=== PATIENT | male | born 1950 | race Caucasian/White ===

== ENCOUNTER 2017-06-16 02:28 | Emergency (ER) | payer MEDICARE, OTHER ==
[2017-06-16 02:39] VITALS: RESP 18
[2017-06-16] MEDS ORDERED: MORPHINE SULFATE 4 MG/ML SYRINGE IV STA (02:56)
--- NOTE | 2017-06-16 04:40 | XR ---
EXAM: XR Right Ribs, 2 Views CLINICAL HISTORY: Reason: Pain TECHNIQUE: Frontal and oblique views of the right ribs. COMPARISON: No relevant prior studies available. FINDINGS: Lungs: Lungs are clear. Pleural space: No evidence of pneumothorax or pleural effusion. Heart: Heart size is mildly enlarged. Mediastinum: Mediastinal structures are unremarkable. Bones/joints: Right RIBS 2 views:No definite acute rib fractures identified, although lower ribs suboptimally visualized on limited rib series. Tubes, lines and devices: AP chest radiograph: Previous median sternotomy. Cardiac pacer/defibrillator device has leads extending to region of right ventricle. IMPRESSION: Previous median sternotomy. Mild cardiomegaly. No evidence of acute cardiopulmonary disease. No definite acute right rib fractures identified.
--- NOTE | 2017-06-16 04:44 | ED ---
Fall HPI - General Chief Complaint: Fall Stated Complaint: fall Time Seen by Provider: 06/16/17 02:55 Source: patient Mode of arrival: EMS - History of Present Illness Initial Comments: This patient is a 66-year-old man who presents to be evaluated for pain to his right side. This has developed over the course the day after he had a fall at home around 10 the morning. Patient states that he was not able to sleep due to sharp pains. He indicates the right-sided ribs. The patient denies dyspnea , cough or hemoptysis, diaphoresis, or other chest symptoms. MD Complaint: fall Onset/Timin -: hour(s) Fall From: standing Place Fall Occurred: home Loss of Consciousness: none Prolonged Down Time?: no Symptoms Prior to Fall: none Location: chest Severity: moderate Quality: sharp Context: tripped/slipped Associated Symptoms: denies - Related Data Home Medications Medication Instructions Recorded Confirmed Amiodarone [Cordarone] 200 mg PO DAILY 06/16/17 06/16/17 Aspirin EC [Ecotrin Low Dose] 81 mg PO DAILY 06/16/17 06/16/17 Carvedilol [Coreg] 6.25 mg PO BID 06/16/17 06/16/17 Donepezil [Aricept] 1 tab PO HS 06/16/17 06/16/17 Furosemide [Lasix] 20 mg PO DAILY 06/16/17 06/16/17 Gabapentin [Neurontin] 300 mg PO TID 06/16/17 06/16/17 HYDROcodone/APAP 10-325MG [[place] 1 tab PO Q4HR 06/16/17 06/16/17 10-325] Ipratropium Nebulized [Atrovent 1 inhaler PO Q4HR PRN 06/16/17 06/16/17 Nebulized] Omeprazole 20 mg PO BID 06/16/17 06/16/17 Spironolactone [Aldactone] 1 tab PO DAILY 06/16/17 06/16/17 Warfarin [Coumadin] 2.5 mg PO DAILY 06/16/17 06/16/17 levETIRAcetam 300 mg PO BID 06/16/17 06/16/17 Allergies Allergy/AdvReac Type Severity Reaction Status Date / Time No Known Allergies Allergy Verified 06/16/17 02:39 Review of Systems ROS Statement: Those systems with pertinent positive or pertinent negative responses have been documented in the HPI. ROS Other: All systems not noted in ROS Statement are negative. Constitutional: Denies: fever, chills, weakness Respiratory: Denies: cough, dyspnea, wheezes, hemoptysis Cardiovascular: Reports: as per HPI, chest pain. Denies: palpitations, orthopnea Gastrointestinal: Denies: abdominal pain, vomiting, diarrhea Genitourinary: Denies: dysuria, hematuria Musculoskeletal: Denies: back pain Neurological: Denies: headache Past Medical History Past Medical History: Asthma, Chest Pain / Angina, Heart Failure, CVA/TIA, Myocardial Infarction ([place]), Thyroid Disorder Additional Past Medical History / Comment(s): AICD History of Any Multi-Drug Resistant Organisms: None Reported Past Surgical History: Back Surgery, Coronary Bypass/CABG, Heart Catheterization With Stent Past Psychological History: No Psychological Hx Reported Smoking Status: Current every day smoker General Exam General appearance: alert, in no apparent distress Head exam: Present: atraumatic, normocephalic Neck exam: Present: normal inspection, full ROM. Absent: tenderness Respiratory exam: Present: normal lung sounds bilaterally, chest wall tenderness. Absent: respiratory distress, wheezes, rales, rhonchi, stridor, decreased breath sounds, prolonged expiratory Cardiovascular Exam: Present: regular rate, normal rhythm, normal heart sounds GI/Abdominal exam: Present: soft. Absent: distended, tenderness, guarding, rebound, mass Extremities exam: Present: normal inspection, normal capillary refill. Absent: pedal edema, calf tenderness Back exam: Present: normal inspection. Absent: CVA tenderness (R), CVA tenderness (L) Neurological exam: Present: alert, normal gait Skin exam: Present: warm, dry, intact, normal color. Absent: rash Course Vital Signs 06/16/17 06/16/17 06/16/17 02:32 03:41 05:00 Temperature 96.8 F L 98.6 F Pulse Rate 56 L 56 L 54 L Respiratory 18 18 18 Rate Blood Pressure 170/76 110/64 107/65 O2 Sat by Pulse 95 94 L 95 Oximetry Disposition Clinical Impression: Fall, Chest wall injury Disposition: HOME SELF-CARE Condition: Fair Instructions: Fall Prevention for Older Adults (ED) Referrals: Nonstaff,Physician [Primary Care Provider] - 1-2 days
[2017-06-16 05:01] VITALS: BP 107/65; PULSE 54; TEMP 98.6
--- NOTE | 2017-06-21 06:26 | CDI ---
Documentation Clarification OP Dear Abram MOORE MD Please do addendum to ED report for HPI and physical exam. Thank you, Gabriela Espinosa Candle Wicker If you have any question, Please contact coding clerk at [phone] [facility]
== END 2017-06-16 05:10 | disposition home or self-care (01) ==
LOC: EC 02:28
DX: S29.9XXA Unspecified injury of thorax, initial encounter (principal); I25.2 Old myocardial infarction; E07.9 Disorder of thyroid, unspecified; I50.9 Heart failure, unspecified; F17.200 Nicotine dependence, unspecified, uncomplicated; Z86.73 Personal history of transient ischemic attack (TIA), and cerebral infarction without residual deficits; Z79.82 Long term (current) use of aspirin; Z79.01 Long term (current) use of anticoagulants; Z79.899 Other long term (current) drug therapy; W19.XXXA Unspecified fall, initial encounter; Y92.009 Unspecified place in unspecified non-institutional (private) residence as the place of occurrence of the external cause
CPT/HCPCS: 99284 ×2; 96374 ×2; 71101; J2270

== ENCOUNTER 2017-11-12 10:05 | Inpatient (IN) | payer MEDICARE, OTHER ==
[2017-11-12 10:28] LABS: Basophils % (A) 1 %; Eosinophils # (A) 0.1 k/uL (0-0.7); Eosinophils % (A) 2 %; HCT 39.3 % (39.0-53.0); Hypochromasia Moderate; Lymphocytes % (A) 20 %; MCHC 30.4 g/dL (31.0-37.0); MCV 91.9 fL (80.0-100.0); Monocytes # (A) 0.4 k/uL (0-1.0); Monocytes % (A) 7 %; Neutrophils # (A) 3.4 k/uL (1.3-7.7); Neutrophils % (A) 68 %; Platelet Count 263 k/uL (150-450); RBC 4.28 m/uL (4.30-5.90); RDW 15.3 % (11.5-15.5)
--- NOTE | 2017-11-12 10:28 | ED ---
General Adult HPI - General Chief complaint: Recheck/Abnormal Lab/Rx Stated complaint: Cardiac Symptoms Time Seen by Provider: 11/12/17 10:10 Source: patient, EMS, RN notes reviewed, old records reviewed Mode of arrival: EMS Limitations: no limitations - History of Present Illness Initial comments: This is a 67-year-old male to the ER for evaluation of heart issues. Patient has history of heart disease history of defibrillator. Patient states his defibrillator went off today, no prior history of similar events. Patient is without chest pain or shortness of breath, no recent change in medications. Patient eating normal diet, no recent nausea vomiting or diarrhea. Patient has no other complaints - Related Data Home Medications Medication Instructions Recorded Confirmed Amiodarone [Cordarone] 200 mg PO QAM 06/16/17 10/16/17 Aspirin EC [Ecotrin Low Dose] 81 mg PO DAILY 06/16/17 10/16/17 Carvedilol [Coreg] 6.25 mg PO BID 06/16/17 10/16/17 Donepezil [Aricept] 10 mg PO HS 06/16/17 10/16/17 HYDROcodone/APAP 10-325MG [[place] 1 tab PO TID 06/16/17 10/16/17 10-325] Ipratropium Nebulized [Atrovent 1 puff INHALATION RT-Q4H PRN 06/16/17 10/16/17 Nebulized] Omeprazole 20 mg PO BID 06/16/17 10/16/17 Atorvastatin [Lipitor] 40 mg PO QAM 10/16/17 10/16/17 Gabapentin [Neurontin] 300 mg PO TID 10/16/17 10/16/17 Previous Rx's Medication Instructions Recorded Clopidogrel [Plavix] 75 mg PO DAILY #30 tab 10/20/17 Lisinopril [Zestril] 10 mg PO DAILY #30 tab 10/20/17 Nitroglycerin Sl Tabs [Nitrostat] 0.4 mg SUBLINGUAL Q5M PRN #25 tab 10/20/17 Allergies Allergy/AdvReac Type Severity Reaction Status Date / Time No Known Allergies Allergy Verified 11/12/17 10:13 Review of Systems ROS Statement: Those systems with pertinent positive or pertinent negative responses have been documented in the HPI. ROS Other: All systems not noted in ROS Statement are negative. Past Medical History Past Medical History: Asthma, Chest Pain / Angina, Heart Failure, COPD, CVA/TIA , Myocardial Infarction ([place]), Thyroid Disorder Additional Past Medical History / Comment(s): AICD, chronic pain in back, legs, and arms Last Myocardial Infarction Date:: unsure History of Any Multi-Drug Resistant Organisms: None Reported Past Surgical History: Back Surgery, Coronary Bypass/CABG, Heart Catheterization With Stent Past Anesthesia/Blood Transfusion Reactions: No Reported Reaction Date of Last Stent Placement:: 04/07/2004 Past Psychological History: No Psychological Hx Reported Smoking Status: Current every day smoker Past Alcohol Use History: None Reported Past Drug Use History: None Reported - Past Family History Mother Family Medical History: Myocardial Infarction (AL) General Exam Limitations: no limitations General appearance: alert, in no apparent distress Head exam: Present: atraumatic, normocephalic, normal inspection Eye exam: Present: normal appearance, PERRL, EOMI. Absent: scleral icterus, conjunctival injection, periorbital swelling ENT exam: Present: normal exam, mucous membranes moist Neck exam: Present: normal inspection. Absent: tenderness, meningismus, lymphadenopathy Respiratory exam: Present: normal lung sounds bilaterally. Absent: respiratory distress, wheezes, rales, rhonchi, stridor Cardiovascular Exam: Present: regular rate, normal rhythm, normal heart sounds. Absent: systolic murmur, diastolic murmur, rubs, gallop, clicks GI/Abdominal exam: Present: soft, normal bowel sounds. Absent: distended, tenderness, guarding, rebound, rigid Extremities exam: Present: normal inspection, full ROM, normal capillary refill. Absent: tenderness, pedal edema, joint swelling, calf tenderness Back exam: Present: normal inspection Neurological exam: Present: alert, oriented X3, CN II-XII intact Psychiatric exam: Present: normal affect, normal mood Skin exam: Present: warm, dry, intact, normal color. Absent: rash Course Vital Signs 11/12/17 10:06 Temperature 97.5 F L Pulse Rate 79 Respiratory 20 Rate Blood Pressure 105/64 O2 Sat by Pulse 95 Oximetry - Reevaluation(s) Reevaluation #1: 11/12/17 10:[address] [place] defibrillator pacemaker here in the ER Reevaluation #2: 11/12/17 11:15 Patient continues to deny any chest pain, no further discharge EKG Findings - EKG Comments: EKG Findings:: EKG shows normal sinus rhythm rate of 81, MN 182, QRS 1:30, QTc 504 Medical Decision Making - Medical Decision Making 67-year-old ER for evaluation of the fibular discharge, no chest pain. Patient is of elevated troponin, patient will be admitted for anticoagulation and evaluation by cardiology - Lab Data Result diagrams: 11/12/17 10:12 11/12/17 10:12 Lab Results 11/12/17 11/12/17 11/12/17 Range/Units 10:12 10:12 10:12 WBC 5.0 (3.8-10.6) k/uL RBC 4.28 L (4.30-5.90) m/uL Hgb 12.0 L (13.0-17.5) gm/dL Hct 39.3 (39.0-53.0) % MCV 91.9 (80.0-100.0) fL MCH 28.0 (25.0-35.0) pg MCHC 30.4 L (31.0-37.0) g/dL RDW 15.3 (11.5-15.5) % Plt Count 263 (150-450) k/uL Neutrophils % 68 % Lymphocytes % 20 % Monocytes % 7 % Eosinophils % 2 % Basophils % 1 % Neutrophils # 3.4 (1.3-7.7) k/uL Lymphocytes # 1.0 (1.0-4.8) k/uL Monocytes # 0.4 (0-1.0) k/uL Eosinophils # 0.1 (0-0.7) k/uL Basophils # 0.0 (0-0.2) k/uL Hypochromasia Moderate PT (9.0-12.0) sec INR (<1.2) APTT (22.0-30.0) sec D-Dimer (<0.60) mg/L FEU Sodium 147 H (137-145) mmol/L Potassium 4.6 (3.5-5.1) mmol/L Chloride 112 H (98-107) mmol/L Carbon Dioxide 27 (22-30) mmol/L Anion Gap 8 mmol/L BUN 18 (9-20) mg/dL Creatinine 1.30 H (0.66-1.25) mg/dL Est GFR (MDRD) Af Amer >60 (>60 ml/min/1.73 sqM) Est GFR (MDRD) Non-Af 55 (>60 ml/min/1.73 sqM) Glucose 138 H (74-99) mg/dL Calcium 9.3 (8.4-10.2) mg/dL Magnesium 2.2 (1.6-2.3) mg/dL Total Bilirubin 0.3 (0.2-1.3) mg/dL AST 26 (17-59) U/L ALT 50 (21-72) U/L Alkaline Phosphatase 87 (38-126) U/L Total Creatine Kinase 131 (55-170) U/L CK-MB (CK-2) 11.8 H* (0.0-2.4) ng/mL CK-MB (CK-2) Rel Index 9.0 Troponin I 1.740 H* (0.000-0.034) ng/mL Total Protein 5.7 L (6.3-8.2) g/dL Albumin 3.1 L (3.5-5.0) g/dL Lipase 87 (23-300) U/L 11/12/17 Range/Units 10:12 WBC (3.8-10.6) k/uL RBC (4.30-5.90) m/uL Hgb (13.0-17.5) gm/dL Hct (39.0-53.0) % MCV (80.0-100.0) fL MCH (25.0-35.0) pg MCHC (31.0-37.0) g/dL RDW (11.5-15.5) % Plt Count (150-450) k/uL Neutrophils % % Lymphocytes % % Monocytes % % Eosinophils % % Basophils % % Neutrophils # (1.3-7.7) k/uL Lymphocytes # (1.0-4.8) k/uL Monocytes # (0-1.0) k/uL Eosinophils # (0-0.7) k/uL Basophils # (0-0.2) k/uL Hypochromasia PT 19.3 H (9.0-12.0) sec INR 2.1 H (<1.2) APTT 27.3 (22.0-30.0) sec D-Dimer 3.12 H (<0.60) mg/L FEU Sodium (137-145) mmol/L Potassium (3.5-5.1) mmol/L Chloride (98-107) mmol/L Carbon Dioxide (22-30) mmol/L Anion Gap mmol/L BUN (9-20) mg/dL Creatinine (0.66-1.25) mg/dL Est GFR (MDRD) Af Amer (>60 ml/min/1.73 sqM) Est GFR (MDRD) Non-Af (>60 ml/min/1.73 sqM) Glucose (74-99) mg/dL Calcium (8.4-10.2) mg/dL Magnesium (1.6-2.3) mg/dL Total Bilirubin (0.2-1.3) mg/dL AST (17-59) U/L ALT (21-72) U/L Alkaline Phosphatase (38-126) U/L Total Creatine Kinase (55-170) U/L CK-MB (CK-2) (0.0-2.4) ng/mL CK-MB (CK-2) Rel Index Troponin I (0.000-0.034) ng/mL Total Protein (6.3-8.2) g/dL Albumin (3.5-5.0) g/dL Lipase (23-300) U/L Critical Care Time Critical Care Time: Yes Total Critical Care Time: 31 Disposition Clinical Impression: Unstable angina pectoris, Defibrillator discharge, NSTEMI (non-ST elevated myocardial infarction), Elevated troponin Disposition: ADMITTED IP TO THIS HOSP Condition: Serious Referrals: Lee Andujar MD [Primary Care Provider] - 1-2 days
[2017-11-12 10:38] LABS: D-Dimer 3.12 mg/L FEU (<0.60)
[2017-11-12 10:42] LABS: INR 2.1 (<1.2); Partial Thromboplastin Time 27.3 sec (22.0-30.0); Prothrombin Time 19.3 sec (9.0-12.0)
[2017-11-12 10:54] LABS: ALT 50 U/L (21-72); AST 26 U/L (17-59); Albumin 3.1 g/dL (3.5-5.0); Alkaline Phosphatase 87 U/L (38-126); Anion Gap 8 mmol/L; Blood Urea Nitrogen 18 mg/dL (9-20); Calcium 9.3 mg/dL (8.4-10.2); Carbon Dioxide 27 mmol/L (22-30); Chloride 112 mmol/L (98-107); Glucose 138 mg/dL (74-99); Lipase 87 U/L (23-300); Magnesium 2.2 mg/dL (1.6-2.3); Potassium 4.6 mmol/L (3.5-5.1); Sodium 147 mmol/L (137-145); Total Bilirubin 0.3 mg/dL (0.2-1.3); Total Protein 5.7 g/dL (6.3-8.2)
[2017-11-12 11:09] LABS: Creatine Kinase MB 11.8 ng/mL (0.0-2.4); Troponin I 1.74 ng/mL (0.000-0.034)
[2017-11-12] MEDS ORDERED: NITROGLYCERIN SL TABS 0.4 MG TAB SUBLINGUAL PRN ×2 (11:12→13:57)
[2017-11-12] MEDS ORDERED: HEPARIN SODIUM,PORCINE 5,000 UNIT/ML 1 ML VIAL IV ONE (11:12)
[2017-11-12] MEDS ORDERED: HEPARIN SODIUM,PORCINE 5,000 UNIT/ML 1 ML VIAL IV PRN (11:12)
[2017-11-12] MEDS ORDERED: MORPHINE SULFATE 5 MG/ML SYRINGE IV PRN (11:12)
[2017-11-12] MEDS ORDERED: ASPIRIN 81 MG PO STA (11:12)
[2017-11-12] MEDS ORDERED: HEPARIN SOD,PORK IN 0.45% NACL 25,000 UNIT in 0.45% NACL 1 500ML.BAG IV SCH (11:15)
[2017-11-12] MEDS: SODIUM CHLORIDE 0.9% 1,000 ML IV SCH ×2 (11:29→20:14)
[2017-11-12] MEDS ORDERED: IPRATROPIUM 0.5 MG/2.5 ML NEBU INHALATION PRN (13:57)
[2017-11-12] MEDS ORDERED: ALBUTEROL NEBULIZED 2.5 MG/3 ML INHALATION PRN (13:57)
[2017-11-12] MEDS: IPRATROPIUM-ALBUTEROL 3 ML NEB INHALATION PRN (15:23)
[2017-11-12] MEDS: HYDROcodone/APAP 10-325MG 1 EACH TAB PO SCH ×2 (15:38→20:13)
[2017-11-12] MEDS: GABAPENTIN 300 MG CAP PO SCH ×2 (15:39→20:14)
[2017-11-12 17:57] LABS: Creatine Kinase MB 15.8 ng/mL (0.0-2.4); Troponin I 3.85 ng/mL (0.000-0.034)
[2017-11-12] MEDS: IPRATROPIUM 0.5 MG/2.5 ML NEBU INHALATION SCH (19:39)
[2017-11-12] MEDS ORDERED: DEXTROSE 5% IN WATER 100 ML with AMIODARONE 150 MG IV ONE (20:00)
[2017-11-12 20:16] LABS: Glucose,Whole Blood 118 mg/dL (75-99)
[2017-11-12] MEDS: AMIODARONE 450 MG in DEXTROSE 5% IN WATER 250 ML IV SCH ×2 (20:37)
--- NOTE | 2017-11-12 20:53 | XR ---
EXAMINATION TYPE: XR chest 1V portable DATE OF EXAM: 11/12/2017 COMPARISON: 10/16/2017 HISTORY: Chest pain TECHNIQUE: Single frontal view of the chest is obtained. FINDINGS: Heart is enlarged. There is no gross heart failure. Costophrenic angles are clear. There i s a left axillary pacemaker with the lead tip in the right ventricle. There are sternal wires. There are chest leads. IMPRESSION: Cardiomegaly. No overt heart failure. No adverse change compared to last exam.
[2017-11-12] MEDS ORDERED: WARFARIN 1.5 MG TAB PO SCH (21:00)
[2017-11-12] MEDS ORDERED: METOPROLOL TARTRATE 25 MG TAB PO SCH (21:00)
[2017-11-12] MEDS: LIDOCAINE-D5W PMX 2G/500ML 2,000 MG in DEXTROSE/WATER 1 500ML.BAG IV SCH (21:23)
[2017-11-12 21:36] LABS: Glucose,Whole Blood 160 mg/dL (75-99)
[2017-11-12 21:51] LABS: Basophils % (A) 1 %; Eosinophils # (A) 0.1 k/uL (0-0.7); Eosinophils % (A) 2 %; HCT 32.8 % (39.0-53.0); HGB 10.1 gm/dL (13.0-17.5); Hypochromasia Marked; Lymphocytes # (A) 1.1 k/uL (1.0-4.8); Lymphocytes % (A) 20 %; MCH 28.4 pg (25.0-35.0); MCHC 30.7 g/dL (31.0-37.0); MCV 92.3 fL (80.0-100.0); Mean Platelet Volume 8.3; Monocytes # (A) 0.5 k/uL (0-1.0); Monocytes % (A) 9 %; Neutrophils # (A) 3.9 k/uL (1.3-7.7); Neutrophils % (A) 67 %; Platelet Count 223 k/uL (150-450); RBC 3.55 m/uL (4.30-5.90); RDW 14.9 % (11.5-15.5); WBC 5.7 k/uL (3.8-10.6)
[2017-11-12 22:03] LABS: Ionized Calcium 4.7 mg/dL (4.5-5.3)
[2017-11-12 22:07] LABS: INR 3.1 (<1.2); Partial Thromboplastin Time 33.4 sec (22.0-30.0); Prothrombin Time 27.4 sec (9.0-12.0)
[2017-11-12 22:14] LABS: ALT 46 U/L (21-72); AST 27 U/L (17-59); Albumin 2.2 g/dL (3.5-5.0); Alkaline Phosphatase 63 U/L (38-126); Anion Gap 4 mmol/L; Blood Urea Nitrogen 16 mg/dL (9-20); Calcium 7.3 mg/dL (8.4-10.2); Carbon Dioxide 22 mmol/L (22-30); Chloride 109 mmol/L (98-107); Glucose 319 mg/dL (74-99); Magnesium 2.5 mg/dL (1.6-2.3); Phosphorus 2.3 mg/dL (2.5-4.5); Potassium 3.4 mmol/L (3.5-5.1); Sodium 135 mmol/L (137-145); Total Bilirubin 0.2 mg/dL (0.2-1.3); Total Protein 4.4 g/dL (6.3-8.2)
[2017-11-12 22:26] LABS: Creatine Kinase MB 13.7 ng/mL (0.0-2.4)
[2017-11-12 22:27] LABS: Troponin I 1.88 ng/mL (0.000-0.034)
[2017-11-12] MEDS ORDERED: Potassium Replacement Protocol 1 EACH MISC MISCELLANE PRN (22:27)
[2017-11-12] MEDS: MAGNESIUM SULFATE-D5W PMX 1 GM in DEXTROSE/WATER 1 100ML.BAG IVPB SCH ×2 (23:04→23:30)
[2017-11-12] MEDS: CARVEDILOL 6.25 MG TAB PO SCH (23:27)
[2017-11-12] MEDS: POTASSIUM CHLORIDE 10 MEQ, LIDOCAINE 2% INJ 10 MG in SODIUM CHLORIDE 0.9% 100 ML IV SCH (23:27)
[2017-11-12] MEDS: DONEPEZIL 10 MG TAB PO SCH (23:28)
[2017-11-12] MEDS: WARFARIN 3 MG TAB PO SCH (23:29)
[2017-11-13] MEDS: METOPROLOL TARTRATE 5 MG/5 ML VIAL IVP SCH ×2 (00:02→00:08)
[2017-11-13] MEDS ORDERED: METOPROLOL TARTRATE 5 MG/5 ML VIAL IVP ONE (00:03)
[2017-11-13] MEDS: ONDANSETRON 4 MG/2 ML VIAL IVP PRN ×2 (00:07→06:22)
[2017-11-13] MEDS ORDERED: SODIUM CHLORIDE 0.9% 250 ML IV ONE (00:30)
[2017-11-13] MEDS: POTASSIUM CHLORIDE 10 MEQ, LIDOCAINE 2% INJ 10 MG in SODIUM CHLORIDE 0.9% 100 ML IV SCH (00:35)
[2017-11-13] MEDS: IPRATROPIUM 0.5 MG/2.5 ML NEBU INHALATION SCH ×4 (01:17→23:04)
[2017-11-13 01:22] LABS: Appearance,Urine Clear (Clear); Bacteria,Urine Rare /hpf; Bilirubin,Urine Negative (Negative); Blood,Urine Small (Negative); Budding Yeast,Urine Rare /hpf; Color,Urine Yellow; Glucose,Urine (UA) Negative (Negative); Hyaline Casts,Urine 33 /lpf (0-2); Ketones,Urine Negative (Negative); Leukocyte Esterase,Urine Large (Negative); Mucus,Urine Few /hpf; Nitrite,Urine Negative (Negative); PH, Urine 5.5 (5.0-8.0); Protein,Urine 1+ (Negative); RBC,Urine 16 /hpf (0-5); Specific Gravity,Urine 1.026 (1.001-1.035); Squamous Epithelial Cell,Urine 2 /hpf (0-4); Urobilinogen,Urine <2.0 mg/dL (<2.0); WBC,Urine 65 /hpf (0-5)
[2017-11-13] MEDS: IPRATROPIUM-ALBUTEROL 3 ML NEB INHALATION PRN ×2 (06:10→12:13)
[2017-11-13 06:20] LABS: Blood Urea Nitrogen 20 mg/dL (9-20); Calcium 8.7 mg/dL (8.4-10.2); Carbon Dioxide 22 mmol/L (22-30); Cholesterol 106 mg/dL (<200); Glucose 147 mg/dL (74-99); HDL Cholesterol 27 mg/dL (40-60); LDL Cholesterol,Calculated 51 mg/dL (0-99); Potassium 5.1 mmol/L (3.5-5.1); Sodium 139 mmol/L (137-145); Triglycerides 141 mg/dL (<150)
[2017-11-13 06:25] LABS: Basophils % (A) 0 %; Eosinophils % (A) 1 %; HCT 35.9 % (39.0-53.0); HGB 10.9 gm/dL (13.0-17.5); Hypochromasia Moderate; Lymphocytes # (A) 1.1 k/uL (1.0-4.8); Lymphocytes % (A) 18 %; MCH 28.6 pg (25.0-35.0); MCHC 30.4 g/dL (31.0-37.0); Mean Platelet Volume 7.7; Monocytes # (A) 0.5 k/uL (0-1.0); Monocytes % (A) 8 %; Neutrophils # (A) 4.2 k/uL (1.3-7.7); Neutrophils % (A) 70 %; Platelet Count 233 k/uL (150-450); RBC 3.82 m/uL (4.30-5.90)
[2017-11-13 06:30] LABS: INR 2.4 (<1.2); Partial Thromboplastin Time 27.8 sec (22.0-30.0); Prothrombin Time 21.2 sec (9.0-12.0)
[2017-11-13 06:34] LABS: Anion Gap 6 mmol/L; Chloride 111 mmol/L (98-107)
[2017-11-13] MEDS: AMIODARONE 450 MG in DEXTROSE 5% IN WATER 250 ML IV SCH ×6 (08:06→18:59)
--- NOTE | 2017-11-13 08:13 | XR ---
EXAMINATION TYPE: XR chest 1V portable DATE OF EXAM: 11/13/2017 COMPARISON: 11/12/2017 HISTORY: Chest pain TECHNIQUE: Single frontal view of the chest is obtained. FINDINGS: Heart is enlarged. There is mild pulmonary congestion. There is left axillary pacemaker wi th the lead tip in the right ventricle. There are sternal wires. There is slight blunting of right co stophrenic angle. IMPRESSION: There is evidence for mild heart failure that is slightly worse than last exam. Small ri ght pleural effusion.
[2017-11-13] MEDS: SODIUM CHLORIDE 0.9% 1,000 ML IV SCH ×2 (08:26→12:20)
[2017-11-13] MEDS: CARVEDILOL 6.25 MG TAB PO SCH ×2 (08:27→09:31)
[2017-11-13] MEDS: GABAPENTIN 300 MG CAP PO SCH ×3 (08:27→21:08)
[2017-11-13] MEDS: HYDROcodone/APAP 10-325MG 1 EACH TAB PO SCH ×3 (08:27→21:07)
[2017-11-13] MEDS: LISINOPRIL 10 MG TAB PO SCH (08:28)
[2017-11-13] MEDS: CLOPIDOGREL 75 MG TAB PO SCH (08:28)
[2017-11-13] MEDS: ATORVASTATIN 40 MG TAB PO SCH (08:28)
[2017-11-13] MEDS: ASPIRIN 81 MG PO SCH (08:28)
[2017-11-13 08:30] LABS: Magnesium 2.4 mg/dL (1.6-2.3); Phosphorus 3.2 mg/dL (2.5-4.5)
[2017-11-13] MEDS ORDERED: cefTRIAXone 1,000 MG VIAL (IM USE) IM SCH (09:00)
[2017-11-13] MEDS ORDERED: ASPIRIN 325 MG TAB PO SCH (09:00)
[2017-11-13] MEDS ORDERED: AMIODARONE 200 MG TAB PO SCH (09:00)
[2017-11-13] MEDS ORDERED: LIDOCAINE-D5W PMX 2G/500ML 2,000 MG in DEXTROSE/WATER 1 500ML.BAG IV SCH (09:15)
--- NOTE | 2017-11-13 09:23 | HP ---
HISTORY AND PHYSICAL DATE OF SERVICE: 11/12/2017. CHIEF COMPLAINTS: AICD shocks. HISTORY: 67 -year-old gentleman with past history of asthma, COPD, CVA, TIA, AICD being followed by Dr. Elder in the outpatient setting, recently admitted to [facility] with complaints of chest pain, possible acute non ST elevation myocardial infarction, suspected and patient underwent cardiac cath and stenting. Patient went home and today the patient had multiple AICD shocks at least 3 and the patient came to [facility]. There is no history of chest pain. No palpitations, but however the troponins elevated up to 3.85 indicating the possibility of an acute non ST elevation myocardial infarction. Cardiology evaluation in progress. There is no history of fever, rigors, or chills. PAST MEDICAL HISTORY: History of CAD stent, history of asthma, COPD, CVA, TIA, myocardial infarction, AICD. MEDICATIONS: Prior to admission include: 1. Atrovent 1 puff q.8h p.r.n. 2. Ventolin 2 puffs q.4h p.r.n. 3. Coumadin 1.5 mg q.h.s. 4. Nitrostat 0.4 subcu q5 p.r.n. 5. Zestril 10 mg daily. 6. Ativan 0.5 q.4h. 7. [place] 10 mg t.i.d. 8. Neurontin 300 t.i.d. 9. Aricept 10 mg q.h.s. 10.Plavix 75 mg q.a.m. 11.Lipitor 40 mg. 12.Coreg 6.25 mg b.i.d. 13.Ecotrin 81 mg q.h.s. 14.Cordarone 200 mg q.a.m. ALLERGIES: None. FAMILY HISTORY: History of myocardial infarction in the family. SOCIAL HISTORY: History of smoking, continued ongoing. No history of alcohol intake. REVIEW OF SYSTEMS: HEENT: No diminished vision, no diminished hearing. Cardiovascular: As mentioned earlier. Respiratory: As mentioned earlier. GI: No nausea or vomiting. : No dysuria. Nervous System: No numbness or weakness. ALLERGY/IMMUNOLOGY: No asthma or hayfever. Musculoskeletal: As mentioned earlier. Dermatology: Negative. Rheumatology: Negative. Hematology/Oncology: No history of anemia. Endocrine: No history of diabetes or hypothyroidism. Constitutional: As mentioned earlier. Psychiatric: As mentioned. PHYSICAL EXAMINATION: Pulse 69, blood pressure 93/52, respiration 18, temperature 98.2, pulse ox 97% on room air. HEENT: Conjunctivae normal. Oral mucosa moist. Neck is no jugular venous distention. No carotid bruit. No lymph node enlargement. Cardiovascular systems: S1, S2 muffled. Respiration: Breath sounds diminished in the bases. No rhonchi and no crackles. ABDOMEN: Soft, nontender. Legs are no edema. No swelling. Nervous system: Higher functions as mentioned earlier. Moves all four extremities. Lymphatics: No lymph nodes palpable in the neck, axillae or groin. SKIN: No ulcer, rash or bleeding. LABS: WBC 5, hemoglobin is 12, D-dimer is 3.12, and INR is 2.1 and glucose 138 and troponin 1.740. Otherwise the EKG shows ST changes non progression R waves. ASSESSMENT: 1. Status post AICD shows possible ventricular arrhythmia. 2. Elevated troponin up to 3.850, rule out acute elevation myocardial infarction. 3. Hyponatremia. 4. Increased D-dimer. 5. History of asthma. 6. History of chronic obstructive pulmonary disease. 7. History of congestive heart failure. 8. History of myocardial infarction. 9. History of AICD. 10.History of hypothyroidism. 11.History back pain. 12.Coronary artery disease, coronary artery bypass grafting, stent. RECOMMENDATIONS AND DISCUSSION: This 67-year-old gentleman who presented with multiple complex medical issues, we will monitor the patient closely. Continue the current medications. Symptomatic treatment. Otherwise at this time cardiology evaluation. Continue with beta blockers and antiplatelet agents and Lipitor. AICD interrogation. Prognosis guarded because of multiple complex medical issues. Further recommendations to follow. Copy of dictation being forwarded to Dr. Elder who is the primary physician. MMODL / IJN: [id number] /
[2017-11-13] MEDS ORDERED: FUROSEMIDE 10 MG/ML 2 ML VIAL IV STA (09:32)
[2017-11-13] MEDS: MEXILETINE 150 MG CAP PO SCH ×2 (09:41→16:11)
--- NOTE | 2017-11-13 09:59 | CONS ---
CONSULTATION HISTORY: Mr. Goncalves is a 67-year-old gentleman who was admitted through the emergency room because of ICD shock. This patient's previous medical records were reviewed. The patient has a known history of ischemic cardiomyopathy, with a prior history of coronary artery bypass surgery. The patient recently was admitted to the hospital with a non-Q-wave myocardial infarction. Underwent cardiac catheterization, JAVIER graft was open, the vein grafts were closed, and the patient underwent a stent to the [place] circumflex coronary artery. Patient gives a history that this morning he had possibly 3 shocks. The patient was initially in normal sinus rhythm without any acute ischemic changes. His troponin was mildly elevated. This evening patient went back into sustained ventricular tachycardia at a rate of 150. The patient is asymptomatic. Denies any dizziness or lightheadedness. The patient received amiodarone and lidocaine, still he persists to be in atrial ventricular tachycardia. In view of that, the patient is being transferred to the intensive care unit and he will be cardioverted. The procedure was explained to the patient. PAST MEDICAL HISTORY: Includes coronary artery bypass surgery, recent stent to the circumflex coronary artery, history of AICD. Past history of atrial fibrillation, myocardial infarction and thyroid disorder. MEDICATIONS: Patient's home medications include amiodarone 200 mg daily, Coreg twice a day, aspirin once a day, Lasix 20 mg daily, Aldactone, Lipitor 40 mg daily, Zestril, and Coumadin. PHYSICAL EXAMINATION: At present reveals a 67-year-old gentleman who does not appear to be in any acute distress. Patient's heart rate is 140 to 150 per minute, blood pressure is 93/52 mmHg. HEENT examination is negative. NECK: Supple. There is no increase in jugular venous pressure. Both the carotid pulses are felt. There is no bruit. CHEST: Symmetrical. HEART: The PMI is not felt. First and second heart sounds are normal. There is no evidence of any murmur. LUNGS: Clinically clear to auscultation and percussion. ABDOMEN: Soft. Liver and spleen are not enlarged. Bowel sounds are heard. EXTREMITIES: Peripheral pulsations are 1+. DIAGNOSTIC STUDIES: Initial EKG showed normal sinus rhythm. EKG now shows evidence of monomorphic ventricular tachycardia. Electrolytes are normal. Creatinine is 1.30. FINAL IMPRESSION: This patient has evidence of persistent ventricular tachycardia at a rate of 150. The patient is hemodynamically stable. In view of the ventricular tachycardia being refractory to IV amiodarone and lidocaine, patient is advised cardioversion. The patient will be taken to the intensive care unit and will be cardioverted. We will continue the patient on IV amiodarone drip as well as lidocaine drip. The patient's overall prognosis is guarded. MMDIOR / ALVINN: [id number] /
--- NOTE | 2017-11-13 10:06 | P.CNPUL ---
History of Present Illness Consult date: 11/13/17 Reason for consult: dyspnea, pleural effusion, abnormal CXR/CT, other Chief complaint: Irregular heartbeat History of present illness: Consult dated 11/13/2017 67-year-old male who apparently was admitted because his automatic implantable cardiac defibrillator went off a number of times because of ventricular tachycardia. The patient also developed shortness of breath hypotension and was placed on Cordarone. More recently he was given mexiletine. The patient's currently here in the ICU. Resting comfortably. He was going to be cardioverted but before he they did that, he converted back into sinus rhythm. Currently the patient's on O2 at 3 L. Is getting an IV of 0.9 at 100 turn down to 50 per the nurse. I producing even further. The patient's on Cordarone a 0.5 mg/m and lidocaine at 2 mics per kilogram per minute. His past medical history is apparently positive for asthma/COPD, angina, heart failure, CVA, myocardial infarction, and hypothyroidism. The patient has no known ALLERGIES. He said previous surgeries including back surgery bypass grafting heart catheterization with stents. Review of Systems A 12 point review of system is positive for shortness of breath. Other than that, patient really does not have much in the way of complaints. Past Medical History Past Medical History: Asthma, Chest Pain / Angina, Heart Failure, COPD, CVA/TIA , Myocardial Infarction ([place]), Thyroid Disorder Additional Past Medical History / Comment(s): AICD, chronic pain in back, legs, and arms Last Myocardial Infarction Date:: unsure History of Any Multi-Drug Resistant Organisms: None Reported Past Surgical History: Back Surgery, Coronary Bypass/CABG, Heart Catheterization With Stent Past Anesthesia/Blood Transfusion Reactions: No Reported Reaction Date of Last Stent Placement:: 10/19/2017 Past Psychological History: No Psychological Hx Reported Smoking Status: Current every day smoker Past Alcohol Use History: None Reported Past Drug Use History: None Reported - Past Family History Mother Family Medical History: Myocardial Infarction ([place]) Medications and Allergies Home Medications Medication Instructions Recorded Confirmed Type Amiodarone [Cordarone] 200 mg PO QAM 06/16/17 11/12/17 History Aspirin EC [Ecotrin Low Dose] 81 mg PO QAM 06/16/17 11/12/17 History Carvedilol [Coreg] 6.25 mg PO BID 06/16/17 11/12/17 History Donepezil [Aricept] 10 mg PO HS 06/16/17 11/12/17 History HYDROcodone/APAP 10-325MG [[place] 1 tab PO TID 06/16/17 11/12/17 History 10-325] Ipratropium Nebulized [Atrovent 0.5 mg INHALATION RT-Q4H PRN 06/16/17 11/12/17 History Nebulized] Atorvastatin [Lipitor] 40 mg PO QAM 10/16/17 11/12/17 History Gabapentin [Neurontin] 300 mg PO TID 10/16/17 11/12/17 History Nitroglycerin Sl Tabs [Nitrostat] 0.4 mg SUBLINGUAL Q5M PRN #25 tab 10/20/17 Rx Albuterol Inhaler [Ventolin Hfa 2 puff INHALATION RT-Q4H PRN 11/12/17 11/12/17 History Inhaler] Clopidogrel [Plavix] 75 mg PO QAM 11/12/17 11/12/17 History Ipratropium Daisy [Atrovent Hfa] 1 puff INHALATION RT-Q8H 11/12/17 11/12/17 History Lisinopril [Zestril] 10 mg PO QAM 11/12/17 11/12/17 History Warfarin [Coumadin] 1.5 mg PO HS 11/12/17 11/12/17 History Allergies Allergy/AdvReac Type Severity Reaction Status Date / Time No Known Allergies Allergy Verified 11/12/17 11:30 Physical Exam Osteopathic Statement: *. No significant issues noted on an osteopathic structural exam other than those noted in the History and Physical/Consult. Vitals: Vital Signs Temp Pulse Pulse Resp BP BP Pulse Ox 11/13/17 09:00 97.2 F L 84 17 108/73 96 11/13/17 08:00 79 19 103/77 94 L 11/13/17 07:30 73 14 94/65 96 11/13/17 07:00 76 16 94/67 95 11/13/17 06:30 78 27 H 117/75 94 L 11/13/17 06:00 73 16 93/66 95 11/13/17 05:30 70 19 82/61 95 11/13/17 05:00 69 14 83/60 97 11/13/17 04:30 70 13 82/65 96 11/13/17 04:00 97.1 F L 71 63 17 81/64 96 11/13/17 03:30 72 22 80/59 97 11/13/17 03:00 70 19 77/62 97 11/13/17 02:30 70 14 72/59 94 L 11/13/17 02:00 64 36 H 73/53 96 11/13/17 01:30 61 12 68/52 96 11/13/17 01:10 62 14 66/47 93 L 11/13/17 01:00 96.8 F L 63 21 69/53 11/13/17 00:50 63 15 66/45 100 11/13/17 00:40 67 20 72/59 99 11/13/17 00:30 67 25 H 74/55 100 11/13/17 00:20 67 28 H 76/53 100 11/13/17 00:10 142 H 28 H 89/73 96 11/13/17 00:00 123 H 63 20 99/59 98 11/12/17 23:50 81 18 83/58 96 11/12/17 23:40 85 22 83/58 98 11/12/17 23:30 84 29 H 106/70 97 11/12/17 23:20 87 52 H 106/70 95 11/12/17 23:10 80 20 99/72 97 11/12/17 23:00 74 15 82/59 96 11/12/17 22:50 76 17 90/61 97 11/12/17 22:40 79 24 90/61 98 11/12/17 22:30 79 21 102/64 97 11/12/17 22:20 83 19 102/64 98 11/12/17 22:10 83 21 105/67 11/12/17 22:00 98.3 F 85 14 105/67 99 11/12/17 21:50 85 21 114/80 11/12/17 21:40 97 8 L 114/80 97 11/12/17 21:33 153 H 11/12/17 21:10 142 H 18 91/63 94 L 11/12/17 20:55 144 H 20 89/63 95 11/12/17 20:45 164 H 18 104/75 94 L 11/12/17 20:30 150 H 20 94/68 94 L 11/12/17 19:50 150 H 20 115/79 97 11/12/17 19:45 134 H 18 115/65 92 L 11/12/17 19:43 148 H 20 93/66 96 11/12/17 19:30 69 18 11/12/17 16:00 96.3 F L 69 18 93/52 97 11/12/17 15:37 92 11/12/17 15:23 88 11/12/17 12:43 96.2 F L 75 18 101/59 99 11/12/17 11:34 97.2 F L 76 19 95/64 99 11/12/17 10:06 97.5 F L 79 20 105/64 95 Intake and Output 11/12/17 11/13/17 11/13/17 22:59 06:59 14:59 Intake Total 200 1057.757 148.4 Output Total 200 40 Balance 200 857.757 108.4 Intake: IV 850 148.4 Amiodarone 450 mg In 33.4 Dextrose 5% in Water 250 ml @ 1 MG/MIN 33.33 mls/ hr IV .Q7H31M [facility] Rx#: [id number] Lidocaine-D5w Pmx 2G/ 45 500Ml 2,000 mg In Dextrose/Water 1 500ml. bag @ 1 MG/MIN 15 mls/hr IV .Q24H [facility] Rx#: [id number] Potassium Chloride 10 meq 800 Lidocaine 2% Inj 10 mg In Sodium Chloride 0.9% 100 ml @ 100 mls/hr IV Q1HR [facility] Rx#:[id number] Sodium Chloride 0.9% 1, 50 70 000 ml @ 20 mls/hr IV . Q24H [facility] Rx#:[id number] Intake, IV Titration 207.757 Amount Amiodarone 450 mg In 207.757 Dextrose 5% in Water 250 ml @ 1 MG/MIN 33.33 mls/ hr IV .Q7H31M [facility] Rx#: [id number] Oral 200 Output: Urine 200 40 Other: Voiding Method Urinal Urinal Indwelling Catheter # Voids 1 Weight 73 kg No acute distress, oriented 3. HEENT examination is grossly unremarkable. Mucous membranes are moist. No oral lesions. Neck supple. Full range of motion. No adenopathy thyromegaly or neck vein distention. Cardiovascular examination reveals regular rhythm rate. S1-S2 normal. No S3 or S4. No discernible murmur noted. Lungs reveal a few scattered bibasilar crackles. No rhonchi. No wheezes. Breath sounds equal bilaterally. Abdomen soft bowel sounds are heard. No masses or tenderness. Extremities are intact. No cyanosis clubbing or edema. Skin is without rash or lesion. Neurologic examination is brief but nonfocal. Results - Laboratory Findings CBC and BMP: 11/13/17 05:22 11/13/17 05:22 PT/INR, D-dimer PT 21.2 sec (9.0-12.0) H 11/13/17 05:22 INR 2.4 (<1.2) H 11/13/17 05:22 D-Dimer 3.12 mg/L FEU (<0.60) H 11/12/17 10:12 Abnormal lab findings: Abnormal Labs 11/12/17 11/12/17 11/12/17 10:12 10:12 10:12 RBC 4.28 L Hgb 12.0 L Hct MCHC 30.4 L PT INR APTT D-Dimer Sodium 147 H Potassium Chloride 112 H Creatinine 1.30 H Glucose 138 H POC Glucose (mg/dL) Calcium Phosphorus Magnesium CK-MB (CK-2) 11.8 H* Troponin I 1.740 H* Total Protein 5.7 L Albumin 3.1 L HDL Cholesterol Urine Protein Urine Blood Ur Leukocyte Esterase Urine RBC Urine WBC Urine WBC Clumps Urine Bacteria Hyaline Casts Urine Mucus Urine Yeast (Budding) 11/12/17 11/12/17 11/12/17 10:12 16:53 20:03 RBC Hgb Hct MCHC PT 19.3 H INR 2.1 H APTT D-Dimer 3.12 H Sodium Potassium Chloride Creatinine Glucose POC Glucose (mg/dL) 118 H Calcium Phosphorus Magnesium CK-MB (CK-2) 15.8 H* Troponin I 3.850 H* Total Protein Albumin HDL Cholesterol Urine Protein Urine Blood Ur Leukocyte Esterase Urine RBC Urine WBC Urine WBC Clumps Urine Bacteria Hyaline Casts Urine Mucus Urine Yeast (Budding) 11/12/17 11/12/17 11/12/17 21:33 21:42 21:42 RBC 3.55 L Hgb 10.1 L Hct 32.8 L MCHC 30.7 L PT INR APTT D-Dimer Sodium Potassium Chloride Creatinine Glucose POC Glucose (mg/dL) 160 H Calcium Phosphorus Magnesium CK-MB (CK-2) 13.7 H* Troponin I 1.880 H* Total Protein Albumin HDL Cholesterol Urine Protein Urine Blood Ur Leukocyte Esterase Urine RBC Urine WBC Urine WBC Clumps Urine Bacteria Hyaline Casts Urine Mucus Urine Yeast (Budding) 11/12/17 11/12/17 11/13/17 21:42 21:42 00:45 RBC Hgb Hct MCHC PT 27.4 H INR 3.1 H APTT 33.4 H D-Dimer Sodium 135 L Potassium 3.4 L Chloride 109 H Creatinine Glucose 319 H POC Glucose (mg/dL) Calcium 7.3 L Phosphorus 2.3 L Magnesium 2.5 H CK-MB (CK-2) Troponin I Total Protein 4.4 L Albumin 2.2 L HDL Cholesterol Urine Protein 1+ H Urine Blood Small H Ur Leukocyte Esterase Large H Urine RBC 16 H Urine WBC 65 H Urine WBC Clumps Few H Urine Bacteria Rare H Hyaline Casts 33 H Urine Mucus Few H Urine Yeast (Budding) Rare H 11/13/17 11/13/17 11/13/17 05:22 05:22 05:22 RBC 3.82 L Hgb 10.9 L Hct 35.9 L MCHC 30.4 L PT 21.2 H INR 2.4 H APTT D-Dimer Sodium Potassium Chloride 111 H Creatinine Glucose 147 H POC Glucose (mg/dL) Calcium Phosphorus Magnesium CK-MB (CK-2) Troponin I Total Protein Albumin HDL Cholesterol 27 L Urine Protein Urine Blood Ur Leukocyte Esterase Urine RBC Urine WBC Urine WBC Clumps Urine Bacteria Hyaline Casts Urine Mucus Urine Yeast (Budding) 11/13/17 05:22 RBC Hgb Hct MCHC PT INR APTT D-Dimer Sodium Potassium Chloride Creatinine Glucose POC Glucose (mg/dL) Calcium Phosphorus Magnesium 2.4 H CK-MB (CK-2) Troponin I Total Protein Albumin HDL Cholesterol Urine Protein Urine Blood Ur Leukocyte Esterase Urine RBC Urine WBC Urine WBC Clumps Urine Bacteria Hyaline Casts Urine Mucus Urine Yeast (Budding) - Diagnostic Findings Chest x-ray: image reviewed (Chest x-ray labs and medications are all reviewed. Chest x-ray show some very mild fluid overload.) Assessment and Plan (1) CHF (congestive heart failure) Current Visit: Yes Status: Acute Code(s): I50.9 - HEART FAILURE, UNSPECIFIED SNOMED Code(s): 09687650 (2) COPD (chronic obstructive pulmonary disease) Current Visit: Yes Status: Acute Code(s): J44.9 - CHRONIC OBSTRUCTIVE PULMONARY DISEASE, UNSPECIFIED SNOMED Code(s): 72612391 (3) CVA (cerebral vascular accident) Current Visit: Yes Status: Acute Code(s): I63.9 - CEREBRAL INFARCTION, UNSPECIFIED SNOMED Code(s): 716870693 (4) Hypothyroidism Current Visit: Yes Status: Acute Code(s): E03.9 - HYPOTHYROIDISM, UNSPECIFIED SNOMED Code(s): 65480141 (5) Angina pectoris Current Visit: Yes Status: Acute Code(s): I20.9 - ANGINA PECTORIS, UNSPECIFIED SNOMED Code(s): 772243103 (6) Defibrillator discharge Current Visit: Yes Status: Acute Code(s): Z45.02 - ENCNTR FOR ADJUST AND MGMT OF AUTOMATIC IMPLNTBL CARD DEFIB SNOMED Code(s): 723701875 (7) Elevated troponin Current Visit: Yes Status: Acute Code(s): R74.8 - ABNORMAL LEVELS OF OTHER SERUM ENZYMES SNOMED Code(s): 571694612 (8) NSTEMI (non-ST elevated myocardial infarction) Current Visit: Yes Status: Acute Code(s): I21.4 - NON-ST ELEVATION (NSTEMI) MYOCARDIAL INFARCTION SNOMED Code(s): 136352958 (9) Unstable angina pectoris Current Visit: Yes Status: Acute Code(s): I20.0 - UNSTABLE ANGINA SNOMED Code(s): 0639682 (10) Dyspnea Current Visit: No Status: Acute Code(s): R06.00 - DYSPNEA, UNSPECIFIED SNOMED Code(s): 919053331 Plan: Plan dated 11/13/2017 The patient will get some Lasix 20 mg IV push times one. Currently on a number different cardiac medications. He seems to be relatively stable. Chest x-ray does show some fluid overload. I review his medications labs and x-rays. Additional recommendations and suggestions are forthcoming. Time with Patient: Greater than 30
[2017-11-13] MEDS: cefTRIAXone IN SWFI 1,000 MG/10 ML SYRINGE IVP SCH (10:39)
--- NOTE | 2017-11-13 12:59 | PN ---
PROGRESS NOTE This patient was admitted with ICD shock. Patient had episode of sustained VT last night, which has got converted with IV lidocaine. Patient had another episode of sustained VT during the night and required IV Lopressor. Since then the patient is stable. He is resting comfortably. No significant respiratory distress is noted. The patient's blood pressure now is 100/60 mmHg. Heart rate is 70 per minute, first and second heart sounds are normal. Lungs are clinically clear to auscultation and percussion. FINAL IMPRESSION: This patient has been having recurrent episodes of sustained ventricular tachycardia. We will continue the patient on IV amiodarone drip. We will decrease the lidocaine to 1 mg/minute and mexiletine 150 mg q.8h hourly is started. We will discontinue Coreg and lisinopril and just try him on metoprolol 25 mg q.8h hourly. Consultation will be obtained with Dr. Cameron in view of the patient may need a repeat ablation. MMDIOR / ALVINN: [id number] /
[2017-11-13] MEDS ORDERED: METOPROLOL TARTRATE 25 MG TAB PO SCH (16:00)
[2017-11-13] MEDS: LIDOCAINE-D5W PMX 2G/500ML 2,000 MG in DEXTROSE/WATER 1 500ML.BAG IV SCH (16:10)
[2017-11-13] MEDS ORDERED: SODIUM CHLORIDE 0.9% 500 ML IV ONE (18:28)
--- NOTE | 2017-11-13 19:34 | PN ---
PROGRESS NOTE DATE OF SERVICE: 11/13/2017 This 67-year-old gentleman admitted with AICD shocks apparently had multiple ventricular tachycardia and episodes of ventricular fibrillation also. Yesterday the patient had significant ventricular tachycardia while in the hospital. The patient was subsequently the EKG showed monomorphic ventricular tachycardia. Subsequently patient transferred to ICU. The patient started on amiodarone and lidocaine which was felt to be refractory and cardioversion was planned. However, subsequently the patient is cardioverted and patient being closely monitored. The patient had diminished urine output also yesterday but however the creatinine is stable around 1.2 at this time. The troponins elevated up to 1.880. UA shows significant WBC indicative of UTI as well. Rocephin has been initiated for the same. Urine culture has been requested. PAST MEDICAL HISTORY: Reviewed. REVIEW OF SYSTEMS: Cardiovascular: No angina or palpitations. Respiration: As mentioned earlier. GI: As mentioned earlier. no dysuria. Central nervous system: No numbness, weakness. CURRENT MEDICATIONS ARE: 1. [place] 10 mg t.i.d. p.r.n. 2. DuoNeb q.i.d. 3. Amiodarone drip. 4. Aspirin. 5. Lipitor. 6. Rocephin. 7. Plavix. 8. Aricept. 9. Atrovent. 10.Mexitil. 11.Morphine. 12.Nitrostat. 13.Zofran. 14.Coumadin. PHYSICAL EXAM: Patient is alert and oriented x3. Pulse 82, blood pressure 90/58, respiration 20, temp is normal. Pulse ox 94% on 2 L. HEENT: Conjunctivae normal. Oral mucosa moist. Neck is no jugular venous distention. No lymph node enlargement. Cardiovascular System: S1, S2 muffled. Respiratory: Breath sounds diminished at the bases. Scattered rhonchi and crackles. ABDOMEN: Soft, nontender. No mass palpable. Legs no edema and no swelling. NERVOUS SYSTEM: Higher functions as mentioned earlier, moves all 4 limbs, no focal motor deficits. Lymphatics: No lymph nodes palpable in the neck, axillae or groin. Skin no ulcer, rash or bleeding. LAB STUDIES: WBC 6.2, hemoglobin is 10.9. INR is 2.4. Sodium is 139. Other labs are noted. ASSESSMENT: 1. Status post AICD shocks with secondary to ventricular tachycardia and ventricular fibrillation. 2. Monomorphic refractory ventricular tachycardia, status post on amiodarone and lidocaine drips, converted to normal sinus rhythm now. 3. Elevated troponin 3.85, rule out acute non ST segment elevation myocardial infarction. 4. Hyponatremia. 5. Increased D. dimer. 6. History of asthma. 7. Chronic obstructive pulmonary disease. 8. History of congestive heart failure. 9. History of myocardial infarction. 10.History of AICD. 11.History of hypothyroidism. 12.History of chronic back pain. 13.History of coronary artery disease, coronary artery bypass grafting, stent. RECOMMENDATIONS AND DISCUSSION: Recommend to continue current management. Continue the antibiotics. Continue the rest of medications. Continue the antiarrhythmics. The prognosis guarded because of multiple complex medical issues, as detailed above. Closely follow with Cardiology and pulmonology. Further recommendations to follow. MMODL / IJN: [id number] /
[2017-11-13] MEDS: DONEPEZIL 10 MG TAB PO SCH (21:07)
[2017-11-13] MEDS: WARFARIN 3 MG TAB PO SCH (21:10)
[2017-11-13] MEDS: METOPROLOL TARTRATE 25 MG TAB PO SCH (21:11)
[2017-11-14] MEDS: MEXILETINE 150 MG CAP PO SCH ×3 (00:57→17:03)
[2017-11-14 04:42] LABS: Basophils % (A) 0 %; Eosinophils # (A) 0.1 k/uL (0-0.7); Eosinophils % (A) 1 %; HCT 35.7 % (39.0-53.0); HGB 10.9 gm/dL (13.0-17.5); Hypochromasia Marked; Lymphocytes # (A) 1.3 k/uL (1.0-4.8); Lymphocytes % (A) 16 %; MCH 28.8 pg (25.0-35.0); MCHC 30.6 g/dL (31.0-37.0); MCV 93.8 fL (80.0-100.0); Mean Platelet Volume 7.7; Monocytes # (A) 0.6 k/uL (0-1.0); Monocytes % (A) 8 %; Neutrophils # (A) 5.6 k/uL (1.3-7.7); Neutrophils % (A) 72 %; Platelet Count 207 k/uL (150-450); RDW 13.8 % (11.5-15.5); WBC 7.8 k/uL (3.8-10.6)
[2017-11-14 04:52] LABS: INR 2.7 (<1.2); Prothrombin Time 23.8 sec (9.0-12.0)
[2017-11-14 05:24] LABS: Anion Gap 5 mmol/L; Blood Urea Nitrogen 21 mg/dL (9-20); Carbon Dioxide 21 mmol/L (22-30); Chloride 108 mmol/L (98-107); Glucose 130 mg/dL (74-99); Magnesium 2.1 mg/dL (1.6-2.3); Phosphorus 3.4 mg/dL (2.5-4.5); Potassium 4.8 mmol/L (3.5-5.1); Sodium 134 mmol/L (137-145)
[2017-11-14] MEDS: ONDANSETRON 4 MG/2 ML VIAL IVP PRN (06:29)
[2017-11-14] MEDS: IPRATROPIUM 0.5 MG/2.5 ML NEBU INHALATION SCH ×3 (07:42→23:32)
[2017-11-14] MEDS: METOPROLOL TARTRATE 25 MG TAB PO SCH ×2 (08:02→21:11)
[2017-11-14] MEDS: AMIODARONE 200 MG TAB PO SCH (08:02)
[2017-11-14] MEDS: GABAPENTIN 300 MG CAP PO SCH ×3 (08:02→21:11)
[2017-11-14] MEDS: CLOPIDOGREL 75 MG TAB PO SCH (08:03)
[2017-11-14] MEDS: ATORVASTATIN 40 MG TAB PO SCH (08:03)
[2017-11-14] MEDS: cefTRIAXone IN SWFI 1,000 MG/10 ML SYRINGE IVP SCH (08:03)
[2017-11-14] MEDS: ASPIRIN 81 MG PO SCH (08:03)
[2017-11-14] MEDS: HYDROcodone/APAP 10-325MG 1 EACH TAB PO SCH ×2 (08:05→17:05)
--- NOTE | 2017-11-14 10:27 | P.PN ---
Subjective Progress Note Date: 11/14/17 Principal diagnosis: Shortness of breath Progress note dated 11/14/2017 This a 67-year-old male that we saw yesterday in consultation. His automatic implantable cardiac defibrillator went off a number of time because of ventricular tachycardia. The patient developed shortness of breath hypotension was placed on Cordarone. He was also given mexiletine and some other medications were changed by cardiology as well. The patient is still having some episodes of ventricular tachycardia. He is resting comfortably here in the ICU. He had the lidocaine is reducing been turned off. His IV is a saline at 20 mL an hour. He is on O2 at 2 L. Other than that doing relatively well. No pain. Yesterday he was both on lidocaine and Cordarone at 0.5 mg/m. The patient has a history of COPD angina heart failure CVA myocardial infarction and hypothyroidism. Objective - Vital Signs Vital signs: Vital Signs Temp 97.9 F 11/14/17 08:00 Pulse 84 11/14/17 10:00 Resp 20 11/14/17 10:00 BP 92/62 11/14/17 10:00 Pulse Ox 92 L 11/14/17 10:00 Intake & Output 11/13/17 11/14/17 11/14/17 18:59 06:59 18:59 Intake Total 1626.65 418.4 499.5 Output Total 938 275 90 Balance 688.65 143.4 409.5 Weight 75.3 kg Intake: IV 1165.4 418.4 125 Amiodarone 450 mg In 200.4 33.4 Dextrose 5% in Water 250 ml @ 1 MG/MIN 33.33 mls/ hr IV .Q7H31M [facility] Rx#: [id number] Lidocaine-D5w Pmx 2G/ 195 165 45 500Ml 2,000 mg In Dextrose/Water 1 500ml. bag @ 1 MG/MIN 15 mls/hr IV .Q24H [facility] Rx#: [id number] Sodium Chloride 0.9% 1, 770 220 80 000 ml @ 20 mls/hr IV . Q24H [facility] Rx#:[id number] Intake, IV Titration 461.25 254.5 Amount Lidocaine-D5w Pmx 2G/ 461.25 254.5 500Ml 2,000 mg In Dextrose/Water 1 500ml. bag @ 1 MG/MIN 15 mls/hr IV .Q24H [facility] Rx#: [id number] Oral 120 Output: Urine 938 275 90 Other: Voiding Method Indwelling Catheter Indwelling Catheter Indwelling Catheter - Exam No acute distress, oriented 3. HEENT examination is grossly unremarkable. Mucous membranes are moist. No oral lesions. Neck supple. Full range of motion. No adenopathy thyromegaly or neck vein distention. Cardiovascular examination reveals regular rhythm rate. S1-S2 normal. No S3 or S4. No discernible murmur noted. Lungs reveal a few scattered crackles. Breath sounds are equal bilaterally. No rhonchi. No wheezes.. Abdomen soft bowel sounds are heard. No masses or tenderness. Extremities are intact. No cyanosis clubbing or edema. Skin is without rash or lesion. Neurologic examination is brief but nonfocal. - Labs CBC & Chem 7: 11/14/17 04:17 11/14/17 04:17 Labs: Abnormal Lab Results - Last 24 Hours (Table) 11/14/17 11/14/17 11/14/17 Range/Units 04:17 04:17 04:17 RBC 3.80 L (4.30-5.90) m/uL Hgb 10.9 L (13.0-17.5) gm/dL Hct 35.7 L (39.0-53.0) % MCHC 30.6 L (31.0-37.0) g/dL PT 23.8 H (9.0-12.0) sec INR 2.7 H (<1.2) Sodium 134 L (137-145) mmol/L Chloride 108 H (98-107) mmol/L Carbon Dioxide 21 L (22-30) mmol/L BUN 21 H (9-20) mg/dL Glucose 130 H (74-99) mg/dL Microbiology - Last 24 Hours (Table) 11/13/17 17:00 Urine Culture - Preliminary Urine,Catheterized Assessment and Plan (1) CHF (congestive heart failure) Current Visit: Yes Status: Acute Code(s): I50.9 - HEART FAILURE, UNSPECIFIED SNOMED Code(s): 52969104 (2) COPD (chronic obstructive pulmonary disease) Current Visit: Yes Status: Acute Code(s): J44.9 - CHRONIC OBSTRUCTIVE PULMONARY DISEASE, UNSPECIFIED SNOMED Code(s): 04347482 (3) CVA (cerebral vascular accident) Current Visit: Yes Status: Acute Code(s): I63.9 - CEREBRAL INFARCTION, UNSPECIFIED SNOMED Code(s): 453117889 (4) Hypothyroidism Current Visit: Yes Status: Acute Code(s): E03.9 - HYPOTHYROIDISM, UNSPECIFIED SNOMED Code(s): 23106758 (5) Angina pectoris Current Visit: Yes Status: Acute Code(s): I20.9 - ANGINA PECTORIS, UNSPECIFIED SNOMED Code(s): 045175646 (6) Defibrillator discharge Current Visit: Yes Status: Acute Code(s): Z45.02 - ENCNTR FOR ADJUST AND MGMT OF AUTOMATIC IMPLNTBL CARD DEFIB SNOMED Code(s): 766351241 (7) Elevated troponin Current Visit: Yes Status: Acute Code(s): R74.8 - ABNORMAL LEVELS OF OTHER SERUM ENZYMES SNOMED Code(s): 076859344 (8) NSTEMI (non-ST elevated myocardial infarction) Current Visit: Yes Status: Acute Code(s): I21.4 - NON-ST ELEVATION (NSTEMI) MYOCARDIAL INFARCTION SNOMED Code(s): 749302491 (9) Unstable angina pectoris Current Visit: Yes Status: Acute Code(s): I20.0 - UNSTABLE ANGINA SNOMED Code(s): 2110414 (10) Dyspnea Current Visit: No Status: Acute Code(s): R06.00 - DYSPNEA, UNSPECIFIED SNOMED Code(s): 579975197 Plan: Plan dated 11/13/2017 The patient will get some Lasix 20 mg IV push times one. Currently on a number different cardiac medications. He seems to be relatively stable. Chest x-ray does show some fluid overload. I review his medications labs and x-rays. Additional recommendations and suggestions are forthcoming. Plan dated 11/14/2017 The patient seemed be doing relatively well. We'll evaluate x-rays labs and medications. He is a stay here in the ICU because he still having episodes of ventricular tachycardia. Additional recommendations are made. We'll make sure we check his electrolytes carefully chronic potassium and magnesium. Additional recommendations suggestions are forthcoming. Cardiology input is appreciated. Time with Patient: Less than 30
[2017-11-14] MEDS: SODIUM CHLORIDE 0.9% 1,000 ML IV SCH (12:34)
[2017-11-14] MEDS: FUROSEMIDE 20 MG TAB PO SCH ×2 (12:34→17:03)
--- NOTE | 2017-11-14 14:26 | ECHOF ---
Referral Reason:assess lvf MEASUREMENTS -------- HEIGHT: 162.6 cm WEIGHT: 27.2 kg BP: 86/65 RVIDd: 3.0 cm (< 3.3) IVSd: 1.4 cm (0.6 - 1.1) LVIDd: 5.3 cm (3.9 - 5.3) LVPWd: 1.5 cm (0.6 - 1.1) IVSs: 2.1 cm LVIDs: 4.2 cm LVPWs: 1.5 cm LA Diam: 4.9 cm (2.7 - 3.8) LAESV Index (A-L): 67.13 ml/m Ao Diam: 3.3 cm (2.0 - 3.7) AV Cusp: 1.4 cm (1.5 - 2.6) LA Diam: 5.0 cm (2.7 - 3.8) MV EXCURSION: 19.089 mm (> 18.000) MV EF SLOPE: 81 mm/s (70 - 150) EPSS: 0.6 cm MV E Popeye: 0.86 m/s MV DecT: 149 ms MV A Popeye: 0.48 m/s MV E/A Ratio: 1.79 AR PHT: 399 ms RAP: 5.00 mmHg RVSP: 31.17 mmHg FINDINGS -------- Paced rhythm. This was a techncally difficult study with suboptimal views, , Definity utilized for enhancement of i mages. The left ventricular size is normal. There is moderate concentric left ventricular hypertrophy. O verall left ventricular systolic function is moderate-severely impaired with, an EF between 30 - 35 % . Anterseptal Hypokinesis Lateral hypokinesis Septal Hypokinesis [place] Hypokinesis. The right ventricle is normal in size. LA is severely dilated >40 ml/m2 The right atrial size is normal. 1.5MG OF DEFINITY UTLIZED: 2 OR MORE WALL SEGMENTS NOT VISUALIZED. There is mild aortic valve sclerosis. There is mild aortic regurgitation. Mild mitral annular calcification present. [id number]-pp-nozxdg mitral regurgitation is present. Mild tricuspid regurgitation present. The right ventricular systolic pressure, as measured by Doppl er, is 31.17mmHg. Trace/mild (physiologic) pulmonic regurgitation. The aortic root size is normal. There is no pericardial effusion. CONCLUSIONS -------- 1. This was a techncally difficult study with suboptimal views, , Definity utilized for enhancement o f images. 2. The left ventricular size is normal. 3. There is moderate concentric left ventricular hypertrophy. 4. Overall left ventricular systolic function is moderate-severely impaired with, an EF between 30 - 35 %. 5. Anterseptal Hypokinesis 6. Lateral hypokinesis 7. Septal Hypokinesis 8. [place] Hypokinesis. 9. LA is severely dilated >40 ml/m2 10. 1.5MG OF DEFINITY UTLIZED: 2 OR MORE WALL SEGMENTS NOT VISUALIZED. 11. There is mild aortic valve sclerosis. 12. There is mild aortic regurgitation. 13. Mild mitral annular calcification present. 14. Yaxsazrn-lv-zwafbq mitral regurgitation is present. 15. Mild tricuspid regurgitation present. 16. The right ventricular systolic pressure, as measured by Doppler, is 31.17mmHg. 17. Trace/mild (physiologic) pulmonic regurgitation. 18. The aortic root size is normal. 19. There is no pericardial effusion. ASSORTER LAUNDRY: Milena Spring RDCS
[2017-11-14] MEDS: IPRATROPIUM-ALBUTEROL 3 ML NEB INHALATION PRN (15:47)
[2017-11-14] MEDS: FAMOTIDINE 20 MG/2 ML VIAL IV SCH ×2 (17:05→21:11)
--- NOTE | 2017-11-14 19:00 | XR ---
EXAMINATION TYPE: XR chest 1V portable DATE OF EXAM: 11/14/2017 COMPARISON: Yesterday HISTORY: Chest pain TECHNIQUE: Single frontal view of the chest is obtained. FINDINGS: Heart is enlarged. There is pulmonary vascular congestion. There is blunting of costophren ic angles. There is a left axillary pacemaker with the lead tip in the right ventricle. There are jose rafael rnal wires. There are chest leads. IMPRESSION: Congestive heart failure with pulmonary edema and pleural effusions that is worse than y esterday.
[2017-11-14] MEDS: DONEPEZIL 10 MG TAB PO SCH (21:11)
[2017-11-15] MEDS: MEXILETINE 150 MG CAP PO SCH ×4 (00:10→23:53)
[2017-11-15] MEDS: HYDROcodone/APAP 10-325MG 1 EACH TAB PO SCH ×4 (00:11→23:53)
[2017-11-15 01:04] LABS: Anion Gap 5 mmol/L; Blood Urea Nitrogen 20 mg/dL (9-20); Calcium 8.4 mg/dL (8.4-10.2); Carbon Dioxide 26 mmol/L (22-30); Chloride 102 mmol/L (98-107); Glucose 120 mg/dL (74-99); Magnesium 1.8 mg/dL (1.6-2.3); Potassium 4.4 mmol/L (3.5-5.1); Sodium 133 mmol/L (137-145)
[2017-11-15] MEDS ORDERED: Magnesium Replacement Protocol 1 EACH MISC MISCELLANE PRN (01:20)
[2017-11-15] MEDS: MAGNESIUM SULFATE-D5W PMX 1 GM in DEXTROSE/WATER 1 100ML.BAG IVPB SCH ×2 (01:52→03:09)
[2017-11-15] MEDS: ONDANSETRON 4 MG/2 ML VIAL IVP PRN (03:11)
[2017-11-15 04:12] LABS: Anion Gap 3 mmol/L; Blood Urea Nitrogen 20 mg/dL (9-20); Calcium 8.4 mg/dL (8.4-10.2); Carbon Dioxide 27 mmol/L (22-30); Chloride 103 mmol/L (98-107); Glucose 131 mg/dL (74-99); Magnesium 2.6 mg/dL (1.6-2.3); Phosphorus 2.5 mg/dL (2.5-4.5); Potassium 4.1 mmol/L (3.5-5.1); Sodium 133 mmol/L (137-145)
[2017-11-15 04:32] LABS: Basophils % (A) 0 %; Eosinophils % (A) 0 %; HCT 32.3 % (39.0-53.0); HGB 9.9 gm/dL (13.0-17.5); Hypochromasia Slight; Lymphocytes # (A) 0.9 k/uL (1.0-4.8); Lymphocytes % (A) 11 %; MCH 27.8 pg (25.0-35.0); MCHC 30.7 g/dL (31.0-37.0); MCV 90.4 fL (80.0-100.0); Mean Platelet Volume 8.1; Monocytes # (A) 0.5 k/uL (0-1.0); Monocytes % (A) 6 %; Neutrophils # (A) 6.7 k/uL (1.3-7.7); Neutrophils % (A) 81 %; Platelet Count 170 k/uL (150-450); RBC 3.57 m/uL (4.30-5.90); RDW 13.9 % (11.5-15.5); WBC 8.3 k/uL (3.8-10.6)
--- NOTE | 2017-11-15 06:13 | PN ---
PROGRESS NOTE DATE OF SERVICE: 11/14/2017 This 67-year-old gentleman who had multiple AICD shocks was was in ventricular tachycardia, ventricular fibrillation. The patient is complaining of epigastric discomfort. The patient is being closely followed by Cardiology. Patient being closely monitored and lidocaine drip was off at this time. The patient is on amiodarone p.o. and as well as some mexiletine 150 mg p.o. q.8 and metoprolol 25 mg p.o. b.i.d. Patient is being closely monitored in the ICU. PAST MEDICAL HISTORY: Reviewed. REVIEW OF SYSTEMS: CARDIOVASCULAR SYSTEM: As mentioned earlier. RESPIRATORY SYSTEM: As mentioned earlier. GI: As mentioned earlier. : No dysuria. NERVOUS SYSTEM: No numbness or weakness. MEDICATIONS: Current medications are reviewed and include: 1. [place] 10 mg t.i.d. p.r.n. 2. DuoNeb q.i.d. and p.r.n. 3. Cordarone 200 mg q.a.m. 4. Aspirin 81 mg q.a.m. 5. Lipitor 40 mg q.a.m. .. 6. Rocephin 1 gram daily. 7. Plavix 75 mg q.a.m. 8. Aricept 10 mg q.h.s. 9. Pepcid 20 mg b.i.d. 10.Lasix. 11.Neurontin 300 mg t.i.d. 12.Ativan. 13.Lopressor 25 mg b.i.d. 14.Mexiletine 150 mg q.8. 15.Nitrostat. 16.Zofran. PHYSICAL EXAM: Patient is alert, oriented x3. Pulse is 99, blood pressure 108/77, respiration 16, temperature 98.1, pulse ox 91% on 4 L. HEENT: Conjunctivae normal. Oral mucosa moist. NECK: No jugular venous distention. No carotid bruit. No lymph node enlargement. CARDIOVASCULAR: S1 and S2 muffled. RESPIRATORY: Breath sounds diminished at the bases. Bilateral scattered rhonchi and crackles. ABDOMEN: Soft, nontender. No mass palpable. LEGS: No edema, no swelling. NERVOUS SYSTEM: Higher functions as mentioned earlier. Moves all 4 limbs. No focal deficits. LYMPHATICS: No lymphadenopathy of the neck, axillae or groin. SKIN: No ulcer, rash or bleeding. LABS: WBC 7.8, hemoglobin 10.9. Sodium 134. Other labs are noted. Glucose 130. Troponins are noted UA noted 65 WBC. ASSESSMENT: 1. Status post AICD shocks secondary to ventricular tachycardia, ventricular fibrillation. 2. Status post amiodarone and lidocaine drips in ICU. 3. Monomorphic refractory ventricular tachycardia converted to normal sinus rhythm with episodes of recurrent ventricular tachycardia. 4. Congestive heart failure with chronic systolic dysfunction, ejection fraction 30% to 35%. 5. Elevated troponin 3.85, rule out acute non ST-segment elevation myocardial function. 6. Hyponatremia. 7. Increased D-dimer. 8. History of asthma. 9. Acute hypoxic respiratory failure multifactorial. 10.Chronic obstructive pulmonary disease. 11.History of congestive heart failure. 12.History of myocardial infarction. 13.History of automated implantable cardioverter-defibrillator. 14.History of hypothyroidism. 15.History of chronic back pain. 16.History of coronary artery disease, coronary artery bypass grafting, stent. RECOMMENDATIONS AND DISCUSSION: Recommend to continue current medications, continue symptomatic treatment. Otherwise at this time I would recommend a repeat chest x-ray to evaluate for heart failure. Otherwise, continue the rest of the medications. Monitor electrolytes closely. Symptomatic treatment for the epigastric discomfort with Pepcid. Continue with antiarrhythmic medications. Closely follow with Cardiology and Pulmonary. A 2-D echo showed ejection fraction 30% to 35%. Once again, the prognosis guarded because of the multiple complex medical issues. Discussed with the patient at length. Further recommendations to follow. MMDEIONL / ALVINN: [id number] /
--- NOTE | 2017-11-15 07:12 | P.PN ---
Subjective Progress Note Date: 11/15/17 This a 67-year-old male has a history of COPD angina , heart failure CVA , coronary artery disease, previous bypass surgery, previous myocardial infarction and hypothyroidism. The patient has cardiomyopathy and previous echocardiogram showed an ejection fraction of 30-35% consistent with moderate to severe impairment of LV function and the patient has segmental wall motion abnormalities involving the anteroseptal, lateral and septal and apical saleem in addition to severe dilatation of the left atrium and moderate to severe mitral regurgitation and only pressure is estimated to be around 31 mmHg. the patient's latest cardiac catheterization was done 10/19/2017 and it showed a patent left main, LAD was totally occluded in the midportion after the origin of the septal and diagonal branch. The [place] circumflex had an 80% lesion in the proximal portion after the origin of the obtuse marginal branch. Distally in the same vessel there was a 95% stenosis after which the flow seems to be somewhat sluggish. Right coronary artery was totally occluded. 2 vein grafts to the right coronary artery and obtuse marginal branch was totally occluded. JAVIER to LAD was widely patent. The patient has also history of ventricular arrhythmias and the patient has an AICD in place.His automatic implantable cardiac defibrillator went off a number of time because of ventricular tachycardia. The patient developed shortness of breath hypotension was placed on Cordarone. He was also given mexiletine and some other medications were changed by cardiology as well. The patient is still having some episodes of ventricular tachycardia. He is resting comfortably here in the ICU. He had the lidocaine is reducing been turned off. His IV is a saline at 20 mL an hour. He is on O2 at 2 L. Other than that doing relatively well. No pain. Yesterday he was both on lidocaine and Cordarone at 0.5 mg/m. On 11/15/2017, the patient is being seen for a follow-up. The patient is hemodynamically stable. The patient was taken off the amiodarone drip and currently is on oral amiodarone at a dose of 200 mg by mouth once a day. The patient is also on Mexitil 150 mg every 8 hours and Lopressor 25 mg by mouth twice a day. The patient was taken off the amiodarone drip. The patient's current cardiac rhythm is sinus for on and off throughout the night and today the patient was having episodes of wide complex tachycardia and the last run was around 4 AM this morning. The patient had a run of 120-130 beats of wide complex tachycardia at the rate of 110. The AICD did not fire. He converted back to sinus rhythm. The latest run of Cardiology is aware of and Dr. Ornelas from is consulted in this regard. The patient has CHF and pulmonary edema and pleural effusion on the chest exit was done yesterday on 11/15/2017. Objective - Vital Signs Vital signs: Vital Signs Temp 98.1 F 11/14/17 20:30 Pulse 81 11/15/17 06:00 Resp 16 11/15/17 06:00 BP 89/56 11/15/17 06:00 Pulse Ox 95 11/15/17 06:00 Intake & Output 11/14/17 11/14/17 11/15/17 06:59 18:59 06:59 Intake Total 418.4 1019.5 250 Output Total 275 780 710 Balance 143.4 239.5 -460 Weight 75.3 kg 75.1 kg Intake: IV 418.4 285 150 Amiodarone 450 mg In 33.4 Dextrose 5% in Water 250 ml @ 1 MG/MIN 33.33 mls/ hr IV .Q7H31M [facility] Rx#: [id number] Lidocaine-D5w Pmx 2G/ 165 45 500Ml 2,000 mg In Dextrose/Water 1 500ml. bag @ 1 MG/MIN 15 mls/hr IV .Q24H [facility] Rx#: [id number] Sodium Chloride 0.9% 1, 220 240 150 000 ml @ 20 mls/hr IV . Q24H [facility] Rx#:[id number] Intake, IV Titration 254.5 100 Amount Lidocaine-D5w Pmx 2G/ 254.5 500Ml 2,000 mg In Dextrose/Water 1 500ml. bag @ 1 MG/MIN 15 mls/hr IV .Q24H [facility] Rx#: [id number] Magnesium Sulfate-D5w Pmx 100 1 gm In Dextrose/Water 1 100ml.bag @ 100 mls/hr IVPB Q1H [facility] Rx#: [id number] Oral 480 Output: Urine 275 780 710 Other: Voiding Method Indwelling Catheter Indwelling Catheter Indwelling Catheter # Voids 1 - Exam No acute distress, oriented 3. HEENT examination is grossly unremarkable. Mucous membranes are moist. No oral lesions. Neck supple. Full range of motion. No adenopathy thyromegaly or neck vein distention. Cardiovascular examination reveals regular rhythm rate. S1-S2 normal. No S3 or S4. No discernible murmur noted. Lungs reveal a few scattered bibasilar crackles. No rhonchi. No wheezes. Breath sounds equal bilaterally. Abdomen soft bowel sounds are heard. No masses or tenderness. Extremities are intact. No cyanosis clubbing or edema. Skin is without rash or lesion. Neurologic examination is brief but nonfocal. - Labs CBC & Chem 7: 11/15/17 03:48 11/15/17 03:48 Labs: Abnormal Lab Results - Last 24 Hours (Table) 11/15/17 11/15/17 11/15/17 Range/Units 00:30 03:48 03:48 RBC 3.57 L (4.30-5.90) m/uL Hgb 9.9 L (13.0-17.5) gm/dL Hct 32.3 L (39.0-53.0) % MCHC 30.7 L (31.0-37.0) g/dL Lymphocytes # 0.9 L (1.0-4.8) k/uL PT 18.0 H (9.0-12.0) sec INR 2.0 H (<1.2) Sodium 133 L (137-145) mmol/L Glucose 120 H (74-99) mg/dL Magnesium (1.6-2.3) mg/dL 11/15/17 Range/Units 03:48 RBC (4.30-5.90) m/uL Hgb (13.0-17.5) gm/dL Hct (39.0-53.0) % MCHC (31.0-37.0) g/dL Lymphocytes # (1.0-4.8) k/uL PT (9.0-12.0) sec INR (<1.2) Sodium 133 L (137-145) mmol/L Glucose 131 H (74-99) mg/dL Magnesium 2.6 H (1.6-2.3) mg/dL Microbiology - Last 24 Hours (Table) 11/13/17 16:52 Blood Culture - Preliminary Blood No Growth after 24 hours Assessment and Plan Plan: Assessment 1 wide-complex tachycardia, rule out low-grade ventricular tachycardia. There is also some runs of wide complex tachycardia consistent with aberrant conduction. Cardiology is on the case. The patient is currently on a combination of amiodarone, Mexitil and metoprolol. 2 ventricular tachycardia/fibrillation, post-AICD discharge 3 prior to his hospitalization 3 CHF with ejection fraction of 30-35% and signs of heart failure with CHF and pulmonary edema and pleural effusions bilaterally 4 coronary artery disease with previous bypass surgery, please refer to the results of the cardiac cath. The patient has a patent JAVIER to LAD and the rest of the saphenous finger after all occluded. The patient has also undergone previous coronary intervention and stenting. He is currently free of any chest pain. 5 COPD 6 hypothyroidism 7 history of CVA 8 paroxysmal atrial fibrillation maintained on long-term articulation with warfarin, INR is at 2 with his Plan Asked Dr. Ornelas to reevaluate this patient regarding this ongoing ventricular arrhythmia versus wide-complex tachycardias. Restart warfarin and give the patient 1 mg of warfarin today monitor the INR to maintain a level between 2 and 3. Continue the combination of Mexitil, amiodarone and Lopressor and awaiting further recommendations from cardiology. Monitor the cardiac rhythm and keep the patient here in the intensive care unit. Continue Lasix 20 mg by mouth twice a day. Repeat chest x-ray. Condition is critical. We'll continue to follow.
--- NOTE | 2017-11-15 08:44 | P.PN ---
Subjective Progress Note Date: 11/15/17 Principal diagnosis: Acute non-STEMI/sustained V. tach This is a pleasant 67-year-old gentleman who sees Dr. COLEMAN Gill on regular basis with a past medical history significant for severe underlying coronary artery disease and prior coronary artery that is grafting with a recent heart catheterization revealing the occlusion of all vein grafts and open JAVIER to LAD. At that point the patient underwent stenting of the left circumflex by Dr. COLEMAN Gill and that was performed a few weeks ago. The patient also is known to have severe cardiomyopathy and he is status post AICD placements. Also he is known to have paroxysmal atrial fibrillation. He presented to the hospital with 3 ICD shocks. No dizziness or lightheadedness and no syncope. No chest pain or chest discomfort for. He was found to be in sustained V. tach. Initially the patient was placed on amiodarone IV and on lidocaine IV. Currently the patient has been maintaining normal sinus mechanism with QRS and currently he is on metoprolol by mouth, amiodarone by mouth, and mexiletine by mouth. The patient blood pressure has been marginally low. Beside that he was ruled in for acute non-ST elevation myocardial infarction. He is not having any chest pain or chest discomfort at this point. Also he is in mild congestive heart failure. The patient is going to be seen and evaluated by Dr. Cameron this field research associate for possible V. tach ablation. I do feel also that the patient does need to have a heart catheterization in view of the acute non-ST elevation myocardial infarction. Objective - Vital Signs Vital signs: Vital Signs Temp 98.1 F 11/14/17 20:30 Pulse 81 11/15/17 06:00 Resp 16 11/15/17 06:00 BP 89/56 11/15/17 06:00 Pulse Ox 95 11/15/17 06:00 Intake & Output 11/14/17 11/15/17 11/15/17 18:59 06:59 18:59 Intake Total 1019.5 250 10 Output Total 780 710 125 Balance 239.5 -460 -115 Weight 75.1 kg Intake: IV 285 150 10 Lidocaine-D5w Pmx 2G/ 45 500Ml 2,000 mg In Dextrose/Water 1 500ml. bag @ 1 MG/MIN 15 mls/hr IV .Q24H [facility] Rx#: [id number] Sodium Chloride 0.9% 1, 240 150 10 000 ml @ 20 mls/hr IV . Q24H [facility] Rx#:[id number] Intake, IV Titration 254.5 100 Amount Lidocaine-D5w Pmx 2G/ 254.5 500Ml 2,000 mg In Dextrose/Water 1 500ml. bag @ 1 MG/MIN 15 mls/hr IV .Q24H [facility] Rx#: [id number] Magnesium Sulfate-D5w Pmx 100 1 gm In Dextrose/Water 1 100ml.bag @ 100 mls/hr IVPB Q1H [facility] Rx#: [id number] Oral 480 Output: Urine 780 710 125 Other: Voiding Method Indwelling Catheter Indwelling Catheter # Voids 1 - Constitutional General appearance: Present: no acute distress - Respiratory Respiratory: bilateral: CTA - Cardiovascular Rhythm: regular Heart sounds: normal: S1, S2 Abnormal Heart Sounds: Present: systolic murmur - Labs CBC & Chem 7: 11/15/17 03:48 11/15/17 03:48 Labs: Abnormal Lab Results - Last 24 Hours (Table) 11/15/17 11/15/17 11/15/17 Range/Units 00:30 03:48 03:48 RBC 3.57 L (4.30-5.90) m/uL Hgb 9.9 L (13.0-17.5) gm/dL Hct 32.3 L (39.0-53.0) % MCHC 30.7 L (31.0-37.0) g/dL Lymphocytes # 0.9 L (1.0-4.8) k/uL PT 18.0 H (9.0-12.0) sec INR 2.0 H (<1.2) Sodium 133 L (137-145) mmol/L Glucose 120 H (74-99) mg/dL Magnesium (1.6-2.3) mg/dL 11/15/17 Range/Units 03:48 RBC (4.30-5.90) m/uL Hgb (13.0-17.5) gm/dL Hct (39.0-53.0) % MCHC (31.0-37.0) g/dL Lymphocytes # (1.0-4.8) k/uL PT (9.0-12.0) sec INR (<1.2) Sodium 133 L (137-145) mmol/L Glucose 131 H (74-99) mg/dL Magnesium 2.6 H (1.6-2.3) mg/dL Microbiology - Last 24 Hours (Table) 11/13/17 16:52 Blood Culture - Preliminary Blood No Growth after 24 hours Assessment and Plan Assessment: Assessment #1 sustained V. tach #2 recurrent ICD shock secondary to the above #3 acute non-ST elevation myocardial infarction #4 severe cardiomyopathy #5 proximal atrial fibrillation #6 multiple comorbid conditions. Plan #1 continue the current medical treatment was amiodarone by mouth, metoprolol by mouth, and mexiletine #2 the patient is in process to be seen by Dr. Cameron for the evaluation off V. tach ablation #3 I do feel that the patient need to have a heart catheterization.
--- NOTE | 2017-11-15 08:55 | XR ---
EXAMINATION TYPE: XR chest 1V portable DATE OF EXAM: 11/15/2017 COMPARISON: 11/14/2017 HISTORY: Shortness of breath that is increasing TECHNIQUE: Single frontal view of the chest is obtained. FINDINGS: There is improved aeration of the lung bases in comparison to the prior with near complete resolution of the previously seen pleural effusions, now trace blunting the costophrenic angles. Pul monary vascular congestion remains mild. Cardiomegaly and post CABG changes of the chest with single lead left-sided cardiac device are unchanged. Osseous structures appear intact. IMPRESSION: Improved bilateral pleural effusions, now trace and improved bibasilar airspace disease in comparison to the prior of 11/14/2017. Mild pulmonary vascular congestion on the basis of congestive heart failure remains.
[2017-11-15] MEDS: IPRATROPIUM 0.5 MG/2.5 ML NEBU INHALATION SCH ×3 (09:19→23:29)
[2017-11-15] MEDS: AMIODARONE 200 MG TAB PO SCH (09:24)
[2017-11-15] MEDS: ASPIRIN 81 MG PO SCH (09:24)
[2017-11-15] MEDS: ATORVASTATIN 40 MG TAB PO SCH (09:25)
[2017-11-15] MEDS: CLOPIDOGREL 75 MG TAB PO SCH (09:26)
[2017-11-15] MEDS: FUROSEMIDE 20 MG TAB PO SCH ×2 (09:26→20:03)
[2017-11-15] MEDS: GABAPENTIN 300 MG CAP PO SCH ×3 (09:27→22:22)
[2017-11-15] MEDS: METOPROLOL TARTRATE 25 MG TAB PO SCH ×2 (09:28→22:33)
[2017-11-15] MEDS: cefTRIAXone IN SWFI 1,000 MG/10 ML SYRINGE IVP SCH (10:01)
[2017-11-15] MEDS: FAMOTIDINE 20 MG/2 ML VIAL IV SCH ×2 (10:01→22:24)
[2017-11-15] MEDS ORDERED: FUROSEMIDE 10 MG/ML 2 ML VIAL ONE (13:05)
[2017-11-15] MEDS ORDERED: ISOPROTERENOL 250 MCG/1.25 ML SYR IV ONE (13:05)
[2017-11-15] MEDS ORDERED: ePHEDrine SULFATE/0.9% NACL/PF 50 MG/5 ML SYRINGE IV ONE (13:05)
[2017-11-15] MEDS ORDERED: MIDAZOLAM 2 MG/2 ML VIAL ONE (13:05)
[2017-11-15] MEDS ORDERED: HEPARIN SODIUM,PORCINE 10,000 UNIT/ML 1 ML VIAL ONE (13:05)
[2017-11-15] MEDS ORDERED: SODIUM CHLORIDE 0.9% 500 ML IV ONE ×3 (13:05→15:51)
[2017-11-15] MEDS ORDERED: IV FLUID CONTINUATION 100 ML IV ONE ×2 (13:05)
[2017-11-15] MEDS ORDERED: PROPOFOL 10 MG/ML 20 ML VIAL IV ONE (13:05)
[2017-11-15] MEDS ORDERED: LIDOCAINE 2% INJ 20 MG/ML SQ ONE (14:15)
[2017-11-15] MEDS ORDERED: HEPARIN SODIUM (1,000 UNIT/ML) 1,000 UNIT in SODIUM CHLORIDE 0.9% 1,000 ML IRRIGATION ONE (14:48)
[2017-11-15] MEDS ORDERED: HEPARIN SOD,PORK IN 0.45% NACL 25,000 UNIT in 0.45% NACL 1 500ML.BAG IV ONE (14:49)
--- NOTE | 2017-11-15 15:31 | CONS ---
CONSULTATION I was called by Dr. Yesenia Harris over the long weekend off Mir[place] of 2016 for this 67-year-old gentleman who presented with recurrent ventricular tachycardia sustained and recurrent ICD shocks. Patient was seen on November 14, 2017 by me and I am dictating this on November 15, 2017. Mr. Antonio Goncalves is a is well known to me. He is a patient Dr. Maryjo Gill and was here about a month back with non-Q-wave NH and underwent coronary stenting successfully. He was sitting in a chair at home comfortably and did not have any prodromal symptoms of chest discomfort, shortness of breath, or dizziness or palpitations. He states that out of the blue he started receiving ICD shocks which were not preceded by any cardiac symptoms. When he arrived to the emergency room, he was found to be in ventricular tachycardia. His [employer] ICD was interrogated and showed recurrent VT at greater than 200 beats per minute. Antitachycardia pacing failed and then he subsequently received an ICD shock. Multiple ICD shocks were delivered for recurrent episodes of ventricular tachycardia. The ICD shocks were successful. He was seen by Dr. Harris. He was started on IV amiodarone but he continued to have episodes of slow ventricular tachycardia at 152 beats per minute. The 12-lead ECG during ventricular tachycardia shows an atypical right bundle branch block pattern with a QS pattern in the inferior leads as well as was almost a QS pattern in the lead I, but not in aVL. The QRSs are upright in V1 through V4. Predominantly negative QRSs in V5 and V6. His current medications were reviewed and includes oral amiodarone 200 mg p.o. daily, mexiletine 150 mg every 8 hours which was started after Dr. Harris spoke to me. Carvedilol was switched to metoprolol. He is also on Plavix and aspirin before his recent coronary stent and he is on atorvastatin. He is on appropriate drug 3 treatment. Yesterday evening warfarin was held, INR 2.7, in preparation for the VT ablation. PAST HISTORY: Coronary artery disease, ischemic cardiomyopathy, inferior wall NH, past history of atrial fibrillation, hence on Coumadin for stroke prevention. History of myocardial infarction and COPD. REVIEW OF SYSTEMS: No fever, chills, or rigors. No cough or expectoration. No nausea, vomiting, diarrhea, hematuria, dysuria. No strokes or seizures. He complains of shortness of breath all the time. He has known COPD and he has been seen by the pulmonary service. He has a [facility] single-chamber ICD implanted. He has coronary artery bypass grafting performed in the past and recent coronary stenting for non-Q-wave myocardial infarction. ALLERGIES: No known drug allergies. LABS: The labs reviewed. His electrolytes were normal. His BUN and creatinine were normal. His INR was 2.7 yesterday and today it is 2.0. Hemoglobin is about 10. PHYSICAL EXAMINATION: On examination his blood pressure was low in the 90-100 mmHg systolic. Hence carvedilol was switched to metoprolol and LOLITA inhibitors were held on account of low blood pressure. LOLITA inhibitor for/ARB were held on account of low blood pressure. Heart rate in the 80s. Patient was asymptomatic with this low blood pressure, sitting in bed, breath sounds bilaterally reduced without any rhonchi, without any crackles. Heart sounds S1, S2 are soft. No murmurs or gallops. ABDOMEN: Soft, nontender. Femoral pulses were well palpable. Extremities are warm. No edema. There was no JVD. Patient is able to lie flat in bed when I examined him yesterday evening. IMPRESSION: 1. Recurrent ventricular tachycardia, sustained VT greater than 200 beats per minute, multiple episodes each requiring antitachycardia pacing which failed and subsequently cardioversion/defibrillation was successful. The patient multiple episodes but now the episodes were preceded by any cardiac symptoms such as chest pain, shortness of breath or symptoms suggestive of a myocardial infarction. Last time when he came in about a month back he was experiencing chest discomfort. This time he had absolutely no chest discomfort. The troponins are abnormal up to 3.0 which is expected in view of his demand ischemia from sustained ventricular tachycardia multiple episodes, multiple ICD shocks and despite IV amiodarone he continued to have recurrent episodes of sustained VT. This was discussed with Dr. Yesenia Harris, both of us agreed that this did not represent an acute coronary syndrome but rather a demand ischemia from his ventricular tachycardia as well as multiple ICD shocks. 2. Known coronary artery disease status post coronary artery bypass grafting. 3. Ischemic cardiomyopathy with an old inferior wall myocardial infarction. 4. Coronary artery bypass grafting. 5. Severe chronic obstructive pulmonary disease. SUGGEST: Continue oral amiodarone and mexiletine for now. Coumadin was held. Today the INR is 2.0. We will proceed with ischemic VT ablation. This was discussed with the patient. He is agreeable with the plan. He understands the risks involved. MMDEIONL / IJN: [id number] /
[2017-11-15] MEDS ORDERED: WARFARIN 1 MG TAB PO SCH ×2 (18:00→20:00)
[2017-11-15] MEDS ORDERED: PROTAMINE SULFATE 10 MG/ML 5 ML VIAL IV ONE ×2 (18:14→18:16)
[2017-11-15] MEDS ORDERED: IOHEXOL 350 MG/ML 50ML BOTTLE INJ ONE (18:33)
[2017-11-15] MEDS ORDERED: ACETAMINOPHEN TAB 325 MG TAB PO PRN (18:48)
--- NOTE | 2017-11-15 20:16 | CE ---
CARDIAC ELECTROPHYSIOLOGY REPORT A 67-year-old male patient who presented to the hospital with recurrent ICD shocks, recurrent fast ventricular tachycardia and known underlying ischemic cardiomyopathy, history of myocardial infarction in the past, inferior wall. VT was fast, heart rates greater than 200 beats a minute and his ICD shocks were not preceded by any chest discomfort, dizziness, shortness of breath or any other symptoms. He had recurrent ventricular tachycardia, even on IV amiodarone and therefore he was brought to the EP lab for an EP study and ablation. The patient was brought to the EP lab in the fasting state. Written informed consent was obtained prior to the procedure. The procedure was performed under conscious sedation, which he tolerated well. The patient was already on IV antibiotics. Venous sheaths were placed in the right and left femoral veins and a long sheath was placed in the right femoral artery for retrograde access. Sinus cycle length 753 milliseconds. [place] interval 193 milliseconds, QRS 148 milliseconds, QT 474 milliseconds, AH interval 138 milliseconds, HV interval 37 milliseconds. High right atrial pacing was performed. EP study was performed from the high right atrium, coronary sinus, right ventricle, left ventricle. Isuprel was used wide-open. First intracardiac echocardiography was performed. No intracardiac mass or thrombus was noted. 3D anatomic mapping of the left ventricle was performed. Inferior lateral scar was noted. The scar extended close to the apex of the left ventricle. Following this, PentaRay catheter was placed in the left ventricle and voltage mapping was performed. The inferior scar was delineated and the isthmi were identified within the scar. During mapping, recurrent ventricular tachycardia was induced simply by catheter manipulation and the patient required antitachycardia pacing, mechanical termination/pump termination of the catheter as well as cardioversion and then even defibrillation for different types of ventricular tachycardia. The patient's clinical ventricular tachycardia at an inferolateral exit closer toward the apex. Scar formation isolation was performed. After identification of the core isthmus, laser ablation was performed within and around the inferior scar. As mapping was performed, no VT was induced. Following that, a full EP study was once again performed on and off Isuprel with burst stimulation in the right ventricle and after double extra stimuli in the right ventricle. Isuprel was used wide-open. No ventricular tachycardia was induced at the end of the procedure. All catheters were then removed. The device was re- interrogated. Prior to the procedure, the device was interrogated and VT detection therapies were turned off. Following successful ablation, an interrogation reprogramming was performed and VT zone at 150 beats a minute, 2nd VT zone of 175 beats a minute and VF zone of 200 beats a minute was programmed with appropriate antitachycardia pacing, cardioversion defibrillation. PLAN: 1. Continue Coumadin. Patient's INR today was 2.0. The procedure had been performed on heparin and at the end of the procedure, heparin was reversed with protamine. However, he will continue Coumadin lifelong, since he also has atrial fibrillation and he had linear LV VT ablation. 2. Mexiletine will be continued for 3 months and then stopped. 3. Amiodarone dose will be reduced to 100 mg p.o. q.a.m. 4. Since the patient's blood pressure has been consistently low throughout his admission, his carvedilol was discontinued and metoprolol was started. He may continue long-acting metoprolol 25 mg once daily along with very low-dose lisinopril as long as he can tolerate it from a hemodynamic standpoint. CATYH / ALVINN: [id number] /
[2017-11-15] MEDS: DONEPEZIL 10 MG TAB PO SCH (22:23)
--- NOTE | 2017-11-15 23:13 | PN ---
PROGRESS NOTE DATE OF SERVICE: 11/15/2017 This 67-year-old gentleman who was admitted with ventricular tachycardia, had AICD shocks. The patient underwent ventricular EP studies and ventricular ablation today by Cardiology. No chest pain. No palpitations. No fever. EXAM: Pulse 88, blood pressure 101/63, respiratory rate 20, temperature 98.4, pulse ox 98% on 4 L. HEENT: Conjunctivae normal. Neck: No jugular venous distention. Cardiovascular: S1, S2 muffled. Respiratory: Breath sounds diminished in the bases. No rhonchi and no crackles. ABDOMEN: Soft. Nervous system: No focal deficits. LABS: INR 2, hemoglobin 9.9. ASSESSMENT: 1. Status post AICD shock secondary to ventricular tachycardia, status post ventricular ablation. 2. Status post amiodarone lidocaine drips in ICU. 3. Monomorphic refractor ventricular tachycardia: Converted to normal sinus rhythm with episodes of recurrent ventricular tachycardia. 4. Congestive heart failure with chronic systolic dysfunction ejection fraction 30- 35%. Elevated troponin 3.85 secondary to demand ischemia and ventricular tachycardia. 5. Hyponatremia. 6. Increased D dimer. 7. History of asthma. 8. Acute hypoxic respiratory failure multifactorial. 9. Chronic obstructive pulmonary disease. 10.History of congestive heart failure. 11.History of myocardial infarction. 12.History AICD. 13.History of hypothyroidism. 14.History of chronic back pain. 15.History of coronary artery disease, coronary artery bypass grafting, stent. RECOMMENDATIONS AND DISCUSSION: Recommend to continue current management and symptomatic treatment. Otherwise resume antiarrhythmics. Closely follow with Cardiology. Monitor in ICU. Prognosis guarded. Further recommendations to follow. MMODL / IJN: [id number] /
[2017-11-16 04:30] LABS: Basophils % (A) 0 %; Eosinophils % (A) 1 %; HCT 30.8 % (39.0-53.0); HGB 9.5 gm/dL (13.0-17.5); Hypochromasia Slight; Lymphocytes # (A) 0.8 k/uL (1.0-4.8); Lymphocytes % (A) 15 %; MCHC 30.8 g/dL (31.0-37.0); MCV 90.8 fL (80.0-100.0); Mean Platelet Volume 8.4; Monocytes # (A) 0.5 k/uL (0-1.0); Monocytes % (A) 9 %; Neutrophils # (A) 4.1 k/uL (1.3-7.7); Neutrophils % (A) 72 %; Platelet Count 160 k/uL (150-450); RDW 14.1 % (11.5-15.5); WBC 5.7 k/uL (3.8-10.6)
[2017-11-16 04:38] LABS: INR 1.6 (<1.2); Prothrombin Time 14.5 sec (9.0-12.0)
[2017-11-16 04:54] LABS: Anion Gap 4 mmol/L; Blood Urea Nitrogen 20 mg/dL (9-20); Calcium 8.3 mg/dL (8.4-10.2); Carbon Dioxide 28 mmol/L (22-30); Chloride 103 mmol/L (98-107); Glucose 112 mg/dL (74-99); Magnesium 2.2 mg/dL (1.6-2.3); Phosphorus 2.9 mg/dL (2.5-4.5); Potassium 3.7 mmol/L (3.5-5.1); Sodium 135 mmol/L (137-145)
[2017-11-16] MEDS ORDERED: POTASSIUM CHLORIDE ER 20 MEQ TAB.ER PO SCH (06:00)
[2017-11-16] MEDS: IPRATROPIUM 0.5 MG/2.5 ML NEBU INHALATION SCH ×3 (07:18→23:50)
--- NOTE | 2017-11-16 08:15 | XR ---
EXAMINATION TYPE: XR chest 1V portable DATE OF EXAM: 11/16/2017 COMPARISON: 11/15/2017 HISTORY: Shortness of breath TECHNIQUE: Single frontal view of the chest is obtained. FINDINGS: Cardiac device and postsurgical changes noted. Diffuse interstitial pattern seen with smal l bilateral effusions and left lower lobe infiltrate. IMPRESSION: 1. Correlate for CHF with left lower lobe infiltrate and small effusion.
--- NOTE | 2017-11-16 08:55 | P.PN ---
Subjective Progress Note Date: 11/16/17 Principal diagnosis: Acute non-STEMI/sustained V. tach This is a pleasant 67-year-old gentleman who sees Dr. COLEMAN Gill on regular basis with a past medical history significant for severe underlying coronary artery disease and prior coronary artery that is grafting with a recent heart catheterization revealing the occlusion of all vein grafts and open JAVIER to LAD. At that point the patient underwent stenting of the left circumflex by Dr. COLEMAN Gill and that was performed a few weeks ago. The patient also is known to have severe cardiomyopathy and he is status post AICD placements. Also he is known to have paroxysmal atrial fibrillation. He presented to the hospital with 3 ICD shocks. No dizziness or lightheadedness and no syncope. No chest pain or chest discomfort for. He was found to be in sustained V. tach. On follow-up with the patient today on 11/16/2016, he underwent V. tach ablation yesterday by Dr. Wagner in. He has been maintaining normal sinus mechanism since then. He continues to be on amiodarone as well as mexiletine and also he is on low dose of metoprolol. The blood pressure has been marginally low. Currently he is on Lasix by mouth. The chest x-ray from this morning continues to show finding of pulmonary vascular congestions an infiltrate. As a matter of fact he does have bilateral rhonchi in both lung bases and also diminished breathing sounds. He continues to be on, then for anticoagulation. Objective - Vital Signs Vital signs: Vital Signs Temp 98.1 F 11/16/17 04:00 Pulse 93 11/16/17 07:28 Resp 21 11/16/17 07:00 BP 101/64 11/16/17 07:00 Pulse Ox 95 11/16/17 07:00 Intake & Output 11/15/17 11/16/17 11/16/17 18:59 06:59 18:59 Intake Total 1610 960 20 Output Total 1160 2320 Balance 450 -1360 20 Weight 72.6 kg Intake: IV 1610 220 20 Sodium Chloride 0.9% 1, 50 220 20 000 ml @ 20 mls/hr IV . Q24H [facility] Rx#:[id number] Oral 740 Output: Urine 1160 2320 Other: Voiding Method Indwelling Catheter Indwelling Catheter # Voids 0 - Constitutional General appearance: Present: no acute distress - Respiratory Respiratory: bilateral: diminished, rhonchi - Cardiovascular Rhythm: regular Heart sounds: normal: S1, S2 - Labs CBC & Chem 7: 11/16/17 04:10 11/16/17 04:10 Labs: Abnormal Lab Results - Last 24 Hours (Table) 11/16/17 11/16/17 11/16/17 Range/Units 04:10 04:10 04:10 RBC 3.40 L (4.30-5.90) m/uL Hgb 9.5 L (13.0-17.5) gm/dL Hct 30.8 L (39.0-53.0) % MCHC 30.8 L (31.0-37.0) g/dL Lymphocytes # 0.8 L (1.0-4.8) k/uL PT 14.5 H (9.0-12.0) sec INR 1.6 H (<1.2) Sodium 135 L (137-145) mmol/L Glucose 112 H (74-99) mg/dL Calcium 8.3 L (8.4-10.2) mg/dL Microbiology - Last 24 Hours (Table) 11/13/17 17:00 Urine Culture - Final Urine,Catheterized Wilma sp,not albicans/galbr 11/13/17 16:52 Blood Culture - Preliminary Blood No Growth after 48 hours Assessment and Plan Assessment: Assessment #1 sustained V. tach #2 recurrent ICD shock secondary to the above #3 acute non-ST elevation myocardial infarction #4 severe cardiomyopathy #5 proximal atrial fibrillation #6 multiple comorbid conditions. Plan #1 continue the current medical treatment was amiodarone by mouth, metoprolol by mouth, and mexiletine #2 the patient is status post VT ablation yesterday. #3 continue Lasix by mouth. #4 the echocardiogram was reviewed and continues to show severe cardiomyopathy #5 follow-up with the patient.
[2017-11-16] MEDS: ONDANSETRON 4 MG/2 ML VIAL IVP PRN ×2 (09:12→18:32)
[2017-11-16] MEDS: SODIUM CHLORIDE 0.9% 1,000 ML IV SCH (09:31)
[2017-11-16] MEDS: MEXILETINE 150 MG CAP PO SCH ×3 (09:32→23:04)
[2017-11-16] MEDS: AMIODARONE 100 MG TAB PO SCH (09:33)
[2017-11-16] MEDS: ASPIRIN 81 MG PO SCH (09:33)
[2017-11-16] MEDS ORDERED: FUROSEMIDE 10 MG/ML 4 ML VIAL IV STA (09:34)
[2017-11-16] MEDS: CLOPIDOGREL 75 MG TAB PO SCH (09:34)
[2017-11-16] MEDS: cefTRIAXone IN SWFI 1,000 MG/10 ML SYRINGE IVP SCH (09:34)
[2017-11-16] MEDS: FUROSEMIDE 20 MG TAB PO SCH (09:34)
[2017-11-16] MEDS: FAMOTIDINE 20 MG/2 ML VIAL IV SCH ×2 (09:34→20:07)
[2017-11-16] MEDS: ATORVASTATIN 40 MG TAB PO SCH (09:34)
[2017-11-16] MEDS: GABAPENTIN 300 MG CAP PO SCH ×3 (09:35→22:23)
[2017-11-16] MEDS: METOPROLOL TARTRATE 25 MG TAB PO SCH ×2 (09:35→20:07)
[2017-11-16] MEDS: HYDROcodone/APAP 10-325MG 1 EACH TAB PO SCH ×3 (09:42→22:21)
--- NOTE | 2017-11-16 15:57 | P.PN ---
Subjective Progress Note Date: 11/16/17 This a 67-year-old male has a history of COPD angina , heart failure CVA , coronary artery disease, previous bypass surgery, previous myocardial infarction and hypothyroidism. The patient has cardiomyopathy and previous echocardiogram showed an ejection fraction of 30-35% consistent with moderate to severe impairment of LV function and the patient has segmental wall motion abnormalities involving the anteroseptal, lateral and septal and apical saleem in addition to severe dilatation of the left atrium and moderate to severe mitral regurgitation and only pressure is estimated to be around 31 mmHg. the patient's latest cardiac catheterization was done 10/19/2017 and it showed a patent left main, LAD was totally occluded in the midportion after the origin of the septal and diagonal branch. The qagan t[place]ung[place] circumflex had an 80% lesion in the proximal portion after the origin of the obtuse marginal branch. Distally in the same vessel there was a 95% stenosis after which the flow seems to be somewhat sluggish. Right coronary artery was totally occluded. 2 vein grafts to the right coronary artery and obtuse marginal branch was totally occluded. JAVIER to LAD was widely patent. The patient has also history of ventricular arrhythmias and the patient has an AICD in place.His automatic implantable cardiac defibrillator went off a number of time because of ventricular tachycardia. The patient developed shortness of breath hypotension was placed on Cordarone. He was also given mexiletine and some other medications were changed by cardiology as well. The patient is still having some episodes of ventricular tachycardia. He is resting comfortably here in the ICU. He had the lidocaine is reducing been turned off. His IV is a saline at 20 mL an hour. He is on O2 at 2 L. Other than that doing relatively well. No pain. Yesterday he was both on lidocaine and Cordarone at 0.5 mg/m. On 11/15/2017, the patient is being seen for a follow-up. The patient is hemodynamically stable. The patient was taken off the amiodarone drip and currently is on oral amiodarone at a dose of 200 mg by mouth once a day. The patient is also on Mexitil 150 mg every 8 hours and Lopressor 25 mg by mouth twice a day. The patient was taken off the amiodarone drip. The patient's current cardiac rhythm is sinus for on and off throughout the night and today the patient was having episodes of wide complex tachycardia and the last run was around 4 AM this morning. The patient had a run of 120-130 beats of wide complex tachycardia at the rate of 110. The AICD did not fire. He converted back to sinus rhythm. The latest run of Cardiology is aware of and Dr. Ornelas from EP is consulted in this regard. The patient has CHF and pulmonary edema and pleural effusion on the chest exit was done yesterday on 11/15/2017. On 11/16/2017, the patient is being seen in follow-up. The patient is doing very well. No further cardiac arrhythmias have been noted. The patient underwent an EP study yesterday by Dr. Ornelas and he further underwent VT ablation. This was successful. The patient is doing well. He is hemodynamically stable. He runs a borderline low blood pressure. Gets his urine output is adequate. His chest x-ray still showing some small bilateral pleural effusion and pulmonary vessel congestion and the patient will be given a dose of Lasix 40 mg IV push today. He is free of any chest pain. No cough or sputum production. No fever or chills. No hemoptysis. His PT/INR is subtherapeutic with an INR of 1.6 and the patient will be given 2 mg of Coumadin today. No other significant events over the past 24 hours. His beta janelle has been metoprolol 25 mg by mouth twice a day. He is also on Mexitil 150 mg 3 times a day and amiodarone 100 mg by mouth daily. He is being monitored here in the intensive care unit. Cardiology is on the case. Objective - Vital Signs Vital signs: Vital Signs Temp 98.4 F 11/16/17 12:00 Pulse 88 11/16/17 13:00 Resp 27 H 11/16/17 13:00 BP 93/63 11/16/17 13:00 Pulse Ox 84 L 11/16/17 13:00 Intake & Output 11/15/17 11/16/17 11/16/17 18:59 06:59 18:59 Intake Total 1610 960 580 Output Total 1160 2320 600 Balance 450 -1360 -20 Weight 72.6 kg Intake: IV 1610 220 180 Sodium Chloride 0.9% 1, 50 220 180 000 ml @ 20 mls/hr IV . Q24H [facility] Rx#:[id number] Oral 740 400 Output: Urine 1160 2320 600 Other: Voiding Method Indwelling Catheter Indwelling Catheter Urinal # Voids 0 - Exam No acute distress, oriented 3. HEENT examination is grossly unremarkable. Mucous membranes are moist. No oral lesions. Neck supple. Full range of motion. No adenopathy thyromegaly or neck vein distention. Cardiovascular examination reveals regular rhythm rate. S1-S2 normal. No S3 or S4. No discernible murmur noted. Lungs reveal a few scattered bibasilar crackles. No rhonchi. No wheezes. Breath sounds equal bilaterally. Abdomen soft bowel sounds are heard. No masses or tenderness. Extremities are intact. No cyanosis clubbing or edema. Skin is without rash or lesion. Neurologic examination is brief but nonfocal. - Labs CBC & Chem 7: 11/16/17 04:10 11/16/17 04:10 Labs: Abnormal Lab Results - Last 24 Hours (Table) 11/16/17 11/16/17 11/16/17 Range/Units 04:10 04:10 04:10 RBC 3.40 L (4.30-5.90) m/uL Hgb 9.5 L (13.0-17.5) gm/dL Hct 30.8 L (39.0-53.0) % MCHC 30.8 L (31.0-37.0) g/dL Lymphocytes # 0.8 L (1.0-4.8) k/uL PT 14.5 H (9.0-12.0) sec INR 1.6 H (<1.2) Sodium 135 L (137-145) mmol/L Glucose 112 H (74-99) mg/dL Calcium 8.3 L (8.4-10.2) mg/dL Microbiology - Last 24 Hours (Table) 11/13/17 17:00 Urine Culture - Final Urine,Catheterized Wilma sp,not albicans/galbr 11/13/17 16:52 Blood Culture - Preliminary Blood No Growth after 48 hours Assessment and Plan Plan: Assessment 1 wide-complex tachycardia, rule out low-grade ventricular tachycardia. Patient is status post EP studies with VT ablation that was done by Dr. Ornelas. Currently his current rhythm is sinus without any further ventricular arrhythmias noted over the past 12 hours post the ablation. The patient remains on a combination of Mexitil, metoprolol and amiodarone. 2 ventricular tachycardia/fibrillation, post-AICD discharge 3 prior to his hospitalization 3 CHF with ejection fraction of 30-35% and signs of heart failure with CHF and pulmonary edema and pleural effusions bilaterally 4 coronary artery disease with previous bypass surgery, please refer to the results of the cardiac cath. The patient has a patent JAVIER to LAD and the rest of the saphenous finger after all occluded. The patient has also undergone previous coronary intervention and stenting. He is currently free of any chest pain. 5 COPD 6 hypothyroidism 7 history of CVA 8 paroxysmal atrial fibrillation maintained on long-term articulation with warfarin, INR is at 1.6 Plan Patient underwent a successful ablation. Continued oral medication including a combination of Mexitil metoprolol and amiodarone. Give the patient 4 L of IV Lasix. Give the patient tomograms of Coumadin knowing that the PT/INR therapeutic at 1.6. Monitor urine output. Monitor blood pressure. We'll continue to follow up this patient along with cardiology. Further recommendations are to follow based on his progress.
--- NOTE | 2017-11-16 17:35 | PN ---
PROGRESS NOTE DATE OF SERVICE: 11/16/2017 This 67-year-old gentleman who was admitted after acute ventricular tachycardia had EP study and as well as cardiac ablation is being closely monitored. Patient also complaining of right arm pain and swelling. No chest pain. No palpitations. No fever. EXAM: Alert, oriented x3. Pulse 98, blood pressure 90/60, respiration 20, temperature normal, pulse ox 96% on 5 L. HEENT: Conjunctivae normal. NECK: No jugular venous distention. CARDIOVASCULAR: S1, S2. RESPIRATORY: Breath sounds diminished in the bases. A few scattered rhonchi and crackles. ABDOMEN: Soft, nontender. LEGS: No edema. NERVOUS SYSTEM: No focal deficits. Examination of the right hand, phlebitis present. LAB STUDIES: WBC 5, hemoglobin 9.2, INR 1.6. ASSESSMENT: 1. Status post AICD secondary to atrial tachycardia recurrent status post ventricular ablation. 2. Status post Amiodarone and lidocaine drips in ICU. 3. Right upper arm thrombophlebitis. 4. Monomorphic refractory ventricular tachycardia converted to sinus rhythm with episodes of ventricular tachycardia. 5. Congestive heart failure with chronic systolic dysfunction, ejection fraction 30- 35%. 6. Elevated troponin 3.8 secondary to demand ischemia and ventricular tachycardia. 7. Hyponatremia. 8. Increased D-dimer. 9. History of asthma. 10.Acute hypoxia respiratory failure multifactorial. 11.Chronic obstructive pulmonary disease. 12.History of congestive heart failure. 13.History of myocardial infarction. 14.History AICD. 15.History of hypothyroidism. 16.History of chronic back pain. 17.History of coronary artery disease, CABG, stent. RECOMMENDATIONS AND DISCUSSION: I recommend to continue current management and symptomatic treatment. At this time I recommend continue with current medication antibiotics. Closely follow with Cardiology and antiarrhythmics. Further recommendations to follow. MMODL / IJN: [id number] /
[2017-11-16] MEDS ORDERED: WARFARIN 2 MG TAB PO ONE (18:00)
--- NOTE | 2017-11-16 19:44 | XR ---
EXAMINATION TYPE: XR chest 1V portable DATE OF EXAM: 11/16/2017 COMPARISON: Today HISTORY: Short of breath TECHNIQUE: Single frontal view of the chest is obtained. FINDINGS: There is pulmonary edema. Heart is enlarged. There is left axillary pacemaker with the gifty d tip over the right ventricle. There are chest leads. IMPRESSION: Congestive heart failure with pulmonary edema. Pleural effusions. Chest appears slightly worse than exam this morning.
[2017-11-16] MEDS ORDERED: VANCOMYCIN 1,250 MG in SODIUM CHLORIDE 0.9% 250 ML IVPB ONE (20:00)
[2017-11-16 20:05] LABS: HCT 32.8 % (39.0-53.0); HGB 10.4 gm/dL (13.0-17.5); Hypochromasia Slight; MCHC 31.8 g/dL (31.0-37.0); MCV 91.2 fL (80.0-100.0); Mean Platelet Volume 8.6; Platelet Count 180 k/uL (150-450); RBC 3.59 m/uL (4.30-5.90); RDW 15.4 % (11.5-15.5); WBC 8.9 k/uL (3.8-10.6)
[2017-11-16] MEDS: DONEPEZIL 10 MG TAB PO SCH (20:07)
[2017-11-16 20:16] LABS: ALT 52 U/L (21-72); AST 41 U/L (17-59); Albumin 2.3 g/dL (3.5-5.0); Alkaline Phosphatase 76 U/L (38-126); Anion Gap 5 mmol/L; Blood Urea Nitrogen 23 mg/dL (9-20); Calcium 8.5 mg/dL (8.4-10.2); Carbon Dioxide 27 mmol/L (22-30); Chloride 101 mmol/L (98-107); Glucose 136 mg/dL (74-99); Potassium 3.7 mmol/L (3.5-5.1); Sodium 133 mmol/L (137-145); Total Bilirubin 0.8 mg/dL (0.2-1.3); Total Protein 4.8 g/dL (6.3-8.2)
[2017-11-17 07:10] LABS: Basophils % (A) 0 %; Eosinophils % (A) 1 %; HCT 30.6 % (39.0-53.0); HGB 9.6 gm/dL (13.0-17.5); Hypochromasia Moderate; Lymphocytes # (A) 0.5 k/uL (1.0-4.8); Lymphocytes % (A) 7 %; MCH 28.9 pg (25.0-35.0); MCHC 31.5 g/dL (31.0-37.0); MCV 91.6 fL (80.0-100.0); Mean Platelet Volume 8.1; Monocytes # (A) 0.5 k/uL (0-1.0); Monocytes % (A) 8 %; Neutrophils # (A) 5.4 k/uL (1.3-7.7); Neutrophils % (A) 82 %; Platelet Count 183 k/uL (150-450); RBC 3.34 m/uL (4.30-5.90); WBC 6.7 k/uL (3.8-10.6)
[2017-11-17 07:18] LABS: INR 1.6 (<1.2); Prothrombin Time 14.4 sec (9.0-12.0)
[2017-11-17 07:21] LABS: Anion Gap 6 mmol/L; Blood Urea Nitrogen 23 mg/dL (9-20); Calcium 8.9 mg/dL (8.4-10.2); Carbon Dioxide 27 mmol/L (22-30); Chloride 102 mmol/L (98-107); Glucose 110 mg/dL (74-99); Phosphorus 2.5 mg/dL (2.5-4.5); Potassium 3.9 mmol/L (3.5-5.1); Sodium 135 mmol/L (137-145)
[2017-11-17] MEDS: IPRATROPIUM 0.5 MG/2.5 ML NEBU INHALATION SCH ×2 (08:34→15:50)
[2017-11-17] MEDS: CLOPIDOGREL 75 MG TAB PO SCH (09:13)
[2017-11-17] MEDS: METOPROLOL TARTRATE 25 MG TAB PO SCH ×2 (09:13→20:17)
[2017-11-17] MEDS: FAMOTIDINE 20 MG TAB PO SCH ×2 (09:13→20:17)
[2017-11-17] MEDS: GABAPENTIN 300 MG CAP PO SCH ×3 (09:13→22:43)
[2017-11-17] MEDS: ASPIRIN 81 MG PO SCH (09:13)
[2017-11-17] MEDS: HYDROcodone/APAP 10-325MG 1 EACH TAB PO SCH ×3 (09:13→22:43)
[2017-11-17] MEDS: cefTRIAXone IN SWFI 1,000 MG/10 ML SYRINGE IVP SCH (09:13)
[2017-11-17] MEDS: MEXILETINE 150 MG CAP PO SCH ×2 (09:13→15:38)
[2017-11-17] MEDS: AMIODARONE 100 MG TAB PO SCH (09:13)
[2017-11-17] MEDS: ATORVASTATIN 40 MG TAB PO SCH (09:13)
[2017-11-17] MEDS: FUROSEMIDE 10 MG/ML 4 ML VIAL IV SCH ×2 (12:26→20:17)
--- NOTE | 2017-11-17 13:53 | P.PN ---
Subjective Progress Note Date: 11/17/17 Principal diagnosis: Acute non-STEMI/sustained VT This is a pleasant 67-year-old gentleman who sees Dr. COLEMAN Gill on regular basis with a past medical history significant for severe underlying coronary artery disease and prior coronary artery that is grafting with a recent heart catheterization revealing the occlusion of all vein grafts and open JAVIER to LAD. At that point the patient underwent stenting of the left circumflex by Dr. COLEMAN Gill and that was performed a few weeks ago. The patient also is known to have severe cardiomyopathy and he is status post AICD placements. Also he is known to have paroxysmal atrial fibrillation. He presented to the hospital with 3 ICD shocks. No dizziness or lightheadedness and no syncope. No chest pain or chest discomfort for. He was found to be in sustained V. tach. Patient underwent V. tach ablation by Dr. Cameron. He has been maintaining in normal sinus rhythm. Patient continues to be on mexiletine 150 every 8 hourly, metoprolol 25 mg twice a day, and amiodarone drip 100 milligrams daily. [place] of feeling mildly short of breath today. He has been resumed on IV Lasix per pulmonary. Blood pressure 100/60, heart rate in the 80s to 90s. 91% on 6 L of oxygen. Repeat chest x-ray shows congestive heart failure with pulmonary edema. Pleural effusions. Slightly worse than prior. Objective - Vital Signs Vital signs: Vital Signs Temp 98.3 F 11/17/17 08:00 Pulse 94 11/17/17 08:43 Resp 16 11/17/17 08:43 BP 109/64 11/17/17 08:00 Pulse Ox 94 L 11/17/17 08:34 Intake & Output 11/16/17 11/17/17 11/17/17 18:59 06:59 18:59 Intake Total 640 530 60 Output Total 600 430 Balance 40 100 60 Weight 70 kg Intake: IV 240 410 60 Sodium Chloride 0.9% 1, 240 160 60 000 ml @ 20 mls/hr IV . Q24H [facility] Rx#:[id number] Vancomycin 1,250 mg In 250 Sodium Chloride 0.9% 250 ml @ 125 mls/hr IVPB ONCE ONE Rx#:[id number] Oral 400 120 Output: Urine 600 430 Other: Voiding Method Urinal Indwelling Catheter Indwelling Catheter # Voids 0 0 - Exam PHYSICAL EXAMINATION: HEENT: Head is atraumatic, normocephalic. Pupils equal, round. Neck is supple. There is no elevated jugular venous pressure. HEART EXAMINATION: Heart S1, S2 normal. No murmur or gallop heard. CHEST EXAMINATION: Lungs reveal crackles to bilateral bases. ABDOMEN: Soft, nontender. Bowel sounds are heard. No organomegaly noted. EXTREMITIES: 2+ peripheral pulses with no evidence of peripheral edema and no calf tenderness noted. NEUROLOGIC patient is awake, alert and oriented -3. . - Labs CBC & Chem 7: 11/17/17 06:30 11/17/17 06:30 Labs: Abnormal Lab Results - Last 24 Hours (Table) 11/16/17 11/16/17 11/17/17 Range/Units 19:54 19:54 06:30 RBC 3.59 L 3.34 L (4.30-5.90) m/uL Hgb 10.4 L 9.6 L (13.0-17.5) gm/dL Hct 32.8 L 30.6 L (39.0-53.0) % Lymphocytes # 0.5 L (1.0-4.8) k/uL PT (9.0-12.0) sec INR (<1.2) Sodium 133 L (137-145) mmol/L BUN 23 H (9-20) mg/dL Glucose 136 H (74-99) mg/dL Total Protein 4.8 L (6.3-8.2) g/dL Albumin 2.3 L (3.5-5.0) g/dL 11/17/17 11/17/17 Range/Units 06:30 06:30 RBC (4.30-5.90) m/uL Hgb (13.0-17.5) gm/dL Hct (39.0-53.0) % Lymphocytes # (1.0-4.8) k/uL PT 14.4 H (9.0-12.0) sec INR 1.6 H (<1.2) Sodium 135 L (137-145) mmol/L BUN 23 H (9-20) mg/dL Glucose 110 H (74-99) mg/dL Total Protein (6.3-8.2) g/dL Albumin (3.5-5.0) g/dL Microbiology - Last 24 Hours (Table) 11/16/17 22:48 Urine Culture - Preliminary Urine,Catheterized 11/17/17 02:40 Sputum Culture - Preliminary Sputum 11/13/17 16:52 Blood Culture - Preliminary Blood No Growth after 72 hours Assessment and Plan Plan: Assessment and plan #1 ventricular tachycardia status post AICD discharge. Patient also underwent ventricular tachycardia ablation by Dr. Cameron this admission. We will continue mexiletine, metoprolol, and amiodarone. #2 systolic congestive heart failure acute on chronic #3 coronary artery disease with prior bypass surgery and PCI #4 hypertension #5 COPD #6 hypothyroidism #7 history of CVA #8 paroxysmal atrial fibrillation on Coumadin Plan PO Lasix has been discontinued and patient was reinitiated on IV Lasix. We will give the patient a total of 5 mg of Coumadin today. Continue mexiletine, metoprolol, and amiodarone. Monitor intake and output along with daily weights. DNP note has been reviewed, I agree with a documented findings and plan of care. Patient was seen and examined.
--- NOTE | 2017-11-17 14:46 | P.PN ---
<Dolores Hills M - Last Filed: 11/17/17 14:30> Subjective Progress Note Date: 11/17/17 Principal diagnosis: Wide-complex tachycardia, rule out low-grade VT, status post EP with successful ablation, currently in sinus rhythm This a 67-year-old male has a history of COPD angina , heart failure CVA , coronary artery disease, previous bypass surgery, previous myocardial infarction and hypothyroidism. The patient has cardiomyopathy and previous echocardiogram showed an ejection fraction of 30-35% consistent with moderate to severe impairment of LV function and the patient has segmental wall motion abnormalities involving the anteroseptal, lateral and septal and apical saleem in addition to severe dilatation of the left atrium and moderate to severe mitral regurgitation and only pressure is estimated to be around 31 mmHg. the patient's latest cardiac catheterization was done 10/19/2017 and it showed a patent left main, LAD was totally occluded in the midportion after the origin of the septal and diagonal branch. The [place] circumflex had an 80% lesion in the proximal portion after the origin of the obtuse marginal branch. Distally in the same vessel there was a 95% stenosis after which the flow seems to be somewhat sluggish. Right coronary artery was totally occluded. 2 vein grafts to the right coronary artery and obtuse marginal branch was totally occluded. JAVIER to LAD was widely patent. The patient has also history of ventricular arrhythmias and the patient has an AICD in place.His automatic implantable cardiac defibrillator went off a number of time because of ventricular tachycardia. The patient developed shortness of breath hypotension was placed on Cordarone. He was also given mexiletine and some other medications were changed by cardiology as well. The patient is still having some episodes of ventricular tachycardia. He is resting comfortably here in the ICU. He had the lidocaine is reducing been turned off. His IV is a saline at 20 mL an hour. He is on O2 at 2 L. Other than that doing relatively well. No pain. Yesterday he was both on lidocaine and Cordarone at 0.5 mg/m. On 11/15/2017, the patient is being seen for a follow-up. The patient is hemodynamically stable. The patient was taken off the amiodarone drip and currently is on oral amiodarone at a dose of 200 mg by mouth once a day. The patient is also on Mexitil 150 mg every 8 hours and Lopressor 25 mg by mouth twice a day. The patient was taken off the amiodarone drip. The patient's current cardiac rhythm is sinus for on and off throughout the night and today the patient was having episodes of wide complex tachycardia and the last run was around 4 AM this morning. The patient had a run of 120-130 beats of wide complex tachycardia at the rate of 110. The AICD did not fire. He converted back to sinus rhythm. The latest run of Cardiology is aware of and Dr. Ornelas from EP is consulted in this regard. The patient has CHF and pulmonary edema and pleural effusion on the chest exit was done yesterday on 11/15/2017. On 11/16/2017, the patient is being seen in follow-up. The patient is doing very well. No further cardiac arrhythmias have been noted. The patient underwent an EP study yesterday by Dr. Ornelas and he further underwent VT ablation. This was successful. The patient is doing well. He is hemodynamically stable. He runs a borderline low blood pressure. Gets his urine output is adequate. His chest x-ray still showing some small bilateral pleural effusion and pulmonary vessel congestion and the patient will be given a dose of Lasix 40 mg IV push today. He is free of any chest pain. No cough or sputum production. No fever or chills. No hemoptysis. His PT/INR is subtherapeutic with an INR of 1.6 and the patient will be given 2 mg of Coumadin today. No other significant events over the past 24 hours. His beta janelle has been metoprolol 25 mg by mouth twice a day. He is also on Mexitil 150 mg 3 times a day and amiodarone 100 mg by mouth daily. He is being monitored here in the intensive care unit. Cardiology is on the case. On 11/17/2017 patient seen again in follow-up on [facility] care floor. Last night patient had a spike in fever, with a temp of 101.4F at 8:00 PM. Also became tachycardic, with a rate of 116 BPM, tachypneic with respiratory rate of 26/m. Oxygen requirement has increased to 6 L/m from previous 4 L. Yesterday we gave a dose of 40 of IV Lasix, patient did diurese with that, is in -910 mL fluid balance over the last 24 hours. His weight is down by 2.6 kg over last 24 hours. Repeat blood cultures and sputum cultures were obtained and sent, patient had been on IV Rocephin since 11/13/2017, last night vancomycin was added. Patient' s fever was treated with antipyretics. This morning his vitals are stable, patient remains in sinus rhythm, with a rate of 94-96 BPM. Afebrile, sputum, urine and blood culture are pending. Lung sounds are positive for some crackles at the bases. Chest x-ray from 11/16/2017 has been reviewed and shows congestive heart failure with pulmonary edema and pleural effusions. She will be placed on Lasix 40 IV push every 12 hours. Objective - Vital Signs Vital signs: Vital Signs Temp 97.2 F L 11/17/17 12:00 Pulse 79 11/17/17 12:00 Resp 20 11/17/17 12:00 BP 94/57 11/17/17 12:00 Pulse Ox 94 L 11/17/17 12:00 Intake & Output 11/16/17 11/17/17 11/17/17 18:59 06:59 18:59 Intake Total 640 530 60 Output Total 600 430 Balance 40 100 60 Weight 70 kg Intake: IV 240 410 60 Sodium Chloride 0.9% 1, 240 160 60 000 ml @ 20 mls/hr IV . Q24H [facility] Rx#:[id number] Vancomycin 1,250 mg In 250 Sodium Chloride 0.9% 250 ml @ 125 mls/hr IVPB ONCE ONE Rx#:[id number] Oral 400 120 Output: Urine 600 430 Other: Voiding Method Urinal Indwelling Catheter Urinal # Voids 0 0 - Exam No acute distress, oriented 3. HEENT examination is grossly unremarkable. Mucous membranes are moist. No oral lesions. Neck supple. Full range of motion. No adenopathy thyromegaly or neck vein distention. Cardiovascular examination reveals regular rhythm rate. S1-S2 normal. No S3 or S4. No discernible murmur noted. Lungs reveal a few scattered bibasilar crackles. No rhonchi. No wheezes. Breath sounds equal bilaterally. Abdomen soft bowel sounds are heard. No masses or tenderness. Extremities are intact. No cyanosis clubbing or edema. Skin is without rash or lesion. Neurologic examination is brief but nonfocal. - Labs CBC & Chem 7: 11/17/17 06:30 11/17/17 06:30 Labs: Abnormal Lab Results - Last 24 Hours (Table) 11/16/17 11/16/17 11/17/17 Range/Units 19:54 19:54 06:30 RBC 3.59 L 3.34 L (4.30-5.90) m/uL Hgb 10.4 L 9.6 L (13.0-17.5) gm/dL Hct 32.8 L 30.6 L (39.0-53.0) % Lymphocytes # 0.5 L (1.0-4.8) k/uL PT (9.0-12.0) sec INR (<1.2) Sodium 133 L (137-145) mmol/L BUN 23 H (9-20) mg/dL Glucose 136 H (74-99) mg/dL Total Protein 4.8 L (6.3-8.2) g/dL Albumin 2.3 L (3.5-5.0) g/dL 11/17/17 11/17/17 Range/Units 06:30 06:30 RBC (4.30-5.90) m/uL Hgb (13.0-17.5) gm/dL Hct (39.0-53.0) % Lymphocytes # (1.0-4.8) k/uL PT 14.4 H (9.0-12.0) sec INR 1.6 H (<1.2) Sodium 135 L (137-145) mmol/L BUN 23 H (9-20) mg/dL Glucose 110 H (74-99) mg/dL Total Protein (6.3-8.2) g/dL Albumin (3.5-5.0) g/dL Microbiology - Last 24 Hours (Table) 11/16/17 22:48 Urine Culture - Preliminary Urine,Catheterized 11/17/17 02:40 Sputum Culture - Preliminary Sputum 11/13/17 16:52 Blood Culture - Preliminary Blood No Growth after 72 hours Assessment and Plan Plan: Assessment 1 wide-complex tachycardia, rule out low-grade ventricular tachycardia. Patient is status post EP studies with VT ablation that was done by Dr. Ornelas. Currently his current rhythm is sinus without any further ventricular arrhythmias noted over the past 12 hours post the ablation. The patient remains on a combination of Mexitil, metoprolol and amiodarone. 2 ventricular tachycardia/fibrillation, post-AICD discharge 3 prior to his hospitalization 3 CHF with ejection fraction of 30-35% and signs of heart failure with CHF and pulmonary edema and pleural effusions bilaterally 4 coronary artery disease with previous bypass surgery, please refer to the results of the cardiac cath. The patient has a patent JAVIER to LAD and the rest of the saphenous finger after all occluded. The patient has also undergone previous coronary intervention and stenting. He is currently free of any chest pain. 5 COPD 6 hypothyroidism 7 history of CVA 8 paroxysmal atrial fibrillation maintained on long-term articulation with warfarin, INR is at 1.6 Plan Patient had an episode of a fever spike last night with a temp of 101.4, became tachycardic, tachypneic, dyspneic, oxygenation has increased. New urine sputum and blood cultures were obtained and sent. Patient was initiated on vancomycin , in addition to previously instituted Rocephin. Cultures are pending. No further episodes of fever. Remains in sinus rhythm with a rate in the 90s. Chest x-ray from 11/16/2017 shows CHF, with pulmonary edema and pleural effusions. Yesterday we gave a dose of Lasix with good diuresis. We will continue the diuresis with Lasix IV 40 mg every 12 hours. Continued oral medication including a combination of Mexitil metoprolol and amiodarone. His INR remains subtherapeutic at 1.6, we will give the patient 2.5 mg of Coumadin tonight. Continue close monitoring. Further recommendations to follow I performed a history & physical examination of the patient and discussed their management with my nurse practitioner, Dolores Hills. I reviewed the nurse practitioner's note and agree with the documented findings and plan of care. Lung sounds are bibasilar crackles. The findings and the impression was discussed with the patient. I attest to the documentation by the nurse practitioner. Time with Patient: Less than 30 <Esther Puri - Last Filed: 11/17/17 15:50> Objective - Vital Signs Vital signs: Vital Signs Temp 97.2 F L 11/17/17 12:00 Pulse 79 11/17/17 12:00 Resp 20 11/17/17 12:00 BP 94/57 11/17/17 12:00 Pulse Ox 94 L 11/17/17 12:00 Intake & Output 11/16/17 11/17/17 11/17/17 18:59 06:59 18:59 Intake Total 640 530 160 Output Total 871 999 4039 Balance 40 100 -1640 Weight 70 kg Intake: IV 240 410 160 Sodium Chloride 0.9% 1, 240 160 160 000 ml @ 20 mls/hr IV . Q24H [facility] Rx#:[id number] Vancomycin 1,250 mg In 250 Sodium Chloride 0.9% 250 ml @ 125 mls/hr IVPB ONCE ONE Rx#:[id number] Oral 400 120 Output: Urine 454 708 1130 Uretheral ([place]) 900 Other: Voiding Method Urinal Indwelling Catheter Urinal # Voids 0 0 - Labs CBC & Chem 7: 11/17/17 06:30 11/17/17 06:30 Labs: Abnormal Lab Results - Last 24 Hours (Table) 11/16/17 11/16/17 11/17/17 Range/Units 19:54 19:54 06:30 RBC 3.59 L 3.34 L (4.30-5.90) m/uL Hgb 10.4 L 9.6 L (13.0-17.5) gm/dL Hct 32.8 L 30.6 L (39.0-53.0) % Lymphocytes # 0.5 L (1.0-4.8) k/uL PT (9.0-12.0) sec INR (<1.2) Sodium 133 L (137-145) mmol/L BUN 23 H (9-20) mg/dL Glucose 136 H (74-99) mg/dL Total Protein 4.8 L (6.3-8.2) g/dL Albumin 2.3 L (3.5-5.0) g/dL 11/17/17 11/17/17 Range/Units 06:30 06:30 RBC (4.30-5.90) m/uL Hgb (13.0-17.5) gm/dL Hct (39.0-53.0) % Lymphocytes # (1.0-4.8) k/uL PT 14.4 H (9.0-12.0) sec INR 1.6 H (<1.2) Sodium 135 L (137-145) mmol/L BUN 23 H (9-20) mg/dL Glucose 110 H (74-99) mg/dL Total Protein (6.3-8.2) g/dL Albumin (3.5-5.0) g/dL Microbiology - Last 24 Hours (Table) 11/16/17 22:48 Urine Culture - Preliminary Urine,Catheterized 11/17/17 02:40 Sputum Culture - Preliminary Sputum 11/13/17 16:52 Blood Culture - Preliminary Blood No Growth after 72 hours Assessment and Plan Plan: This is a joint evaluation that was done along with the nurse practitioner. The patient is still short of breath and hypoxic. He is on 6 L of oxygen by nasal cannula. His chest x-ray is consistent with CHF. We'll start the patient on Lasix 40 mg IV push every 12 hours. We'll give him 0.5 mg of warfarin. Monitor PT/INR. We'll continue to follow. This is a joint evaluation along with a nurse practitioner. I tested above-mentioned information.
[2017-11-17] MEDS ORDERED: WARFARIN 2.5 MG TAB PO ONE ×2 (18:00)
[2017-11-17] MEDS: DONEPEZIL 10 MG TAB PO SCH (20:18)
[2017-11-18] MEDS: MEXILETINE 150 MG CAP PO SCH ×4 (00:19→23:11)
[2017-11-18 06:45] LABS: Anion Gap 5 mmol/L; Blood Urea Nitrogen 25 mg/dL (9-20); Calcium 8.7 mg/dL (8.4-10.2); Carbon Dioxide 34 mmol/L (22-30); Chloride 97 mmol/L (98-107); Glucose 109 mg/dL (74-99); Phosphorus 2.8 mg/dL (2.5-4.5); Potassium 3.6 mmol/L (3.5-5.1); Sodium 136 mmol/L (137-145)
[2017-11-18 07:08] LABS: HCT 32.4 % (39.0-53.0); HGB 9.6 gm/dL (13.0-17.5); Hypochromasia Moderate; MCH 27.6 pg (25.0-35.0); MCHC 29.8 g/dL (31.0-37.0); MCV 92.6 fL (80.0-100.0); Mean Platelet Volume 9.2; Platelet Count 184 k/uL (150-450); WBC 5.8 k/uL (3.8-10.6)
[2017-11-18 07:49] LABS: Lymphocytes # (M) 0.17 k/uL (1.0-4.8); Monocytes # (M) 0.35 k/uL (0-1.0); Neutrophils # (M) 5.28 k/uL (1.3-7.7); Neutrophils % (M) 91 %; Nucleated Red Blood Cells 0 /100 WBC (0-0); Total Cells Counted 100
[2017-11-18 07:51] LABS: Anisocytosis (M) Present; Poikilocytosis (M) Present; Polychromasia Present
[2017-11-18] MEDS: AMIODARONE 100 MG TAB PO SCH (07:53)
[2017-11-18] MEDS: FAMOTIDINE 20 MG TAB PO SCH ×2 (07:54→21:30)
[2017-11-18] MEDS: FUROSEMIDE 10 MG/ML 4 ML VIAL IV SCH ×2 (07:54→21:30)
[2017-11-18] MEDS: ATORVASTATIN 40 MG TAB PO SCH (07:54)
[2017-11-18] MEDS: CLOPIDOGREL 75 MG TAB PO SCH (07:54)
[2017-11-18] MEDS: ASPIRIN 81 MG PO SCH (07:54)
[2017-11-18] MEDS: GABAPENTIN 300 MG CAP PO SCH ×3 (07:55→21:31)
[2017-11-18] MEDS: METOPROLOL TARTRATE 25 MG TAB PO SCH ×2 (07:55→21:31)
[2017-11-18] MEDS: IPRATROPIUM 0.5 MG/2.5 ML NEBU INHALATION SCH ×3 (08:06→19:13)
[2017-11-18] MEDS: HYDROcodone/APAP 10-325MG 1 EACH TAB PO SCH ×3 (08:10→23:09)
[2017-11-18] MEDS: cefTRIAXone IN SWFI 1,000 MG/10 ML SYRINGE IVP SCH (08:11)
[2017-11-18 13:05] LABS: INR 1.8 (<1.2); Prothrombin Time 16.5 sec (9.0-12.0)
[2017-11-18] MEDS: INSULIN ASPART 100 UNIT/ML 1 ML 10 ML VIAL SQ SCH ×3 (13:10→21:30)
[2017-11-18] MEDS: methylPREDNISolone SOD SUCCI 125 MG/2 ML VIAL IV SCH ×3 (13:10→23:11)
[2017-11-18 14:02] VITALS: BMI 22.4
--- NOTE | 2017-11-18 15:29 | P.PN ---
Subjective Progress Note Date: 11/18/17 Principal diagnosis: Acute non-STEMI/sustained VT This is a pleasant 67-year-old gentleman who sees Dr. COLEMAN Gill on regular basis with a past medical history significant for severe underlying coronary artery disease and prior coronary artery that is grafting with a recent heart catheterization revealing the occlusion of all vein grafts and open JAVIER to LAD. At that point the patient underwent stenting of the left circumflex by Dr. COLEMAN Gill and that was performed a few weeks ago. The patient also is known to have severe cardiomyopathy and he is status post AICD placements. Also he is known to have paroxysmal atrial fibrillation. He presented to the hospital with 3 ICD shocks. No dizziness or lightheadedness and no syncope. No chest pain or chest discomfort for. He was found to be in sustained V. tach. Patient underwent V. tach ablation by Dr. Cameron. He has been maintaining in normal sinus rhythm. Patient continues to be on mexiletine 150 every 8 hourly, metoprolol 25 mg twice a day, and amiodarone 100 milligrams daily. Noble of feeling mildly short of breath today. He has been resumed on IV Lasix per pulmonary. Blood pressure 100/60, heart rate in the 80s to 90s. 91% on 6 L of oxygen. Repeat chest x-ray shows congestive heart failure with pulmonary edema. Pleural effusions. Slightly worse than prior. 11/18/2017 Patient seen and examined this morning, grade temperature of 99.4, blood pressure 106/68, heart rate in the 90s. His weight is unchanged from yesterday. Hemoglobin 9.6, INR 1.8, sodium 136, BUN 25, creatinine 0.9. Objective - Vital Signs Vital signs: Vital Signs Temp 96.2 F L 11/18/17 12:00 Pulse 68 11/18/17 12:00 Resp 20 11/18/17 12:00 BP 90/56 11/18/17 12:00 Pulse Ox 96 11/18/17 12:00 Intake & Output 11/17/17 11/18/17 11/18/17 18:59 06:59 18:59 Intake Total 390 220 260 Output Total 3200 650 1700 Balance -2810 430 -1440 Weight 73 kg 73 kg Intake: IV 160 40 Sodium Chloride 0.9% 1, 160 40 000 ml @ 20 mls/hr IV . Q24H [facility] Rx#:[id number] Oral 230 180 260 Output: Urine 3200 650 1700 Uretheral ([place]) 900 Other: Voiding Method Urinal Urinal Urinal # Voids 0 1 1 - Exam PHYSICAL EXAMINATION: HEENT: Head is atraumatic, normocephalic. Pupils equal, round. Neck is supple. There is no elevated jugular venous pressure. HEART EXAMINATION: Heart S1, S2 normal. No murmur or gallop heard. CHEST EXAMINATION: Lungs reveal crackles to bilateral bases. ABDOMEN: Soft, nontender. Bowel sounds are heard. No organomegaly noted. EXTREMITIES: 2+ peripheral pulses with no evidence of peripheral edema and no calf tenderness noted. NEUROLOGIC patient is awake, alert and oriented -3. . - Labs CBC & Chem 7: 11/18/17 05:51 11/18/17 05:51 Labs: Abnormal Lab Results - Last 24 Hours (Table) 11/18/17 11/18/17 11/18/17 Range/Units 05:51 05:51 05:51 RBC 3.50 L (4.30-5.90) m/uL Hgb 9.6 L (13.0-17.5) gm/dL Hct 32.4 L (39.0-53.0) % MCHC 29.8 L (31.0-37.0) g/dL Lymphocytes # (Manual) 0.17 L (1.0-4.8) k/uL PT 16.5 H (9.0-12.0) sec INR 1.8 H (<1.2) Sodium 136 L (137-145) mmol/L Chloride 97 L (98-107) mmol/L Carbon Dioxide 34 H (22-30) mmol/L BUN 25 H (9-20) mg/dL Glucose 109 H (74-99) mg/dL Microbiology - Last 24 Hours (Table) 11/16/17 22:48 Urine Culture - Final Urine,Catheterized 11/17/17 02:40 Gram Stain - Preliminary Sputum Sputum Culture - Preliminary 11/16/17 19:54 Blood Culture - Preliminary Blood No Growth after 24 hours 11/16/17 19:54 Blood Culture - Preliminary Blood No Growth after 24 hours 11/13/17 16:52 Blood Culture - Preliminary Blood No Growth after 96 hours Assessment and Plan Plan: Assessment and plan #1 ventricular tachycardia status post AICD discharge. Patient also underwent ventricular tachycardia ablation by Dr. Cameron this admission. We will continue mexiletine, metoprolol, and amiodarone. #2 systolic congestive heart failure acute on chronic #3 coronary artery disease with prior bypass surgery and PCI #4 hypertension #5 COPD #6 hypothyroidism #7 history of CVA #8 paroxysmal atrial fibrillation on Coumadin Plan Would recommend to continue current dose of IV Lasix. Coumadin dosing as per pulmonary. DNP note has been reviewed, I agree with a documented findings and plan of care. Patient was seen and examined.
--- NOTE | 2017-11-18 16:12 | P.PN ---
<Dolores Hills M - Last Filed: 11/18/17 16:06> Subjective Progress Note Date: 11/18/17 Principal diagnosis: Wide-complex tachycardia, rule out low-grade VT, status post EP with successful ablation, currently in sinus rhythm This a 67-year-old male has a history of COPD angina , heart failure CVA , coronary artery disease, previous bypass surgery, previous myocardial infarction and hypothyroidism. The patient has cardiomyopathy and previous echocardiogram showed an ejection fraction of 30-35% consistent with moderate to severe impairment of LV function and the patient has segmental wall motion abnormalities involving the anteroseptal, lateral and septal and apical saleem in addition to severe dilatation of the left atrium and moderate to severe mitral regurgitation and only pressure is estimated to be around 31 mmHg. the patient's latest cardiac catheterization was done 10/19/2017 and it showed a patent left main, LAD was totally occluded in the midportion after the origin of the septal and diagonal branch. The wales circumflex had an 80% lesion in the proximal portion after the origin of the obtuse marginal branch. Distally in the same vessel there was a 95% stenosis after which the flow seems to be somewhat sluggish. Right coronary artery was totally occluded. 2 vein grafts to the right coronary artery and obtuse marginal branch was totally occluded. JAVIER to LAD was widely patent. The patient has also history of ventricular arrhythmias and the patient has an AICD in place.His automatic implantable cardiac defibrillator went off a number of time because of ventricular tachycardia. The patient developed shortness of breath hypotension was placed on Cordarone. He was also given mexiletine and some other medications were changed by cardiology as well. The patient is still having some episodes of ventricular tachycardia. He is resting comfortably here in the ICU. He had the lidocaine is reducing been turned off. His IV is a saline at 20 mL an hour. He is on O2 at 2 L. Other than that doing relatively well. No pain. Yesterday he was both on lidocaine and Cordarone at 0.5 mg/m. On 11/15/2017, the patient is being seen for a follow-up. The patient is hemodynamically stable. The patient was taken off the amiodarone drip and currently is on oral amiodarone at a dose of 200 mg by mouth once a day. The patient is also on Mexitil 150 mg every 8 hours and Lopressor 25 mg by mouth twice a day. The patient was taken off the amiodarone drip. The patient's current cardiac rhythm is sinus for on and off throughout the night and today the patient was having episodes of wide complex tachycardia and the last run was around 4 AM this morning. The patient had a run of 120-130 beats of wide complex tachycardia at the rate of 110. The AICD did not fire. He converted back to sinus rhythm. The latest run of Cardiology is aware of and Dr. Ornelas from EP is consulted in this regard. The patient has CHF and pulmonary edema and pleural effusion on the chest exit was done yesterday on 11/15/2017. On 11/16/2017, the patient is being seen in follow-up. The patient is doing very well. No further cardiac arrhythmias have been noted. The patient underwent an EP study yesterday by Dr. Ornelas and he further underwent VT ablation. This was successful. The patient is doing well. He is hemodynamically stable. He runs a borderline low blood pressure. Gets his urine output is adequate. His chest x-ray still showing some small bilateral pleural effusion and pulmonary vessel congestion and the patient will be given a dose of Lasix 40 mg IV push today. He is free of any chest pain. No cough or sputum production. No fever or chills. No hemoptysis. His PT/INR is subtherapeutic with an INR of 1.6 and the patient will be given 2 mg of Coumadin today. No other significant events over the past 24 hours. His beta janelle has been metoprolol 25 mg by mouth twice a day. He is also on Mexitil 150 mg 3 times a day and amiodarone 100 mg by mouth daily. He is being monitored here in the intensive care unit. Cardiology is on the case. On 11/17/2017 patient seen again in follow-up on [facility] care floor. Last night patient had a spike in fever, with a temp of 101.4F at 8:00 PM. Also became tachycardic, with a rate of 116 BPM, tachypneic with respiratory rate of 26/m. Oxygen requirement has increased to 6 L/m from previous 4 L. Yesterday we gave a dose of 40 of IV Lasix, patient did diurese with that, is in -910 mL fluid balance over the last 24 hours. His weight is down by 2.6 kg over last 24 hours. Repeat blood cultures and sputum cultures were obtained and sent, patient had been on IV Rocephin since 11/13/2017, last night vancomycin was added. Patient' s fever was treated with antipyretics. This morning his vitals are stable, patient remains in sinus rhythm, with a rate of 94-96 BPM. Afebrile, sputum, urine and blood culture are pending. Lung sounds are positive for some crackles at the bases. Chest x-ray from 11/16/2017 has been reviewed and shows congestive heart failure with pulmonary edema and pleural effusions. She will be placed on Lasix 40 IV push every 12 hours. On 11/18/2017 patient seen in Follow-up. Patient has not had any further episodes of febrile episodes. Remains hemodynamically stable, his oxygenation is stable, on 6 L per nasal cannula with O2 sat at 96%. Lung sounds are positive for bibasilar crackles, however this is somewhat improved from yesterday's exam. Patient is a negative fluid balance of 3240 mL over the last 24 hours. WBC on today's lab is normal, as 0.8, hemoglobin stable at 9.6, INR is 1.8, we will give additional 2.5 mg of Coumadin tonight, serum sodium 136, Review serum potassium 3.6, B1 is 25, creatinine 0.9. We will continue Lasix at 40 mg every 12 hours for another 24 hours. Cultures have been negative, urine culture was positive for Wilma species. Objective - Vital Signs Vital signs: Vital Signs Temp 96.2 F L 11/18/17 12:00 Pulse 68 11/18/17 12:00 Resp 20 11/18/17 12:00 BP 90/56 11/18/17 12:00 Pulse Ox 96 11/18/17 12:00 Intake & Output 11/17/17 11/18/17 11/18/17 18:59 06:59 18:59 Intake Total 390 220 260 Output Total 3200 650 1700 Balance -2810 -430 -1440 Weight 73 kg 73 kg Intake: IV 160 40 Sodium Chloride 0.9% 1, 160 40 000 ml @ 20 mls/hr IV . Q24H [facility] Rx#:[id number] Oral 230 180 260 Output: Urine 3200 650 1700 Uretheral ([place]) 900 Other: Voiding Method Urinal Urinal Urinal # Voids 0 1 1 - Exam No acute distress, oriented 3. HEENT examination is grossly unremarkable. Mucous membranes are moist. No oral lesions. Neck supple. Full range of motion. No adenopathy thyromegaly or neck vein distention. Cardiovascular examination reveals regular rhythm rate. S1-S2 normal. No S3 or S4. No discernible murmur noted. Lungs reveal a few scattered bibasilar crackles. No rhonchi. No wheezes. Breath sounds equal bilaterally. Abdomen soft bowel sounds are heard. No masses or tenderness. Extremities are intact. No cyanosis clubbing or edema. Skin is without rash or lesion. Neurologic examination is brief but nonfocal. - Labs CBC & Chem 7: 11/18/17 05:51 11/18/17 05:51 Labs: Abnormal Lab Results - Last 24 Hours (Table) 11/18/17 11/18/17 11/18/17 Range/Units 05:51 05:51 05:51 RBC 3.50 L (4.30-5.90) m/uL Hgb 9.6 L (13.0-17.5) gm/dL Hct 32.4 L (39.0-53.0) % MCHC 29.8 L (31.0-37.0) g/dL Lymphocytes # (Manual) 0.17 L (1.0-4.8) k/uL PT 16.5 H (9.0-12.0) sec INR 1.8 H (<1.2) Sodium 136 L (137-145) mmol/L Chloride 97 L (98-107) mmol/L Carbon Dioxide 34 H (22-30) mmol/L BUN 25 H (9-20) mg/dL Glucose 109 H (74-99) mg/dL Microbiology - Last 24 Hours (Table) 11/16/17 22:48 Urine Culture - Final Urine,Catheterized 11/17/17 02:40 Gram Stain - Preliminary Sputum Sputum Culture - Preliminary 11/16/17 19:54 Blood Culture - Preliminary Blood No Growth after 24 hours 11/16/17 19:54 Blood Culture - Preliminary Blood No Growth after 24 hours 11/13/17 16:52 Blood Culture - Preliminary Blood No Growth after 96 hours Assessment and Plan Plan: Assessment 1 wide-complex tachycardia, rule out low-grade ventricular tachycardia. Patient is status post EP studies with VT ablation that was done by Dr. Ornelas. Currently his current rhythm is sinus without any further ventricular arrhythmias noted over the past 12 hours post the ablation. The patient remains on a combination of Mexitil, metoprolol and amiodarone. 2 ventricular tachycardia/fibrillation, post-AICD discharge 3 prior to his hospitalization, has not had any further episodes of ventricular arrhythmia after the ablation 3 CHF with ejection fraction of 30-35% and signs of heart failure with CHF and pulmonary edema and pleural effusions bilaterally 4 coronary artery disease with previous bypass surgery, please refer to the results of the cardiac cath. The patient has a patent JAVIER to LAD and the rest of the saphenous finger after all occluded. The patient has also undergone previous coronary intervention and stenting. He is currently free of any chest pain. 5 COPD 6 hypothyroidism 7 history of CVA 8 paroxysmal atrial fibrillation maintained on long-term articulation with warfarin, INR is at 1.6 Plan Patient is in -3.2 L fluid balance, wean oxygen, lung sounds sounds improved, although bilateral bases are still positive for crackles, increase activity as tolerated. We'll continue the Lasix at 40 mg every 12 hours IV. Reason sinus rhythm, he has not had any recurrent ventricular arrhythmia. INR is 1.8 today, we'll give on the 2.5 mg of Coumadin tonight. Increase activity as tolerated. no further episodes of fever, patient is hemodynamically stable. Blood cultures were reviewed, updated chest x-ray in the morning. I performed a history & physical examination of the patient and discussed their management with my nurse practitioner, Dolores Hills. I reviewed the nurse practitioner's note and agree with the documented findings and plan of care. Lung sounds are bibasilar crackles. The findings and the impression was discussed with the patient. I attest to the documentation by the nurse practitioner. Time with Patient: Less than 30 <Esther Puri - Last Filed: 11/18/17 17:00> Objective - Vital Signs Vital signs: Vital Signs Temp 96.3 F L 11/18/17 16:00 Pulse 89 11/18/17 16:00 Resp 20 11/18/17 16:00 BP 104/67 11/18/17 16:00 Pulse Ox 97 11/18/17 16:00 Intake & Output 11/17/17 11/18/17 11/18/17 18:59 06:59 18:59 Intake Total 390 220 260 Output Total 3200 650 2000 Balance -2293 -822 -7325 Weight 73 kg 73 kg Intake: IV 160 40 Sodium Chloride 0.9% 1, 160 40 000 ml @ 20 mls/hr IV . Q24H [facility] Rx#:[id number] Oral 230 180 260 Output: Urine 3200 650 2000 Uretheral ([place]) 900 Other: Voiding Method Urinal Urinal Urinal # Voids 0 1 1 - Labs CBC & Chem 7: 11/18/17 05:51 11/18/17 05:51 Labs: Abnormal Lab Results - Last 24 Hours (Table) 11/18/17 11/18/17 11/18/17 Range/Units 05:51 05:51 05:51 RBC 3.50 L (4.30-5.90) m/uL Hgb 9.6 L (13.0-17.5) gm/dL Hct 32.4 L (39.0-53.0) % MCHC 29.8 L (31.0-37.0) g/dL Lymphocytes # (Manual) 0.17 L (1.0-4.8) k/uL PT 16.5 H (9.0-12.0) sec INR 1.8 H (<1.2) Sodium 136 L (137-145) mmol/L Chloride 97 L (98-107) mmol/L Carbon Dioxide 34 H (22-30) mmol/L BUN 25 H (9-20) mg/dL Glucose 109 H (74-99) mg/dL Microbiology - Last 24 Hours (Table) 11/16/17 22:48 Urine Culture - Final Urine,Catheterized 11/17/17 02:40 Gram Stain - Preliminary Sputum Sputum Culture - Preliminary 11/16/17 19:54 Blood Culture - Preliminary Blood No Growth after 24 hours 11/16/17 19:54 Blood Culture - Preliminary Blood No Growth after 24 hours 11/13/17 16:52 Blood Culture - Preliminary Blood No Growth after 96 hours Assessment and Plan Plan: This is a joint evaluations was done along with a nurse practitioner. Earlier this morning the patient was having increased shortness of breath. He diuresed nicely and he is in negative balance balance of fluids in the order of 3.2 L. His pulse ox is improved. Will dose his Coumadin today and given another 2.5 mg and monitor his PT/INR. We'll continue to follow make further recommendations. Cardiology some the case. No active arrhythmias at this point. Repeat chest x-ray in a.m.
[2017-11-18 17:38] LABS: Glucose,Whole Blood 212 mg/dL (75-99)
[2017-11-18] MEDS ORDERED: WARFARIN 2.5 MG TAB PO ONE (18:00)
--- NOTE | 2017-11-18 18:22 | P.PN ---
Subjective Progress Note Date: 11/17/17 Progress note l being dictated for Dr. Faustin. Interval history: This is a 67-year-old gentleman admitted with acute ventricular tachycardia, status post EP study with cardiac ablation. Maintained on Rocephin with vancomycin added to med regime last night. Worsening respiratory function, now requiring 6 L. currently afebrile, T-max 101.4. Blood, urine and sputum cultures pending. Tachycardic. Chest x-ray yesterday reported CHF, pulmonary edema, pleural effusions. Diuresed well on a dose of Lasix IV push with 24-hour reflecting a negative fluid balance. Denies chest pain, palpitations. INR 1.6. Objective - Vital Signs Vital signs: Vital Signs Temp 99.8 F H 11/17/17 16:00 Pulse 92 11/17/17 16:00 Resp 19 11/17/17 16:00 BP 101/67 11/17/17 16:00 Pulse Ox 94 L 11/17/17 16:00 Intake & Output 11/16/17 11/17/17 11/17/17 18:59 06:59 18:59 Intake Total 640 530 160 Output Total 349 649 4154 Balance 40 100 -1640 Weight 70 kg Intake: IV 240 410 160 Sodium Chloride 0.9% 1, 240 160 160 000 ml @ 20 mls/hr IV . Q24H [facility] Rx#:[id number] Vancomycin 1,250 mg In 250 Sodium Chloride 0.9% 250 ml @ 125 mls/hr IVPB ONCE ONE Rx#:[id number] Oral 400 120 Output: Urine 996 176 6955 Uretheral ([place]) 900 Other: Voiding Method Urinal Indwelling Catheter Urinal # Voids 0 0 - Exam PHYSICAL EXAM: VITAL SIGNS: [As above] GENERAL: Sitting up in bed, no acute distress HEENT: Conjunctivae normal. eyes normal. Oral mucosa moist NECK: No JVD. No thyroid enlargement. No LNs CARDIOVASCULAR: S1, S2 muffled. No murmur RESPIRATION: Breath sounds diminished in the bases. No rhonchi, fine bibasilar crackles. ABDOMEN: Soft, nontender . No guarding. no masses palpable. Bowel sounds heard. LEGS: No edema. no swelling. PSYCHIATRY: Alert and oriented -3, mood and affect normal. NERVOUS SYSTEM: Cranial N 2-12 grossly normal. Moves all 4 limbs. Diffuse weakness No focal deficits. No sensory deficit. Skin: no ulcer no rash, right hand phlebitis present Joints: No active swelling. No inflammation. Lymphatic system. No LN neck axilla or groin. - Labs CBC & Chem 7: 11/18/17 05:51 11/18/17 05:51 Labs: Abnormal Lab Results - Last 24 Hours (Table) 11/16/17 11/16/17 11/17/17 Range/Units 19:54 19:54 06:30 RBC 3.59 L 3.34 L (4.30-5.90) m/uL Hgb 10.4 L 9.6 L (13.0-17.5) gm/dL Hct 32.8 L 30.6 L (39.0-53.0) % Lymphocytes # 0.5 L (1.0-4.8) k/uL PT (9.0-12.0) sec INR (<1.2) Sodium 133 L (137-145) mmol/L BUN 23 H (9-20) mg/dL Glucose 136 H (74-99) mg/dL Total Protein 4.8 L (6.3-8.2) g/dL Albumin 2.3 L (3.5-5.0) g/dL 11/17/17 11/17/17 Range/Units 06:30 06:30 RBC (4.30-5.90) m/uL Hgb (13.0-17.5) gm/dL Hct (39.0-53.0) % Lymphocytes # (1.0-4.8) k/uL PT 14.4 H (9.0-12.0) sec INR 1.6 H (<1.2) Sodium 135 L (137-145) mmol/L BUN 23 H (9-20) mg/dL Glucose 110 H (74-99) mg/dL Total Protein (6.3-8.2) g/dL Albumin (3.5-5.0) g/dL Microbiology - Last 24 Hours (Table) 11/16/17 22:48 Urine Culture - Preliminary Urine,Catheterized 11/17/17 02:40 Sputum Culture - Preliminary Sputum 11/13/17 16:52 Blood Culture - Preliminary Blood No Growth after 72 hours Assessment and Plan Assessment: 1. Status post AICD discharge secondary to ventricular tachycardia -recurrent, status post ventricular ablation 2. Status post amiodarone and lidocaine drips in ICU 3. Right upper arm thrombophlebitis 4. Monomorphic refractory and jugular tachycardia converted to sinus rhythm with episodes of ventricular tachycardia 5. Acute on chronic Congestive heart failure,systolic dysfunction EF 30-35% 6. Elevated troponin 3.8 secondary to demand ischemia and ventricular tachycardia 7. Acute hypoxic respiratory failure, multifactorial 8. Hyponatremia 9. CAD, history of [place], CABG and stent 10. COPD 11. Proximal atrial fibrillation, anticoagulated on Coumadin. Plan: Continue on current medication regime , antibiotics, amiodarone, beta janelle ,mexiletine,monitoring and symptomatic treatment. Follow cultures closely. Anticoagulation with Coumadin. Daily PT INR. Antiarrhythmics as per cardiology. Scheduled Lasix IV push. Follow closely with pulmonary and cardiology. The impression and plan of care has been dictated as directed. : I performed a history and examination of this patient, discussed the same with the dictator. I agree with the dictator's note ,documented as a scribe. Any additional findings or plans will be noted.
--- NOTE | 2017-11-18 18:26 | P.PN ---
Subjective Progress Note Date: 11/18/17 Progress note l being dictated for Dr. Faustin. Interval history: This is a 67-year-old gentleman admitted with acute ventricular tachycardia, status post EP study with cardiac ablation. Maintained on Rocephin with vancomycin added to med regime last night. Worsening respiratory function, now requiring 6 L. currently afebrile, T-max 101.4. Blood, urine and sputum cultures pending. Tachycardic. Chest x-ray yesterday reported CHF, pulmonary edema, pleural effusions. Diuresed well on a dose of Lasix IV push with 24-hour reflecting a negative fluid balance. Denies chest pain, palpitations. INR 1.6. 11/18/2017 afebrile. Continues on 6 L nasal cannula with O2 sats improving, only 96%. Diuresing well on Lasix IV push with 24-hour reflecting a negative fluid balance. INR 1.8. Denies chest pain, palpitations. Objective - Vital Signs Vital signs: Vital Signs Temp 96.3 F L 11/18/17 16:00 Pulse 89 11/18/17 16:00 Resp 20 11/18/17 16:00 BP 104/67 11/18/17 16:00 Pulse Ox 97 11/18/17 16:00 Intake & Output 11/17/17 11/18/17 11/18/17 18:59 06:59 18:59 Intake Total 390 220 460 Output Total 3200 650 2000 Balance -2810 -430 -1541 Weight 73 kg 73 kg Intake: IV 160 40 Sodium Chloride 0.9% 1, 160 40 000 ml @ 20 mls/hr IV . Q24H [facility] Rx#:[id number] Oral 230 180 460 Output: Urine 3200 650 2000 Uretheral ([place]) 900 Other: Voiding Method Urinal Urinal Urinal # Voids 0 1 1 # Bowel Movements 1 - Exam PHYSICAL EXAM: VITAL SIGNS: [As above] GENERAL: Sitting up in bed, no acute distress HEENT: Conjunctivae normal. eyes normal. Oral mucosa moist NECK: No JVD. No thyroid enlargement. No LNs CARDIOVASCULAR: S1, S2 muffled. No murmur RESPIRATION: Breath sounds diminished in the bases. No rhonchi, fine bibasilar crackles. ABDOMEN: Soft, nontender . No guarding. no masses palpable. Bowel sounds heard. LEGS: No edema. no swelling. PSYCHIATRY: Alert and oriented -3, mood and affect normal. NERVOUS SYSTEM: Cranial N 2-12 grossly normal. Moves all 4 limbs. Diffuse weakness No focal deficits. No sensory deficit. Skin: no ulcer no rash, right hand phlebitis present Joints: No active swelling. No inflammation. Lymphatic system. No LN neck axilla or groin. Microbiology 11/16/17 22:48 Urine,Catheterized Urine Culture - Final 11/17/17 02:40 Sputum Gram Stain - Preliminary 11/17/17 02:40 Sputum Sputum Culture - Preliminary 11/16/17 19:54 Blood Blood Culture - Preliminary No Growth after 24 hours 11/16/17 19:54 Blood Blood Culture - Preliminary No Growth after 24 hours 11/13/17 16:52 Blood Blood Culture - Preliminary No Growth after 96 hours 11/13/17 17:00 Urine,Catheterized Urine Culture - Final Wilma sp,not albicans/galbr - Labs CBC & Chem 7: 11/18/17 05:51 11/18/17 05:51 Labs: Abnormal Lab Results - Last 24 Hours (Table) 11/18/17 11/18/17 11/18/17 Range/Units 05:51 05:51 05:51 RBC 3.50 L (4.30-5.90) m/uL Hgb 9.6 L (13.0-17.5) gm/dL Hct 32.4 L (39.0-53.0) % MCHC 29.8 L (31.0-37.0) g/dL Lymphocytes # (Manual) 0.17 L (1.0-4.8) k/uL PT 16.5 H (9.0-12.0) sec INR 1.8 H (<1.2) Sodium 136 L (137-145) mmol/L Chloride 97 L (98-107) mmol/L Carbon Dioxide 34 H (22-30) mmol/L BUN 25 H (9-20) mg/dL Glucose 109 H (74-99) mg/dL POC Glucose (mg/dL) (75-99) mg/dL 11/18/17 Range/Units 17:22 RBC (4.30-5.90) m/uL Hgb (13.0-17.5) gm/dL Hct (39.0-53.0) % MCHC (31.0-37.0) g/dL Lymphocytes # (Manual) (1.0-4.8) k/uL PT (9.0-12.0) sec INR (<1.2) Sodium (137-145) mmol/L Chloride (98-107) mmol/L Carbon Dioxide (22-30) mmol/L BUN (9-20) mg/dL Glucose (74-99) mg/dL POC Glucose (mg/dL) 212 H (75-99) mg/dL Microbiology - Last 24 Hours (Table) 11/16/17 22:48 Urine Culture - Final Urine,Catheterized 11/17/17 02:40 Gram Stain - Preliminary Sputum Sputum Culture - Preliminary 11/16/17 19:54 Blood Culture - Preliminary Blood No Growth after 24 hours 11/16/17 19:54 Blood Culture - Preliminary Blood No Growth after 24 hours 11/13/17 16:52 Blood Culture - Preliminary Blood No Growth after 96 hours Assessment and Plan Assessment: 1. Status post AICD discharge secondary to ventricular tachycardia -recurrent, status post ventricular ablation 2. Status post amiodarone and lidocaine drips in ICU 3. Right upper arm thrombophlebitis 4. Monomorphic refractory and jugular tachycardia converted to sinus rhythm with episodes of ventricular tachycardia 5. Acute on chronic Congestive heart failure,systolic dysfunction EF 30-35% 6. Elevated troponin 3.8 secondary to demand ischemia and ventricular tachycardia 7. Acute hypoxic respiratory failure, multifactorial 8. Hyponatremia 9. CAD, history of [place], CABG and stent 10. COPD 11. Proximal atrial fibrillation, anticoagulated on Coumadin. Plan: Continue on current medication regime , antibiotics, amiodarone, beta janelle ,mexiletine,monitoring and symptomatic treatment. Continue diuresing on Lasix IV push. Most monitoring of electrolytes and renal function with repeat labs ordered for a.m. Follow cultures closely. Anticoagulation with Coumadin. The impression and plan of care has been dictated as directed. : I performed a history and examination of this patient, discussed the same with the dictator. I agree with the dictator's note ,documented as a scribe. Any additional findings or plans will be noted.
[2017-11-18] MEDS: BUDESONIDE 1 MG/2 ML NEBU INHALATION SCH (19:13)
[2017-11-18 19:43] LABS: Hemoglobin A1C 5.3 % (4.0-6.0)
[2017-11-18 20:42] LABS: Glucose,Whole Blood 187 mg/dL (75-99)
[2017-11-18] MEDS: DONEPEZIL 10 MG TAB PO SCH (21:30)
[2017-11-18] MEDS: HYDROcodone/APAP 5-325MG 1 EACH TAB PO PRN (21:53)
[2017-11-19] MEDS: IPRATROPIUM 0.5 MG/2.5 ML NEBU INHALATION SCH ×4 (01:17→21:20)
[2017-11-19 01:18] LABS: Appearance,Urine Clear (Clear); Bilirubin,Urine Negative (Negative); Blood,Urine Negative (Negative); Color,Urine Yellow; Glucose,Urine (UA) Negative (Negative); Ketones,Urine Negative (Negative); Leukocyte Esterase,Urine Negative (Negative); Nitrite,Urine Negative (Negative); Protein,Urine Negative (Negative); Specific Gravity,Urine 1.009 (1.001-1.035); Urobilinogen,Urine <2.0 mg/dL (<2.0)
[2017-11-19 05:45] LABS: Glucose,Whole Blood 169 mg/dL (75-99)
[2017-11-19 06:28] LABS: Basophils % (A) 0 %; Eosinophils % (A) 0 %; HCT 31.7 % (39.0-53.0); HGB 9.7 gm/dL (13.0-17.5); Hypochromasia Marked; Lymphocytes # (A) 0.3 k/uL (1.0-4.8); Lymphocytes % (A) 13 %; MCH 27.4 pg (25.0-35.0); MCHC 30.6 g/dL (31.0-37.0); MCV 89.5 fL (80.0-100.0); Mean Platelet Volume 9.3; Monocytes # (A) 0.1 k/uL (0-1.0); Monocytes % (A) 4 %; Neutrophils # (A) 1.9 k/uL (1.3-7.7); Neutrophils % (A) 82 %; Platelet Count 186 k/uL (150-450); RBC 3.54 m/uL (4.30-5.90); RDW 14.1 % (11.5-15.5); WBC 2.3 k/uL (3.8-10.6)
[2017-11-19 06:30] LABS: INR 2.5 (<1.2); Prothrombin Time 22.3 sec (9.0-12.0)
[2017-11-19] MEDS: INSULIN ASPART 100 UNIT/ML 1 ML 10 ML VIAL SQ SCH ×4 (06:30→20:41)
[2017-11-19] MEDS: methylPREDNISolone SOD SUCCI 125 MG/2 ML VIAL IV SCH ×4 (06:30→23:21)
[2017-11-19 06:40] LABS: Anion Gap 7 mmol/L; Blood Urea Nitrogen 32 mg/dL (9-20); Calcium 9.2 mg/dL (8.4-10.2); Carbon Dioxide 34 mmol/L (22-30); Chloride 98 mmol/L (98-107); Glucose 153 mg/dL (74-99); Potassium 3.8 mmol/L (3.5-5.1); Sodium 139 mmol/L (137-145)
--- NOTE | 2017-11-19 06:58 | XR ---
EXAMINATION TYPE: XR chest 2V DATE OF EXAM: 11/19/2017 HISTORY: acute congestive heart failure. REFERENCE: Previous study dated 11/16/2017. FINDINGS: There has been a midline sternotomy. There is a unipolar pacemaker place on the left. There is worsening bilateral airspace disease. Heart size upper limits of normal. There are small, bi lateral effusions. IMPRESSION: WORSENING CHANGES OF CONGESTIVE HEART FAILURE
[2017-11-19] MEDS: BUDESONIDE 1 MG/2 ML NEBU INHALATION SCH ×2 (08:14→21:20)
[2017-11-19] MEDS: METOPROLOL TARTRATE 25 MG TAB PO SCH ×2 (08:29→20:36)
[2017-11-19] MEDS: ATORVASTATIN 40 MG TAB PO SCH (08:30)
[2017-11-19] MEDS: AMIODARONE 100 MG TAB PO SCH (08:30)
[2017-11-19] MEDS: ASPIRIN 81 MG PO SCH (08:30)
[2017-11-19] MEDS: GABAPENTIN 300 MG CAP PO SCH ×3 (08:30→20:36)
[2017-11-19] MEDS: CLOPIDOGREL 75 MG TAB PO SCH (08:30)
[2017-11-19] MEDS: MEXILETINE 150 MG CAP PO SCH ×3 (08:30→23:21)
[2017-11-19] MEDS: FUROSEMIDE 10 MG/ML 4 ML VIAL IV SCH ×2 (08:30→20:36)
[2017-11-19] MEDS: FAMOTIDINE 20 MG TAB PO SCH (08:30)
[2017-11-19] MEDS: HYDROcodone/APAP 10-325MG 1 EACH TAB PO SCH ×3 (08:39→20:37)
[2017-11-19] MEDS: cefTRIAXone IN SWFI 1,000 MG/10 ML SYRINGE IVP SCH (08:39)
[2017-11-19 12:00] LABS: Glucose,Whole Blood 159 mg/dL (75-99)
--- NOTE | 2017-11-19 13:26 | P.PN ---
Subjective Progress Note Date: 11/19/17 This a 67-year-old male has a history of COPD angina , heart failure CVA , coronary artery disease, previous bypass surgery, previous myocardial infarction and hypothyroidism. The patient has cardiomyopathy and previous echocardiogram showed an ejection fraction of 30-35% consistent with moderate to severe impairment of LV function and the patient has segmental wall motion abnormalities involving the anteroseptal, lateral and septal and apical saleem in addition to severe dilatation of the left atrium and moderate to severe mitral regurgitation and only pressure is estimated to be around 31 mmHg. the patient's latest cardiac catheterization was done 10/19/2017 and it showed a patent left main, LAD was totally occluded in the midportion after the origin of the septal and diagonal branch. The [place] circumflex had an 80% lesion in the proximal portion after the origin of the obtuse marginal branch. Distally in the same vessel there was a 95% stenosis after which the flow seems to be somewhat sluggish. Right coronary artery was totally occluded. 2 vein grafts to the right coronary artery and obtuse marginal branch was totally occluded. JAVIER to LAD was widely patent. The patient has also history of ventricular arrhythmias and the patient has an AICD in place.His automatic implantable cardiac defibrillator went off a number of time because of ventricular tachycardia. The patient developed shortness of breath hypotension was placed on Cordarone. He was also given mexiletine and some other medications were changed by cardiology as well. The patient is still having some episodes of ventricular tachycardia. He is resting comfortably here in the ICU. He had the lidocaine is reducing been turned off. His IV is a saline at 20 mL an hour. He is on O2 at 2 L. Other than that doing relatively well. No pain. Yesterday he was both on lidocaine and Cordarone at 0.5 mg/m. On 11/15/2017, the patient is being seen for a follow-up. The patient is hemodynamically stable. The patient was taken off the amiodarone drip and currently is on oral amiodarone at a dose of 200 mg by mouth once a day. The patient is also on Mexitil 150 mg every 8 hours and Lopressor 25 mg by mouth twice a day. The patient was taken off the amiodarone drip. The patient's current cardiac rhythm is sinus for on and off throughout the night and today the patient was having episodes of wide complex tachycardia and the last run was around 4 AM this morning. The patient had a run of 120-130 beats of wide complex tachycardia at the rate of 110. The AICD did not fire. He converted back to sinus rhythm. The latest run of Cardiology is aware of and Dr. Ornelas from EP is consulted in this regard. The patient has CHF and pulmonary edema and pleural effusion on the chest exit was done yesterday on 11/15/2017. On 11/16/2017, the patient is being seen in follow-up. The patient is doing very well. No further cardiac arrhythmias have been noted. The patient underwent an EP study yesterday by Dr. Ornelas and he further underwent VT ablation. This was successful. The patient is doing well. He is hemodynamically stable. He runs a borderline low blood pressure. Gets his urine output is adequate. His chest x-ray still showing some small bilateral pleural effusion and pulmonary vessel congestion and the patient will be given a dose of Lasix 40 mg IV push today. He is free of any chest pain. No cough or sputum production. No fever or chills. No hemoptysis. His PT/INR is subtherapeutic with an INR of 1.6 and the patient will be given 2 mg of Coumadin today. No other significant events over the past 24 hours. His beta janelle has been metoprolol 25 mg by mouth twice a day. He is also on Mexitil 150 mg 3 times a day and amiodarone 100 mg by mouth daily. He is being monitored here in the intensive care unit. Cardiology is on the case. On 11/17/2017 patient seen again in follow-up on the [facility] care floor. Last night patient had a spike in fever, with a temp of 101.4F at 8:00 PM. Also became tachycardic, with a rate of 116 BPM, tachypneic with respiratory rate of 26/m. Oxygen requirement has increased to 6 L/m from previous 4 L. Yesterday we gave a dose of 40 of IV Lasix, patient did diurese with that, is in -910 mL fluid balance over the last 24 hours. His weight is down by 2.6 kg over last 24 hours. Repeat blood cultures and sputum cultures were obtained and sent, patient had been on IV Rocephin since 11/13/2017, last night vancomycin was added. Patient' s fever was treated with antipyretics. This morning his vitals are stable, patient remains in sinus rhythm, with a rate of 94-96 BPM. Afebrile, sputum, urine and blood culture are pending. Lung sounds are positive for some crackles at the bases. Chest x-ray from 11/16/2017 has been reviewed and shows congestive heart failure with pulmonary edema and pleural effusions. She will be placed on Lasix 40 IV push every 12 hours. On 11/18/2017 patient seen in Follow-up. Patient has not had any further episodes of febrile episodes. Remains hemodynamically stable, his oxygenation is stable, on 6 L per nasal cannula with O2 sat at 96%. Lung sounds are positive for bibasilar crackles, however this is somewhat improved from yesterday's exam. Patient is a negative fluid balance of 3240 mL over the last 24 hours. WBC on today's lab is normal, as 0.8, hemoglobin stable at 9.6, INR is 1.8, we will give additional 2.5 mg of Coumadin tonight, serum sodium 136, Review serum potassium 3.6, B1 is 25, creatinine 0.9. We will continue Lasix at 40 mg every 12 hours for another 24 hours. Cultures have been negative, urine culture was positive for Wilma species. On 6017, the patient is doing well. On 40s of oxygen nasal cannula. He has diabetes well with IV Lasix and diuretics will be continued for another 24 hours. The patient is also on anticoagulation with warfarin and INR today is therapeutic at 2.5. No chest pain. No cardiac arrhythmias have been noted. Chest x-ray still showing increased pulmonary vascular markings and failure anything the patient would benefit from the day of diuresis. No other complaints otherwise for now. Objective - Vital Signs Vital signs: Vital Signs Temp 96.8 F L 11/19/17 12:00 Pulse 82 11/19/17 12:00 Resp 18 11/19/17 12:00 BP 89/54 11/19/17 12:00 Pulse Ox 98 11/19/17 12:00 Intake & Output 11/18/17 11/19/17 11/19/17 18:59 06:59 18:59 Intake Total 460 300 240 Output Total 2000 300 Balance -1541 300 -60 Weight 73 kg 72.1 kg Intake: Oral 460 300 240 Output: Urine 2000 300 Other: Voiding Method Urinal Urinal Urinal # Voids 1 1 # Bowel Movements 1 0 - Exam No acute distress, oriented 3. HEENT examination is grossly unremarkable. Mucous membranes are moist. No oral lesions. Neck supple. Full range of motion. No adenopathy thyromegaly or neck vein distention. Cardiovascular examination reveals regular rhythm rate. S1-S2 normal. No S3 or S4. No discernible murmur noted. Lungs reveal a few scattered bibasilar crackles. No rhonchi. No wheezes. Breath sounds equal bilaterally. Abdomen soft bowel sounds are heard. No masses or tenderness. Extremities are intact. No cyanosis clubbing or edema. Skin is without rash or lesion. Neurologic examination is brief but nonfocal. - Labs CBC & Chem 7: 11/19/17 05:49 11/19/17 05:49 Labs: Abnormal Lab Results - Last 24 Hours (Table) 11/18/17 11/18/17 11/19/17 Range/Units 17:22 20:15 05:43 WBC (3.8-10.6) k/uL RBC (4.30-5.90) m/uL Hgb (13.0-17.5) gm/dL Hct (39.0-53.0) % MCHC (31.0-37.0) g/dL Lymphocytes # (1.0-4.8) k/uL PT (9.0-12.0) sec INR (<1.2) Carbon Dioxide (22-30) mmol/L BUN (9-20) mg/dL Glucose (74-99) mg/dL POC Glucose (mg/dL) 212 H 187 H 169 H (75-99) mg/dL 11/19/17 11/19/17 11/19/17 Range/Units 05:49 05:49 05:49 WBC 2.3 L (3.8-10.6) k/uL RBC 3.54 L (4.30-5.90) m/uL Hgb 9.7 L (13.0-17.5) gm/dL Hct 31.7 L (39.0-53.0) % MCHC 30.6 L (31.0-37.0) g/dL Lymphocytes # 0.3 L (1.0-4.8) k/uL PT 22.3 H (9.0-12.0) sec INR 2.5 H (<1.2) Carbon Dioxide 34 H (22-30) mmol/L BUN 32 H (9-20) mg/dL Glucose 153 H (74-99) mg/dL POC Glucose (mg/dL) (75-99) mg/dL 11/19/17 Range/Units 11:54 WBC (3.8-10.6) k/uL RBC (4.30-5.90) m/uL Hgb (13.0-17.5) gm/dL Hct (39.0-53.0) % MCHC (31.0-37.0) g/dL Lymphocytes # (1.0-4.8) k/uL PT (9.0-12.0) sec INR (<1.2) Carbon Dioxide (22-30) mmol/L BUN (9-20) mg/dL Glucose (74-99) mg/dL POC Glucose (mg/dL) 159 H (75-99) mg/dL Microbiology - Last 24 Hours (Table) 11/18/17 23:45 Urine Culture - Preliminary Urine,Voided 11/17/17 02:40 Gram Stain - Final Sputum Sputum Culture - Final 11/16/17 22:48 Urine Culture - Preliminary Urine,Catheterized Yeast species 11/16/17 19:54 Blood Culture - Preliminary Blood No Growth after 48 hours 11/16/17 19:54 Blood Culture - Preliminary Blood No Growth after 48 hours 11/13/17 16:52 Blood Culture - Preliminary Blood No Growth after 120 hours Assessment and Plan Plan: Assessment 1 wide-complex tachycardia, rule out low-grade ventricular tachycardia. Patient is status post EP studies with VT ablation that was done by Dr. Ornelas. Currently his current rhythm is sinus without any further ventricular arrhythmias noted over the past 12 hours post the ablation. The patient remains on a combination of Mexitil, metoprolol and amiodarone. 2 ventricular tachycardia/fibrillation, post-AICD discharge 3 prior to his hospitalization, has not had any further episodes of ventricular arrhythmia after the ablation 3 CHF with ejection fraction of 30-35% and signs of heart failure with CHF and pulmonary edema and pleural effusions bilaterally 4 coronary artery disease with previous bypass surgery, please refer to the results of the cardiac cath. The patient has a patent JAVIER to LAD and the rest of the saphenous finger after all occluded. The patient has also undergone previous coronary intervention and stenting. He is currently free of any chest pain. 5 COPD 6 hypothyroidism 7 history of CVA 8 paroxysmal atrial fibrillation maintained on long-term articulation with warfarin, Plan Continue Lasix for another 24 hours. The patient is seen 40 mg IV Lasix every 12 hours. Give the patient 2 mg of Coumadin today. Monitor PT/INR. Repeat electrodes in the morning. Wean down the FiO2 as tolerated and cut down the FiO2 down to 2 L/m nasal cannula. Ablate the patient the hallway. We'll continue to follow.
--- NOTE | 2017-11-19 14:59 | PN ---
PROGRESS NOTE Mr. Goncalves is a 67-year-old male known history of severe ischemic cardiomyopathy, history of percutaneous revascularization, who presented with recurrent episode of ventricular tachycardia, underwent ablation. He is doing well this morning. He is still dyspneic, although with some improvement. He denies any chest pain. He denies any dizziness. He still has some evidence of fluid overload. He continues to be at this time on amiodarone 100 mg daily, aspirin 81 mg daily, Lipitor 40 mg daily, budesonide, Plavix 75 mg daily, Donepezil, furosemide 40 mg IV q.12 hours, insulin, methylprednisone, mexiletine 150 mg 3 times a day, metoprolol tartrate 25 mg twice a day in addition to Coumadin. PHYSICAL EXAMINATION: Blood pressure running in the 80s and 90s. Heart rate in the 90s. LUNGS: No wheezes, few crackles. HEART: S1, S2. No S3 with systolic murmur. ABDOMEN: Soft, nontender. EXTREMITIES: No edema. LAB DATA: Revealed an INR of 2.5, hemoglobin 9.7. BUN and creatinine 32 and 0.9. IMPRESSION: 1. Recurrent ventricular tachycardia status post ablation. 2. History of coronary artery disease. 3. Status post ICD implant. RECOMMENDATION: He will continue current therapy. Follow her renal function. I am expecting he should be able to be discharged home soon. MMODL / IJN: [id number] /
[2017-11-19 17:05] LABS: Glucose,Whole Blood 192 mg/dL (75-99)
[2017-11-19] MEDS ORDERED: WARFARIN 2 MG TAB PO ONE (18:00)
[2017-11-19] MEDS: DONEPEZIL 10 MG TAB PO SCH (20:36)
[2017-11-19 20:51] LABS: Glucose,Whole Blood 194 mg/dL (75-99)
[2017-11-20 06:20] LABS: Glucose,Whole Blood 157 mg/dL (75-99)
[2017-11-20 06:22] LABS: Basophils % (A) 0 %; Eosinophils % (A) 0 %; HCT 31.8 % (39.0-53.0); HGB 9.7 gm/dL (13.0-17.5); Hypochromasia Moderate; Lymphocytes # (A) 0.3 k/uL (1.0-4.8); Lymphocytes % (A) 5 %; MCH 27.6 pg (25.0-35.0); MCHC 30.4 g/dL (31.0-37.0); MCV 90.8 fL (80.0-100.0); Monocytes # (A) 0.3 k/uL (0-1.0); Monocytes % (A) 4 %; Neutrophils # (A) 6.3 k/uL (1.3-7.7); Neutrophils % (A) 91 %; Platelet Count 231 k/uL (150-450); RDW 13.7 % (11.5-15.5)
[2017-11-20 06:23] LABS: INR 3.1 (<1.2); Prothrombin Time 27.7 sec (9.0-12.0)
[2017-11-20 06:27] LABS: Anion Gap 7 mmol/L; Blood Urea Nitrogen 42 mg/dL (9-20); Carbon Dioxide 36 mmol/L (22-30); Chloride 95 mmol/L (98-107); Glucose 158 mg/dL (74-99); Sodium 138 mmol/L (137-145)
[2017-11-20] MEDS: INSULIN ASPART 100 UNIT/ML 1 ML 10 ML VIAL SQ SCH ×4 (06:34→22:22)
[2017-11-20] MEDS: methylPREDNISolone SOD SUCCI 125 MG/2 ML VIAL IV SCH ×2 (06:35→11:51)
[2017-11-20] MEDS: MEXILETINE 150 MG CAP PO SCH ×3 (08:21→23:10)
[2017-11-20] MEDS: ATORVASTATIN 40 MG TAB PO SCH (08:21)
[2017-11-20] MEDS: cefTRIAXone IN SWFI 1,000 MG/10 ML SYRINGE IVP SCH (08:22)
[2017-11-20] MEDS: ASPIRIN 81 MG PO SCH (08:22)
[2017-11-20] MEDS: GABAPENTIN 300 MG CAP PO SCH ×3 (08:22→20:58)
[2017-11-20] MEDS: CLOPIDOGREL 75 MG TAB PO SCH (08:22)
[2017-11-20] MEDS: METOPROLOL TARTRATE 25 MG TAB PO SCH ×2 (08:22→20:57)
[2017-11-20] MEDS: FUROSEMIDE 10 MG/ML 4 ML VIAL IV SCH ×2 (08:22→20:57)
[2017-11-20] MEDS: AMIODARONE 100 MG TAB PO SCH (08:22)
[2017-11-20] MEDS: HYDROcodone/APAP 10-325MG 1 EACH TAB PO SCH ×3 (08:32→21:03)
--- NOTE | 2017-11-20 08:45 | PN ---
PROGRESS NOTE DATE OF SERVICE: 11/19/17. INTERVAL HISTORY: This 67-year-old gentleman was admitted after multiple ventricular arrhythmias had ventricular ablation by cardiology. Currently patient has some shortness of breath. The most recent chest x-ray done today shows worsening changes of CHF at this time. Cardiology and pulmonology following the patient closely. The patient has been initiated on Lasix IV 40 twice daily at this time. PAST MEDICAL HISTORY: Reviewed. REVIEW OF SYSTEMS: Cardiovascular: As mentioned earlier. Respiratory: As mentioned earlier. GI as mentioned earlier. no dysuria. Nervous system: No numbness, weakness. CURRENT MEDICATIONS ARE: Reviewed and include: 1. Tylenol 650 q.6 p.r.n. 2. Mitchell 10 mg t.i.d. p.r.n. 3. Mitchell 5 mg q.4h p.r.n. 4. DuoNeb q.i.d. and p.r.n. 6. Aspirin 81 mg q.h.s. 7. Lipitor 40 mg q.a.m. 8. Pulmicort 1 mg b.i.d. 9. Rocephin 1 g IV daily. 10.Plavix 75 mg q.a.m. 11.Aricept 10 mg q.h.s. 12.Pepcid 20 mg b.i.d. 13.Lasix 40 mg IV b.i.d. 14.Neurontin 300 mg t.i.d. 15.NovoLog scale. 16.Atrovent. 17.Solu-Medrol 60 IV. 18.Lopressor. 19.Mexitil. 20.Nitrostat. 21.Zofran. 22.Saline flush. PHYSICAL EXAM: Patient is alert, oriented x3. Pulse 86, blood pressure 120/60, respiration 18 , temperature 98.8, pulse ox 94% on 3 L. HEENT: Conjunctivae normal. Oral mucosa moist. Neck is no jugular venous distention. No carotid bruit. No lymph node enlargement. CARDIOVASCULAR: S1, S2. RESPIRATORY: Breath sounds diminished in the bases. Bilateral scattered rhonchi and crackles. Expiratory wheezing. ABDOMEN: Soft, nontender. Legs nontender. No edema and no swelling. Nervous system: Higher functions as mentioned earlier. Moves all four extremities. No focal deficits. Lymphatics: No lymph nodes palpable in the neck, axillae or groin. Skin: No ulcers, rashes or bleeding. LAB STUDIES: WBC 2.3, hemoglobin 9.7, INR is 2.5, glucose noted. ASSESSMENT: 1. Status post ASA discharged 2nd ventricular tachycardia recurrence status post ventricular ablation. 2. Congestive heart failure acute exacerbation with acute on chronic systolic dysfunction, ejection fraction 30-35%. 3. Status post Amiodarone and lidocaine drips in ICU. 4. Right upper arm thrombophlebitis. 5. Monomorphic refractory jugular tachycardia converted in normal sinus rhythm with episodes of ventricular tachycardia. 6. Acute elevated troponin 3.8 secondary to demand ischemia and ventricular tachycardia. 7. Acute hypoxic respiratory failure multifactorial. 8. History of hyponatremia. 9. Coronary artery disease history with myocardial infarction, coronary artery bypass grafting, stent. 10.Chronic obstructive pulmonary disease. 11.History of paroxysmal atrial fibrillation, anticoagulated on Coumadin. RECOMMENDATIONS AND DISCUSSION: Recommend to continue current medications, management and symptomatic treatment. Continue the Lasix. Monitor fluid and electrolytes balance closely. Follow closely with Cardiology and pulmonology. Guarded prognosis. Further recommendations to follow. See orders for details. DVT prophylaxis. MMODL / IJN: [id number] / [email or web address]
[2017-11-20] MEDS: IPRATROPIUM 0.5 MG/2.5 ML NEBU INHALATION SCH ×2 (08:55→16:40)
[2017-11-20] MEDS: BUDESONIDE 1 MG/2 ML NEBU INHALATION SCH ×2 (08:55→20:53)
[2017-11-20 12:11] LABS: Glucose,Whole Blood 162 mg/dL (75-99)
--- NOTE | 2017-11-20 13:48 | P.PN ---
Subjective Progress Note Date: 11/20/17 This a 67-year-old male has a history of COPD angina , heart failure CVA , coronary artery disease, previous bypass surgery, previous myocardial infarction and hypothyroidism. The patient has cardiomyopathy and previous echocardiogram showed an ejection fraction of 30-35% consistent with moderate to severe impairment of LV function and the patient has segmental wall motion abnormalities involving the anteroseptal, lateral and septal and apical saleem in addition to severe dilatation of the left atrium and moderate to severe mitral regurgitation and only pressure is estimated to be around 31 mmHg. the patient's latest cardiac catheterization was done 10/19/2017 and it showed a patent left main, LAD was totally occluded in the midportion after the origin of the septal and diagonal branch. The [place] circumflex had an 80% lesion in the proximal portion after the origin of the obtuse marginal branch. Distally in the same vessel there was a 95% stenosis after which the flow seems to be somewhat sluggish. Right coronary artery was totally occluded. 2 vein grafts to the right coronary artery and obtuse marginal branch was totally occluded. JAVIER to LAD was widely patent. The patient has also history of ventricular arrhythmias and the patient has an AICD in place.His automatic implantable cardiac defibrillator went off a number of time because of ventricular tachycardia. The patient developed shortness of breath hypotension was placed on Cordarone. He was also given mexiletine and some other medications were changed by cardiology as well. The patient is still having some episodes of ventricular tachycardia. He is resting comfortably here in the ICU. He had the lidocaine is reducing been turned off. His IV is a saline at 20 mL an hour. He is on O2 at 2 L. Other than that doing relatively well. No pain. Yesterday he was both on lidocaine and Cordarone at 0.5 mg/m. On 11/15/2017, the patient is being seen for a follow-up. The patient is hemodynamically stable. The patient was taken off the amiodarone drip and currently is on oral amiodarone at a dose of 200 mg by mouth once a day. The patient is also on Mexitil 150 mg every 8 hours and Lopressor 25 mg by mouth twice a day. The patient was taken off the amiodarone drip. The patient's current cardiac rhythm is sinus for on and off throughout the night and today the patient was having episodes of wide complex tachycardia and the last run was around 4 AM this morning. The patient had a run of 120-130 beats of wide complex tachycardia at the rate of 110. The AICD did not fire. He converted back to sinus rhythm. The latest run of Cardiology is aware of and Dr. Ornelas from EP is consulted in this regard. The patient has CHF and pulmonary edema and pleural effusion on the chest exit was done yesterday on 11/15/2017. On 11/16/2017, the patient is being seen in follow-up. The patient is doing very well. No further cardiac arrhythmias have been noted. The patient underwent an EP study yesterday by Dr. Ornelas and he further underwent VT ablation. This was successful. The patient is doing well. He is hemodynamically stable. He runs a borderline low blood pressure. Gets his urine output is adequate. His chest x-ray still showing some small bilateral pleural effusion and pulmonary vessel congestion and the patient will be given a dose of Lasix 40 mg IV push today. He is free of any chest pain. No cough or sputum production. No fever or chills. No hemoptysis. His PT/INR is subtherapeutic with an INR of 1.6 and the patient will be given 2 mg of Coumadin today. No other significant events over the past 24 hours. His beta janelle has been metoprolol 25 mg by mouth twice a day. He is also on Mexitil 150 mg 3 times a day and amiodarone 100 mg by mouth daily. He is being monitored here in the intensive care unit. Cardiology is on the case. On 11/17/2017 patient [facility] Last night patient had a spike in fever, with a temp of 101.4F at 8:00 PM. Also became tachycardic, with a rate of 116 BPM, tachypneic with respiratory rate of 26/m. Oxygen requirement has increased to 6 L/m from previous 4 L. Yesterday we gave a dose of 40 of IV Lasix, patient did diurese with that, is in -910 mL fluid balance over the last 24 hours. His weight is down by 2.6 kg over last 24 hours. Repeat blood cultures and sputum cultures were obtained and sent, patient had been on IV Rocephin since 11/13/2017, last night vancomycin was added. Patient' s fever was treated with antipyretics. This morning his vitals are stable, patient remains in sinus rhythm, with a rate of 94-96 BPM. Afebrile, sputum, urine and blood culture are pending. Lung sounds are positive for some crackles at the bases. Chest x-ray from 11/16/2017 has been reviewed and shows congestive heart failure with pulmonary edema and pleural effusions. She will be placed on Lasix 40 IV push every 12 hours. On 11/18/2017 patient seen in Follow-up. Patient has not had any further episodes of febrile episodes. Remains hemodynamically stable, his oxygenation is stable, on 6 L per nasal cannula with O2 sat at 96%. Lung sounds are positive for bibasilar crackles, however this is somewhat improved from yesterday's exam. Patient is a negative fluid balance of 3240 mL over the last 24 hours. WBC on today's lab is normal, as 0.8, hemoglobin stable at 9.6, INR is 1.8, we will give additional 2.5 mg of Coumadin tonight, serum sodium 136, Review serum potassium 3.6, B1 is 25, creatinine 0.9. We will continue Lasix at 40 mg every 12 hours for another 24 hours. Cultures have been negative, urine culture was positive for Wilma species. On 6017, the patient is doing well. On 40s of oxygen nasal cannula. He has diabetes well with IV Lasix and diuretics will be continued for another 24 hours. The patient is also on anticoagulation with warfarin and INR today is therapeutic at 2.5. No chest pain. No cardiac arrhythmias have been noted. Chest x-ray still showing increased pulmonary vascular markings and failure anything the patient would benefit from the day of diuresis. No other complaints otherwise for now. On 11/20/2017, the patient continues to improve. The patient is on IV Lasix. Oxygenation is improved and the patient's pulse ox is around 93% liters of oxygen nasal cannula. No significant chest pain. No arrhythmias noted. He is still diuresing adequately. Crackles in lower lung odom improved and the patient's INR is therapeutic at 3.1. No chest pain. No other complaints otherwise for now. He is ambulating. Objective - Vital Signs Vital signs: Vital Signs Temp 96.8 F L 11/20/17 08:00 Pulse 78 11/20/17 11:59 Resp 18 11/20/17 11:59 BP 97/60 11/20/17 11:59 Pulse Ox 91 L 11/20/17 11:59 Intake & Output 11/19/17 11/20/17 11/20/17 18:59 06:59 18:59 Intake Total 480 120 480 Output Total 800 400 200 Balance -320 -280 280 Weight 72 kg Intake: Oral 480 120 480 Output: Urine 800 400 200 Other: Voiding Method Urinal Urinal Urinal # Voids 1 1 # Bowel Movements 0 - Exam No acute distress, oriented 3. HEENT examination is grossly unremarkable. Mucous membranes are moist. No oral lesions. Neck supple. Full range of motion. No adenopathy thyromegaly or neck vein distention. Cardiovascular examination reveals regular rhythm rate. S1-S2 normal. No S3 or S4. No discernible murmur noted. Lungs reveal a few scattered bibasilar crackles. No rhonchi. No wheezes. Breath sounds equal bilaterally. Abdomen soft bowel sounds are heard. No masses or tenderness. Extremities are intact. No cyanosis clubbing or edema. Skin is without rash or lesion. Neurologic examination is brief but nonfocal. - Labs CBC & Chem 7: 11/20/17 05:57 11/20/17 05:57 Labs: Abnormal Lab Results - Last 24 Hours (Table) 11/19/17 11/19/17 11/20/17 Range/Units 16:44 20:39 05:57 RBC (4.30-5.90) m/uL Hgb (13.0-17.5) gm/dL Hct (39.0-53.0) % MCHC (31.0-37.0) g/dL Lymphocytes # (1.0-4.8) k/uL PT 27.7 H (9.0-12.0) sec INR 3.1 H (<1.2) Chloride (98-107) mmol/L Carbon Dioxide (22-30) mmol/L BUN (9-20) mg/dL Glucose (74-99) mg/dL POC Glucose (mg/dL) 192 H 194 H (75-99) mg/dL 11/20/17 11/20/17 11/20/17 Range/Units 05:57 05:57 06:16 RBC 3.50 L (4.30-5.90) m/uL Hgb 9.7 L (13.0-17.5) gm/dL Hct 31.8 L (39.0-53.0) % MCHC 30.4 L (31.0-37.0) g/dL Lymphocytes # 0.3 L (1.0-4.8) k/uL PT (9.0-12.0) sec INR (<1.2) Chloride 95 L (98-107) mmol/L Carbon Dioxide 36 H (22-30) mmol/L BUN 42 H (9-20) mg/dL Glucose 158 H (74-99) mg/dL POC Glucose (mg/dL) 157 H (75-99) mg/dL 11/20/17 Range/Units 11:46 RBC (4.30-5.90) m/uL Hgb (13.0-17.5) gm/dL Hct (39.0-53.0) % MCHC (31.0-37.0) g/dL Lymphocytes # (1.0-4.8) k/uL PT (9.0-12.0) sec INR (<1.2) Chloride (98-107) mmol/L Carbon Dioxide (22-30) mmol/L BUN (9-20) mg/dL Glucose (74-99) mg/dL POC Glucose (mg/dL) 162 H (75-99) mg/dL Microbiology - Last 24 Hours (Table) 11/18/17 23:45 Urine Culture - Final Urine,Voided 11/16/17 19:54 Blood Culture - Preliminary Blood No Growth after 72 hours 11/16/17 19:54 Blood Culture - Preliminary Blood No Growth after 72 hours 11/13/17 16:52 Blood Culture - Final Blood No Growth after 144 hours 11/17/17 02:40 Gram Stain - Final Sputum Sputum Culture - Final Assessment and Plan Plan: Assessment 1 wide-complex tachycardia, rule out low-grade ventricular tachycardia. Patient is status post EP studies with VT ablation that was done by Dr. Ornelas. Currently his current rhythm is sinus without any further ventricular arrhythmias noted over the past 12 hours post the ablation. The patient remains on a combination of Mexitil, metoprolol and amiodarone. 2 ventricular tachycardia/fibrillation, post-AICD discharge 3 prior to his hospitalization, has not had any further episodes of ventricular arrhythmia after the ablation 3 CHF with ejection fraction of 30-35% and signs of heart failure with CHF and pulmonary edema and pleural effusions bilaterally 4 coronary artery disease with previous bypass surgery, please refer to the results of the cardiac cath. The patient has a patent JAVIER to LAD and the rest of the saphenous finger after all occluded. The patient has also undergone previous coronary intervention and stenting. He is currently free of any chest pain. 5 COPD 6 hypothyroidism 7 history of CVA 8 paroxysmal atrial fibrillation maintained on long-term articulation with warfarin, Plan Continue Lasix for another 24 hours. This continued IV Solu-Medrol and put the patient prednisone burst taper. No Coumadin for today. Monitor PT/INR. We'll continue to follow. Wean off FiO2 as tolerated and the patient was ultimately be placed on room air if his saturation remains above 90%. We'll continue to follow.
--- NOTE | 2017-11-20 15:45 | PN ---
PROGRESS NOTE Mr. Goncalves is a 67-year-old male with known history of severe ischemic cardiomyopathy, history of recurrent ventricular tachycardia with status post ablation, history of coronary artery disease. He is feeling better today. His breathing is better. He denies any chest pain. He denies any dizziness. He continues to be fatigued. He continues to be at this time on amiodarone 100 mg daily, aspirin 81 mg daily, Lipitor 40 mg daily, Plavix 75 mg daily, furosemide 40 mg IV q.12 hours, metoprolol tartrate 25 mg twice a day. Mexiletine 150 mg 3 times a day and Coumadin. PHYSICAL EXAMINATION: Blood pressure running in the high 90s with a heart rate in the 70s. LUNGS: Few crackles at the bases. HEART: S1, S2 with a systolic murmur. No diastolic murmur. ABDOMEN: Soft, nontender. EXTREMITIES: No edema. LAB DATA: Lab data revealed a BUN and creatinine of 42 and 1.0. Potassium 4.0. Hemoglobin of 9.7. IMPRESSION: 1. Recurrent ventricular tachycardia status post ablation, stable. 2. Congestive heart failure, improving. 3. History of coronary artery disease. 4. Severe ischemic cardiomyopathy. RECOMMENDATION: We will continue current therapy. If he is stable by tomorrow, he will be switched to oral diuretics and probably discharge home tomorrow. MMODL / IJN: [id number] /
[2017-11-20 17:14] LABS: Glucose,Whole Blood 208 mg/dL (75-99)
[2017-11-20 20:56] LABS: Glucose,Whole Blood 194 mg/dL (75-99)
[2017-11-20] MEDS: DONEPEZIL 10 MG TAB PO SCH (20:57)
[2017-11-21] MEDS: IPRATROPIUM 0.5 MG/2.5 ML NEBU INHALATION SCH ×3 (00:30→17:23)
[2017-11-21 05:52] LABS: Glucose,Whole Blood 206 mg/dL (75-99)
[2017-11-21 06:23] LABS: Basophils % (A) 0 %; Eosinophils % (A) 0 %; HCT 31.7 % (39.0-53.0); HGB 9.7 gm/dL (13.0-17.5); Hypochromasia Moderate; Lymphocytes # (A) 0.4 k/uL (1.0-4.8); Lymphocytes % (A) 6 %; MCHC 30.6 g/dL (31.0-37.0); MCV 88.3 fL (80.0-100.0); Mean Platelet Volume 9.7; Monocytes # (A) 0.4 k/uL (0-1.0); Monocytes % (A) 6 %; Neutrophils # (A) 5.4 k/uL (1.3-7.7); Neutrophils % (A) 86 %; Platelet Count 228 k/uL (150-450); RBC 3.59 m/uL (4.30-5.90); RDW 14.6 % (11.5-15.5); WBC 6.3 k/uL (3.8-10.6)
[2017-11-21 06:32] LABS: INR 3.2 (<1.2); Prothrombin Time 29.1 sec (9.0-12.0)
[2017-11-21 06:44] LABS: Anion Gap 9 mmol/L; Blood Urea Nitrogen 56 mg/dL (9-20); Carbon Dioxide 34 mmol/L (22-30); Chloride 95 mmol/L (98-107); Glucose 155 mg/dL (74-99); Potassium 4.3 mmol/L (3.5-5.1); Sodium 138 mmol/L (137-145)
[2017-11-21] MEDS: INSULIN ASPART 100 UNIT/ML 1 ML 10 ML VIAL SQ SCH ×4 (07:00→21:12)
[2017-11-21] MEDS: BUDESONIDE 1 MG/2 ML NEBU INHALATION SCH ×2 (08:32→20:37)
[2017-11-21] MEDS: predniSONE 20 MG TAB PO SCH (08:59)
[2017-11-21] MEDS: FUROSEMIDE 10 MG/ML 4 ML VIAL IV SCH ×2 (08:59→21:13)
[2017-11-21] MEDS: CLOPIDOGREL 75 MG TAB PO SCH (08:59)
[2017-11-21] MEDS: ASPIRIN 81 MG PO SCH (08:59)
[2017-11-21] MEDS: cefTRIAXone IN SWFI 1,000 MG/10 ML SYRINGE IVP SCH (08:59)
[2017-11-21] MEDS: GABAPENTIN 300 MG CAP PO SCH ×3 (08:59→21:14)
[2017-11-21] MEDS: ATORVASTATIN 40 MG TAB PO SCH (08:59)
[2017-11-21] MEDS: AMIODARONE 100 MG TAB PO SCH (08:59)
[2017-11-21] MEDS: METOPROLOL TARTRATE 25 MG TAB PO SCH ×2 (08:59→21:13)
[2017-11-21] MEDS: MEXILETINE 150 MG CAP PO SCH ×2 (09:00→16:11)
[2017-11-21] MEDS: HYDROcodone/APAP 10-325MG 1 EACH TAB PO SCH ×3 (09:02→21:27)
--- NOTE | 2017-11-21 10:34 | PN ---
PROGRESS NOTE DATE OF SERVICE: 11/20/2017 This 67-year-old gentleman admitted after multiple ventricular arrhythmias, had cardiac ablations. Currently the patient had features of CHF. The patient is diuresing well. Patient is on IV Lasix. Multiple consultants are following the patient closely including Dr. Puri and Cardiology. PAST MEDICAL HISTORY: Reviewed. REVIEW OF SYSTEMS: Cardiovascular as mentioned earlier. Respiratory: As mentioned earlier. GI no nausea or vomiting. no dysuria. Central nervous system: No numbness, weakness. CURRENT MEDICATIONS ARE: Reviewed and include: 1. Tylenol 650 q.6 p.r.n. 2. [place] 10 mg t.i.d. 3. Albuterol q.i.d. and p.r.n. 4. Cordarone 100 mg daily. 5. Aspirin 81 mg daily. 6. Lipitor 40 mg q.h.s. 7. Pulmicort 1 mg b.i.d. 8. Rocephin 1000 mg b.i.d. 9. Plavix 75 mg. 10.Aricept 10 mg daily. 11.Lasix 40 mg IV b.i.d. 12.Neurontin. 13.Atrovent. 14.Lopressor 25 mg b.i.d. 15.Morphine sulfate. 16.Zofran. 17.Prednisone. PHYSICAL EXAM: Patient is alert, oriented x2. Pulse is 70, blood pressure is 101/76, respiration 17, temperature 98.7, pulse ox 98% on 3 L. HEENT: Conjunctivae normal. Oral mucosa moist. Neck: Jugular venous distention in the root of the neck. Cardiovascular is S1, S2. Ejection systolic murmur. No S3, no S4. RESPIRATORY: Breath sounds diminished in the bases. Scattered rhonchi and crackles. ABDOMEN: Soft, nontender. No mass. Legs no edema. No swelling. Central nervous system: No focal deficits. LABS: WBC 7.2, hemoglobin 9.7, and INR 3.1. ASSESSMENT: 1. Status post AICD discharge and ventricular tachycardia, recurrent status post ventricular ablation. 2. Congestive heart failure acute exacerbation with acute on chronic systolic dysfunction ejection fraction 30-35%. 3. Status post Amiodarone and lidocaine drip in the ICU. 4. Right upper arm thrombophlebitis. 5. Monomorphic refractory jugular tachycardia converted to normal sinus rhythm with episode of ventricular tachycardia. 6. Acute elevated troponin 3.8 secondary to demand ischemia and ventricular tachycardia. 7. Acute hypoxic respiratory failure multifactorial. 8. History of hyponatremia. 9. History of coronary artery disease, myocardial infarction, coronary artery bypass grafting/stent. 10.History of paroxysmal atrial fibrillation 98% on Coumadin. 11.Coumadin monitoring. RECOMMENDATIONS AND DISCUSSION: Recommend to continue current medications, management and continue the diuretics. Monitor fluid and electrolytes balance closely. The patient has had definitely losing some weight and I would also recommend fluid restriction as well to be continued. Continue the rest of the medications. Otherwise continue with beta blockers. Further recommendations to follow. The blood pressure is borderline. MMODL / IJN: [id number] /
--- NOTE | 2017-11-21 11:59 | P.PN ---
Subjective Progress Note Date: 11/21/17 Principal diagnosis: Acute ventricular tachycardia and acute systolic congestive heart failure. This a 67-year-old male has a history of COPD angina , heart failure CVA , coronary artery disease, previous bypass surgery, previous myocardial infarction and hypothyroidism. The patient has cardiomyopathy and previous echocardiogram showed an ejection fraction of 30-35% consistent with moderate to severe impairment of LV function and the patient has segmental wall motion abnormalities involving the anteroseptal, lateral and septal and apical saleem in addition to severe dilatation of the left atrium and moderate to severe mitral regurgitation and only pressure is estimated to be around 31 mmHg. the patient's latest cardiac catheterization was done 10/19/2017 and it showed a patent left main, LAD was totally occluded in the midportion after the origin of the septal and diagonal branch. The [place] circumflex had an 80% lesion in the proximal portion after the origin of the obtuse marginal branch. Distally in the same vessel there was a 95% stenosis after which the flow seems to be somewhat sluggish. Right coronary artery was totally occluded. 2 vein grafts to the right coronary artery and obtuse marginal branch was totally occluded. JAVIER to LAD was widely patent. The patient has also history of ventricular arrhythmias and the patient has an AICD in place.His automatic implantable cardiac defibrillator went off a number of time because of ventricular tachycardia. The patient developed shortness of breath hypotension was placed on Cordarone. He was also given mexiletine and some other medications were changed by cardiology as well. The patient is still having some episodes of ventricular tachycardia. He is resting comfortably here in the ICU. He had the lidocaine is reducing been turned off. His IV is a saline at 20 mL an hour. He is on O2 at 2 L. Other than that doing relatively well. No pain. Yesterday he was both on lidocaine and Cordarone at 0.5 mg/m. On 11/15/2017, the patient is being seen for a follow-up. The patient is hemodynamically stable. The patient was taken off the amiodarone drip and currently is on oral amiodarone at a dose of 200 mg by mouth once a day. The patient is also on Mexitil 150 mg every 8 hours and Lopressor 25 mg by mouth twice a day. The patient was taken off the amiodarone drip. The patient's current cardiac rhythm is sinus for on and off throughout the night and today the patient was having episodes of wide complex tachycardia and the last run was around 4 AM this morning. The patient had a run of 120-130 beats of wide complex tachycardia at the rate of 110. The AICD did not fire. He converted back to sinus rhythm. The latest run of Cardiology is aware of and Dr. Ornelas from EP is consulted in this regard. The patient has CHF and pulmonary edema and pleural effusion on the chest exit was done yesterday on 11/15/2017. On 11/16/2017, the patient is being seen in follow-up. The patient is doing very well. No further cardiac arrhythmias have been noted. The patient underwent an EP study yesterday by Dr. Ornelas and he further underwent VT ablation. This was successful. The patient is doing well. He is hemodynamically stable. He runs a borderline low blood pressure. Gets his urine output is adequate. His chest x-ray still showing some small bilateral pleural effusion and pulmonary vessel congestion and the patient will be given a dose of Lasix 40 mg IV push today. He is free of any chest pain. No cough or sputum production. No fever or chills. No hemoptysis. His PT/INR is subtherapeutic with an INR of 1.6 and the patient will be given 2 mg of Coumadin today. No other significant events over the past 24 hours. His beta janelle has been metoprolol 25 mg by mouth twice a day. He is also on Mexitil 150 mg 3 times a day and amiodarone 100 mg by mouth daily. He is being monitored here in the intensive care unit. Cardiology is on the case. On 11/17/2017 patient seen again in follow-up on [facility] care floor. Last night patient had a spike in fever, with a temp of 101.4F at 8:00 PM. Also became tachycardic, with a rate of 116 BPM, tachypneic with respiratory rate of 26/m. Oxygen requirement has increased to 6 L/m from previous 4 L. Yesterday we gave a dose of 40 of IV Lasix, patient did diurese with that, is in -910 mL fluid balance over the last 24 hours. His weight is down by 2.6 kg over last 24 hours. Repeat blood cultures and sputum cultures were obtained and sent, patient had been on IV Rocephin since 11/13/2017, last night vancomycin was added. Patient' s fever was treated with antipyretics. This morning his vitals are stable, patient remains in sinus rhythm, with a rate of 94-96 BPM. Afebrile, sputum, urine and blood culture are pending. Lung sounds are positive for some crackles at the bases. Chest x-ray from 11/16/2017 has been reviewed and shows congestive heart failure with pulmonary edema and pleural effusions. She will be placed on Lasix 40 IV push every 12 hours. On 11/18/2017 patient seen in Follow-up. Patient has not had any further episodes of febrile episodes. Remains hemodynamically stable, his oxygenation is stable, on 6 L per nasal cannula with O2 sat at 96%. Lung sounds are positive for bibasilar crackles, however this is somewhat improved from yesterday's exam. Patient is a negative fluid balance of 3240 mL over the last 24 hours. WBC on today's lab is normal, as 0.8, hemoglobin stable at 9.6, INR is 1.8, we will give additional 2.5 mg of Coumadin tonight, serum sodium 136, Review serum potassium 3.6, B1 is 25, creatinine 0.9. We will continue Lasix at 40 mg every 12 hours for another 24 hours. Cultures have been negative, urine culture was positive for Wilma species. On 6017, the patient is doing well. On 40s of oxygen nasal cannula. He has diabetes well with IV Lasix and diuretics will be continued for another 24 hours. The patient is also on anticoagulation with warfarin and INR today is therapeutic at 2.5. No chest pain. No cardiac arrhythmias have been noted. Chest x-ray still showing increased pulmonary vascular markings and failure anything the patient would benefit from the day of diuresis. No other complaints otherwise for now. On 11/20/2017, the patient continues to improve. The patient is on IV Lasix. Oxygenation is improved and the patient's pulse ox is around 93% liters of oxygen nasal cannula. No significant chest pain. No arrhythmias noted. He is still diuresing adequately. Crackles in lower lung odom improved and the patient's INR is therapeutic at 3.1. No chest pain. No other complaints otherwise for now. He is ambulating. Reevaluated today on 11/21/2017, clinically, the patient is feeling better, breathing easier, remains on IV Lasix, oxygenation is improving, follow-up chest x-ray is pending to be done in a.m. for follow-up on his congestive heart failure. Last chest x-ray couple of days ago showed CHF. CBC was reviewed INR is therapeutic at 3.2 basic metabolic profile is normal BUN is 56 creatinine is 1.16. Objective - Vital Signs Vital signs: Vital Signs Temp 96.9 F L 11/21/17 11:37 Pulse 79 11/21/17 11:37 Resp 20 11/21/17 11:37 BP 91/54 11/21/17 11:37 Pulse Ox 93 L 11/21/17 11:37 Intake & Output 11/20/17 11/21/17 11/21/17 18:59 06:59 18:59 Intake Total 900 500 240 Output Total 200 Balance 700 500 240 Weight 73.2 kg Intake: Oral 900 500 240 Output: Urine 200 Other: Voiding Method Urinal Urinal # Voids 1 1 - Exam Physical Exam: Revealed a 67-year-old white male on nasal cannula, in no distress. HEENT:[Neck is supple.] [No neck masses.] [No thyromegaly.] [No JVD.] PERRLA, EOMI. Chest: [Crackles at the bases bilaterally, no rhonchi, no wheezes. No chest wall tenderness.] Cardiac Exam: [Normal S1 and S2, no S3 gallop, no murmur.] Abdomen: [Soft, nontender, no megaly, no rebound, no guarding, normal bowel sounds.] Extremities: [No clubbing, no edema, no cyanosis.] Neurological Exam: [No focal neurologic deficit.] Lymphatics: No lymphadenopathy Psychiatric: Normal mood affect and mental status examination. - Labs CBC & Chem 7: 11/21/17 06:10 11/21/17 06:10 Labs: Abnormal Lab Results - Last 24 Hours (Table) 11/20/17 11/20/17 11/20/17 Range/Units 11:46 16:33 20:39 RBC (4.30-5.90) m/uL Hgb (13.0-17.5) gm/dL Hct (39.0-53.0) % MCHC (31.0-37.0) g/dL Lymphocytes # (1.0-4.8) k/uL PT (9.0-12.0) sec INR (<1.2) Chloride (98-107) mmol/L Carbon Dioxide (22-30) mmol/L BUN (9-20) mg/dL Glucose (74-99) mg/dL POC Glucose (mg/dL) 162 H 208 H 194 H (75-99) mg/dL 11/21/17 11/21/17 11/21/17 Range/Units 05:47 06:10 06:10 RBC 3.59 L (4.30-5.90) m/uL Hgb 9.7 L (13.0-17.5) gm/dL Hct 31.7 L (39.0-53.0) % MCHC 30.6 L (31.0-37.0) g/dL Lymphocytes # 0.4 L (1.0-4.8) k/uL PT 29.1 H (9.0-12.0) sec INR 3.2 H (<1.2) Chloride (98-107) mmol/L Carbon Dioxide (22-30) mmol/L BUN (9-20) mg/dL Glucose (74-99) mg/dL POC Glucose (mg/dL) 206 H (75-99) mg/dL 11/21/17 Range/Units 06:10 RBC (4.30-5.90) m/uL Hgb (13.0-17.5) gm/dL Hct (39.0-53.0) % MCHC (31.0-37.0) g/dL Lymphocytes # (1.0-4.8) k/uL PT (9.0-12.0) sec INR (<1.2) Chloride 95 L (98-107) mmol/L Carbon Dioxide 34 H (22-30) mmol/L BUN 56 H (9-20) mg/dL Glucose 155 H (74-99) mg/dL POC Glucose (mg/dL) (75-99) mg/dL Microbiology - Last 24 Hours (Table) 11/16/17 19:54 Blood Culture - Preliminary Blood No Growth after 96 hours 11/16/17 19:54 Blood Culture - Preliminary Blood No Growth after 96 hours 11/16/17 22:48 Urine Culture - Final Urine,Catheterized Wilma sp,not albicans/galbr 11/18/17 23:45 Urine Culture - Final Urine,Voided Assessment and Plan Assessment: 1 wide-complex tachycardia, rule out low-grade ventricular tachycardia. Patient is status post EP studies with VT ablation that was done by Dr. Ornelas. Currently his current rhythm is sinus without any further ventricular arrhythmias noted over the past 12 hours post the ablation. The patient remains on a combination of Mexitil, metoprolol and amiodarone. 2 ventricular tachycardia/fibrillation, post-AICD discharge 3 prior to his hospitalization, has not had any further episodes of ventricular arrhythmia after the ablation 3 CHF with ejection fraction of 30-35% and signs of heart failure with CHF and pulmonary edema and pleural effusions bilaterally 4 coronary artery disease with previous bypass surgery, please refer to the results of the cardiac cath. The patient has a patent JAVIER to LAD and the rest of the saphenous finger after all occluded. The patient has also undergone previous coronary intervention and stenting. He is currently free of any chest pain. 5 COPD 6 hypothyroidism 7 history of CVA 8 paroxysmal atrial fibrillation maintained on long-term articulation with warfarin, Recommendation: Continue Lasix, continue bronchodilators, reevaluate chest x- ray in a.m., consider discharge planning in the next 24-48 hours. Time with Patient: Less than 30
[2017-11-21 12:10] LABS: Glucose,Whole Blood 182 mg/dL (75-99)
--- NOTE | 2017-11-21 14:22 | P.PN ---
Subjective Progress Note Date: 11/21/17 Principal diagnosis: Acute non-STEMI/sustained VT This is a pleasant 67-year-old gentleman who sees Dr. COLEMAN Gill on regular basis with a past medical history significant for severe underlying coronary artery disease and prior coronary artery that is grafting with a recent heart catheterization revealing the occlusion of all vein grafts and open JAVIER to LAD. At that point the patient underwent stenting of the left circumflex by Dr. COLEMAN Gill and that was performed a few weeks ago. The patient also is known to have severe cardiomyopathy and he is status post AICD placements. Also he is known to have paroxysmal atrial fibrillation. He presented to the hospital with 3 ICD shocks. No dizziness or lightheadedness and no syncope. No chest pain or chest discomfort for. He was found to be in sustained V. tach. Patient underwent V. tach ablation by Dr. Cameron. He has been maintaining in normal sinus rhythm. Patient continues to be on mexiletine 150 every 8 hourly, metoprolol 25 mg twice a day, and amiodarone 100 milligrams daily. [place] of feeling mildly short of breath today. He has been resumed on IV Lasix per pulmonary. Blood pressure 100/60, heart rate in the 80s to 90s. 91% on 6 L of oxygen. Repeat chest x-ray shows congestive heart failure with pulmonary edema. Pleural effusions. Slightly worse than prior. 11/18/2017 Patient seen and examined this morning, grade temperature of 99.4, blood pressure 106/68, heart rate in the 90s. His weight is unchanged from yesterday. Hemoglobin 9.6, INR 1.8, sodium 136, BUN 25, creatinine 0.9. 11/21/2017 Patient was seen and examined this morning, feeling much better overall. Blood pressure 92/50, heart rate in the 70s. Hemoglobin 9.7, INR 3.2, potassium 4.3, BUN 56, creatinine 1.1. No ectopy noted on the monitor. From cardiology's perspective patient may be able to be discharged home today. We will make him a follow-up appointment to see Dr. COLEMAN Gill in the office post discharge. Objective - Vital Signs Vital signs: Vital Signs Temp 96.9 F L 11/21/17 11:37 Pulse 79 11/21/17 11:37 Resp 20 01/08/18 11:37 BP 91/54 11/21/17 11:37 Pulse Ox 93 L 11/21/17 11:37 Intake & Output 11/20/17 11/21/17 11/21/17 18:59 06:59 18:59 Intake Total 900 500 480 Output Total 200 Balance 700 500 480 Weight 73.2 kg Intake: Oral 900 500 480 Output: Urine 200 Other: Voiding Method Urinal Urinal # Voids 1 1 - Exam PHYSICAL EXAMINATION: HEENT: Head is atraumatic, normocephalic. Pupils equal, round. Neck is supple. There is no elevated jugular venous pressure. HEART EXAMINATION: Heart S1, S2 normal. No murmur or gallop heard. CHEST EXAMINATION: Lungs clear to auscultation ABDOMEN: Soft, nontender. Bowel sounds are heard. No organomegaly noted. EXTREMITIES: 2+ peripheral pulses with no evidence of peripheral edema and no calf tenderness noted. NEUROLOGIC patient is awake, alert and oriented -3. . - Labs CBC & Chem 7: 11/21/17 06:10 11/21/17 06:10 Labs: Abnormal Lab Results - Last 24 Hours (Table) 11/20/17 11/20/17 11/21/17 Range/Units 16:33 20:39 05:47 RBC (4.30-5.90) m/uL Hgb (13.0-17.5) gm/dL Hct (39.0-53.0) % MCHC (31.0-37.0) g/dL Lymphocytes # (1.0-4.8) k/uL PT (9.0-12.0) sec INR (<1.2) Chloride (98-107) mmol/L Carbon Dioxide (22-30) mmol/L BUN (9-20) mg/dL Glucose (74-99) mg/dL POC Glucose (mg/dL) 208 H 194 H 206 H (75-99) mg/dL 11/21/17 11/21/17 11/21/17 Range/Units 06:10 06:10 06:10 RBC 3.59 L (4.30-5.90) m/uL Hgb 9.7 L (13.0-17.5) gm/dL Hct 31.7 L (39.0-53.0) % MCHC 30.6 L (31.0-37.0) g/dL Lymphocytes # 0.4 L (1.0-4.8) k/uL PT 29.1 H (9.0-12.0) sec INR 3.2 H (<1.2) Chloride 95 L (98-107) mmol/L Carbon Dioxide 34 H (22-30) mmol/L BUN 56 H (9-20) mg/dL Glucose 155 H (74-99) mg/dL POC Glucose (mg/dL) (75-99) mg/dL 11/21/17 Range/Units 12:04 RBC (4.30-5.90) m/uL Hgb (13.0-17.5) gm/dL Hct (39.0-53.0) % MCHC (31.0-37.0) g/dL Lymphocytes # (1.0-4.8) k/uL PT (9.0-12.0) sec INR (<1.2) Chloride (98-107) mmol/L Carbon Dioxide (22-30) mmol/L BUN (9-20) mg/dL Glucose (74-99) mg/dL POC Glucose (mg/dL) 182 H (75-99) mg/dL Microbiology - Last 24 Hours (Table) 11/16/17 19:54 Blood Culture - Preliminary Blood No Growth after 96 hours 11/16/17 19:54 Blood Culture - Preliminary Blood No Growth after 96 hours 11/16/17 22:48 Urine Culture - Final Urine,Catheterized Wilma sp,not albicans/galbr 11/18/17 23:45 Urine Culture - Final Urine,Voided Assessment and Plan Plan: Assessment and plan #1 ventricular tachycardia status post AICD discharge. Patient also underwent ventricular tachycardia ablation by Dr. Cameron this admission. We will continue mexiletine, metoprolol, and amiodarone. #2 systolic congestive heart failure acute on chronic #3 coronary artery disease with prior bypass surgery and PCI #4 hypertension #5 COPD #6 hypothyroidism #7 history of CVA #8 paroxysmal atrial fibrillation on Coumadin Plan Would recommend to continue current medications. Follow-up with Dr. Mariano Gill in the office post discharge. DNP note has been reviewed, I agree with a documented findings and plan of care. Patient was seen and examined.
[2017-11-21 17:24] LABS: Glucose,Whole Blood 195 mg/dL (75-99)
[2017-11-21] MEDS: IPRATROPIUM-ALBUTEROL 3 ML NEB INHALATION PRN (20:37)
[2017-11-21 20:52] LABS: Glucose,Whole Blood 225 mg/dL (75-99)
[2017-11-21] MEDS: DONEPEZIL 10 MG TAB PO SCH (21:13)
[2017-11-21] MEDS: HYDROcodone/APAP 5-325MG 1 EACH TAB PO PRN (21:14)
[2017-11-22] MEDS: IPRATROPIUM 0.5 MG/2.5 ML NEBU INHALATION SCH ×2 (01:08→09:00)
[2017-11-22] MEDS: MEXILETINE 150 MG CAP PO SCH ×3 (04:00→14:38)
[2017-11-22] MEDS: INSULIN ASPART 100 UNIT/ML 1 ML 10 ML VIAL SQ SCH ×2 (06:26→12:20)
[2017-11-22 06:30] LABS: Glucose,Whole Blood 103 mg/dL (75-99)
[2017-11-22 06:36] LABS: Basophils % (A) 0 %; Eosinophils % (A) 0 %; HCT 31.1 % (39.0-53.0); HGB 9.8 gm/dL (13.0-17.5); Hypochromasia Moderate; Lymphocytes # (A) 0.7 k/uL (1.0-4.8); Lymphocytes % (A) 8 %; MCH 27.8 pg (25.0-35.0); MCHC 31.7 g/dL (31.0-37.0); MCV 87.7 fL (80.0-100.0); Monocytes # (A) 0.5 k/uL (0-1.0); Monocytes % (A) 6 %; Neutrophils % (A) 85 %; Platelet Count 264 k/uL (150-450); RBC 3.54 m/uL (4.30-5.90); RDW 14.4 % (11.5-15.5); WBC 8.3 k/uL (3.8-10.6)
[2017-11-22 06:43] LABS: INR 2.7 (<1.2); Prothrombin Time 23.9 sec (9.0-12.0)
[2017-11-22] MEDS: predniSONE 20 MG TAB PO SCH (08:07)
[2017-11-22] MEDS: METOPROLOL TARTRATE 25 MG TAB PO SCH (08:07)
[2017-11-22] MEDS: GABAPENTIN 300 MG CAP PO SCH (08:07)
[2017-11-22] MEDS: FUROSEMIDE 10 MG/ML 4 ML VIAL IV SCH (08:07)
[2017-11-22] MEDS: ASPIRIN 81 MG PO SCH (08:07)
[2017-11-22] MEDS: CLOPIDOGREL 75 MG TAB PO SCH (08:07)
[2017-11-22] MEDS: ATORVASTATIN 40 MG TAB PO SCH (08:07)
[2017-11-22] MEDS: AMIODARONE 100 MG TAB PO SCH (08:12)
[2017-11-22] MEDS: cefTRIAXone IN SWFI 1,000 MG/10 ML SYRINGE IVP SCH (08:12)
[2017-11-22] MEDS: HYDROcodone/APAP 10-325MG 1 EACH TAB PO SCH (08:12)
[2017-11-22 08:18] LABS: Anion Gap 8 mmol/L; Blood Urea Nitrogen 48 mg/dL (9-20); Calcium 8.9 mg/dL (8.4-10.2); Carbon Dioxide 34 mmol/L (22-30); Chloride 94 mmol/L (98-107); Glucose 110 mg/dL (74-99); Potassium 4.1 mmol/L (3.5-5.1); Sodium 136 mmol/L (137-145)
--- NOTE | 2017-11-22 08:51 | XR ---
EXAMINATION TYPE: XR chest 1V portable DATE OF EXAM: 11/22/2017 COMPARISON: Prior chest x-ray 11/19/2017 HISTORY: Congestive heart failure TECHNIQUE: Single frontal view of the chest is obtained. FINDINGS: Bilateral airspace disease is present. Patient is post median sternotomy and rotated, gene rator in the left pectoral region, intracardiac defibrillator lead in the right ventricle again noted . No evident pneumothorax or pleural effusion. The heart remains enlarged. IMPRESSION: Findings may be indicative of congestive heart failure, follow-up recommended.
[2017-11-22] MEDS: BUDESONIDE 1 MG/2 ML NEBU INHALATION SCH (09:00)
[2017-11-22 09:44] VITALS: RESP 20
--- NOTE | 2017-11-22 09:49 | P.PN ---
Subjective Principal diagnosis: Acute non-STEMI/sustained VT This is a pleasant 67-year-old gentleman who sees Dr. COLEMAN Gill on regular basis with a past medical history significant for severe underlying coronary artery disease and prior coronary artery that is grafting with a recent heart catheterization revealing the occlusion of all vein grafts and open JAVIER to LAD. At that point the patient underwent stenting of the left circumflex by Dr. COLEMAN Gill and that was performed a few weeks ago. The patient also is known to have severe cardiomyopathy and he is status post AICD placements. Also he is known to have paroxysmal atrial fibrillation. He presented to the hospital with 3 ICD shocks. No dizziness or lightheadedness and no syncope. No chest pain or chest discomfort for. He was found to be in sustained V. tach. Patient underwent V. tach ablation by Dr. Cameron. He has been maintaining in normal sinus rhythm. Patient continues to be on mexiletine 150 every 8 hourly, metoprolol 25 mg twice a day, and amiodarone 100 milligrams daily. [place] of feeling mildly short of breath today. He has been resumed on IV Lasix per pulmonary. Blood pressure 100/60, heart rate in the 80s to 90s. 91% on 6 L of oxygen. Repeat chest x-ray shows congestive heart failure with pulmonary edema. Pleural effusions. Slightly worse than prior. 11/18/2017 Patient seen and examined this morning, grade temperature of 99.4, blood pressure 106/68, heart rate in the 90s. His weight is unchanged from yesterday. Hemoglobin 9.6, INR 1.8, sodium 136, BUN 25, creatinine 0.9. 11/21/2017 Patient was seen and examined this morning, feeling much better overall. Blood pressure 92/50, heart rate in the 70s. Hemoglobin 9.7, INR 3.2, potassium 4.3, BUN 56, creatinine 1.1. No ectopy noted on the monitor. From cardiology's perspective patient may be able to be discharged home today. We will make him a follow-up appointment to see Dr. COLEMAN Gill in the office post discharge. 11/22/2017 Patient seen and examined this morning, eager to be discharged. Decisions are being made as to whether the patient will go home or to rehab. Hemodynamically stable. We will continue his current medications, Coumadin has also been resumed. Follow-up appointment with Dr. Mariano Gill and the device clinic. Objective - Vital Signs Vital signs: Vital Signs Temp 96.9 F L 11/22/17 08:00 Pulse 76 11/22/17 09:14 Resp 20 11/22/17 08:00 BP 109/68 11/22/17 08:00 Pulse Ox 92 L 11/22/17 09:02 Intake & Output 11/21/17 11/22/17 11/22/17 18:59 06:59 18:59 Intake Total 720 Output Total 750 Balance 720 -750 Weight 72.6 kg Intake: Oral 720 Output: Urine 750 Other: Voiding Method Urinal # Voids 1 1 - Exam PHYSICAL EXAMINATION: HEENT: Head is atraumatic, normocephalic. Pupils equal, round. Neck is supple. There is no elevated jugular venous pressure. HEART EXAMINATION: Heart S1, S2 normal. No murmur or gallop heard. CHEST EXAMINATION: Lungs clear to auscultation ABDOMEN: Soft, nontender. Bowel sounds are heard. No organomegaly noted. EXTREMITIES: 2+ peripheral pulses with no evidence of peripheral edema and no calf tenderness noted. NEUROLOGIC patient is awake, alert and oriented -3. . - Labs CBC & Chem 7: 11/22/17 06:07 11/22/17 06:07 Labs: Abnormal Lab Results - Last 24 Hours (Table) 11/21/17 11/21/17 11/21/17 Range/Units 12:04 17:03 20:46 RBC (4.30-5.90) m/uL Hgb (13.0-17.5) gm/dL Hct (39.0-53.0) % Lymphocytes # (1.0-4.8) k/uL PT (9.0-12.0) sec INR (<1.2) Sodium (137-145) mmol/L Chloride (98-107) mmol/L Carbon Dioxide (22-30) mmol/L BUN (9-20) mg/dL Glucose (74-99) mg/dL POC Glucose (mg/dL) 182 H 195 H 225 H (75-99) mg/dL 11/22/17 11/22/17 11/22/17 Range/Units 06:07 06:07 06:07 RBC 3.54 L (4.30-5.90) m/uL Hgb 9.8 L (13.0-17.5) gm/dL Hct 31.1 L (39.0-53.0) % Lymphocytes # 0.7 L (1.0-4.8) k/uL PT 23.9 H (9.0-12.0) sec INR 2.7 H (<1.2) Sodium 136 L (137-145) mmol/L Chloride 94 L (98-107) mmol/L Carbon Dioxide 34 H (22-30) mmol/L BUN 48 H (9-20) mg/dL Glucose 110 H (74-99) mg/dL POC Glucose (mg/dL) (75-99) mg/dL 11/22/17 Range/Units 06:17 RBC (4.30-5.90) m/uL Hgb (13.0-17.5) gm/dL Hct (39.0-53.0) % Lymphocytes # (1.0-4.8) k/uL PT (9.0-12.0) sec INR (<1.2) Sodium (137-145) mmol/L Chloride (98-107) mmol/L Carbon Dioxide (22-30) mmol/L BUN (9-20) mg/dL Glucose (74-99) mg/dL POC Glucose (mg/dL) 103 H (75-99) mg/dL Microbiology - Last 24 Hours (Table) 11/16/17 19:54 Blood Culture - Preliminary Blood No Growth after 120 hours 11/16/17 19:54 Blood Culture - Preliminary Blood No Growth after 120 hours Assessment and Plan Plan: Assessment and plan #1 ventricular tachycardia status post AICD discharge. Patient also underwent ventricular tachycardia ablation by Dr. Cameron this admission. We will continue mexiletine, metoprolol, and amiodarone. Patient did have abnormality in troponin, no myocardial infarction. #2 systolic congestive heart failure acute on chronic #3 coronary artery disease with prior bypass surgery and PCI #4 hypertension #5 COPD #6 hypothyroidism #7 history of CVA #8 paroxysmal atrial fibrillation on Coumadin Plan Would recommend to continue current medications. Resume Coumadin. Follow-up with Dr. Mariano Gill in Dr. Cameron in the office post discharge. DNP note has been reviewed, I agree with a documented findings and plan of care. Patient was seen and examined.
--- NOTE | 2017-11-22 10:29 | PN ---
PROGRESS NOTE DATE OF SERVICE: 11/21/17 This 67-year-old gentleman who was admitted with AICD discharge also ventricular ablation. Patient had features of CHF. The patient being closely monitored at this time. Cardiology and pulmonology following the patient closely. No chest pain. No palpitations. No fever. PHYSICAL EXAM: Alert and oriented x3. The pulse is 89, blood pressure 108/69 respiration 14, temperature 98.4, pulse ox 94% on 3 L. HEENT: Conjunctivae normal. Oral mucosa moist. Neck is no jugular venous distention. No carotid bruit. No lymph node enlargement. Cardiovascular: S1, S2 muffled. Respiratory: Breath sounds diminished in the bases. A few scattered rhonchi and crackles. ABDOMEN: Soft, nontender. Legs are no edema. No swelling. Central nervous system: No focal deficits. LABS: At this time shows WBC 6.3, hemoglobin 9.7, INR 3.2. ASSESSMENT: 1. Status post AICD discharge and ventricular tachycardia recurrence. 2. Status post ventricular ablation. 3. Congestive heart failure acute exacerbation with acute on chronic systolic dysfunction, ejection fraction 30-35%. 4. Status post Amiodarone and lidocaine drip in ICU. 5. Right upper arm thrombophlebitis. 6. Monomorphic refractory jugular tachycardia converted to normal sinus rhythm with an episode of ventricular tachycardia. 7. Acute elevated troponin 2.8 secondary to demand ischemia and ventricular tachycardia. 8. Acute hypoxic respiratory failure multifactorial. 9. History hyponatremia. 10.History of coronary artery disease, myocardial infarction, coronary artery bypass grafting stent. 11.History of paroxysmal atrial fibrillation. 12.Coumadin monitoring. RECOMMENDATIONS AND DISCUSSION: Recommend to continue current medications, continue with monitoring, symptomatic treatment. Otherwise, at this time, follow closely with Cardiology. Continue the diuretics. Follow closely with Pulmonology. Guarded prognosis because of multiple complex medical issues. Further recommendations to follow. MMODL / IJN: [id number] /
[2017-11-22 12:35] LABS: Glucose,Whole Blood 147 mg/dL (75-99)
--- NOTE | 2017-11-22 14:25 | P.PN ---
Subjective Progress Note Date: 11/22/17 Principal diagnosis: Acute ventricular tachycardia and acute systolic congestive heart failure This a 67-year-old male has a history of COPD angina , heart failure CVA , coronary artery disease, previous bypass surgery, previous myocardial infarction and hypothyroidism. The patient has cardiomyopathy and previous echocardiogram showed an ejection fraction of 30-35% consistent with moderate to severe impairment of LV function and the patient has segmental wall motion abnormalities involving the anteroseptal, lateral and septal and apical saleem in addition to severe dilatation of the left atrium and moderate to severe mitral regurgitation and only pressure is estimated to be around 31 mmHg. the patient's latest cardiac catheterization was done 10/19/2017 and it showed a patent left main, LAD was totally occluded in the midportion after the origin of the septal and diagonal branch. The [place] circumflex had an 80% lesion in the proximal portion after the origin of the obtuse marginal branch. Distally in the same vessel there was a 95% stenosis after which the flow seems to be somewhat sluggish. Right coronary artery was totally occluded. 2 vein grafts to the right coronary artery and obtuse marginal branch was totally occluded. JAVIER to LAD was widely patent. The patient has also history of ventricular arrhythmias and the patient has an AICD in place.His automatic implantable cardiac defibrillator went off a number of time because of ventricular tachycardia. The patient developed shortness of breath hypotension was placed on Cordarone. He was also given mexiletine and some other medications were changed by cardiology as well. The patient is still having some episodes of ventricular tachycardia. He is resting comfortably here in the ICU. He had the lidocaine is reducing been turned off. His IV is a saline at 20 mL an hour. He is on O2 at 2 L. Other than that doing relatively well. No pain. Yesterday he was both on lidocaine and Cordarone at 0.5 mg/m. On 11/15/2017, the patient is being seen for a follow-up. The patient is hemodynamically stable. The patient was taken off the amiodarone drip and currently is on oral amiodarone at a dose of 200 mg by mouth once a day. The patient is also on Mexitil 150 mg every 8 hours and Lopressor 25 mg by mouth twice a day. The patient was taken off the amiodarone drip. The patient's current cardiac rhythm is sinus for on and off throughout the night and today the patient was having episodes of wide complex tachycardia and the last run was around 4 AM this morning. The patient had a run of 120-130 beats of wide complex tachycardia at the rate of 110. The AICD did not fire. He converted back to sinus rhythm. The latest run of Cardiology is aware of and Dr. Ornelas from EP is consulted in this regard. The patient has CHF and pulmonary edema and pleural effusion on the chest exit was done yesterday on 11/15/2017. On 11/16/2017, the patient is being seen in follow-up. The patient is doing very well. No further cardiac arrhythmias have been noted. The patient underwent an EP study yesterday by Dr. Ornelas and he further underwent VT ablation. This was successful. The patient is doing well. He is hemodynamically stable. He runs a borderline low blood pressure. Gets his urine output is adequate. His chest x-ray still showing some small bilateral pleural effusion and pulmonary vessel congestion and the patient will be given a dose of Lasix 40 mg IV push today. He is free of any chest pain. No cough or sputum production. No fever or chills. No hemoptysis. His PT/INR is subtherapeutic with an INR of 1.6 and the patient will be given 2 mg of Coumadin today. No other significant events over the past 24 hours. His beta janelle has been metoprolol 25 mg by mouth twice a day. He is also on Mexitil 150 mg 3 times a day and amiodarone 100 mg by mouth daily. He is being monitored here in the intensive care unit. Cardiology is on the case. On 11/17/2017 patient seen again in follow-up on selective care floor. Last night patient had a spike in fever, with a temp of 101.4F at 8:00 PM. Also became tachycardic, with a rate of 116 BPM, tachypneic with respiratory rate of 26/m. Oxygen requirement has increased to 6 L/m from previous 4 L. Yesterday we gave a dose of 40 of IV Lasix, patient did diurese with that, is in -910 mL fluid balance over the last 24 hours. His weight is down by 2.6 kg over last 24 hours. Repeat blood cultures and sputum cultures were obtained and sent, patient had been on IV Rocephin since 11/13/2017, last night vancomycin was added. Patient' s fever was treated with antipyretics. This morning his vitals are stable, patient remains in sinus rhythm, with a rate of 94-96 BPM. Afebrile, sputum, urine and blood culture are pending. Lung sounds are positive for some crackles at the bases. Chest x-ray from 11/16/2017 has been reviewed and shows congestive heart failure with pulmonary edema and pleural effusions. She will be placed on Lasix 40 IV push every 12 hours. On 11/18/2017 patient seen in Follow-up. Patient has not had any further episodes of febrile episodes. Remains hemodynamically stable, his oxygenation is stable, on 6 L per nasal cannula with O2 sat at 96%. Lung sounds are positive for bibasilar crackles, however this is somewhat improved from yesterday's exam. Patient is a negative fluid balance of 3240 mL over the last 24 hours. WBC on today's lab is normal, as 0.8, hemoglobin stable at 9.6, INR is 1.8, we will give additional 2.5 mg of Coumadin tonight, serum sodium 136, Review serum potassium 3.6, B1 is 25, creatinine 0.9. We will continue Lasix at 40 mg every 12 hours for another 24 hours. Cultures have been negative, urine culture was positive for Wilma species. On 6017, the patient is doing well. On 40s of oxygen nasal cannula. He has diabetes well with IV Lasix and diuretics will be continued for another 24 hours. The patient is also on anticoagulation with warfarin and INR today is therapeutic at 2.5. No chest pain. No cardiac arrhythmias have been noted. Chest x-ray still showing increased pulmonary vascular markings and failure anything the patient would benefit from the day of diuresis. No other complaints otherwise for now. On 11/20/2017, the patient continues to improve. The patient is on IV Lasix. Oxygenation is improved and the patient's pulse ox is around 93% liters of oxygen nasal cannula. No significant chest pain. No arrhythmias noted. He is still diuresing adequately. Crackles in lower lung odom improved and the patient's INR is therapeutic at 3.1. No chest pain. No other complaints otherwise for now. He is ambulating. Reevaluated today on 11/21/2017, clinically, the patient is feeling better, breathing easier, remains on IV Lasix, oxygenation is improving, follow-up chest x-ray is pending to be done in a.m. for follow-up on his congestive heart failure. Last chest x-ray couple of days ago showed CHF. CBC was reviewed INR is therapeutic at 3.2 basic metabolic profile is normal BUN is 56 creatinine is 1.16. The patient is seen again today 11/22/2017 in follow-up on the selective care unit. His currently awake and alert in no acute distress. He is resting quite comfortably in bed. He denies any shortness of breath, cough or congestion. No chest pain, palpitations lightheadedness or dizziness. No further episodes of ventricular tachycardia. He did receive defibrillation from his AICD. He did also undergo a VT ablation by Dr. Cameron. He is currently on amiodarone, metoprolol and mexiletine. He's been hemodynamically stable. Maintain O2 saturations in the 90s on 3 L/m. Nasal cannula. Afebrile. No leukocytosis. Hemoglobin 9.8. INR 2.7. Creatinine 1.03. Objective - Vital Signs Vital signs: Vital Signs Temp 96.9 F L 11/22/17 11:12 Pulse 71 11/22/17 11:12 Resp 20 11/22/17 11:12 BP 94/62 11/22/17 11:12 Pulse Ox 96 11/22/17 11:12 Intake & Output 11/21/17 11/22/17 11/22/17 18:59 06:59 18:59 Intake Total 720 Output Total 750 Balance 720 -750 Weight 72.6 kg Intake: Oral 720 Output: Urine 750 Other: Voiding Method Urinal # Voids 1 1 - Exam GENERAL EXAM: Alert, active, comfortable in no apparent distress. HEAD: Normocephalic. EYES: Normal reaction of pupils, equal size. NOSE: Clear with pink turbinates. THROAT: No erythema or exudates. NECK: No masses, no JVD. CHEST: No chest wall deformity. LUNGS: Equal air entry with no crackles, wheeze, rhonchi or dullness. CVS: S1 and S2 normal with no audible murmur, regular rhythm. ABDOMEN: No hepatosplenomegaly, normal bowel sounds, no guarding or rigidity. SPINE: No scoliosis or deformity SKIN: No rashes CENTRAL NERVOUS SYSTEM: No focal deficits, tone is normal in all 4 extremities. EXTREMITIES: There is no peripheral edema. No clubbing, no cyanosis. Peripheral pulses are intact. - Labs CBC & Chem 7: 11/22/17 06:07 11/22/17 06:07 Labs: Abnormal Lab Results - Last 24 Hours (Table) 11/21/17 11/21/17 11/22/17 Range/Units 17:03 20:46 06:07 RBC (4.30-5.90) m/uL Hgb (13.0-17.5) gm/dL Hct (39.0-53.0) % Lymphocytes # (1.0-4.8) k/uL PT 23.9 H (9.0-12.0) sec INR 2.7 H (<1.2) Sodium (137-145) mmol/L Chloride (98-107) mmol/L Carbon Dioxide (22-30) mmol/L BUN (9-20) mg/dL Glucose (74-99) mg/dL POC Glucose (mg/dL) 195 H 225 H (75-99) mg/dL 11/22/17 11/22/17 11/22/17 Range/Units 06:07 06:07 06:17 RBC 3.54 L (4.30-5.90) m/uL Hgb 9.8 L (13.0-17.5) gm/dL Hct 31.1 L (39.0-53.0) % Lymphocytes # 0.7 L (1.0-4.8) k/uL PT (9.0-12.0) sec INR (<1.2) Sodium 136 L (137-145) mmol/L Chloride 94 L (98-107) mmol/L Carbon Dioxide 34 H (22-30) mmol/L BUN 48 H (9-20) mg/dL Glucose 110 H (74-99) mg/dL POC Glucose (mg/dL) 103 H (75-99) mg/dL 11/22/17 Range/Units 12:12 RBC (4.30-5.90) m/uL Hgb (13.0-17.5) gm/dL Hct (39.0-53.0) % Lymphocytes # (1.0-4.8) k/uL PT (9.0-12.0) sec INR (<1.2) Sodium (137-145) mmol/L Chloride (98-107) mmol/L Carbon Dioxide (22-30) mmol/L BUN (9-20) mg/dL Glucose (74-99) mg/dL POC Glucose (mg/dL) 147 H (75-99) mg/dL Microbiology - Last 24 Hours (Table) 11/16/17 19:54 Blood Culture - Preliminary Blood No Growth after 120 hours 11/16/17 19:54 Blood Culture - Preliminary Blood No Growth after 120 hours Assessment and Plan Assessment: 1 wide-complex tachycardia, rule out low-grade ventricular tachycardia. Patient is status post EP studies with VT ablation that was done by Dr. Ornelas. Currently his current rhythm is sinus without any further ventricular arrhythmias noted over the past 12 hours post the ablation. The patient remains on a combination of Mexitil, metoprolol and amiodarone. 2 ventricular tachycardia/fibrillation, post-AICD discharge 3 prior to his hospitalization, has not had any further episodes of ventricular arrhythmia after the ablation 3 CHF with ejection fraction of 30-35% and signs of heart failure with CHF and pulmonary edema and pleural effusions bilaterally 4 coronary artery disease with previous bypass surgery, please refer to the results of the cardiac cath. The patient has a patent JAVIER to LAD and the rest of the saphenous finger after all occluded. The patient has also undergone previous coronary intervention and stenting. He is currently free of any chest pain. 5 COPD 6 hypothyroidism 7 history of CVA 8 paroxysmal atrial fibrillation maintained on long-term anticoagulation with warfarin. Plan: The patient was seen and evaluated by Dr. Crowell. He is stable from the pulmonary and critical care standpoint. He could be discharged home once cleared by cardiology. Continue prednisone taper. Continue bronchodilators. He could follow-up in our office to evaluate the severity of his COPD and make maintenance medication recommendations at that time. We'll repeat a chest x- ray then. He is however encouraged to call sooner with any recurrence of symptoms or other questions or concerns. I, the cosigning physician, have performed a history and physical examination on the patient. Lung sounds have crackles in the bilateral posterior bases.. Maintaining good O2 saturations in the 90s on 3 L/m per nasal cannula. I have discussed the assessment and plan of care with my nurse practitioner, Shaunna Miller. I attest to the above note as dictated by her.
[2017-11-22 14:41] VITALS: BP 102/57; PULSE 75; TEMP 97
[2017-11-22] MEDS ORDERED: FUROSEMIDE 10 MG/ML 4 ML VIAL IV SCH (16:00)
--- NOTE | 2017-11-23 08:12 | DS ---
DISCHARGE SUMMARY FINAL DIAGNOSES: 1. Status post AICD discharge and ventricular tachycardia recurrence. 2. Status post ventricular ablation. 3. History of congestive heart failure with acute on chronic systolic dysfunction, ejection fraction 30% to 35%. 4. Status post amiodarone and lidocaine drip in ICU. 5. Right arm thrombophlebitis. 6. Acute elevated troponin 2.8 secondary to demand ischemia and ventricular tachycardia. 7. Acute hypoxic respiratory failure multifactorial. 8. History hyponatremia. 9. History of coronary artery disease, myocardial infarction with CABG, stent. 10.History of paroxysmal atrial fibrillation. 11.Coumadin monitoring. DISCHARGE DISPOSITION: The patient will be discharged in stable condition with guarded prognosis. HISTORY OF PRESENT ILLNESS: This 67-year-old gentleman with the past medical history of multiple medical problems admitted with recurrent ventricular tachycardia. The patient was treated with multiple medications and cardiac ablation was also done. The patient also had an episode of CHF, which was treated with IV diuretics. Patient improved significantly. On exam, vitals are stable. CARDIOVASCULAR: S1 and S2 muffled. ABDOMEN: Soft. NERVOUS SYSTEM: No focal deficit. RESPIRATION: A few rhonchi. DISCHARGE ADVICE: 1. Diet is cardiac. 2. Activity limited until followup. 3. Follow up with Dr. Andujar in 2 to 3 days. 4. Follow up with Cardiology and Pulmonology as recommended. MEDICATIONS: The medications are: 1. Albuterol 2 puffs q.i.d. and p.r.n. 2. Cordarone 100 mg p.o. daily. 3. Ecotrin 81 mg q.a.m. 4. Lipitor 40 mg q.a.m. 5. Ceftin 500 mg p.o. b.i.d. for 5 days. 6. Plavix 75 mg q.a.m. 7. Aricept 10 mg q.h.s. 8. Neurontin 300 mg p.o. t.i.d. 9. [place] 10 mg t.i.d. 10.Atrovent 1 puff q.8. 11.Atrovent albuterol q.i.d. and p.r.n. 12.Lopressor 25 mg p.o. b.i.d. 13.Mexitil 150 mg q.8. 14.Nitrostat 0.4 sublingual p.r.n. 15.Prednisone taper, that will be 40 mg daily for 3 days, 30 for 3 days, 20 for 3 days, 10 for 3 days and discontinue. 16.Coumadin 2 mg p.o. daily. Monitor CBC, BMP, PT/INR closely. Once again, the patient will be discharged in a stable condition with a guarded prognosis. Follow up with Cardiology and primary physician in outpatient setting. Total time taken 35 minutes. CATHY / JENAE: [id number] /
== END 2017-11-22 15:47 | disposition home health service (06) | DRG 273 ==
LOC: EC 10:05 → 6SEL 11:12 → 6ICU 21:22 → 6SEL 11-17 04:11
PROVIDERS: ADMIT Hospitalist; ATTEND Hospitalist
PROC: 02K83ZZ Map Conduction Mechanism, Percutaneous Approach (ICD-10-PCS; principal; 2017-11-15 14:25)
PROC: 02583ZZ Destruction of Conduction Mechanism, Percutaneous Approach (ICD-10-PCS; principal; 2017-11-15 14:25)
PROC: 4A023FZ Measurement of Cardiac Rhythm, Percutaneous Approach (ICD-10-PCS; principal; 2017-11-15 14:25)
PROC: 4A0234Z Measurement of Cardiac Electrical Activity, Percutaneous Approach (ICD-10-PCS; principal; 2017-11-15 14:25)
DX: I47.2 Ventricular tachycardia (principal); J96.01 Acute respiratory failure with hypoxia; I50.23 Acute on chronic systolic (congestive) heart failure; I25.810 Atherosclerosis of coronary artery bypass graft(s) without angina pectoris; I24.8 Other forms of acute ischemic heart disease; E87.1 Hypo-osmolality and hyponatremia; I25.110 Atherosclerotic heart disease of native coronary artery with unstable angina pectoris; N39.0 Urinary tract infection, site not specified; I11.0 Hypertensive heart disease with heart failure; E03.9 Hypothyroidism, unspecified; E11.9 Type 2 diabetes mellitus without complications; F17.200 Nicotine dependence, unspecified, uncomplicated; I25.2 Old myocardial infarction; I25.5 Ischemic cardiomyopathy; I25.82 Chronic total occlusion of coronary artery; I34.0 Nonrheumatic mitral (valve) insufficiency; I45.10 Unspecified right bundle-branch block; I48.0 Paroxysmal atrial fibrillation; I80.8 Phlebitis and thrombophlebitis of other sites; J44.9 Chronic obstructive pulmonary disease, unspecified; Z79.01 Long term (current) use of anticoagulants; Z79.02 Long term (current) use of antithrombotics/antiplatelets; Z79.82 Long term (current) use of aspirin; Z79.899 Other long term (current) drug therapy; Z82.49 Family history of ischemic heart disease and other diseases of the circulatory system; Z86.73 Personal history of transient ischemic attack (TIA), and cerebral infarction without residual deficits; Z95.1 Presence of aortocoronary bypass graft; Z95.5 Presence of coronary angioplasty implant and graft; Z95.810 Presence of automatic (implantable) cardiac defibrillator; M54.9 Dorsalgia, unspecified; G89.29 Other chronic pain
CPT/HCPCS: 36415; 71010; 71045; 71046; 80048; 80053; 80061; 81001; 81003; 82330; 82550; 82553; 83036; 83605; 83690; 83735; 84100; 84484; 85025; 85027; 85347; 85379; 85610; 85730; 87040; 87070; 87086; 87205; 93005; 93306; 93613; 93623; 93654; 93662; 94640; 94760; 96374; 99291

== ENCOUNTER 2017-11-27 15:49 | Inpatient (IN) | payer MEDICARE, OTHER ==
[2017-11-27] MEDS ORDERED: IPRATROPIUM-ALBUTEROL 3 ML NEB INHALATION STA (16:21)
[2017-11-27] MEDS ORDERED: predniSONE 20 MG TAB PO STA (16:21)
--- NOTE | 2017-11-27 16:30 | ED ---
General Adult HPI - General Chief complaint: Shortness of Breath Stated complaint: SOB Time Seen by Provider: 11/27/17 16:04 Source: patient, EMS, RN notes reviewed, old records reviewed Mode of arrival: EMS Limitations: no limitations - History of Present Illness Initial comments: 67-year-old male history of CAD, CHF, and COPD presenting with worsening dyspnea. Patient does report a cough which is productive. Denies fever or chills. Denies chest pain. Patient has been taking his medications as prescribed. He was recently admitted to the hospital with COPD and congestive heart failure. Patient does complain of orthopnea, he sleeps in a chair. He has also had worsening bilateral lower extremity swelling. - Related Data Home Medications Medication Instructions Recorded Confirmed Aspirin EC [Ecotrin Low Dose] 81 mg PO QAM 06/16/17 11/27/17 Donepezil [Aricept] 10 mg PO HS 06/16/17 11/27/17 HYDROcodone/APAP 10-325MG [[place] 1 tab PO TID 06/16/17 11/27/17 10-325] Ipratropium Nebulized [Atrovent 0.5 mg INHALATION RT-Q4H PRN 06/16/17 11/27/17 Nebulized] Atorvastatin [Lipitor] 40 mg PO QAM 10/16/17 11/27/17 Gabapentin [Neurontin] 300 mg PO TID 10/16/17 11/27/17 Albuterol Inhaler [Ventolin Hfa 2 puff INHALATION RT-Q4H PRN 11/12/17 11/27/17 Inhaler] Clopidogrel [Plavix] 75 mg PO QAM 11/12/17 11/27/17 Ipratropium Lexa [Atrovent Hfa] 1 puff INHALATION RT-Q8H 11/12/17 11/27/17 Warfarin Sodium [Warfarin Sodium] 2 mg PO DAILY 11/22/17 11/27/17 predniSONE See Taper PO DIRECTED 11/27/17 11/27/17 Previous Rx's Medication Instructions Recorded Nitroglycerin Sl Tabs [Nitrostat] 0.4 mg SUBLINGUAL Q5M PRN #25 tab 10/20/17 Amiodarone [Cordarone] 100 mg PO DAILY #90 tab 11/15/17 Mexiletine [Mexitil] 150 mg PO Q8HR #270 capsule 11/15/17 Cefuroxime Axetil [Ceftin] 500 mg PO BID #10 tab 11/19/17 Metoprolol Tartrate [Lopressor] 25 mg PO BID #60 tab 11/22/17 Allergies Allergy/AdvReac Type Severity Reaction Status Date / Time No Known Allergies Allergy Verified 11/27/17 16:13 Review of Systems ROS Statement: Those systems with pertinent positive or pertinent negative responses have been documented in the HPI. ROS Other: All systems not noted in ROS Statement are negative. Past Medical History Past Medical History: Asthma, Chest Pain / Angina, Heart Failure, COPD, CVA/TIA , Myocardial Infarction (HI), Thyroid Disorder Additional Past Medical History / Comment(s): AICD, chronic pain in back, legs, and arms Last Myocardial Infarction Date:: unsure History of Any Multi-Drug Resistant Organisms: None Reported Past Surgical History: Back Surgery, Coronary Bypass/CABG, Heart Catheterization With Stent Past Anesthesia/Blood Transfusion Reactions: No Reported Reaction Date of Last Stent Placement:: 10/19/2017 Past Psychological History: No Psychological Hx Reported Smoking Status: Current some day smoker Past Alcohol Use History: None Reported Past Drug Use History: None Reported - Past Family History Mother Family Medical History: Myocardial Infarction (HI) General Exam Limitations: no limitations General appearance: alert, in no apparent distress Head exam: Present: atraumatic, normocephalic Eye exam: Present: normal appearance, PERRL ENT exam: Present: normal exam Neck exam: Present: normal inspection. Absent: tenderness, meningismus Respiratory exam: Present: respiratory distress (Mild to moderate), wheezes, rales, decreased breath sounds (Decreased breath sounds with rales left lung base) Cardiovascular Exam: Present: normal rhythm, tachycardia GI/Abdominal exam: Present: soft. Absent: distended, tenderness Extremities exam: Present: pedal edema (2+ pedal edema bilaterally) Back exam: Present: normal inspection, full ROM Neurological exam: Present: alert, oriented X3, CN II-XII intact. Absent: motor sensory deficit Psychiatric exam: Present: normal affect, normal mood Skin exam: Present: warm, dry, intact. Absent: cyanosis, diaphoretic Course Vital Signs 11/27/17 11/27/17 11/27/17 15:55 16:35 16:49 Temperature 97.0 F L Pulse Rate 103 H 100 96 Respiratory 24 Rate Blood Pressure 110/64 O2 Sat by Pulse 92 L Oximetry 11/27/17 11/27/17 17:00 17:30 Temperature Pulse Rate 92 97 Respiratory 24 20 Rate Blood Pressure 110/64 O2 Sat by Pulse 93 L 90 L Oximetry EKG Findings - EKG Comments: EKG Findings:: EKG shows normal sinus rhythm with a ventricular rate 97, possible left atrial enlargement, CO interval 180, QRS duration 122, QTC 538, no ST segment elevation. Poor quality baseline secondary to tachypnea. Medical Decision Making - Medical Decision Making 67-year-old male with history of ischemic cardiomyopathy, status post ablation on November 15 of this year, and COPD presenting with dyspnea. Chest x-ray obtained, this showed mild pulmonary vascular congestion possibility of pneumonia or pneumonitis superimposed on vascular congestion. Laboratory studies reveal troponin which is 14.3 which is significantly elevated. Patient has no chest pain he has had no chest pain in the past week. He is 12 days status post ablation. Case is discussed with his bulk folder Dr. Cameron, this is likely troponin elevation status post ablation rather than ischemia. However patient is subtherapeutic on Coumadin with an INR of 1.4, he will be started on heparin awaiting 4 hour troponin for stability. Case discussed with Dr. Chin, who will accept admission. Patient will be admitted for further treatment of COPD exacerbation, congestive heart failure, and troponin elevation. - Lab Data Result diagrams: 11/27/17 16:41 11/27/17 16:41 Lab Results 11/27/17 11/27/17 11/27/17 Range/Units 16:41 16:41 16:41 WBC 10.9 H (3.8-10.6) k/uL RBC 4.02 L (4.30-5.90) m/uL Hgb 10.9 L (13.0-17.5) gm/dL Hct 36.7 L (39.0-53.0) % MCV 91.2 (80.0-100.0) fL MCH 27.1 (25.0-35.0) pg MCHC 29.7 L (31.0-37.0) g/dL RDW 14.3 (11.5-15.5) % Plt Count 404 (150-450) k/uL Neutrophils % 93 % Lymphocytes % 3 % Monocytes % 3 % Eosinophils % 0 % Basophils % 0 % Neutrophils # 10.1 H (1.3-7.7) k/uL Lymphocytes # 0.4 L (1.0-4.8) k/uL Monocytes # 0.3 (0-1.0) k/uL Eosinophils # 0.0 (0-0.7) k/uL Basophils # 0.0 (0-0.2) k/uL Hypochromasia Marked PT 12.8 H (9.0-12.0) sec INR 1.4 H (<1.2) APTT 25.2 (22.0-30.0) sec Sodium 142 (137-145) mmol/L Potassium 3.9 (3.5-5.1) mmol/L Chloride 103 (98-107) mmol/L Carbon Dioxide 30 (22-30) mmol/L Anion Gap 9 mmol/L BUN 32 H (9-20) mg/dL Creatinine 0.90 (0.66-1.25) mg/dL Est GFR (MDRD) Af Amer >60 (>60 ml/min/1.73 sqM) Est GFR (MDRD) Non-Af >60 (>60 ml/min/1.73 sqM) Glucose 109 H (74-99) mg/dL Plasma Lactic Acid Robert (0.7-2.0) mmol/L Calcium 8.9 (8.4-10.2) mg/dL Magnesium 2.3 (1.6-2.3) mg/dL Total Bilirubin 0.9 (0.2-1.3) mg/dL AST 144 H (17-59) U/L ALT 74 H (21-72) U/L Alkaline Phosphatase 88 (38-126) U/L Total Creatine Kinase (55-170) U/L CK-MB (CK-2) (0.0-2.4) ng/mL CK-MB (CK-2) Rel Index Troponin I (0.000-0.034) ng/mL NT-Pro-B Natriuret Pep pg/mL Total Protein 5.3 L (6.3-8.2) g/dL Albumin 2.5 L (3.5-5.0) g/dL Influenza Type A RNA (Not Detectd) Influenza Type B (PCR) (Not Detectd) 11/27/17 11/27/17 11/27/17 Range/Units 16:41 16:41 16:41 WBC (3.8-10.6) k/uL RBC (4.30-5.90) m/uL Hgb (13.0-17.5) gm/dL Hct (39.0-53.0) % MCV (80.0-100.0) fL MCH (25.0-35.0) pg MCHC (31.0-37.0) g/dL RDW (11.5-15.5) % Plt Count (150-450) k/uL Neutrophils % % Lymphocytes % % Monocytes % % Eosinophils % % Basophils % % Neutrophils # (1.3-7.7) k/uL Lymphocytes # (1.0-4.8) k/uL Monocytes # (0-1.0) k/uL Eosinophils # (0-0.7) k/uL Basophils # (0-0.2) k/uL Hypochromasia PT (9.0-12.0) sec INR (<1.2) APTT (22.0-30.0) sec Sodium (137-145) mmol/L Potassium (3.5-5.1) mmol/L Chloride (98-107) mmol/L Carbon Dioxide (22-30) mmol/L Anion Gap mmol/L BUN (9-20) mg/dL Creatinine (0.66-1.25) mg/dL Est GFR (MDRD) Af Amer (>60 ml/min/1.73 sqM) Est GFR (MDRD) Non-Af (>60 ml/min/1.73 sqM) Glucose (74-99) mg/dL Plasma Lactic Acid Robert 2.2 H* (0.7-2.0) mmol/L Calcium (8.4-10.2) mg/dL Magnesium (1.6-2.3) mg/dL Total Bilirubin (0.2-1.3) mg/dL AST (17-59) U/L ALT (21-72) U/L Alkaline Phosphatase (38-126) U/L Total Creatine Kinase 366 H (55-170) U/L CK-MB (CK-2) 45.2 H* (0.0-2.4) ng/mL CK-MB (CK-2) Rel Index 12.3 Troponin I 14.300 H* (0.000-0.034) ng/mL NT-Pro-B Natriuret Pep 24912 pg/mL Total Protein (6.3-8.2) g/dL Albumin (3.5-5.0) g/dL Influenza Type A RNA (Not Detectd) Influenza Type B (PCR) (Not Detectd) 11/27/17 Range/Units 17:30 WBC (3.8-10.6) k/uL RBC (4.30-5.90) m/uL Hgb (13.0-17.5) gm/dL Hct (39.0-53.0) % MCV (80.0-100.0) fL MCH (25.0-35.0) pg MCHC (31.0-37.0) g/dL RDW (11.5-15.5) % Plt Count (150-450) k/uL Neutrophils % % Lymphocytes % % Monocytes % % Eosinophils % % Basophils % % Neutrophils # (1.3-7.7) k/uL Lymphocytes # (1.0-4.8) k/uL Monocytes # (0-1.0) k/uL Eosinophils # (0-0.7) k/uL Basophils # (0-0.2) k/uL Hypochromasia PT (9.0-12.0) sec INR (<1.2) APTT (22.0-30.0) sec Sodium (137-145) mmol/L Potassium (3.5-5.1) mmol/L Chloride (98-107) mmol/L Carbon Dioxide (22-30) mmol/L Anion Gap mmol/L BUN (9-20) mg/dL Creatinine (0.66-1.25) mg/dL Est GFR (MDRD) Af Amer (>60 ml/min/1.73 sqM) Est GFR (MDRD) Non-Af (>60 ml/min/1.73 sqM) Glucose (74-99) mg/dL Plasma Lactic Acid Robert (0.7-2.0) mmol/L Calcium (8.4-10.2) mg/dL Magnesium (1.6-2.3) mg/dL Total Bilirubin (0.2-1.3) mg/dL AST (17-59) U/L ALT (21-72) U/L Alkaline Phosphatase (38-126) U/L Total Creatine Kinase (55-170) U/L CK-MB (CK-2) (0.0-2.4) ng/mL CK-MB (CK-2) Rel Index Troponin I (0.000-0.034) ng/mL NT-Pro-B Natriuret Pep pg/mL Total Protein (6.3-8.2) g/dL Albumin (3.5-5.0) g/dL Influenza Type A RNA Not Detected (Not Detectd) Influenza Type B (PCR) Not Detected (Not Detectd) Critical Care Time Critical Care Time: Yes Total Critical Care Time: 35 Disposition Clinical Impression: COPD (chronic obstructive pulmonary disease), Elevated troponin, CHF ( congestive heart failure) Disposition: ADMITTED IP TO THIS [facility] Condition: Stable Referrals: Lee Andujar MD [Primary Care Provider] - 1-2 days Decision to Admit Reason: Admit from EC Decision Date: 11/27/17 Decision Time: 18:22
[2017-11-27 17:00] LABS: Basophils % (A) 0 %; Eosinophils % (A) 0 %; HCT 36.7 % (39.0-53.0); HGB 10.9 gm/dL (13.0-17.5); Hypochromasia Marked; Lymphocytes # (A) 0.4 k/uL (1.0-4.8); Lymphocytes % (A) 3 %; MCH 27.1 pg (25.0-35.0); MCHC 29.7 g/dL (31.0-37.0); MCV 91.2 fL (80.0-100.0); Mean Platelet Volume 7.8; Monocytes # (A) 0.3 k/uL (0-1.0); Monocytes % (A) 3 %; Neutrophils # (A) 10.1 k/uL (1.3-7.7); Neutrophils % (A) 93 %; Platelet Count 404 k/uL (150-450); RBC 4.02 m/uL (4.30-5.90); RDW 14.3 % (11.5-15.5); WBC 10.9 k/uL (3.8-10.6)
[2017-11-27 17:06] LABS: INR 1.4 (<1.2); Partial Thromboplastin Time 25.2 sec (22.0-30.0); Prothrombin Time 12.8 sec (9.0-12.0)
[2017-11-27 17:08] LABS: ALT 74 U/L (21-72); AST 144 U/L (17-59); Albumin 2.5 g/dL (3.5-5.0); Alkaline Phosphatase 88 U/L (38-126); Anion Gap 9 mmol/L; Blood Urea Nitrogen 32 mg/dL (9-20); Calcium 8.9 mg/dL (8.4-10.2); Carbon Dioxide 30 mmol/L (22-30); Chloride 103 mmol/L (98-107); Glucose 109 mg/dL (74-99); Magnesium 2.3 mg/dL (1.6-2.3); Potassium 3.9 mmol/L (3.5-5.1); Sodium 142 mmol/L (137-145); Total Bilirubin 0.9 mg/dL (0.2-1.3); Total Protein 5.3 g/dL (6.3-8.2)
--- NOTE | 2017-11-27 17:14 | XR ---
EXAMINATION TYPE: XR chest 2V DATE OF EXAM: 11/27/2017 COMPARISON: 11/22/2017 HISTORY: Congestive heart failure and shortness of breath TECHNIQUE: Frontal and lateral views of the chest are obtained. FINDINGS: Reticular opacities are seen predominantly within the upper lobes, left greater than right and perihilar prominence is also seen. Interstitial markings are pronounced with mild pulmonary vasc ular congestion. No pleural effusion or pneumothorax. Single left-sided cardiac device. Cardia medias tinal silhouette is mildly enlarged. Median sternotomy wires are noted. IMPRESSION: Similar-appearing left upper lung predominant reticular opacity. Given its nondependent distribution atypical pneumonitis/pneumonia should be considered superimposed upon a background of mi ld pulmonary vascular congestion.
[2017-11-27 17:37] LABS: Creatine Kinase MB 45.2 ng/mL (0.0-2.4); Troponin I 14.3 ng/mL (0.000-0.034)
[2017-11-27] MEDS ORDERED: HEPARIN SODIUM,PORCINE 5,000 UNIT/ML 1 ML VIAL IV PRN (17:47)
[2017-11-27] MEDS ORDERED: HEPARIN SODIUM,PORCINE 5,000 UNIT/ML 1 ML VIAL IV ONE (17:47)
[2017-11-27] MEDS ORDERED: FUROSEMIDE 10 MG/ML 2 ML VIAL IV ONE (18:11)
[2017-11-27] MEDS ORDERED: NALOXONE 0.4 MG/ML 1 ML VIAL IV PRN (18:15)
[2017-11-27] MEDS: HEPARIN SOD,PORK IN 0.45% NACL 25,000 UNIT in 0.45% NACL 1 500ML.BAG IV SCH (18:27)
[2017-11-27] MEDS ORDERED: IPRATROPIUM 0.5 MG/2.5 ML NEBU INHALATION PRN (20:35)
[2017-11-27] MEDS ORDERED: NITROGLYCERIN SL TABS 0.4 MG TAB SUBLINGUAL PRN (20:35)
[2017-11-27] MEDS ORDERED: ZOLPIDEM 5 MG TAB PO PRN (20:36)
[2017-11-27] MEDS ORDERED: CEFUROXIME 250 MG TAB PO SCH (21:00)
--- NOTE | 2017-11-27 22:22 | CT ---
EXAMINATION TYPE: CT chest wo con DATE OF EXAM: 11/27/2017 COMPARISON: NONE HISTORY: pneumonia CT DLP: 392 mGycm. Automated Exposure Control for Dose Reduction was Utilized. TECHNIQUE: CT scan of the thorax is performed without IV contrast. FINDINGS: There is extensive bilateral pneumonic pulmonary infiltrates. There are moderate bilateral pleural ef fusions. Heart is enlarged. There is patchy pleural thickening on both the left and right lateral dominik st wall. There is a 1.5 cm rounded nodular soft tissue density in the anterior left upper lobe. I see no definite hilar mass. There are a few mediastinal lymph nodes that measure up to 1 cm. Thoracic ao rta is atheromatous. There is no pericardial effusion. The bony thorax appears intact. There is exten sive reticular interstitial infiltrate at the lung apices. IMPRESSION: Cardiomegaly. Pleural effusions. Extensive bilateral pulmonary infiltrates. I would consi kristal congestive heart failure and RDS and significant pulmonary interstitial fibrosis. There is bilate ral patchy extensive pleural thickening consistent with scarring. The possibility of mesothelioma can not be excluded. Follow-up is recommended. Left upper lobe pulmonary 1.5 cm mass.
[2017-11-27] MEDS: METOPROLOL TARTRATE 25 MG TAB PO SCH (23:36)
[2017-11-27] MEDS: DONEPEZIL 10 MG TAB PO SCH (23:36)
[2017-11-27] MEDS: GABAPENTIN 300 MG CAP PO SCH (23:36)
[2017-11-27] MEDS: MEXILETINE 150 MG CAP PO SCH (23:36)
[2017-11-27] MEDS: HYDROcodone/APAP 10-325MG 1 EACH TAB PO SCH (23:36)
[2017-11-27] MEDS: IPRATROPIUM 0.5 MG/2.5 ML NEBU INHALATION SCH (23:43)
[2017-11-28] MEDS: LEVOFLOXACIN 500MG-D5W PMX 500 MG in DEXTROSE/WATER 1 100ML.BAG IVPB SCH ×2 (00:28→19:52)
--- NOTE | 2017-11-28 04:58 | HP ---
HISTORY AND PHYSICAL CHIEF COMPLAINT: A 67-year-old white male with history of congestive heart failure and apparently cardiac ablation 2 weeks ago, came in for shortness of breath after failing outpatient treatment for COPD, congestive heart failure. He was sent home a week ago and he came right back due to significant swelling in his legs and worsening breathing. MEDICATIONS: Home medications include: 1. Neurontin 300 t.i.d. 2. Lipitor 40 daily. 3. DuoNeb q.4 hours. 4. [place] 10/325 t.i.d. 5. Aricept 10 daily. 6. Aspirin 81 mg daily. 7. Albuterol HFA 2 puffs q.4 hours p.r.n. 8. Plavix 75 mg daily. 9. Atrovent HFA 1 puff q.8 hours. 10.Warfarin 2 mg daily. 11.Prednisone taper as mentioned. ALLERGIES: No known drug allergies. REVIEW OF SYSTEMS: Fourteen-point review of systems negative except for as mentioned in HPI. PAST MEDICAL HISTORY: Asthma, chest pain, angina, heart failure, COPD, CVA, TIA, myocardial infarction, hypothyroidism, AICD, chronic pain in the legs, arms, CABG, back surgery, heart catheterization with stent. Current every day smoker. No alcohol. No illicit drugs. FAMILY HISTORY: Mother with myocardial infarction. PHYSICAL EXAM: Temp 97, pulse is 100, respiratory rate 24 to 30, blood pressure 110s over 60s, O2 92% on room air. CARDIOVASCULAR: S1, S2. Tachycardiac. LUNGS: Transmitted upper airway sounds. Scattered rhonchi and wheeze. ENT: External ear canals within normal limits. OPHTHALMOLOGIC: Pupils equal, round, reactive to light accommodation. VASCULAR: Normal dorsalis pedis, posterior tibial and radial pulses. PSYCH: Fair mood and affect. NEUROLOGIC: Alert and oriented x3. HEMATOLOGY: Negative Homans. EKG sinus rhythm. ASSESSMENT: 1. Ischemic cardiomyopathy, status post ablation. 2. Chronic obstructive pulmonary disease with dyspnea. 3. Pneumonitis. He is started on Heparin, IV Lasix, possibly IV steroids will be given, IV antibiotics. Please see further orders. CAT scan of the chest without contrast will be ordered. MMODL / IJN: [id number] /
[2017-11-28 06:36] LABS: Basophils % (A) 0 %; Eosinophils % (A) 1 %; HCT 32.6 % (39.0-53.0); HGB 9.6 gm/dL (13.0-17.5); Hypochromasia Marked; Lymphocytes # (A) 0.2 k/uL (1.0-4.8); Lymphocytes % (A) 3 %; MCH 26.6 pg (25.0-35.0); MCHC 29.5 g/dL (31.0-37.0); MCV 90.1 fL (80.0-100.0); Mean Platelet Volume 8.4; Monocytes # (A) 0.3 k/uL (0-1.0); Monocytes % (A) 4 %; Neutrophils # (A) 6.5 k/uL (1.3-7.7); Neutrophils % (A) 91 %; Platelet Count 332 k/uL (150-450); RBC 3.62 m/uL (4.30-5.90); RDW 15.2 % (11.5-15.5); WBC 7.1 k/uL (3.8-10.6)
[2017-11-28 07:27] LABS: ALT 77 U/L (21-72); AST 101 U/L (17-59); Albumin 2.2 g/dL (3.5-5.0); Alkaline Phosphatase 66 U/L (38-126); Anion Gap 5 mmol/L; Blood Urea Nitrogen 30 mg/dL (9-20); Calcium 8.5 mg/dL (8.4-10.2); Carbon Dioxide 29 mmol/L (22-30); Chloride 104 mmol/L (98-107); Glucose 117 mg/dL (74-99); Magnesium 2.3 mg/dL (1.6-2.3); Potassium 4.2 mmol/L (3.5-5.1); Sodium 138 mmol/L (137-145); Total Bilirubin 0.6 mg/dL (0.2-1.3); Total Protein 4.7 g/dL (6.3-8.2)
[2017-11-28] MEDS ORDERED: methylPREDNISolone SOD SUCCI 40 MG/ML 1 ML VIAL IV SCH (08:00)
[2017-11-28] MEDS: IPRATROPIUM 0.5 MG/2.5 ML NEBU INHALATION SCH ×3 (08:16→23:28)
--- NOTE | 2017-11-28 08:29 | P.CRDCN ---
History of Present Illness Consult date: 11/28/17 Requesting physician: Ramos Chin Consult reason: congestive heart failure Chief complaint: Shortness of breath History of present illness: This is a 67-year-old gentleman with known history of coronary artery disease prior bypass surgery as well as a prior PCI, ischemic cardio myopathy with prior AICD, patient was just recently discharged home from the hospital after being here with ventricular tachycardia status post ablation, as well as associated congestive heart failure, patient also has history of atrial fibrillation, paroxysmal, hypothyroidism, hypertension, hyperlipidemia. He was discharged home from the hospital and gradually became more and more short of breath, significant orthopnea and exertional shortness of breath. He denies any overt chest discomfort, he states he's been coughing up a significant amount of dark green sputum. He denies having any fever or chills at home. At the time of my examination this morning, patient is quite short of breath, just having conversation. He was initiated on IV Lasix in the emergency room, his weight is down significantly from admission this morning. The patient, he has significant peripheral edema on arrival here, he continues to have mild peripheral edema this morning. Blood pressure on arrival here 110/64, heart rate 103, 92% on room air. Blood pressure this morning 100/70, 90% on 6 L of oxygen. White blood cell count 7.1, hemoglobin 9.6, INR 1.4, sodium 138, potassium 4.2, BUN 30, creatinine 0.8. AST 144 on admission, 101 this morning, ALT 74 on admission, 77 this morning. Alk phos 366. Troponin 14.3 and 8.6. BNP level on admission 43,600, 31,400 this morning. And BE were negative. Chest x-ray revealed similar appearing left upper lung opaque sitting, atypical pneumonitis or pneumonia should be considered on the background of pulmonary vascular congestion. CAT scan of the chest was performed which revealed pleural effusions, extensive bilateral pulmonary infiltrates and significant pulmonary interstitial fibrosis. Bilateral patchy extensive pleural thickening consistent with scarring. The possibility of mesothelioma cannot be excluded. Left upper lobe pulmonary mass of 1.5 cm. EKG on arrival here showed a normal sinus rhythm with inferior Q waves and nonspecific ST-T wave changes. Echocardiogram with Doppler study performed revealed an ejection fraction of 30- 35% with evidence of anterior septal, apical, and lateral hypokinesia. Moderate to severe MR. Past Medical History Past Medical History: Asthma, Chest Pain / Angina, Heart Failure, COPD, CVA/TIA , Myocardial Infarction ([place]), Thyroid Disorder Additional Past Medical History / Comment(s): AICD, chronic pain in back, legs, and arms Last Myocardial Infarction Date:: 10/19/2017 History of Any Multi-Drug Resistant Organisms: None Reported Past Surgical History: Back Surgery, Coronary Bypass/CABG, Heart Catheterization With Stent Past Anesthesia/Blood Transfusion Reactions: No Reported Reaction Date of Last Stent Placement:: 10/19/2017 Past Psychological History: No Psychological Hx Reported Smoking Status: Former smoker Past Alcohol Use History: None Reported Past Drug Use History: None Reported - Past Family History Mother Family Medical History: Myocardial Infarction ([place]) Medications and Allergies Home Medications Medication Instructions Recorded Confirmed Type Aspirin EC [Ecotrin Low Dose] 81 mg PO QAM 06/16/17 11/27/17 History Donepezil [Aricept] 10 mg PO HS 06/16/17 11/27/17 History HYDROcodone/APAP 10-325MG [[place] 1 tab PO TID 06/16/17 11/27/17 History 10-325] Ipratropium Nebulized [Atrovent 0.5 mg INHALATION RT-Q4H PRN 06/16/17 11/27/17 History Nebulized] Atorvastatin [Lipitor] 40 mg PO QAM 10/16/17 11/27/17 History Gabapentin [Neurontin] 300 mg PO TID 10/16/17 11/27/17 History Nitroglycerin Sl Tabs [Nitrostat] 0.4 mg SUBLINGUAL Q5M PRN #25 tab 10/20/17 Rx Albuterol Inhaler [Ventolin Hfa 2 puff INHALATION RT-Q4H PRN 11/12/17 11/27/17 History Inhaler] Clopidogrel [Plavix] 75 mg PO QAM 11/12/17 11/27/17 History Ipratropium [place] [Atrovent Hfa] 1 puff INHALATION RT-Q8H 11/12/17 11/27/17 History Amiodarone [Cordarone] 100 mg PO DAILY #90 tab 11/15/17 11/27/17 Rx Mexiletine [Mexitil] 150 mg PO Q8HR #270 capsule 11/15/17 11/27/17 Rx Cefuroxime Axetil [Ceftin] 500 mg PO BID #10 tab 11/19/17 11/27/17 Rx Metoprolol Tartrate [Lopressor] 25 mg PO BID #60 tab 11/22/17 11/27/17 Rx Warfarin Sodium [Warfarin Sodium] 2 mg PO DAILY 11/22/17 11/27/17 History predniSONE See Taper PO DIRECTED 11/27/17 11/27/17 History Allergies Allergy/AdvReac Type Severity Reaction Status Date / Time No Known Allergies Allergy Verified 11/27/17 16:13 Physical Exam Vitals: Vital Signs Temp Pulse Pulse Resp BP BP BP 11/28/17 04:00 97.3 F L 91 18 101/70 11/28/17 00:00 18 11/27/17 23:53 115 H 11/27/17 23:43 100 11/27/17 23:27 97.2 F L 100 18 95/62 11/27/17 20:00 18 11/27/17 19:30 97.2 F L 111 H 18 106/78 11/27/17 18:45 97.5 F L 98 20 117/64 11/27/17 17:30 97 20 11/27/17 17:00 92 24 110/64 11/27/17 16:49 96 11/27/17 16:35 100 11/27/17 15:55 97.0 F L 103 H 24 110/64 Pulse Ox 11/28/17 04:00 90 L 11/28/17 00:00 11/27/17 23:53 11/27/17 23:43 11/27/17 23:27 92 L 11/27/17 20:00 11/27/17 19:30 90 L 11/27/17 18:45 94 L 11/27/17 17:30 90 L 11/27/17 17:00 93 L 11/27/17 16:49 11/27/17 16:35 11/27/17 15:55 92 L Intake and Output 11/27/17 11/28/17 11/28/17 22:59 06:59 14:59 Intake Total 346.498 Output Total 350 Balance -3.502 Intake: Intake, IV Titration 146.498 Amount Heparin Sod,Pork in 0.45% 146.498 NaCl 25,000 unit In 0.45 % NaCl 1 500ml.bag @ 12 UNITS/KG/HR 19.15 mls/hr IV .Q24H [facility] Rx#: [id number] Oral 200 Output: Urine 350 Other: # Voids 1 Weight 79.832 kg 68.9 kg PHYSICAL EXAMINATION: HEENT: Head is atraumatic, normocephalic. Pupils equal, round. Neck is supple. There is elevated jugular venous pressure. HEART EXAMINATION: Heart S1 and S2 systolic murmur is heard CHEST EXAMINATION: Lungs reveal decreased air exchange throughout, scattered coarse rhonchi, mild wheezing, diminished air entry to the bases. ABDOMEN: Soft, nontender. Bowel sounds are heard. No organomegaly noted. EXTREMITIES: 2+ peripheral pulses with trace to 1+ evidence of peripheral edema and no calf tenderness noted. NEUROLOGIC patient is awake, alert and oriented -3. . Results 11/28/17 06:10 11/28/17 06:10 Cardiac Enzymes 11/27/17 11/27/17 11/27/17 Range/Units 16:41 16:41 23:17 AST 144 H (17-59) U/L CK-MB (CK-2) 45.2 H* (0.0-2.4) ng/mL Troponin I 14.300 H* 8.670 H* (0.000-0.034) ng/mL 11/28/17 Range/Units 06:10 AST 101 H (17-59) U/L CK-MB (CK-2) (0.0-2.4) ng/mL Troponin I (0.000-0.034) ng/mL Coagulation 11/27/17 11/27/17 11/28/17 Range/Units 16:41 23:17 06:10 PT 12.8 H (9.0-12.0) sec APTT 25.2 34.9 H 48.4 H (22.0-30.0) sec CBC 11/27/17 11/28/17 Range/Units 16:41 06:10 WBC 10.9 H 7.1 (3.8-10.6) k/uL RBC 4.02 L 3.62 L (4.30-5.90) m/uL Hgb 10.9 L 9.6 L (13.0-17.5) gm/dL Hct 36.7 L 32.6 L (39.0-53.0) % Plt Count 404 332 (150-450) k/uL Comprehensive Metabolic Panel 11/27/17 11/28/17 Range/Units 16:41 06:10 Sodium 142 138 (137-145) mmol/L Potassium 3.9 4.2 (3.5-5.1) mmol/L Chloride 103 104 (98-107) mmol/L Carbon Dioxide 30 29 (22-30) mmol/L BUN 32 H 30 H (9-20) mg/dL Creatinine 0.90 0.87 (0.66-1.25) mg/dL Glucose 109 H 117 H (74-99) mg/dL Calcium 8.9 8.5 (8.4-10.2) mg/dL AST 144 H 101 H (17-59) U/L ALT 74 H 77 H (21-72) U/L Alkaline Phosphatase 88 66 (38-126) U/L Total Protein 5.3 L 4.7 L (6.3-8.2) g/dL Albumin 2.5 L 2.2 L (3.5-5.0) g/dL Current Medications Generic Name Dose Route Start Last Admin Trade Name Freq PRN Reason Stop Dose Admin Hydrocodone Bitart/Acetaminophen 1 each 11/27/17 22:00 11/27/17 23:36 [place] 10 PO 1 each TID [facility] Administration Albuterol Sulfate 2.5 mg 11/27/17 20:35 Ventolin Nebulized INHALATION RT-Q4H PRN Shortness Of Breath Amiodarone HCl 100 mg 11/28/17 09:00 Cordarone PO DAILY [facility] Aspirin 81 mg 11/28/17 09:00 Aspirin PO QAM [facility] Atorvastatin Calcium 40 mg 11/28/17 09:00 Lipitor PO QAM [facility] Ceftriaxone Sodium 1,000 mg 11/28/17 09:00 Rocephin IVP Q24HR [facility] Clopidogrel Bisulfate 75 mg 11/28/17 09:00 Plavix PO QAM [facility] Donepezil HCl 10 mg 11/27/17 21:00 11/27/17 23:36 Aricept PO 10 mg HS RIGOBERTO Administration Furosemide 40 mg 11/28/17 09:00 Lasix IV Q12HR [facility] Gabapentin 300 mg 11/27/17 22:00 11/27/17 23:36 Neurontin PO 300 mg TID RIGOBERTO Administration Heparin Sodium (Porcine) 0 unit 01/14/18 17:47 Heparin IV PER PROTOCOL PRN Low PTT Protocol Heparin Sodium/Sodium Chloride 500 mls @ 19.15 mls/hr 11/27/17 18:00 02:06 25,000 unit/ Sodium Chloride IV 15 units/kg/hr .Q24H RIGOBERTO 23.94 mls/hr Protocol Titration 12 UNITS/KG/HR Levofloxacin 500 mg/ IV 100 mls @ 100 mls/hr 11/27/17 22:00 11/28/17 00:28 Solution IVPB 100 mls/hr Q24H [facility] Administration Insulin Aspart 0 unit 11/28/17 12:30 Novolog SQ ACHS [facility] Protocol Ipratropium [place] 0.5 mg 11/28/17 00:00 11/27/17 23:43 Atrovent Nebulized INHALATION 0.5 mg RT-Q8H [facility] Administration Ipratropium [place] 0.5 mg 11/27/17 20:35 Atrovent Nebulized INHALATION RT-Q4H PRN Shortness Of Breath Methylprednisolone Sodium Succinate 40 mg 11/28/17 08:00 Solu-Medrol IV Q8HR [facility] Metoprolol Tartrate 25 mg 11/27/17 21:00 11/27/17 23:36 Lopressor PO 25 mg BID [facility] Administration Mexiletine HCl 150 mg 11/28/17 00:00 11/27/17 23:36 Mexitil PO 150 mg Q8HR [facility] Administration Naloxone HCl 0.2 mg 11/27/17 18:15 Narcan IV Q2M PRN Opioid Reversal Nitroglycerin 0.4 mg 11/27/17 20:35 Nitrostat SUBLINGUAL Q5M PRN Chest Pain Zolpidem Tartrate 5 mg 11/27/17 20:36 Ambien PO HS PRN Insomnia Intake and Output 11/27/17 11/28/17 11/28/17 22:59 06:59 14:59 Intake Total 346.498 Output Total 350 Balance -3.502 Intake: Intake, IV Titration 146.498 Amount Heparin Sod,Pork in 0.45% 146.498 NaCl 25,000 unit In 0.45 % NaCl 1 500ml.bag @ 12 UNITS/KG/HR 19.15 mls/hr IV .Q24H [facility] Rx#: [id number] Oral 200 Output: Urine 350 Other: # Voids 1 Weight 79.832 kg 68.9 kg 11/28/17 06:10 11/28/17 06:10 EKG Interpretations (text) EKG shows normal sinus rhythm with inferior Q waves and nonspecific ST-T wave changes Assessment and Plan Plan: Assessment and plan #1 respiratory distress secondary to combination of systolic congestive heart failure acute on chronic BNP level 43,000 on admission, pneumonia #2 known history of coronary artery disease with prior bypass surgery, recent heart catheterization revealed occlusion of all vein grafts an open JAVIER to the LAD, recent stenting to the circumflex. #3 severe ischemic cardiomyopathy with prior AICD #4 ventricular tachycardia with recent VT ablation earlier this month #5 paroxysmal atrial fibrillation, on Coumadin for anticoagulation, INR subtherapeutic at 1.4. #6 hypertension #7 hyperlipidemia #8 abnormal troponins, could be secondary to recent VT ablation, patient denies having any chest discomfort. Cannot rule out non-Q-wave [place]. Plan We will obtain a third troponin, we'll continue current dose of IV Lasix, monitoring intake and output as well as daily weights. Continue IV heparin. Continue Lopressor, amiodarone, mexiletine, baby aspirin, Lipitor, and Plavix. Further recommendations to follow. DNP note has been reviewed, I agree with a documented findings and plan of care. Patient was seen and examined.
--- NOTE | 2017-11-28 08:53 | P.PN ---
Progress Note - Text This is an addendum to the dictated cardiology consultation. The patient has a known history of severe ischemic cardiomyopathy status post recent admission with recurrent ventricle tachycardia, post ICD implant and ablation of his VT during the last admission who was discharged recently and is readmitted with symptoms of worsening dyspnea, and findings of CHF. He had progressive peripheral edema, PND and orthopnea, he denies any clear anginal pain he is in sinus mechanism since admission without any evidence of tachycardia or bradycardia arrhythmia. His EKG shows nonspecific T-wave changes anteriorly and his examination is consistent was lung congestion and her peripheral edema. The patient will continue on intravenous diuresis. I will discuss his case with Dr. Gill he may require repeat cardiac catheterization because of the elevation of his troponin although he had no clear symptoms of chest discomfort. The troponin elevation could be related to the recent VT ablation. We'll reevaluate him in the morning and depending on his symptoms further recommendations will be made. Thank you for this consult we will follow with you.
[2017-11-28] MEDS ORDERED: cefTRIAXone IN SWFI 1,000 MG/10 ML SYRINGE IVP SCH (09:00)
[2017-11-28] MEDS ORDERED: FUROSEMIDE 10 MG/ML 4 ML VIAL IV SCH ×2 (09:00→16:00)
[2017-11-28] MEDS: MEXILETINE 150 MG CAP PO SCH ×3 (09:23→19:58)
[2017-11-28] MEDS: AMIODARONE 100 MG TAB PO SCH (09:23)
[2017-11-28] MEDS: GABAPENTIN 300 MG CAP PO SCH ×3 (09:24→19:52)
[2017-11-28] MEDS: ASPIRIN 81 MG PO SCH (09:24)
[2017-11-28] MEDS: ATORVASTATIN 40 MG TAB PO SCH (09:24)
[2017-11-28] MEDS: CLOPIDOGREL 75 MG TAB PO SCH (09:24)
[2017-11-28] MEDS: HYDROcodone/APAP 10-325MG 1 EACH TAB PO SCH ×3 (09:24→19:52)
[2017-11-28] MEDS: METOPROLOL TARTRATE 25 MG TAB PO SCH ×2 (09:25→15:16)
[2017-11-28] MEDS: FUROSEMIDE 10 MG/ML 4 ML VIAL IV SCH ×3 (09:54→22:47)
[2017-11-28 11:43] LABS: Glucose,Whole Blood 141 mg/dL (75-99)
[2017-11-28] MEDS: SPIRONOLACTONE 25 MG TAB PO SCH (11:46)
[2017-11-28] MEDS: INSULIN ASPART 100 UNIT/ML 1 ML 10 ML VIAL SQ SCH ×3 (12:31→22:59)
[2017-11-28] MEDS: HEPARIN SOD,PORK IN 0.45% NACL 25,000 UNIT in 0.45% NACL 1 500ML.BAG IV SCH (14:06)
[2017-11-28] MEDS: PIPERACILLIN-TAZOBACTAM 3.375 GM in DEXTROSE/WATER 1 50ML.BAG IVPB SCH ×2 (15:23→22:59)
[2017-11-28 16:10] LABS: Hemoglobin A1C 5.4 % (4.0-6.0)
[2017-11-28 17:01] LABS: Glucose,Whole Blood 116 mg/dL (75-99)
[2017-11-28] MEDS: methylPREDNISolone SOD SUCCI 125 MG/2 ML VIAL IV SCH ×2 (17:28→22:46)
[2017-11-28] MEDS: DONEPEZIL 10 MG TAB PO SCH (19:52)
[2017-11-28] MEDS: BUDESONIDE 0.5 MG/2 ML NEBU INHALATION SCH (20:01)
[2017-11-28] MEDS: ALBUTEROL NEBULIZED 2.5 MG/3 ML INHALATION PRN (20:01)
[2017-11-28 20:51] LABS: Glucose,Whole Blood 184 mg/dL (75-99)
--- NOTE | 2017-11-28 21:17 | CONS ---
CONSULTATION Antonio Goncalves is a 67-year-old male who presented to the ED at [facility] with increasing shortness of breath. He had recently been admitted to the hospital with his AICD firing. He subsequently underwent ventricular ablation on 11/16/2017. His anesthesia time was approximately 6-7 hours. He subsequently did fair and was discharged home. He comes back to the hospital with cough, sputum production. He actually was supposed to see me in the office as he previously was seen by me, but was not able to get to the office. He came into the ER, was quite short of breath. Subsequently was admitted for further evaluation and management. CT scan of the chest was done which showed evidence of some pleural effusions bilaterally, but extensive infiltrates bilaterally in the upper zones. He denied any fever or chills, but had been bringing up greenish phlegm. MEDICATIONS: Prior to admission: Warfarin, nitroglycerin, ipratropium, albuterol, prednisone, Mexitil, Lopressor, Ceftin, amiodarone, Aricept, Plavix, hydrocodone with acetaminophen. PAST MEDICAL HISTORY: Positive for coronary artery disease, status post coronary artery bypass with recent cardiac cath which shows evidence of occluded bypass grafts, history of atrial fibrillation, history of ventricular arrhythmia. History of asthma with COPD with significantly elevated IgE levels as well. History of congestive heart failure and cardiomyopathy. FAMILY HISTORY: Family history is negative for COPD or asthma. Negative for asthma and COPD in his mother and father. SOCIAL HISTORY: Patient used to smoke a pack of cigarettes per day. He has a dog as a pet. REVIEW OF SYSTEMS: Is noncontributory other than for what is described in the history of present illness and past medical history. PHYSICAL EXAMINATION: Blood pressure 99/62, respiratory rate of 18, pulse 94, O2 saturation on 6 L by nasal cannula is 93%. HEENT reveals pupils are equal. Jugular venous distention is seen. There are bilateral crackles in the upper zones anteriorly with mild prolonged expiration. Decreased breath sounds on the bases. Cardiovascular system with an S1, S2. Systolic murmur is heard. ABDOMEN: Soft. There is 1+ to 2+ pedal edema. LABS: Reveal a white count of 10.9, hemoglobin of 10.9 with 10.1 thousand, neutrophils, which have come down to 6.5 thousand this morning. PT/INR is 1.4. Sodium 142, potassium 3.9, chloride 103, bicarb 30, glucose 109, venous lactic acid was 2.6. CK was 366 with an MB of 45.2, troponin was 8.67. NT proBNP was 70264. Influenza A and B were negative. IMPRESSION: At this time: 1. Bilateral upper zone pneumonia with recent hospitalization. 2. Chronic obstructive pulmonary disease with asthma. 3. Congestive heart failure with acute exacerbation. 4. Recent ventricular ablation with coronary artery disease and cardiomyopathy. 5. Acute myocardial infarction. 6. History of paroxysmal atrial fibrillation. 7. Cannot rule out acute lung injury. 8. Left upper lobe lung nodule which may be an acute change as it is in the area of infiltrate versus something that is more chronic. At this point in time from a pulmonary standpoint, would discontinue the Rocephin and change it to Zosyn. Continue Levaquin to cover for gram negatives as well as anaerobic bacteria as the patient may have aspirated. Keep the patient on IV steroids, bronchodilators. Add aerosolized steroids. Have ID further evaluate the patient. Keep the patient in negative fluid balance and would defer treatment of congestive heart failure to Cardiology will follow him closely during his hospital stay and appreciate the opportunity to participate in his care. MMODL / IJN: [id number] /
--- NOTE | 2017-11-28 23:23 | PN ---
PROGRESS NOTE SUBJECTIVE: 67-year-old white male, admitted to the hospital with increased shortness of breath. CT scan was done, showed some pleural effusions, infiltrates and possible nodule in the lungs. Lungs: Scattered rhonchi and wheeze. Hematology negative Homans. Psych: Fair mood and affect. ASSESSMENT: 1. Bilateral upper zone pneumonia with recent chronic obstructive pulmonary disease exacerbated asthma. 2. Congestive heart failure acute exacerbation. 3. Acute myocardial infarction. 4. History of paroxysmal atrial fibrillation. 5. Left upper lobe lung nodule. IV Zosyn and IV Levaquin and IV steroids, updraft treatments. Infectious Disease and cardiology will be consulted also as well as Pulmonary. MMODL / IJN: [id number] /
[2017-11-29 05:41] LABS: Glucose,Whole Blood 97 mg/dL (75-99)
[2017-11-29 06:12] LABS: Basophils % (A) 0 %; Eosinophils % (A) 0 %; HCT 32.6 % (39.0-53.0); HGB 9.6 gm/dL (13.0-17.5); Hypochromasia Marked; Lymphocytes # (A) 0.2 k/uL (1.0-4.8); Lymphocytes % (A) 3 %; MCH 26.8 pg (25.0-35.0); MCHC 29.6 g/dL (31.0-37.0); MCV 90.7 fL (80.0-100.0); Mean Platelet Volume 8.3; Monocytes # (A) 0.1 k/uL (0-1.0); Monocytes % (A) 2 %; Neutrophils % (A) 94 %; Platelet Count 304 k/uL (150-450); RBC 3.59 m/uL (4.30-5.90); RDW 15.3 % (11.5-15.5); WBC 5.3 k/uL (3.8-10.6)
[2017-11-29] MEDS: INSULIN ASPART 100 UNIT/ML 1 ML 10 ML VIAL SQ SCH ×4 (06:18→22:22)
[2017-11-29] MEDS: methylPREDNISolone SOD SUCCI 125 MG/2 ML VIAL IV SCH ×3 (06:23→17:44)
[2017-11-29 06:40] LABS: Anion Gap 7 mmol/L; Blood Urea Nitrogen 34 mg/dL (9-20); Calcium 8.3 mg/dL (8.4-10.2); Carbon Dioxide 29 mmol/L (22-30); Chloride 99 mmol/L (98-107); Glucose 117 mg/dL (74-99); Potassium 3.8 mmol/L (3.5-5.1); Sodium 135 mmol/L (137-145)
[2017-11-29] MEDS: BUDESONIDE 0.5 MG/2 ML NEBU INHALATION SCH ×2 (07:14→20:49)
[2017-11-29] MEDS: IPRATROPIUM 0.5 MG/2.5 ML NEBU INHALATION SCH ×3 (07:14→20:49)
[2017-11-29] MEDS: PIPERACILLIN-TAZOBACTAM 3.375 GM in DEXTROSE/WATER 1 50ML.BAG IVPB SCH ×2 (07:59→15:58)
[2017-11-29] MEDS: FUROSEMIDE 10 MG/ML 4 ML VIAL IV SCH ×2 (07:59→15:58)
[2017-11-29] MEDS: AMIODARONE 100 MG TAB PO SCH (08:00)
[2017-11-29] MEDS: CLOPIDOGREL 75 MG TAB PO SCH (08:00)
[2017-11-29] MEDS: MEXILETINE 150 MG CAP PO SCH ×2 (08:00→15:58)
[2017-11-29] MEDS: GABAPENTIN 300 MG CAP PO SCH ×3 (08:00→22:21)
[2017-11-29] MEDS: SPIRONOLACTONE 25 MG TAB PO SCH (08:01)
[2017-11-29] MEDS: ATORVASTATIN 40 MG TAB PO SCH (10:30)
[2017-11-29] MEDS: ASPIRIN 81 MG PO SCH (10:30)
[2017-11-29] MEDS: METOPROLOL TARTRATE 25 MG TAB PO SCH (10:30)
[2017-11-29] MEDS: HYDROcodone/APAP 10-325MG 1 EACH TAB PO SCH ×3 (10:31→22:21)
[2017-11-29] MEDS: HEPARIN SOD,PORK IN 0.45% NACL 25,000 UNIT in 0.45% NACL 1 500ML.BAG IV SCH (10:31)
[2017-11-29 11:46] LABS: Glucose,Whole Blood 113 mg/dL (75-99)
--- NOTE | 2017-11-29 15:53 | P.PN ---
Subjective Progress Note Date: 11/29/17 This is a 67-year-old gentleman with known history of coronary artery disease prior bypass surgery as well as a prior PCI, ischemic cardio myopathy with prior AICD, patient was just recently discharged home from the hospital after being here with ventricular tachycardia status post ablation, as well as associated congestive heart failure, patient also has history of atrial fibrillation, paroxysmal, hypothyroidism, hypertension, hyperlipidemia. He was discharged home from the hospital and gradually became more and more short of breath, significant orthopnea and exertional shortness of breath. He denies any overt chest discomfort, he states he's been coughing up a significant amount of dark green sputum. He denies having any fever or chills at home. At the time of my examination this morning, patient is quite short of breath, just having conversation. He was initiated on IV Lasix in the emergency room, his weight is down significantly from admission this morning. The patient, he has significant peripheral edema on arrival here, he continues to have mild peripheral edema this morning. Blood pressure on arrival here 110/64, heart rate 103, 92% on room air. Blood pressure this morning 100/70, 90% on 6 L of oxygen. White blood cell count 7.1, hemoglobin 9.6, INR 1.4, sodium 138, potassium 4.2, BUN 30, creatinine 0.8. AST 144 on admission, 101 this morning, ALT 74 on admission, 77 this morning. Alk phos 366. Troponin 14.3 and 8.6. BNP level on admission 43,600, 31,400 this morning. And BE were negative. Chest x-ray revealed similar appearing left upper lung opaque sitting, atypical pneumonitis or pneumonia should be considered on the background of pulmonary vascular congestion. CAT scan of the chest was performed which revealed pleural effusions, extensive bilateral pulmonary infiltrates and significant pulmonary interstitial fibrosis. Bilateral patchy extensive pleural thickening consistent with scarring. The possibility of mesothelioma cannot be excluded. Left upper lobe pulmonary mass of 1.5 cm. EKG on arrival here showed a normal sinus rhythm with inferior Q waves and nonspecific ST-T wave changes. Echocardiogram with Doppler study performed revealed an ejection fraction of 30- 35% with evidence of anterior septal, apical, and lateral hypokinesia. Moderate to severe MR. 11/29/2017 Patient was seen and examined this morning, he diuresed well through the night last night and states that his breathing is significantly improved. Blood pressure 92/60 with a heart rate in the 70s, 96% on 6 L of oxygen. A blood cell count 5.3, hemoglobin 9.6, platelet count 304. Sodium 135, potassium 3.8, BUN [address], [address] Vázquez did have a discussion with Dr. Cameron regarding VT ablation, they concur that the patient's abnormality in troponin could be secondary to the VT ablation. At this time we will continue maximal medical therapy. Patient is chest pain-free, if patient does have chest discomfort will proceed with cardiac catheterization. If patient remains stable and chest pain-free we will continue current medical therapy. Objective - Vital Signs Vital signs: Vital Signs Temp 97 F L 11/29/17 09:32 Pulse 76 11/29/17 15:31 Resp 18 11/29/17 12:50 BP 92/60 11/29/17 12:00 Pulse Ox 93 L 11/29/17 12:00 Intake & Output 11/28/17 11/29/17 11/29/17 18:59 06:59 18:59 Intake Total 487.28 150 908.775 Output Total 450 700 400 Balance 37.28 -550 508.775 Weight 68.9 kg 70.5 kg Intake: Intake, IV Titration 287.28 150 488.775 Amount Heparin Sod,Pork in 0.45% 287.28 488.775 NaCl 25,000 unit In 0.45 % NaCl 1 500ml.bag @ 12 UNITS/KG/HR 19.15 mls/hr IV .Q24H [facility]O Rx#: [id number] Levofloxacin 500Mg-D5w 100 Pmx 500 mg In Dextrose/ Water 1 100ml.bag @ 100 mls/hr IVPB Q24H R[facility]O Rx#: [id number] Piperacillin-Tazobactam 3 50 .375 gm In Dextrose/Water 1 50ml.bag @ 12.5 mls/hr IVPB Q8HR [facility]O Rx#: [id number] Oral 200 420 Output: Urine 450 700 400 Other: Voiding Method Bedside Commode Bedside Commode Bedside Commode Urinal Urinal Urinal - Exam PHYSICAL EXAMINATION: HEENT: Head is atraumatic, normocephalic. Pupils equal, round. Neck is supple. There is elevated jugular venous pressure. HEART EXAMINATION: Heart S1 and S2 systolic murmur is heard CHEST EXAMINATION: Lungs reveal decreased air exchange throughout, scattered coarse rhonchi, mild wheezing, diminished air entry to the bases. ABDOMEN: Soft, nontender. Bowel sounds are heard. No organomegaly noted. EXTREMITIES: 2+ peripheral pulses with trace to 1+ evidence of peripheral edema and no calf tenderness noted. NEUROLOGIC patient is awake, alert and oriented -3. . - Labs CBC & Chem 7: 11/29/17 05:27 11/29/17 05:27 Labs: Abnormal Lab Results - Last 24 Hours (Table) 11/28/17 11/28/17 11/29/17 Range/Units 16:48 20:43 05:27 RBC 3.59 L (4.30-5.90) m/uL Hgb 9.6 L (13.0-17.5) gm/dL Hct 32.6 L (39.0-53.0) % MCHC 29.6 L (31.0-37.0) g/dL Lymphocytes # 0.2 L (1.0-4.8) k/uL APTT (22.0-30.0) sec Sodium (137-145) mmol/L BUN (9-20) mg/dL Glucose (74-99) mg/dL POC Glucose (mg/dL) 116 H 184 H (75-99) mg/dL Calcium (8.4-10.2) mg/dL 11/29/17 11/29/17 11/29/17 Range/Units 05:27 05:27 11:44 RBC (4.30-5.90) m/uL Hgb (13.0-17.5) gm/dL Hct (39.0-53.0) % MCHC (31.0-37.0) g/dL Lymphocytes # (1.0-4.8) k/uL APTT 72.2 H (22.0-30.0) sec Sodium 135 L (137-145) mmol/L BUN 34 H (9-20) mg/dL Glucose 117 H (74-99) mg/dL POC Glucose (mg/dL) 113 H (75-99) mg/dL Calcium 8.3 L (8.4-10.2) mg/dL Microbiology - Last 24 Hours (Table) 11/27/17 20:41 Blood Culture - Preliminary Blood No Growth after 24 hours 11/27/17 16:41 Blood Culture - Preliminary Blood No Growth after 24 hours Assessment and Plan Plan: Assessment and plan #1 respiratory distress secondary to combination of systolic congestive heart failure acute on chronic BNP level 43,000 on admission, pneumonia #2 known history of coronary artery disease with prior bypass surgery, recent heart catheterization revealed occlusion of all vein grafts an open JAVIER to the LAD, recent stenting to the circumflex. #3 severe ischemic cardiomyopathy with prior AICD #4 ventricular tachycardia with recent VT ablation earlier this month #5 paroxysmal atrial fibrillation, on Coumadin for anticoagulation, INR subtherapeutic at 1.4. #6 hypertension #7 hyperlipidemia #8 abnormal troponins, could be secondary to recent VT ablation, patient denies having any chest discomfort. Cannot rule out non-Q-wave FL. Plan We will continue the patient on his current dose of IV Lasix. Continue maximum medical therapy. Elevation in troponin could be secondary to recent VT ablation , and the patient has not complained of any chest discomfort. If the patient does develop chest discomfort cardiac catheterization will be performed, if patient remains stable from an angina perspective we will continue maximal medical therapy. We'll resume the patient's Coumadin. Check daily PT/INRs. DNP note has been reviewed, I agree with a documented findings and plan of care. Patient was seen and examined.
[2017-11-29 16:23] LABS: INR 1.5 (<1.2)
--- NOTE | 2017-11-29 16:39 | CONS ---
CONSULTATION DATE OF SERVICE: 11/29/2017 REASON FOR CONSULTATION: Possible aspiration pneumonia. HISTORY OF PRESENT ILLNESS: The patient is a 67-year-old male who was recently admitted to [facility] from October 26, 2017, until November 22, 2017. The patient presented after his AICD fired x3. The patient subsequently underwent ventricular ablation on November 16, 2017, and was under sedation for almost 6 to 7 hours. The patient is now coming back to the hospital within a week of his hospital discharge with increasing shortness of breath. The patient is unable to catch his breath and is also having some orthopnea. The patient also has a cough for the last 1 week moderate intensity and bringing up some greenish sputum but no hemoptysis. Denies significant chest pain. He felt somewhat chilly but did not take his temperature. Denies any high- grade fever. With these symptoms, the patient came to the hospital. He was evaluated by the ER physician. The chest x-ray has been suggestive of left upper lobe infiltrate with concern about possible pneumonia in view of his recent history of hospitalization with a long anesthesia time, with concern about possible aspiration. He was started on Zosyn and Levaquin and admitted to hospital. I was asked to see the patient for further recommendation. The patient did have a slightly elevated white count of 10.9 but no fever. He did have blood cultures obtained, which are currently pending. REVIEW OF SYSTEMS: CONSTITUTIONAL: Positive for weakness and some chills. EYES: No complaint. ENT: No complaint. RESPIRATORY: As per HPI. CARDIOVASCULAR: As per HPI. GENITOURINARY: No complaint. GASTROINTESTINAL: No complaint. MUSCULOSKELETAL: No complaint. INTEGUMENTARY: No complaint. PSYCHOLOGICAL: No complaint. ENDOCRINE: No complaint. NEUROLOGICAL: No complaint. PAST MEDICAL HISTORY: His past medical history is significant for: 1. COPD. 2. Asthma. 3. Coronary artery disease. 4. Hypothyroidism. 5. Heart failure. 6. History of arrhythmia. PAST SURGICAL HISTORY: 1. AICD placement. 2. Back surgery. 3. Cardiac bypass grafting. 4. PTCA and stent. SOCIAL HISTORY: The patient is currently a smoker. No drinking or any drug use. FAMILY HISTORY: Mother with history of [place]. ALLERGIES: NO KNOWN DRUG ALLERGIES. CURRENT MEDICATIONS: 1. [place]. 2. Ventolin. 3. Amiodarone. 4. Aspirin. 5. Lipitor. 6. Pulmicort. 7. Plavix. 8. Aricept. 9. Lasix. 10.Neurontin. 11.Heparin. 12.NovoLog. 13.Levofloxacin. 14.Solu-Medrol. 15.Lopressor. 16.Narcan. 17.Piperacillin tazobactam. 18.Aldactone. 19.Ambien. PHYSICAL EXAMINATION: Blood pressure is 92/60 with a pulse of 74, temperature of 97. He is 93% on 6 L nasal cannula. General description is an elderly male up in the bed up in no distress. No tachypnea or accessory muscle of respiration use. HEENT examination shows slight pallor. No scleral icterus. Oral mucosa membranes are dry. No pharyngeal erythema or thrush NECK: Trachea is central. No thyromegaly. LUNGS: Unlabored breathing. Coarse breath sounds bilaterally. No wheeze. HEART: S1, S2. Regular rate and rhythm. No loud murmur ABDOMEN: Soft. No tenderness. No guarding or rigidity. No Organomegaly EXTREMITIES: No edema of feet. SKIN EXAMINATION: No rash or mass palpable. Neurologically the patient is awake, alert, oriented x3. Mood and affect normal. LABS: Hemoglobin 9.6, white count normalized to 5.3 with a BUN of 34, creatinine 1.10. Blood cultures obtained are currently pending. DIAGNOSTIC IMPRESSION AND PLAN: Patient admitted to hospital with increasing shortness of breath, orthopnea, cough, bringing up some greenish sputum, which is likely multifactorial in a patient who does have possible fluid overload. However, underlying pneumonia, especially involving the left upper lobe, is not entirely excluded in a patient who has been in and out of the hospital. We will need to cover for resistant Gram-negative, and with the recent prolonged anesthesia exposure and ventilation for his ventricular ablation, underlying aspiration etiology will be at the top of the list. PLAN: 1. Will obtain sputum for Gram stain and culture and sensitivity. 2. Will keep the patient on Zosyn and Levaquin, to which he clinically seems to have responded. 3. Depending upon his clinical response as well as the culture, we will adjust the medication further if needed. Thank you for this consultation. We will follow this patient along with you. MMODL / IJN: [id number] / [facility]
[2017-11-29 16:56] LABS: Glucose,Whole Blood 183 mg/dL (75-99)
--- NOTE | 2017-11-29 17:48 | P.PN ---
Subjective Progress Note Date: 11/29/17 Principal diagnosis: Pneumonia Patient seen and examined. Patient states his breathing is better today. He does have intermittent cough productive of phlegm. He denies fevers and chills. He does have lower extremity edema which she states may be a little bit better than at baseline. Objective - Vital Signs Vital signs: Vital Signs Temp 96.9 F L 11/29/17 15:57 Pulse 82 11/29/17 15:57 Resp 20 11/29/17 15:57 BP 89/65 11/29/17 15:57 Pulse Ox 91 L 11/29/17 15:57 Intake & Output 11/28/17 11/29/17 11/29/17 18:59 06:59 18:59 Intake Total 487.28 150 908.775 Output Total 450 700 400 Balance 37.28 -550 508.775 Weight 68.9 kg 70.5 kg Intake: Intake, IV Titration 287.28 150 488.775 Amount Heparin Sod,Pork in 0.45% 287.28 488.775 NaCl 25,000 unit In 0.45 % NaCl 1 500ml.bag @ 12 UNITS/KG/HR 19.15 mls/hr IV .Q24H [facility]OB[facility]O Rx#: [id number] Levofloxacin 500Mg-D5w 100 Pmx 500 mg In Dextrose/ Water 1 100ml.bag @ 100 mls/hr IVPB Q24H [facility]IGOBERTO Rx#: [id number] Piperacillin-Tazobactam 3 50 .375 gm In Dextrose/Water 1 50ml.bag @ 12.5 mls/hr IVPB Q8HR RIGOBERTO Rx#: [id number] Oral 200 420 Output: Urine 450 700 400 Other: Voiding Method Bedside Commode Bedside Commode Bedside Commode Urinal Urinal Urinal - Exam Gen.: Patient is alert and oriented 3, no acute distress Cardiovascular: Regular rate and rhythm, S1/S2 Lungs: Scattered crackles bilaterally Abdomen: Soft nontender nondistended positive bowel sounds Extremity: Positive edema - Labs CBC & Chem 7: 11/29/17 05:27 11/29/17 05:27 Labs: Abnormal Lab Results - Last 24 Hours (Table) 11/28/17 11/29/17 11/29/17 Range/Units 20:43 05:27 05:27 RBC 3.59 L (4.30-5.90) m/uL Hgb 9.6 L (13.0-17.5) gm/dL Hct 32.6 L (39.0-53.0) % MCHC 29.6 L (31.0-37.0) g/dL Lymphocytes # 0.2 L (1.0-4.8) k/uL PT (9.0-12.0) sec INR (<1.2) APTT 72.2 H (22.0-30.0) sec Sodium (137-145) mmol/L BUN (9-20) mg/dL Glucose (74-99) mg/dL POC Glucose (mg/dL) 184 H (75-99) mg/dL Calcium (8.4-10.2) mg/dL Troponin I (0.000-0.034) ng/mL 11/29/17 11/29/17 11/29/17 Range/Units 05:27 11:44 16:12 RBC (4.30-5.90) m/uL Hgb (13.0-17.5) gm/dL Hct (39.0-53.0) % MCHC (31.0-37.0) g/dL Lymphocytes # (1.0-4.8) k/uL PT (9.0-12.0) sec INR (<1.2) APTT (22.0-30.0) sec Sodium 135 L (137-145) mmol/L BUN 34 H (9-20) mg/dL Glucose 117 H (74-99) mg/dL POC Glucose (mg/dL) 113 H (75-99) mg/dL Calcium 8.3 L (8.4-10.2) mg/dL Troponin I 3.260 H* (0.000-0.034) ng/mL 11/29/17 11/29/17 Range/Units 16:12 16:54 RBC (4.30-5.90) m/uL Hgb (13.0-17.5) gm/dL Hct (39.0-53.0) % MCHC (31.0-37.0) g/dL Lymphocytes # (1.0-4.8) k/uL PT 14.0 H (9.0-12.0) sec INR 1.5 H (<1.2) APTT (22.0-30.0) sec Sodium (137-145) mmol/L BUN (9-20) mg/dL Glucose (74-99) mg/dL POC Glucose (mg/dL) 183 H (75-99) mg/dL Calcium (8.4-10.2) mg/dL Troponin I (0.000-0.034) ng/mL Microbiology - Last 24 Hours (Table) 11/27/17 20:41 Blood Culture - Preliminary Blood No Growth after 24 hours 11/27/17 16:41 Blood Culture - Preliminary Blood No Growth after 24 hours Assessment and Plan Assessment: Bilateral healthcare acquired pneumonia Acute exacerbation of CHF Lower extremity edema COPD with asthma, unknown type Recent ventricular ablation Coronary artery disease and cardiomyopathy O2 sats maintain saturation greater than or equal to 90% Antibiotics Bronchodilators Pulmicort Incentive spirometry and pulmonary hygiene Sputum culture Diuresis Aspiration precautions Solu-Medrol taper GI and DVT prophylaxis
[2017-11-29] MEDS ORDERED: WARFARIN 5 MG TAB PO ONE (18:00)
[2017-11-29 21:12] LABS: Glucose,Whole Blood 144 mg/dL (75-99)
[2017-11-29] MEDS: DONEPEZIL 10 MG TAB PO SCH (22:20)
[2017-11-29] MEDS: LEVOFLOXACIN 500MG-D5W PMX 500 MG in DEXTROSE/WATER 1 100ML.BAG IVPB SCH (22:23)
[2017-11-29] MEDS: methylPREDNISolone SOD SUCCI 40 MG/ML 1 ML VIAL IV SCH (22:36)
[2017-11-30] MEDS: FUROSEMIDE 10 MG/ML 4 ML VIAL IV SCH ×3 (00:19→16:41)
[2017-11-30] MEDS: METOPROLOL TARTRATE 25 MG TAB PO SCH ×3 (00:19→22:45)
[2017-11-30] MEDS: PIPERACILLIN-TAZOBACTAM 3.375 GM in DEXTROSE/WATER 1 50ML.BAG IVPB SCH ×3 (00:23→16:41)
[2017-11-30] MEDS: MEXILETINE 150 MG CAP PO SCH ×3 (00:28→16:40)
[2017-11-30 05:57] LABS: Glucose,Whole Blood 161 mg/dL (75-99)
[2017-11-30 06:14] LABS: Basophils % (A) 0 %; Eosinophils % (A) 0 %; HCT 34.2 % (39.0-53.0); HGB 10.2 gm/dL (13.0-17.5); Hypochromasia Marked; Lymphocytes # (A) 0.2 k/uL (1.0-4.8); Lymphocytes % (A) 2 %; MCH 27.3 pg (25.0-35.0); MCHC 29.9 g/dL (31.0-37.0); MCV 91.2 fL (80.0-100.0); Mean Platelet Volume 8.6; Monocytes # (A) 0.2 k/uL (0-1.0); Monocytes % (A) 3 %; Neutrophils # (A) 8.2 k/uL (1.3-7.7); Neutrophils % (A) 95 %; Platelet Count 298 k/uL (150-450); RBC 3.75 m/uL (4.30-5.90); RDW 15.3 % (11.5-15.5); WBC 8.6 k/uL (3.8-10.6)
[2017-11-30 06:20] LABS: INR 1.7 (<1.2); Partial Thromboplastin Time 73.9 sec (22.0-30.0); Prothrombin Time 15.5 sec (9.0-12.0)
[2017-11-30 06:28] LABS: Anion Gap 10 mmol/L; Blood Urea Nitrogen 43 mg/dL (9-20); Calcium 8.4 mg/dL (8.4-10.2); Carbon Dioxide 31 mmol/L (22-30); Chloride 96 mmol/L (98-107); Glucose 134 mg/dL (74-99); Potassium 3.7 mmol/L (3.5-5.1); Sodium 137 mmol/L (137-145)
[2017-11-30] MEDS: INSULIN ASPART 100 UNIT/ML 1 ML 10 ML VIAL SQ SCH ×4 (06:54→22:32)
[2017-11-30] MEDS: HEPARIN SOD,PORK IN 0.45% NACL 25,000 UNIT in 0.45% NACL 1 500ML.BAG IV SCH (08:47)
[2017-11-30] MEDS: AMIODARONE 100 MG TAB PO SCH (08:48)
[2017-11-30] MEDS: ATORVASTATIN 40 MG TAB PO SCH (08:48)
[2017-11-30] MEDS: ASPIRIN 81 MG PO SCH (08:48)
[2017-11-30] MEDS: CLOPIDOGREL 75 MG TAB PO SCH (08:49)
[2017-11-30] MEDS: GABAPENTIN 300 MG CAP PO SCH ×3 (08:49→22:45)
[2017-11-30] MEDS: methylPREDNISolone SOD SUCCI 40 MG/ML 1 ML VIAL IV SCH ×2 (08:49→22:46)
[2017-11-30] MEDS: SPIRONOLACTONE 25 MG TAB PO SCH (08:50)
[2017-11-30] MEDS: BUDESONIDE 0.5 MG/2 ML NEBU INHALATION SCH ×2 (09:14→19:59)
[2017-11-30] MEDS: IPRATROPIUM 0.5 MG/2.5 ML NEBU INHALATION SCH ×3 (09:14→23:56)
[2017-11-30] MEDS: HYDROcodone/APAP 10-325MG 1 EACH TAB PO SCH ×3 (09:40→22:42)
--- NOTE | 2017-11-30 10:47 | P.PN ---
Subjective Progress Note Date: 11/30/17 Principal diagnosis: Acute exacerbation of CHF Patient seen and examined. Patient states he is feeling a little bit better today but he still gets very short of breath with exertion. He states anytime he gets up to use the bathroom he has to rest and catch his breath. He states he does this at home at baseline as well. He is currently on 5 L nasal cannula. Objective - Vital Signs Vital signs: Vital Signs Temp 96.6 F L 11/30/17 08:19 Pulse 77 11/30/17 09:46 Resp 20 11/30/17 09:46 BP 95/68 11/30/17 08:19 Pulse Ox 91 L 11/30/17 08:19 Intake & Output 11/29/17 11/30/17 11/30/17 18:59 06:59 18:59 Intake Total 1144.775 770 Output Total 400 1200 300 Balance 744.775 -1200 470 Weight 71.4 kg Intake: IV 30 Invasive Line 1 30 Intake, IV Titration 488.775 500 Amount Heparin Sod,Pork in 0.45% 488.775 500 NaCl 25,000 unit In 0.45 % NaCl 1 500ml.bag @ 12 UNITS/KG/HR 19.15 mls/hr IV .Q24H RIGOBERTO Rx#: [id number] Oral 656 240 Output: Urine 400 1200 300 Other: Voiding Method Bedside Commode Bedside Commode Bedside Commode Urinal Urinal Urinal Incontinent # Voids 2 2 # Bowel Movements 1 - Exam Gen.: Patient is alert and oriented 3, no acute distress Cardiovascular: Regular rate and rhythm, S1/S2 Lungs: Scattered crackles bilaterally Abdomen: Soft nontender nondistended positive bowel sounds Extremity: Positive edema - Labs CBC & Chem 7: 11/30/17 05:20 11/30/17 05:20 Labs: Abnormal Lab Results - Last 24 Hours (Table) 11/29/17 11/29/17 11/29/17 Range/Units 11:44 16:12 16:12 RBC (4.30-5.90) m/uL Hgb (13.0-17.5) gm/dL Hct (39.0-53.0) % MCHC (31.0-37.0) g/dL Neutrophils # (1.3-7.7) k/uL Lymphocytes # (1.0-4.8) k/uL PT 14.0 H (9.0-12.0) sec INR 1.5 H (<1.2) APTT (22.0-30.0) sec Chloride (98-107) mmol/L Carbon Dioxide (22-30) mmol/L BUN (9-20) mg/dL Creatinine (0.66-1.25) mg/dL Glucose (74-99) mg/dL POC Glucose (mg/dL) 113 H (75-99) mg/dL Troponin I 3.260 H* (0.000-0.034) ng/mL 11/29/17 11/29/17 11/30/17 Range/Units 16:54 21:10 05:20 RBC 3.75 L (4.30-5.90) m/uL Hgb 10.2 L (13.0-17.5) gm/dL Hct 34.2 L (39.0-53.0) % MCHC 29.9 L (31.0-37.0) g/dL Neutrophils # 8.2 H (1.3-7.7) k/uL Lymphocytes # 0.2 L (1.0-4.8) k/uL PT (9.0-12.0) sec INR (<1.2) APTT (22.0-30.0) sec Chloride (98-107) mmol/L Carbon Dioxide (22-30) mmol/L BUN (9-20) mg/dL Creatinine (0.66-1.25) mg/dL Glucose (74-99) mg/dL POC Glucose (mg/dL) 183 H 144 H (75-99) mg/dL Troponin I (0.000-0.034) ng/mL 11/30/17 11/30/17 11/30/17 Range/Units 05:20 05:20 05:55 RBC (4.30-5.90) m/uL Hgb (13.0-17.5) gm/dL Hct (39.0-53.0) % MCHC (31.0-37.0) g/dL Neutrophils # (1.3-7.7) k/uL Lymphocytes # (1.0-4.8) k/uL PT 15.5 H (9.0-12.0) sec INR 1.7 H (<1.2) APTT 73.9 H (22.0-30.0) sec Chloride 96 L (98-107) mmol/L Carbon Dioxide 31 H (22-30) mmol/L BUN 43 H (9-20) mg/dL Creatinine 1.26 H (0.66-1.25) mg/dL Glucose 134 H (74-99) mg/dL POC Glucose (mg/dL) 161 H (75-99) mg/dL Troponin I (0.000-0.034) ng/mL Microbiology - Last 24 Hours (Table) 11/29/17 11:05 Gram Stain - Final Sputum Sputum Culture - Final 11/27/17 20:41 Blood Culture - Preliminary Blood No Growth after 48 hours 11/27/17 16:41 Blood Culture - Preliminary Blood No Growth after 48 hours Assessment and Plan Assessment: Bilateral healthcare acquired pneumonia Acute exacerbation of CHF, systolic, EF 30-35% 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 Pleural thickening concerning for asbestos exposure vs mesothelioma Lower extremity edema COPD with asthma, unknown type Recent ventricular ablation Coronary artery disease and ischemic cardiomyopathy, status post CABG Hypertension Dyslipidemia NSTEMI O2 sats maintain saturation greater than or equal to 90% Antibiotics Bronchodilators Pulmicort Incentive spirometry and pulmonary hygiene Sputum culture - normal samantha Diuresis Aspiration precautions Solu-Medrol taper GI and DVT prophylaxis Consult PT OT Patient may benefit from pulmonary rehab which can be arranged as an outpatient Patient will need follow up PET/CT as an outpatient for 1.5 cm left upper lobe lung mass Repeat CXR today, consider diagnostic and therapeutic thoracentesis if ok with cardiology to stop heparin drip/coumadin
[2017-11-30 11:42] LABS: Glucose,Whole Blood 156 mg/dL (75-99)
[2017-11-30] MEDS: PANTOPRAZOLE 40 MG TABLET PO SCH (12:24)
--- NOTE | 2017-11-30 13:28 | XR ---
EXAMINATION TYPE: XR chest 1V portable DATE OF EXAM: 11/30/2017 COMPARISON: Prior chest x-ray and chest CT 11/27/2017 HISTORY: Pleural effusion, dyspnea, lung mass TECHNIQUE: Single frontal view of the chest is obtained. FINDINGS: Patient is post median sternotomy. Heart is enlarged. Intracardiac defibrillator leads are present. No evident pneumothorax. There may be small effusions. IMPRESSION: Bilateral airspace disease. Correlate to exclude congestive heart failure versus pneumon ia. Postop changes. Small pleural effusions.
--- NOTE | 2017-11-30 15:38 | P.PN ---
Subjective Progress Note Date: 11/30/17 This is a 67-year-old gentleman with known history of coronary artery disease prior bypass surgery as well as a prior PCI, ischemic cardio myopathy with prior AICD, patient was just recently discharged home from the hospital after being here with ventricular tachycardia status post ablation, as well as associated congestive heart failure, patient also has history of atrial fibrillation, paroxysmal, hypothyroidism, hypertension, hyperlipidemia. He was discharged home from the hospital and gradually became more and more short of breath, significant orthopnea and exertional shortness of breath. He denies any overt chest discomfort, he states he's been coughing up a significant amount of dark green sputum. He denies having any fever or chills at home. At the time of my examination this morning, patient is quite short of breath, just having conversation. He was initiated on IV Lasix in the emergency room, his weight is down significantly from admission this morning. The patient, he has significant peripheral edema on arrival here, he continues to have mild peripheral edema this morning. Blood pressure on arrival here 110/64, heart rate 103, 92% on room air. Blood pressure this morning 100/70, 90% on 6 L of oxygen. White blood cell count 7.1, hemoglobin 9.6, INR 1.4, sodium 138, potassium 4.2, BUN 30, creatinine 0.8. AST 144 on admission, 101 this morning, ALT 74 on admission, 77 this morning. Alk phos 366. Troponin 14.3 and 8.6. BNP level on admission 43,600, 31,400 this morning. And BE were negative. Chest x-ray revealed similar appearing left upper lung opaque sitting, atypical pneumonitis or pneumonia should be considered on the background of pulmonary vascular congestion. CAT scan of the chest was performed which revealed pleural effusions, extensive bilateral pulmonary infiltrates and significant pulmonary interstitial fibrosis. Bilateral patchy extensive pleural thickening consistent with scarring. The possibility of mesothelioma cannot be excluded. Left upper lobe pulmonary mass of 1.5 cm. EKG on arrival here showed a normal sinus rhythm with inferior Q waves and nonspecific ST-T wave changes. Echocardiogram with Doppler study performed revealed an ejection fraction of 30- 35% with evidence of anterior septal, apical, and lateral hypokinesia. Moderate to severe MR. 11/29/2017 Patient was seen and examined this morning, he diuresed well through the night last night and states that his breathing is significantly improved. Blood pressure 92/60 with a heart rate in the 70s, 96% on 6 L of oxygen. A blood cell count 5.3, hemoglobin 9.6, platelet count 304. Sodium 135, potassium 3.8, BUN 34, [address] Vázquez did have a discussion with Dr. Cameron regarding VT ablation, they concur that the patient's abnormality in troponin could be secondary to the VT ablation. At this time we will continue maximal medical therapy. Patient is chest pain-free, if patient does have chest discomfort will proceed with cardiac catheterization. If patient remains stable and chest pain-free we will continue current medical therapy. 11/20/2017 seen and examined this morning, continues to feel better every day. Denies any chest discomfort. Breathing overall is stable. INR 1.7, hemoglobin 10.2, creatinine 1.2. We'll check labs in the morning, continue IV Lasix for 24 hours. Objective - Vital Signs Vital signs: Vital Signs Temp 97.1 F L 11/30/17 11:04 Pulse 82 11/30/17 12:00 Resp 20 11/30/17 12:00 BP 90/64 11/30/17 11:04 Pulse Ox 90 L 11/30/17 11:04 Intake & Output 11/29/17 11/30/17 11/30/17 18:59 06:59 18:59 Intake Total 5298.233 5205 Output Total 400 1200 750 Balance 744.775 -1200 740 Weight 71.4 kg Intake: IV 30 Invasive Line 1 30 Intake, IV Titration 488.775 500 Amount Heparin Sod,Pork in 0.45% 488.775 500 NaCl 25,000 unit In 0.45 % NaCl 1 500ml.bag @ 12 UNITS/KG/HR 19.15 mls/hr IV .Q24H RIGOBERTO Rx#: [id number] Oral 656 960 Output: Urine 400 1200 750 Other: Voiding Method Bedside Commode Bedside Commode Bedside Commode Urinal Urinal Urinal Incontinent # Voids 2 1 # Bowel Movements 1 - Exam PHYSICAL EXAMINATION: HEENT: Head is atraumatic, normocephalic. Pupils equal, round. Neck is supple. There is elevated jugular venous pressure. HEART EXAMINATION: Heart S1 and S2 systolic murmur is heard CHEST EXAMINATION: Lungs reveal decreased air exchange throughout, scattered coarse rhonchi, mild wheezing, diminished air entry to the bases. ABDOMEN: Soft, nontender. Bowel sounds are heard. No organomegaly noted. EXTREMITIES: 2+ peripheral pulses with trace to 1+ evidence of peripheral edema and no calf tenderness noted. NEUROLOGIC patient is awake, alert and oriented -3. . - Labs CBC & Chem 7: 11/30/17 05:20 11/30/17 05:20 Labs: Abnormal Lab Results - Last 24 Hours (Table) 11/29/17 11/29/17 11/29/17 Range/Units 16:12 16:12 16:54 RBC (4.30-5.90) m/uL Hgb (13.0-17.5) gm/dL Hct (39.0-53.0) % MCHC (31.0-37.0) g/dL Neutrophils # (1.3-7.7) k/uL Lymphocytes # (1.0-4.8) k/uL PT 14.0 H (9.0-12.0) sec INR 1.5 H (<1.2) APTT (22.0-30.0) sec Chloride (98-107) mmol/L Carbon Dioxide (22-30) mmol/L BUN (9-20) mg/dL Creatinine (0.66-1.25) mg/dL Glucose (74-99) mg/dL POC Glucose (mg/dL) 183 H (75-99) mg/dL Troponin I 3.260 H* (0.000-0.034) ng/mL 11/29/17 11/30/17 11/30/17 Range/Units 21:10 05:20 05:20 RBC 3.75 L (4.30-5.90) m/uL Hgb 10.2 L (13.0-17.5) gm/dL Hct 34.2 L (39.0-53.0) % MCHC 29.9 L (31.0-37.0) g/dL Neutrophils # 8.2 H (1.3-7.7) k/uL Lymphocytes # 0.2 L (1.0-4.8) k/uL PT 15.5 H (9.0-12.0) sec INR 1.7 H (<1.2) APTT 73.9 H (22.0-30.0) sec Chloride (98-107) mmol/L Carbon Dioxide (22-30) mmol/L BUN (9-20) mg/dL Creatinine (0.66-1.25) mg/dL Glucose (74-99) mg/dL POC Glucose (mg/dL) 144 H (75-99) mg/dL Troponin I (0.000-0.034) ng/mL 11/30/17 11/30/17 11/30/17 Range/Units 05:20 05:55 11:40 RBC (4.30-5.90) m/uL Hgb (13.0-17.5) gm/dL Hct (39.0-53.0) % MCHC (31.0-37.0) g/dL Neutrophils # (1.3-7.7) k/uL Lymphocytes # (1.0-4.8) k/uL PT (9.0-12.0) sec INR (<1.2) APTT (22.0-30.0) sec Chloride 96 L (98-107) mmol/L Carbon Dioxide 31 H (22-30) mmol/L BUN 43 H (9-20) mg/dL Creatinine 1.26 H (0.66-1.25) mg/dL Glucose 134 H (74-99) mg/dL POC Glucose (mg/dL) 161 H 156 H (75-99) mg/dL Troponin I (0.000-0.034) ng/mL Microbiology - Last 24 Hours (Table) 11/29/17 11:05 Gram Stain - Final Sputum Sputum Culture - Final 11/27/17 20:41 Blood Culture - Preliminary Blood No Growth after 48 hours 11/27/17 16:41 Blood Culture - Preliminary Blood No Growth after 48 hours Assessment and Plan Plan: Assessment and plan #1 respiratory distress secondary to combination of systolic congestive heart failure acute on chronic BNP level 43,000 on admission, pneumonia #2 known history of coronary artery disease with prior bypass surgery, recent heart catheterization revealed occlusion of all vein grafts an open JAVIER to the LAD, recent stenting to the circumflex. #3 severe ischemic cardiomyopathy with prior AICD #4 ventricular tachycardia with recent VT ablation earlier this month #5 paroxysmal atrial fibrillation, on Coumadin for anticoagulation, INR subtherapeutic at 1.4. #6 hypertension #7 hyperlipidemia #8 abnormal troponins, could be secondary to recent VT ablation, patient denies having any chest discomfort. Cannot rule out non-Q-wave AK. Plan We will continue the patient on his current dose of IV Lasix. Continue maximum medical therapy. Elevation in troponin could be secondary to recent VT ablation , and the patient has not complained of any chest discomfort. If the patient does develop chest discomfort cardiac catheterization will be performed, if patient remains stable from an angina perspective we will continue maximal medical therapy. We will give the patient 2 mg of Coumadin today. Check daily PT/INRs. DNP note has been reviewed, I agree with a documented findings and plan of care. Patient was seen and examined.
--- NOTE | 2017-11-30 16:04 | PN ---
PROGRESS NOTE DATE OF SERVICE: 11/30/2017 REASON FOR FOLLOWUP: Possible aspiration pneumonia. INTERVAL HISTORY: The patient is afebrile. He is still complaining of shortness of breath with minimal exertion. His cough has decreased in intensity and has been mostly dry in nature. No chest pain. No nausea or vomiting. No abdominal pain and no diarrhea. PHYSICAL EXAMINATION: Blood pressure is 90/64 with a pulse of 82, temperature 97.1. He is 90% on 5 L nasal cannula. General description is an elderly male lying in bed in no distress. RESPIRATORY SYSTEM: Unlabored breathing. Decreased breath sounds in the bases. No wheeze. HEART: S1, S2. Regular rate and rhythm. ABDOMEN: Soft. No tenderness. No guarding or rigidity. EXTREMITIES: Trace edema of feet. LABS: Hemoglobin 10.2 with white count 8.6, BUN of 43, creatinine 1.26. Blood cultures remain negative. Sputum has been checked by the micro lab. DIAGNOSTIC IMPRESSION AND PLAN: Patient admitted to hospital with increasing shortness of breath which is likely multifactorial in a patient with a likely component of pneumonia, question of possible aspiration etiology or a Gram-negative, currently covered with Zosyn. Levaquin will be continued. Will try to obtain another sputum sample for culture. Continue with supportive care. MMODL / IJN: [id number] /
[2017-11-30 16:46] LABS: Glucose,Whole Blood 153 mg/dL (75-99)
[2017-11-30] MEDS ORDERED: WARFARIN 2 MG TAB PO ONE (18:00)
[2017-11-30] MEDS: ALBUTEROL NEBULIZED 2.5 MG/3 ML INHALATION PRN (19:59)
[2017-11-30 21:14] LABS: Glucose,Whole Blood 200 mg/dL (75-99)
--- NOTE | 2017-11-30 22:22 | PN ---
PROGRESS NOTE DATE OF SERVICE: 11/30/2017 SUBJECTIVE: A 67-year-old white male who with ischemic cardiomyopathy, status post AICD in congestive heart failure, atrial fibrillation, admitted with cough, congestion and pulmonary pneumonia with pulmonary mass. He has an echo that shows 30%-35% ejection fraction. He is at 96% on 6L. White count is 5.3, hemoglobin is 9.6. Sodium 135, potassium 3.8, BUN 34, creatinine 1.1. He remains on IV antibiotics, IV steroids, IV Lasix. VITAL SIGNS: Temperature 97.1, pulse 80s, respiratory rate 18-20, blood pressure 90s/60s, O2 as mentioned above. Lungs show scattered rhonchi and wheeze. CARDIOVASCULAR: S1, S2. HEMATOLOGY: Negative Homans'. PSYCH: Fair mood and affect. ASSESSMENT: 1. Acute congestive heart failure. 2. Acute pneumonia. 3. Pulmonary mass. 4. Hypertension. 5. Dyslipidemia. 6. Ischemic cardiomyopathy. 7. Abnormal troponins. Elevated troponin secondary to ventricular tachycardia ablation. Continue with broad- spectrum IV antibiotics. MMODL / IJN: [id number] /
--- NOTE | 2017-11-30 22:22 | PN ---
PROGRESS NOTE DATE OF SERVICE: 11/29/2017 SUBJECTIVE: White male was admitted with pneumonia, CHF. He is on 5L oxygen at this time. Temp 96.6, pulse 77, respirations 18-20, blood pressure is low 90s/60s, O2 91% on 5L. CARDIOVASCULAR: S1, S2. Lungs show scattered wheeze and rhonchi. HEMATOLOGY: Negative Homans'. PSYCH: Fair mood and affect. ASSESSMENT: 1. Bilateral healthcare-acquired pneumonia. 2. Acute ischemic cardiomyopathy. 3. Acute systolic congestive heart failure. 4. 1.5-cm left upper lung mass suspicious for asbestos exposure versus mesothelioma. 5. Chronic obstructive pulmonary disease with asthma exacerbation, status post ventricular ablation. 6. Ischemic cardiomyopathy. 7. Hypertension. 8. Dyslipidemia. 9. Non ST-elevation myocardial infarction. Remain on bronchodilators, Pulmicort, IV antibiotics, IV Lasix. Prognosis guarded. MMODL / IJN: [id number] /
[2017-11-30] MEDS: DONEPEZIL 10 MG TAB PO SCH (22:45)
[2017-11-30] MEDS: LEVOFLOXACIN 500 MG TAB PO SCH (22:45)
[2017-12-01] MEDS: FUROSEMIDE 10 MG/ML 4 ML VIAL IV SCH ×4 (02:34→23:46)
[2017-12-01] MEDS: MEXILETINE 150 MG CAP PO SCH ×3 (02:34→15:53)
[2017-12-01] MEDS: PIPERACILLIN-TAZOBACTAM 3.375 GM in DEXTROSE/WATER 1 50ML.BAG IVPB SCH ×4 (02:34→23:46)
[2017-12-01 05:50] LABS: Glucose,Whole Blood 127 mg/dL (75-99)
[2017-12-01 06:18] LABS: Basophils % (A) 0 %; Eosinophils # (A) 0.1 k/uL (0-0.7); Eosinophils % (A) 1 %; HGB 10.3 gm/dL (13.0-17.5); Hypochromasia Marked; Lymphocytes # (A) 0.1 k/uL (1.0-4.8); Lymphocytes % (A) 1 %; MCH 27.2 pg (25.0-35.0); MCHC 30.3 g/dL (31.0-37.0); MCV 89.6 fL (80.0-100.0); Mean Platelet Volume 8.3; Monocytes # (A) 0.2 k/uL (0-1.0); Monocytes % (A) 2 %; Neutrophils % (A) 96 %; Platelet Count 265 k/uL (150-450); RDW 14.1 % (11.5-15.5); WBC 10.4 k/uL (3.8-10.6)
[2017-12-01 06:27] LABS: INR 2.6 (<1.2); Prothrombin Time 23.3 sec (9.0-12.0)
[2017-12-01 06:44] LABS: Blood Urea Nitrogen 41 mg/dL (9-20); Calcium 8.3 mg/dL (8.4-10.2); Carbon Dioxide 31 mmol/L (22-30); Chloride 95 mmol/L (98-107); Glucose 132 mg/dL (74-99); Potassium 3.5 mmol/L (3.5-5.1)
[2017-12-01 06:45] LABS: Anion Gap 10 mmol/L; Sodium 136 mmol/L (137-145)
[2017-12-01] MEDS: ALBUTEROL NEBULIZED 2.5 MG/3 ML INHALATION PRN ×2 (07:01→09:09)
[2017-12-01] MEDS: IPRATROPIUM 0.5 MG/2.5 ML NEBU INHALATION SCH ×2 (07:01→16:07)
[2017-12-01] MEDS: BUDESONIDE 0.5 MG/2 ML NEBU INHALATION SCH ×2 (07:01→20:33)
[2017-12-01] MEDS: PANTOPRAZOLE 40 MG TABLET PO SCH (07:07)
[2017-12-01] MEDS: INSULIN ASPART 100 UNIT/ML 1 ML 10 ML VIAL SQ SCH ×4 (07:15→21:09)
[2017-12-01] MEDS: ASPIRIN 81 MG PO SCH (08:53)
[2017-12-01] MEDS: AMIODARONE 100 MG TAB PO SCH (08:53)
[2017-12-01] MEDS: CLOPIDOGREL 75 MG TAB PO SCH (08:54)
[2017-12-01] MEDS: ATORVASTATIN 40 MG TAB PO SCH (08:54)
[2017-12-01] MEDS: GABAPENTIN 300 MG CAP PO SCH ×3 (08:54→21:08)
[2017-12-01] MEDS: SPIRONOLACTONE 25 MG TAB PO SCH (08:55)
[2017-12-01] MEDS: HEPARIN SOD,PORK IN 0.45% NACL 25,000 UNIT in 0.45% NACL 1 500ML.BAG IV SCH (08:56)
[2017-12-01] MEDS: HYDROcodone/APAP 10-325MG 1 EACH TAB PO SCH ×3 (09:13→21:08)
--- NOTE | 2017-12-01 10:28 | PN ---
PROGRESS NOTE Mr. Goncalves is a 67-year-old male with known history of severe ischemic cardiomyopathy who presented with symptoms of worsening congestive heart failure. He has mild dyspnea this morning, but overall feels better. He has no chest pain, no palpitation. He denies any dizziness. He has no further episode of ventricular tachycardia. He has been continued to receive IV diuretics. He continues to be on amiodarone 100 mg daily, aspirin once a day, Lipitor 40 mg daily, Plavix 75 mg daily, furosemide 40 mg IV q.8 hours, IV heparin, Coumadin, metoprolol 25 mg twice a day, mexiletine 150 mg q.8 hours, spironolactone 25 mg daily. PHYSICAL EXAMINATION: Blood pressure 129/60 with the heart rate in the 70s. LUNGS: Crackles at the bases. HEART: Regular rate and rhythm. S1, S2. No S3 with a systolic murmur. No diastolic murmur. ABDOMEN: Soft, nontender. EXTREMITIES: +1 edema, improved compared to yesterday. BUN and creatinine 43 and 1.3. Potassium 3.5. INR 2.6. Hemoglobin of 10.3. He lost 1 kg since yesterday. IMPRESSION: 1. Congestive heart failure with severe ischemic cardiomyopathy. 2. Status post recent ventricular tachycardia ablation. 3. History of coronary artery disease. 4. History of hyperlipidemia. 5. Chronic obstructive lung disease. RECOMMENDATION: We will continue IV diuresis for another 24 hours. Follow the renal function. I will stop the heparin at this time. Depending on his progress, further recommendation will be made. MMODL / IJN: [id number] /
[2017-12-01 11:44] LABS: Glucose,Whole Blood 162 mg/dL (75-99)
[2017-12-01] MEDS: METOPROLOL TARTRATE 25 MG TAB PO SCH ×2 (12:25→20:23)
[2017-12-01] MEDS: methylPREDNISolone SOD SUCCI 40 MG/ML 1 ML VIAL IV SCH (12:27)
--- NOTE | 2017-12-01 13:34 | XR ---
EXAMINATION TYPE: XR chest 1V portable DATE OF EXAM: 12/01/2017 COMPARISON: 11/30/2017 HISTORY: Shortness of breath TECHNIQUE: Single frontal view of the chest is obtained. FINDINGS: Postoperative change and cardiac device noted. There is airspace disease. There is a linea r density overlying the left thorax is stable. The lung markings distal to this. Definitive pneumotho rax is seen. Bilateral airspace disease is noted there suggestion of a left upper lobe pulmonary nodu le. Small bilateral pleural effusions and basilar consolidation noted. IMPRESSION: 1. Diffuse airspace disease with bilateral effusions is stable. Correlate for pneumonia versus CHF.
--- NOTE | 2017-12-01 16:30 | P.PN ---
Subjective Progress Note Date: 12/01/17 Principal diagnosis: Acute exacerbation of CHF Patient seen and examined. Patient states he is not feeling very well today. He is more short of breath. He is asking for a breathing treatment. He states he is coughing but unable to expectorate sputum. He denies fevers and chills. Objective - Vital Signs Vital signs: Vital Signs Temp 96.4 F L 12/01/17 04:00 Pulse 80 12/01/17 16:07 Resp 16 12/01/17 12:00 BP 86/56 12/01/17 12:00 Pulse Ox 96 12/01/17 12:00 Intake & Output 11/30/17 12/01/17 12/01/17 18:59 06:59 18:59 Intake Total 2080 500 261 Output Total 1150 1300 Balance 930 -800 261 Weight 70.4 kg 70.4 kg Intake: IV 210 25 Heparin Sod,Pork in 0.45% 180 25 NaCl 25,000 unit In 0.45 % NaCl 1 500ml.bag @ 12 UNITS/KG/HR 19.15 mls/hr IV .Q24H RIGOBERTO Rx#: [id number] Invasive Line 1 30 Intake, IV Titration 550 500 Amount Heparin Sod,Pork in 0.45% 500 500 NaCl 25,000 unit In 0.45 % NaCl 1 500ml.bag @ 12 UNITS/KG/HR 19.15 mls/hr IV .Q24H RIGOBERTO Rx#: [id number] Piperacillin-Tazobactam 3 50 .375 gm In Dextrose/Water 1 50ml.bag @ 12.5 mls/hr IVPB Q8HR RIGOBERTO Rx#: [id number] Oral 1320 236 Output: Urine 1150 1300 Other: Voiding Method Bedside Commode Bedside Commode Bedside Commode Urinal Urinal Urinal Incontinent Incontinent Incontinent # Voids 1 1 0 # Bowel Movements 1 1 - Exam Gen.: Patient is alert and oriented 3, no acute distress Cardiovascular: Regular rate and rhythm, S1/S2 Lungs: Scattered crackles bilaterally Abdomen: Soft nontender nondistended positive bowel sounds Extremity: Positive edema - Labs CBC & Chem 7: 12/01/17 05:54 12/01/17 05:54 Labs: Abnormal Lab Results - Last 24 Hours (Table) 11/30/17 11/30/17 12/01/17 Range/Units 16:42 21:13 05:48 RBC (4.30-5.90) m/uL Hgb (13.0-17.5) gm/dL Hct (39.0-53.0) % MCHC (31.0-37.0) g/dL Neutrophils # (1.3-7.7) k/uL Lymphocytes # (1.0-4.8) k/uL PT (9.0-12.0) sec INR (<1.2) APTT (22.0-30.0) sec Sodium (137-145) mmol/L Chloride (98-107) mmol/L Carbon Dioxide (22-30) mmol/L BUN (9-20) mg/dL Creatinine (0.66-1.25) mg/dL Glucose (74-99) mg/dL POC Glucose (mg/dL) 153 H 200 H 127 H (75-99) mg/dL Calcium (8.4-10.2) mg/dL 12/01/17 12/01/17 12/01/17 Range/Units 05:54 05:54 05:54 RBC 3.80 L (4.30-5.90) m/uL Hgb 10.3 L (13.0-17.5) gm/dL Hct 34.0 L (39.0-53.0) % MCHC 30.3 L (31.0-37.0) g/dL Neutrophils # 10.0 H (1.3-7.7) k/uL Lymphocytes # 0.1 L (1.0-4.8) k/uL PT 23.3 H (9.0-12.0) sec INR 2.6 H (<1.2) APTT (22.0-30.0) sec Sodium 136 L (137-145) mmol/L Chloride 95 L (98-107) mmol/L Carbon Dioxide 31 H (22-30) mmol/L BUN 41 H (9-20) mg/dL Creatinine 1.30 H (0.66-1.25) mg/dL Glucose 132 H (74-99) mg/dL POC Glucose (mg/dL) (75-99) mg/dL Calcium 8.3 L (8.4-10.2) mg/dL 12/01/17 12/01/17 Range/Units 05:54 11:43 RBC (4.30-5.90) m/uL Hgb (13.0-17.5) gm/dL Hct (39.0-53.0) % MCHC (31.0-37.0) g/dL Neutrophils # (1.3-7.7) k/uL Lymphocytes # (1.0-4.8) k/uL PT (9.0-12.0) sec INR (<1.2) APTT 74.2 H (22.0-30.0) sec Sodium (137-145) mmol/L Chloride (98-107) mmol/L Carbon Dioxide (22-30) mmol/L BUN (9-20) mg/dL Creatinine (0.66-1.25) mg/dL Glucose (74-99) mg/dL POC Glucose (mg/dL) 162 H (75-99) mg/dL Calcium (8.4-10.2) mg/dL Microbiology - Last 24 Hours (Table) 11/27/17 20:41 Blood Culture - Preliminary Blood No Growth after 72 hours 11/27/17 16:41 Blood Culture - Preliminary Blood No Growth after 72 hours Assessment and Plan Assessment: Bilateral healthcare acquired pneumonia Acute exacerbation of CHF, systolic, EF 30-35% 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 Pleural thickening concerning for asbestos exposure vs mesothelioma Lower extremity edema COPD with asthma, unknown type Recent ventricular ablation Coronary artery disease and ischemic cardiomyopathy, status post CABG Hypertension Dyslipidemia NSTEMI O2 sats maintain saturation greater than or equal to 90% Antibiotics Bronchodilators Pulmicort Incentive spirometry and pulmonary hygiene Sputum culture - normal samantha Diuresis Aspiration precautions Solu-Medrol taper GI and DVT prophylaxis PT OT Patient may benefit from pulmonary rehab which can be arranged as an outpatient Patient will need follow up PET/CT as an outpatient for 1.5 cm left upper lobe lung mass No plan for thoracentesis, effusion improved Add Mucinex and flutter therapy
[2017-12-01 16:43] LABS: Glucose,Whole Blood 158 mg/dL (75-99)
--- NOTE | 2017-12-01 17:08 | PN ---
PROGRESS NOTE DATE OF SERVICE: 12/01/2017 REASON FOR FOLLOWUP: Possible aspiration pneumonia. INTERVAL HISTORY: The patient is afebrile. He has been complaining of more shortness of breath today. He has very minimal cough, not bringing up any sputum. No chest pain. No nausea, no vomiting, no abdominal pain and no diarrhea. PHYSICAL EXAMINATION: Blood pressure is 129/57 with a pulse of 74, temperature of 98. He is 96% on 3 L nasal cannula. General description is an elderly male up in the chair in no distress. RESPIRATORY SYSTEM: Unlabored breathing with decreased intensity of breath sounds. No wheeze. HEART: S1, S2. Regular rate and rhythm. ABDOMEN: Soft. No tenderness. LABS: Hemoglobin 10.3, white count 10.4 with a BUN of 41, creatinine 1.30. Blood cultures remain negative. Sputum was rejected. DIAGNOSTIC IMPRESSION AND PLAN: Patient admitted to hospital with shortness of breath which is multifactorial with a component of possible pneumonia, aspiration etiology. The patient is not running any fever. White count is normal. However, he has complaints of more shortness of breath. Question of possible fluid overload. Chest x-ray has been ordered STAT. RN from Pulmonary has been informed, too, about his condition. Will keep the patient on Zosyn and Levaquin at this point. Continue with supportive care. MMODL / IJN: [id number] /
[2017-12-01] MEDS: guaiFENesin 600 MG TABLET.ER PO SCH (20:22)
[2017-12-01] MEDS: DONEPEZIL 10 MG TAB PO SCH (20:22)
[2017-12-01] MEDS: LEVOFLOXACIN 500 MG TAB PO SCH (20:22)
[2017-12-01] MEDS: IPRATROPIUM-ALBUTEROL 3 ML NEB INHALATION PRN (20:33)
[2017-12-01 20:46] LABS: Glucose,Whole Blood 175 mg/dL (75-99)
--- NOTE | 2017-12-01 22:59 | PN ---
PROGRESS NOTE This is a 67-year-old white male with acute exacerbation of COPD and CHF, slowly improving. He also has a lung mass and may need biopsy . Temperature 96, pulse 80, respiratory 16 to 18, blood pressure 80s over 50s, oxygen 96%. Hemoglobin is 10.3. ASSESSMENT: 1. Chronic obstructive pulmonary disease with asthma. 2. Ventricular ablation. 3. Coronary artery disease. 4. Ischemic cardiomyopathy. 5. Hypertension. 6. Dyslipidemia. 7. [id number] myocardial infarction. 8. Healthcare-acquired pneumonia. 9. Left upper lung mass measuring 1.5 cm. May have pulmonary rehab, PET scan as an outpatient for lung mass. Please see further orders in the chart. MMODL / IJN: [id number] /
[2017-12-02] MEDS: IPRATROPIUM 0.5 MG/2.5 ML NEBU INHALATION SCH ×4 (00:23→23:40)
[2017-12-02] MEDS: MEXILETINE 150 MG CAP PO SCH ×3 (01:55→17:19)
[2017-12-02 05:27] LABS: Basophils % (A) 0 %; Eosinophils # (A) 0.1 k/uL (0-0.7); Eosinophils % (A) 1 %; HCT 35.2 % (39.0-53.0); HGB 10.7 gm/dL (13.0-17.5); Hypochromasia Marked; Lymphocytes # (A) 0.2 k/uL (1.0-4.8); Lymphocytes % (A) 2 %; MCH 27.4 pg (25.0-35.0); MCHC 30.4 g/dL (31.0-37.0); MCV 90.3 fL (80.0-100.0); Mean Platelet Volume 8.8; Monocytes # (A) 0.2 k/uL (0-1.0); Monocytes % (A) 2 %; Neutrophils # (A) 11.8 k/uL (1.3-7.7); Neutrophils % (A) 95 %; Platelet Count 165 k/uL (150-450); RBC 3.89 m/uL (4.30-5.90); RDW 15.8 % (11.5-15.5); WBC 12.4 k/uL (3.8-10.6)
[2017-12-02 05:40] LABS: Anion Gap 9 mmol/L; Blood Urea Nitrogen 36 mg/dL (9-20); Calcium 8.6 mg/dL (8.4-10.2); Carbon Dioxide 34 mmol/L (22-30); Chloride 91 mmol/L (98-107); Glucose 101 mg/dL (74-99); Potassium 3.9 mmol/L (3.5-5.1); Sodium 134 mmol/L (137-145)
[2017-12-02 06:05] LABS: Glucose,Whole Blood 114 mg/dL (75-99)
[2017-12-02] MEDS: INSULIN ASPART 100 UNIT/ML 1 ML 10 ML VIAL SQ SCH ×4 (06:07→21:40)
[2017-12-02] MEDS: PANTOPRAZOLE 40 MG TABLET PO SCH (06:08)
[2017-12-02] MEDS: BUDESONIDE 0.5 MG/2 ML NEBU INHALATION SCH ×2 (06:59→20:10)
[2017-12-02] MEDS: guaiFENesin 600 MG TABLET.ER PO SCH ×2 (08:12→21:39)
[2017-12-02] MEDS: METOPROLOL TARTRATE 25 MG TAB PO SCH ×2 (08:12→21:39)
[2017-12-02] MEDS: methylPREDNISolone SOD SUCCI 40 MG/ML 1 ML VIAL IV SCH (08:12)
[2017-12-02] MEDS: FUROSEMIDE 10 MG/ML 4 ML VIAL IV SCH (08:12)
[2017-12-02] MEDS: CLOPIDOGREL 75 MG TAB PO SCH (08:12)
[2017-12-02] MEDS: ASPIRIN 81 MG PO SCH (08:12)
[2017-12-02] MEDS: AMIODARONE 100 MG TAB PO SCH (08:12)
[2017-12-02] MEDS: ATORVASTATIN 40 MG TAB PO SCH (08:12)
[2017-12-02] MEDS: SPIRONOLACTONE 25 MG TAB PO SCH (08:13)
[2017-12-02] MEDS: GABAPENTIN 300 MG CAP PO SCH ×3 (08:13→21:40)
[2017-12-02] MEDS: HYDROcodone/APAP 10-325MG 1 EACH TAB PO SCH ×3 (08:17→21:45)
[2017-12-02] MEDS: PIPERACILLIN-TAZOBACTAM 3.375 GM in DEXTROSE/WATER 1 50ML.BAG IVPB SCH ×2 (09:17→17:18)
[2017-12-02] MEDS: IPRATROPIUM-ALBUTEROL 3 ML NEB INHALATION PRN ×2 (11:07→20:10)
--- NOTE | 2017-12-02 11:18 | PN ---
PROGRESS NOTE DATE OF SERVICE: 12/02/2017 Patient is a 67-year-old male who is seen sitting up in bed, is awake, alert, does feel a little better today, does continue to complain of extreme shortness of breath with any type of activity or exertion. Patient is afebrile, hemodynamically stable, in no acute distress. PHYSICAL EXAM: VITAL SIGNS: Temp 97, heart rate is 86, respiratory rate is 16, blood pressure is 105/62, O2 sats 93% on 5 L O2 via nasal cannula. HEENT: Head is normocephalic, atraumatic. Neck is supple. Trachea is midline. Lungs with decreased breath sounds. No rales or wheezes. HEART: S1 and S2 heard. Not tachycardic. ABDOMEN: Soft. Bowel sounds are heard. Extremities with 1+ pitting edema bilaterally. NEUROLOGIC: Patient is awake and alert. LABS: White count is 12.4, hemoglobin is 10.7, hematocrit is 35.2, with 165,000 platelets. Sodium is 134, potassium is 3.9, chloride is 91, CO2 is 34, anion gap is 9, BUN is 36, creatinine is 1.2, glucose is 101, calcium is 8.6. No new imaging to review. IMPRESSION: 1. Bilateral healthcare acquired pneumonia, acute exacerbation of congestive heart failure, systolic, ejection fraction 30% to 35%. 2. 1.5 cm left upper lobe lung mass. 3. Pleural thickening concerning for asbestos exposure versus mesothelioma. 4. Lower extremity edema. 5. Chronic obstructive pulmonary disease with asthma, unknown type. 6. Recent ventricular ablation. 7. Coronary artery disease and ischemic cardiomyopathy, status post coronary artery bypass grafting. 8. Hypertension. 9. Dyslipidemia. 10.N-STEMI. PLAN: 1. Continue oxygen to maintain sats greater than or equal to 90%. Continue current medications which have been reviewed with bronchodilators, aerosol steroids, and antibiotics. Continue GI and DVT prophylaxis. Patient may benefit from pulmonary rehab, which can be arranged as an outpatient. Patient will also need a followup PET/CT as an outpatient for 1.5 cm left upper lobe lung mass. 2. Continue pulmonary hygiene with IS and flutter therapy and will follow patient closely with you, making further changes as necessary. MMODL / IJN: [id number] /
[2017-12-02 11:34] LABS: Glucose,Whole Blood 112 mg/dL (75-99)
[2017-12-02 11:54] LABS: INR 4.5 (<1.2); Prothrombin Time 40.2 sec (9.0-12.0)
--- NOTE | 2017-12-02 14:17 | P.PN ---
Subjective Progress Note Date: 12/02/17 This is a 67-year-old gentleman with known history of coronary artery disease prior bypass surgery as well as a prior PCI, ischemic cardio myopathy with prior AICD, patient was just recently discharged home from the hospital after being here with ventricular tachycardia status post ablation, as well as associated congestive heart failure, patient also has history of atrial fibrillation, paroxysmal, hypothyroidism, hypertension, hyperlipidemia. He was discharged home from the hospital and gradually became more and more short of breath, significant orthopnea and exertional shortness of breath. He denies any overt chest discomfort, he states he's been coughing up a significant amount of dark green sputum. He denies having any fever or chills at home. At the time of my examination this morning, patient is quite short of breath, just having conversation. He was initiated on IV Lasix in the emergency room, his weight is down significantly from admission this morning. The patient, he has significant peripheral edema on arrival here, he continues to have mild peripheral edema this morning. Blood pressure on arrival here 110/64, heart rate 103, 92% on room air. Blood pressure this morning 100/70, 90% on 6 L of oxygen. White blood cell count 7.1, hemoglobin 9.6, INR 1.4, sodium 138, potassium 4.2, BUN 30, creatinine 0.8. AST 144 on admission, 101 this morning, ALT 74 on admission, 77 this morning. Alk phos 366. Troponin 14.3 and 8.6. BNP level on admission 43,600, 31,400 this morning. And BE were negative. Chest x-ray revealed similar appearing left upper lung opaque sitting, atypical pneumonitis or pneumonia should be considered on the background of pulmonary vascular congestion. CAT scan of the chest was performed which revealed pleural effusions, extensive bilateral pulmonary infiltrates and significant pulmonary interstitial fibrosis. Bilateral patchy extensive pleural thickening consistent with scarring. The possibility of mesothelioma cannot be excluded. Left upper lobe pulmonary mass of 1.5 cm. EKG on arrival here showed a normal sinus rhythm with inferior Q waves and nonspecific ST-T wave changes. Echocardiogram with Doppler study performed revealed an ejection fraction of 30- 35% with evidence of anterior septal, apical, and lateral hypokinesia. Moderate to severe MR. 11/29/2017 Patient was seen and examined this morning, he diuresed well through the night last night and states that his breathing is significantly improved. Blood pressure 92/60 with a heart rate in the 70s, 96% on 6 L of oxygen. A blood cell count 5.3, hemoglobin 9.6, platelet count 304. Sodium 135, potassium 3.8, BUN [address], [address] Vázquez did have a discussion with Dr. Cameron regarding VT ablation, they concur that the patient's abnormality in troponin could be secondary to the VT ablation. At this time we will continue maximal medical therapy. Patient is chest pain-free, if patient does have chest discomfort will proceed with cardiac catheterization. If patient remains stable and chest pain-free we will continue current medical therapy. 11/30/2017 Patient seen and examined this morning, continues to feel better every day. Denies any chest discomfort. Breathing overall is stable. INR 1.7, hemoglobin 10.2, creatinine 1.2. We'll check labs in the morning, continue IV Lasix for 24 hours. 12/02/2017 Patient seen and examined this morning, continues to feel better today. INR 4.5. Insurance are being made for the patient to be transferred to [facility]. We will hold the Coumadin today check PT/INR. Objective - Vital Signs Vital signs: Vital Signs Temp 97 F L 12/02/17 08:00 Pulse 76 12/02/17 12:00 Resp 16 12/02/17 12:00 BP 96/62 12/02/17 12:00 Pulse Ox 97 12/02/17 12:00 Intake & Output 12/01/17 12/02/17 12/02/17 18:59 06:59 18:59 Intake Total 501 290 118 Output Total 351 Balance 501 -61 118 Weight 70.4 kg 69.5 kg Intake: IV 25 Heparin Sod,Pork in 0.45% 25 NaCl 25,000 unit In 0.45 % NaCl 1 500ml.bag @ 12 UNITS/KG/HR 19.15 mls/hr IV .Q24H RIGOBERTO Rx#: [id number] Intake, IV Titration 50 Amount Piperacillin-Tazobactam 3 50 .375 gm In Dextrose/Water 1 50ml.bag @ 12.5 mls/hr IVPB Q8HR RIGOBERTO Rx#: [id number] Oral 476 240 118 Output: Urine 350 Urine/Stool Mix 1 Other: Voiding Method Bedside Commode Bedside Commode Bedside Commode Urinal Urinal Urinal Incontinent Incontinent Incontinent # Voids 0 0 - Exam PHYSICAL EXAMINATION: HEENT: Head is atraumatic, normocephalic. Pupils equal, round. Neck is supple. There is elevated jugular venous pressure. HEART EXAMINATION: Heart S1 and S2 systolic murmur is heard CHEST EXAMINATION: Lungs reveal decreased air exchange throughout, scattered coarse rhonchi, mild wheezing, diminished air entry to the bases. ABDOMEN: Soft, nontender. Bowel sounds are heard. No organomegaly noted. EXTREMITIES: 2+ peripheral pulses with trace evidence of peripheral edema and no calf tenderness noted. NEUROLOGIC patient is awake, alert and oriented -3. . - Labs CBC & Chem 7: 12/02/17 05:16 12/02/17 05:16 Labs: Abnormal Lab Results - Last 24 Hours (Table) 12/01/17 12/01/17 12/02/17 Range/Units 16:41 20:45 05:16 WBC 12.4 H (3.8-10.6) k/uL RBC 3.89 L (4.30-5.90) m/uL Hgb 10.7 L (13.0-17.5) gm/dL Hct 35.2 L (39.0-53.0) % MCHC 30.4 L (31.0-37.0) g/dL RDW 15.8 H (11.5-15.5) % Neutrophils # 11.8 H (1.3-7.7) k/uL Lymphocytes # 0.2 L (1.0-4.8) k/uL PT (9.0-12.0) sec INR (<1.2) Sodium (137-145) mmol/L Chloride (98-107) mmol/L Carbon Dioxide (22-30) mmol/L BUN (9-20) mg/dL Glucose (74-99) mg/dL POC Glucose (mg/dL) 158 H 175 H (75-99) mg/dL 12/02/17 12/02/17 12/02/17 Range/Units 05:16 06:01 11:10 WBC (3.8-10.6) k/uL RBC (4.30-5.90) m/uL Hgb (13.0-17.5) gm/dL Hct (39.0-53.0) % MCHC (31.0-37.0) g/dL RDW (11.5-15.5) % Neutrophils # (1.3-7.7) k/uL Lymphocytes # (1.0-4.8) k/uL PT 40.2 H (9.0-12.0) sec INR 4.5 H (<1.2) Sodium 134 L (137-145) mmol/L Chloride 91 L (98-107) mmol/L Carbon Dioxide 34 H (22-30) mmol/L BUN 36 H (9-20) mg/dL Glucose 101 H (74-99) mg/dL POC Glucose (mg/dL) 114 H (75-99) mg/dL 12/02/17 Range/Units 11:32 WBC (3.8-10.6) k/uL RBC (4.30-5.90) m/uL Hgb (13.0-17.5) gm/dL Hct (39.0-53.0) % MCHC (31.0-37.0) g/dL RDW (11.5-15.5) % Neutrophils # (1.3-7.7) k/uL Lymphocytes # (1.0-4.8) k/uL PT (9.0-12.0) sec INR (<1.2) Sodium (137-145) mmol/L Chloride (98-107) mmol/L Carbon Dioxide (22-30) mmol/L BUN (9-20) mg/dL Glucose (74-99) mg/dL POC Glucose (mg/dL) 112 H (75-99) mg/dL Microbiology - Last 24 Hours (Table) 12/01/17 07:15 Gram Stain - Preliminary Sputum Sputum Culture - Preliminary 11/27/17 20:41 Blood Culture - Preliminary Blood No Growth after 96 hours 11/27/17 16:41 Blood Culture - Preliminary Blood No Growth after 96 hours Assessment and Plan Plan: Assessment and plan #1 respiratory distress secondary to combination of systolic congestive heart failure acute on chronic BNP level 43,000 on admission, pneumonia #2 known history of coronary artery disease with prior bypass surgery, recent heart catheterization revealed occlusion of all vein grafts an open JAVIER to the LAD, recent stenting to the circumflex. #3 severe ischemic cardiomyopathy with prior AICD #4 ventricular tachycardia with recent VT ablation earlier this month #5 paroxysmal atrial fibrillation, on Coumadin for anticoagulation, INR subtherapeutic at 1.4. #6 hypertension #7 hyperlipidemia #8 abnormal troponins, could be secondary to recent VT ablation, patient denies having any chest discomfort. Cannot rule out non-Q-wave [place]. Plan We will discontinue the IV Lasix and start the patient on oral diuretics. Hold Coumadin today check daily PT/INRs patient may be able to be discharged to ECF once cleared by the primary, we'll make a follow-up appointment with Dr. Price in the office post discharge. DNP note has been reviewed, I agree with a documented findings and plan of care. Patient was seen and examined.
[2017-12-02 16:44] LABS: Glucose,Whole Blood 220 mg/dL (75-99)
[2017-12-02] MEDS: FUROSEMIDE 40 MG TAB PO SCH (17:20)
--- NOTE | 2017-12-02 18:33 | PN ---
PROGRESS NOTE This white male has been treated with IV Solu-Medrol and IV Zosyn for pneumonia, COPD exacerbation. He has a left upper lung mass which may need to be biopsied as an outpatient. The patient is requesting to go to a rehab center. CARDIOVASCULAR: S1 and S2. LUNGS: Transmitted upper airway sounds. Scattered wheeze. HEMATOLOGY: Negative Homans. PSYCH: Fair mood and affect. OPHTHALMOLOGIC: Pupils equal, round and react to light and accommodation. Heart rate is in the 80s, temperature 97, respiratory rate 16 to 18. Blood pressure is 105/62, oxygen 93% on 5 L. The patient has bilateral healthcare-acquired pneumonia, acute on chronic congestive heart failure, ischemic cardiomyopathy, left upper lung mass. Remains on IV Solu- Medrol. Awaiting rehab placement for the patient. BUN is 36, creatinine 1.2. He has some asbestos exposure with mesothelioma with COPD, recent ventricular ablation, hypertension, dyslipidemia, non-STEMI. Continue oxygen. PET scan as an outpatient. He will need rehab placement, as he states if he goes home he will come right back to the hospital. He will need to go to rehab for a short period of time. MMODL / IJN: [id number] /
[2017-12-02 21:08] LABS: Glucose,Whole Blood 118 mg/dL (75-99)
[2017-12-02] MEDS: DONEPEZIL 10 MG TAB PO SCH (21:39)
[2017-12-02] MEDS: LEVOFLOXACIN 500 MG TAB PO SCH (21:39)
--- NOTE | 2017-12-02 22:30 | PN ---
PROGRESS NOTE DATE OF SERVICE: 12/02/2016. REASON FOR FOLLOWUP: Aspiration pneumonia. INTERVAL HISTORY: The patient is afebrile. He is breathing more comfortably than yesterday. Denies having any chest pain. Cough has decreased in intensity, mostly dry in nature. No nausea, no vomiting, no abdominal pain, no diarrhea. EXAMINATION: His blood pressure is 96/62 with a pulse of 73, temperature of 98. He is 95% on 5L nasal cannula. General description is an elderly male lying in bed in no distress. RESPIRATORY SYSTEM: Unlabored breathing with decreased breath sounds in the bases. No wheeze. HEART: S1, S2. Regular rate and rhythm. ABDOMEN: Soft. No tenderness. LABS: Hemoglobin is 10.7, white count 12.4. Repeat sputum has been obtained which is currently pending. DIAGNOSTIC IMPRESSION AND PLAN: Patient admitted to hospital with difficulty breathing which is multifactorial with a component of pneumonia with a question of possible aspiration. He is currently covered with Zosyn and Levaquin that will be continued. Will wait for the repeat sputum culture to finalize to adjust the medication further if needed. MMODL / IJN: [id number] /
[2017-12-03] MEDS: MEXILETINE 150 MG CAP PO SCH ×4 (00:43→20:14)
[2017-12-03] MEDS: PIPERACILLIN-TAZOBACTAM 3.375 GM in DEXTROSE/WATER 1 50ML.BAG IVPB SCH ×4 (00:45→23:14)
[2017-12-03 06:06] LABS: Glucose,Whole Blood 94 mg/dL (75-99)
[2017-12-03 06:50] LABS: Basophils % (A) 0 %; Eosinophils % (A) 0 %; HCT 36.8 % (39.0-53.0); HGB 11.1 gm/dL (13.0-17.5); Hypochromasia Marked; Lymphocytes # (A) 0.4 k/uL (1.0-4.8); Lymphocytes % (A) 3 %; MCH 26.8 pg (25.0-35.0); MCHC 30.1 g/dL (31.0-37.0); MCV 88.9 fL (80.0-100.0); Mean Platelet Volume 9.4; Monocytes # (A) 0.3 k/uL (0-1.0); Monocytes % (A) 2 %; Neutrophils # (A) 12.9 k/uL (1.3-7.7); Neutrophils % (A) 94 %; Platelet Count 142 k/uL (150-450); RBC 4.14 m/uL (4.30-5.90); RDW 14.4 % (11.5-15.5); WBC 13.7 k/uL (3.8-10.6)
[2017-12-03] MEDS: INSULIN ASPART 100 UNIT/ML 1 ML 10 ML VIAL SQ SCH ×4 (07:41→23:11)
[2017-12-03] MEDS: PANTOPRAZOLE 40 MG TABLET PO SCH (07:41)
[2017-12-03] MEDS: guaiFENesin 600 MG TABLET.ER PO SCH ×2 (07:42→20:14)
[2017-12-03] MEDS: SPIRONOLACTONE 25 MG TAB PO SCH (07:43)
[2017-12-03] MEDS: methylPREDNISolone SOD SUCCI 40 MG/ML 1 ML VIAL IV SCH (07:43)
[2017-12-03] MEDS: METOPROLOL TARTRATE 25 MG TAB PO SCH ×2 (07:43→20:14)
[2017-12-03] MEDS: ATORVASTATIN 40 MG TAB PO SCH (07:44)
[2017-12-03] MEDS: FUROSEMIDE 40 MG TAB PO SCH ×2 (07:44→16:38)
[2017-12-03] MEDS: GABAPENTIN 300 MG CAP PO SCH ×3 (07:44→20:15)
[2017-12-03] MEDS: CLOPIDOGREL 75 MG TAB PO SCH (07:44)
[2017-12-03] MEDS: ASPIRIN 81 MG PO SCH (07:44)
[2017-12-03] MEDS: AMIODARONE 100 MG TAB PO SCH (07:44)
[2017-12-03] MEDS: HYDROcodone/APAP 10-325MG 1 EACH TAB PO SCH ×3 (07:52→23:12)
[2017-12-03 08:31] LABS: Anion Gap 16 mmol/L; Blood Urea Nitrogen 31 mg/dL (9-20); Calcium 8.3 mg/dL (8.4-10.2); Carbon Dioxide 33 mmol/L (22-30); Chloride 86 mmol/L (98-107); Glucose 99 mg/dL (74-99); Potassium 3.7 mmol/L (3.5-5.1); Sodium 135 mmol/L (137-145)
[2017-12-03] MEDS: SACUBITRIL/VALSARTAN 24 MG-26 MG TABLET PO SCH ×3 (09:11→23:30)
[2017-12-03 09:33] LABS: Prothrombin Time 27.3 sec (9.0-12.0)
[2017-12-03] MEDS: BUDESONIDE 0.5 MG/2 ML NEBU INHALATION SCH ×2 (09:38→20:44)
[2017-12-03] MEDS: IPRATROPIUM 0.5 MG/2.5 ML NEBU INHALATION SCH ×3 (09:38→23:51)
--- NOTE | 2017-12-03 10:11 | P.PN ---
Subjective Progress Note Date: 12/03/17 This is a 67-year-old gentleman with known history of coronary artery disease prior bypass surgery as well as a prior PCI, ischemic cardio myopathy with prior AICD, patient was just recently discharged home from the hospital after being here with ventricular tachycardia status post ablation, as well as associated congestive heart failure, patient also has history of atrial fibrillation, paroxysmal, hypothyroidism, hypertension, hyperlipidemia. He was discharged home from the hospital and gradually became more and more short of breath, significant orthopnea and exertional shortness of breath. He denies any overt chest discomfort, he states he's been coughing up a significant amount of dark green sputum. He denies having any fever or chills at home. At the time of my examination this morning, patient is quite short of breath, just having conversation. He was initiated on IV Lasix in the emergency room, his weight is down significantly from admission this morning. The patient, he has significant peripheral edema on arrival here, he continues to have mild peripheral edema this morning. Blood pressure on arrival here 110/64, heart rate 103, 92% on room air. Blood pressure this morning 100/70, 90% on 6 L of oxygen. White blood cell count 7.1, hemoglobin 9.6, INR 1.4, sodium 138, potassium 4.2, BUN 30, creatinine 0.8. AST 144 on admission, 101 this morning, ALT 74 on admission, 77 this morning. Alk phos 366. Troponin 14.3 and 8.6. BNP level on admission 43,600, 31,400 this morning. And BE were negative. Chest x-ray revealed similar appearing left upper lung opaque sitting, atypical pneumonitis or pneumonia should be considered on the background of pulmonary vascular congestion. CAT scan of the chest was performed which revealed pleural effusions, extensive bilateral pulmonary infiltrates and significant pulmonary interstitial fibrosis. Bilateral patchy extensive pleural thickening consistent with scarring. The possibility of mesothelioma cannot be excluded. Left upper lobe pulmonary mass of 1.5 cm. EKG on arrival here showed a normal sinus rhythm with inferior Q waves and nonspecific ST-T wave changes. Echocardiogram with Doppler study performed revealed an ejection fraction of 30- 35% with evidence of anterior septal, apical, and lateral hypokinesia. Moderate to severe MR. 11/29/2017 Patient was seen and examined this morning, he diuresed well through the night last night and states that his breathing is significantly improved. Blood pressure 92/60 with a heart rate in the 70s, 96% on 6 L of oxygen. A blood cell count 5.3, hemoglobin 9.6, platelet count 304. Sodium 135, potassium 3.8, BUN [address] Vázquez did have a discussion with Dr. Cameron regarding VT ablation, they concur that the patient's abnormality in troponin could be secondary to the VT ablation. At this time we will continue maximal medical therapy. Patient is chest pain-free, if patient does have chest discomfort will proceed with cardiac catheterization. If patient remains stable and chest pain-free we will continue current medical therapy. 11/30/2017 Patient seen and examined this morning, continues to feel better every day. Denies any chest discomfort. Breathing overall is stable. INR 1.7, hemoglobin 10.2, creatinine 1.2. We'll check labs in the morning, continue IV Lasix for 24 hours. 12/02/2017 Patient seen and examined this morning, continues to feel better today. INR 4.5.b Arrangements are being made for the patient to be transferred to [facility]. We will hold the Coumadin today check PT/INR. 12/03/2017 Seen and examined this morning, feeling better. INR this morning is 3.0. We will start the patient on Entresto today, continue to observe for 48 hours or so. Objective - Vital Signs Vital signs: Vital Signs Temp 97.5 F L 12/03/17 07:37 Pulse 82 12/03/17 09:51 Resp 20 12/03/17 07:37 BP 122/64 12/03/17 07:37 Pulse Ox 95 12/03/17 07:37 Intake & Output 12/02/17 12/03/17 12/03/17 18:59 06:59 18:59 Intake Total 949 240 Output Total 400 500 Balance 549 -500 240 Weight 69.5 kg Intake: Oral 949 240 Output: Urine 400 500 Other: Voiding Method Bedside Commode Bedside Commode Urinal Urinal Incontinent Incontinent - Exam PHYSICAL EXAMINATION: HEENT: Head is atraumatic, normocephalic. Pupils equal, round. Neck is supple. There is elevated jugular venous pressure. HEART EXAMINATION: Heart S1 and S2 systolic murmur is heard CHEST EXAMINATION: Lungs reveal decreased air exchange throughout, scattered coarse rhonchi, mild wheezing, diminished air entry to the bases. ABDOMEN: Soft, nontender. Bowel sounds are heard. No organomegaly noted. EXTREMITIES: 2+ peripheral pulses with trace evidence of peripheral edema and no calf tenderness noted. NEUROLOGIC patient is awake, alert and oriented -3. . - Labs CBC & Chem 7: 12/03/17 05:47 12/03/17 05:56 Labs: Abnormal Lab Results - Last 24 Hours (Table) 12/02/17 12/02/17 12/02/17 Range/Units 11:10 11:32 16:38 WBC (3.8-10.6) k/uL RBC (4.30-5.90) m/uL Hgb (13.0-17.5) gm/dL Hct (39.0-53.0) % MCHC (31.0-37.0) g/dL Plt Count (150-450) k/uL Neutrophils # (1.3-7.7) k/uL Lymphocytes # (1.0-4.8) k/uL PT 40.2 H (9.0-12.0) sec INR 4.5 H (<1.2) Sodium (137-145) mmol/L Chloride (98-107) mmol/L Carbon Dioxide (22-30) mmol/L BUN (9-20) mg/dL POC Glucose (mg/dL) 112 H 220 H (75-99) mg/dL Calcium (8.4-10.2) mg/dL 12/02/17 12/03/17 12/03/17 Range/Units 21:06 05:47 05:56 WBC 13.7 H (3.8-10.6) k/uL RBC 4.14 L (4.30-5.90) m/uL Hgb 11.1 L (13.0-17.5) gm/dL Hct 36.8 L (39.0-53.0) % MCHC 30.1 L (31.0-37.0) g/dL Plt Count 142 L (150-450) k/uL Neutrophils # 12.9 H (1.3-7.7) k/uL Lymphocytes # 0.4 L (1.0-4.8) k/uL PT (9.0-12.0) sec INR (<1.2) Sodium 135 L (137-145) mmol/L Chloride 86 L (98-107) mmol/L Carbon Dioxide 33 H (22-30) mmol/L BUN 31 H (9-20) mg/dL POC Glucose (mg/dL) 118 H (75-99) mg/dL Calcium 8.3 L (8.4-10.2) mg/dL 12/03/17 Range/Units 08:27 WBC (3.8-10.6) k/uL RBC (4.30-5.90) m/uL Hgb (13.0-17.5) gm/dL Hct (39.0-53.0) % MCHC (31.0-37.0) g/dL Plt Count (150-450) k/uL Neutrophils # (1.3-7.7) k/uL Lymphocytes # (1.0-4.8) k/uL PT 27.3 H (9.0-12.0) sec INR 3.0 H (<1.2) Sodium (137-145) mmol/L Chloride (98-107) mmol/L Carbon Dioxide (22-30) mmol/L BUN (9-20) mg/dL POC Glucose (mg/dL) (75-99) mg/dL Calcium (8.4-10.2) mg/dL Microbiology - Last 24 Hours (Table) 12/01/17 07:15 Gram Stain - Final Sputum Sputum Culture - Final 11/27/17 20:41 Blood Culture - Preliminary Blood No Growth after 120 hours 11/27/17 16:41 Blood Culture - Preliminary Blood No Growth after 120 hours Assessment and Plan Plan: Assessment and plan #1 respiratory distress secondary to combination of systolic congestive heart failure acute on chronic BNP level 43,000 on admission, pneumonia #2 known history of coronary artery disease with prior bypass surgery, recent heart catheterization revealed occlusion of all vein grafts an open JAVIER to the LAD, recent stenting to the circumflex. #3 severe ischemic cardiomyopathy with prior AICD #4 ventricular tachycardia with recent VT ablation earlier this month #5 paroxysmal atrial fibrillation, on Coumadin for anticoagulation, INR subtherapeutic at 1.4. #6 hypertension #7 hyperlipidemia #8 abnormal troponins, could be secondary to recent VT ablation, patient denies having any chest discomfort. Cannot rule out non-Q-wave [place]. Plan We will start the patient on Entresto today, continue to observe for 48 hours. DNP note has been reviewed, I agree with a documented findings and plan of care. Patient was seen and examined.
[2017-12-03 11:51] LABS: Glucose,Whole Blood 113 mg/dL (75-99)
--- NOTE | 2017-12-03 13:34 | PN ---
PROGRESS NOTE SUBJECTIVE: This is a white male with pneumonia, left upper lobe mass, COPD exacerbation, ischemic cardiomyopathy, CHF. He is on oral Lasix now. He is on oral Levaquin every 24 hours and Solu-Medrol 40 IV daily. Awaiting discharge planning for half-way placement on Tuesday. CARDIOVASCULAR: S1, S2. LUNGS: Transmitted upper sounds. GI: Soft, nontender. EXTREMITIES: Extremely weak and fatigued. He remains on IV Zosyn antibiotics also and Entresto for congestive heart failure. VITAL SIGNS: Reviewed. CARDIOVASCULAR: S1, S2. LUNGS: Show scattered rhonchi and wheeze. HEMATOLOGY: Negative Homans. OPHTHALMOLOGICAL: Pupils equal, round, reactive to light and accommodation. NEUROLOGIC: Alert, orient x3. ASSESSMENT: 1. Congestive heart failure. 2. Chronic obstructive pulmonary disease. 3. Pneumonia. 4. Left upper lobe mass. 5. Ischemic cardiomyopathy. Continue current treatments, follow up next 24-48 hours. Expect discharge to half-way on Tuesday. Try to wean oxygen as tolerated. MMODL / IJN: [id number] /
--- NOTE | 2017-12-03 17:19 | PN ---
PROGRESS NOTE DATE OF SERVICE: 12/03/2017 He is less short of breath and doing somewhat better overall. On physical examination, his blood pressure is 92/58, respiratory rate of 18, pulse rate of 76, temperature 96.6, O2 saturation on 5 L by nasal cannula is 91%. HEENT is unremarkable. Chest reveals decreased breath sounds in the bases. No wheeze today. Cardiovascular system reveals an S1, S2. Abdomen is soft. There is trace to 1+ pedal edema. PT/INR is 3. Sodium 135, potassium 3.7, chloride 86, bicarb 33, BUN 31, creatinine 1.05. IMPRESSION: 1. Aspiration pneumonia. 2. Congestive heart failure. 3. Cardiomyopathy. 4. Ventricular arrhythmias status post ventricular ablation. Increase his activity level. Continue him on his current medications which are reviewed. Agree with possible discharge planning to a rehab unit in the next few days. MMDEIONL / ALVINN: [id number] /
[2017-12-03 17:20] LABS: Glucose,Whole Blood 212 mg/dL (75-99)
[2017-12-03] MEDS: LEVOFLOXACIN 500 MG TAB PO SCH (20:15)
[2017-12-03] MEDS: DONEPEZIL 10 MG TAB PO SCH (20:15)
[2017-12-03] MEDS: IPRATROPIUM-ALBUTEROL 3 ML NEB INHALATION PRN (20:44)
[2017-12-03 21:04] LABS: Glucose,Whole Blood 144 mg/dL (75-99)
--- NOTE | 2017-12-03 22:55 | PN ---
PROGRESS NOTE DATE OF SERVICE: 12/03/2017. REASON FOR FOLLOWUP: Possible aspiration pneumonia. INTERVAL HISTORY: The patient is afebrile. His overall breathing has improved. Denies having any chest pain. Cough is mostly dry in nature. No abdominal pain. No nausea, vomiting and no diarrhea. EXAMINATION: Blood pressure is 83/49 with a pulse of 57, temperature of 97. He is 94% on 5L nasal cannula. GENERAL DESCRIPTION: Elderly male lying in bed in no distress. RESPIRATORY SYSTEM: Unlabored breathing, decreased intensity of breath sounds. No wheeze. HEART: S1, S2. Regular rate and rhythm. ABDOMEN: Soft. No tenderness. EXTREMITIES: No edema of the feet. LABS: INR of 3 1. Hemoglobin is 11.1, white count 13.7 with a BUN of 31, creatinine 1.05. Sputum repeat has been no growth. DIAGNOSTIC IMPRESSION AND PLAN: Patient admitted to the hospital with difficulty breathing which is likely multifactorial with a possibility of pneumonia, question of aspiration etiology. The patient this time is covered with Zosyn and Levaquin as no resistant organism has been grown. He should be able to finish therapy with oral Augmentin in a week to 10 days. Continue supportive care. MMODL / IJN: [id number] /
[2017-12-04 05:59] LABS: Glucose,Whole Blood 108 mg/dL (75-99)
[2017-12-04] MEDS: INSULIN ASPART 100 UNIT/ML 1 ML 10 ML VIAL SQ SCH ×4 (06:25→21:35)
[2017-12-04] MEDS: PANTOPRAZOLE 40 MG TABLET PO SCH (06:30)
[2017-12-04] MEDS: IPRATROPIUM 0.5 MG/2.5 ML NEBU INHALATION SCH ×2 (08:35→16:52)
[2017-12-04] MEDS: BUDESONIDE 0.5 MG/2 ML NEBU INHALATION SCH ×2 (08:35→21:28)
[2017-12-04] MEDS: PIPERACILLIN-TAZOBACTAM 3.375 GM in DEXTROSE/WATER 1 50ML.BAG IVPB SCH ×3 (08:55→21:36)
[2017-12-04] MEDS: ASPIRIN 81 MG PO SCH (08:56)
[2017-12-04] MEDS: AMIODARONE 100 MG TAB PO SCH (08:56)
[2017-12-04] MEDS: ATORVASTATIN 40 MG TAB PO SCH (08:56)
[2017-12-04] MEDS: CLOPIDOGREL 75 MG TAB PO SCH (08:57)
[2017-12-04] MEDS: HYDROcodone/APAP 10-325MG 1 EACH TAB PO SCH ×3 (08:57→21:38)
[2017-12-04] MEDS: GABAPENTIN 300 MG CAP PO SCH ×3 (08:57→21:36)
[2017-12-04] MEDS: FUROSEMIDE 40 MG TAB PO SCH ×2 (08:57→17:16)
[2017-12-04] MEDS: guaiFENesin 600 MG TABLET.ER PO SCH ×2 (08:57→21:35)
[2017-12-04] MEDS: methylPREDNISolone SOD SUCCI 40 MG/ML 1 ML VIAL IV SCH (08:59)
[2017-12-04] MEDS: SPIRONOLACTONE 25 MG TAB PO SCH (09:00)
[2017-12-04] MEDS: SACUBITRIL/VALSARTAN 24 MG-26 MG TABLET PO SCH ×3 (10:22→21:35)
[2017-12-04] MEDS: METOPROLOL TARTRATE 25 MG TAB PO SCH ×2 (10:22→21:35)
[2017-12-04] MEDS: MEXILETINE 150 MG CAP PO SCH (10:28)
[2017-12-04 11:52] LABS: Glucose,Whole Blood 113 mg/dL (75-99)
--- NOTE | 2017-12-04 13:11 | PN ---
PROGRESS NOTE SUBJECTIVE: 67-year-old white male, COPD, pneumonia, congestive heart failure, remains on IV Solu- Medrol being switched off IV antibiotics to oral antibiotics in next 24-48 hours. Possible discharge. He has been placed on Entresto. We will get monitor for 2 days. Watch his electrolytes. Cardiovascular S1-S2. Lungs scattered rhonchi and wheeze. Hematology negative Homans. Psych: Fair mood and affect. Ophthalmologic: Pupils equal, round, reactive to light and accommodation. Wears glasses. ASSESSMENT: 1. Chronic obstructive pulmonary disease. 2. Congestive heart failure. 3. Ischemic cardiomyopathy. 4. Pneumonia. 5. Healthcare acquired pneumonia. 6. Hypertension. 7. Nicotine addiction. 8. Generalized debility. Prognosis guarded. Will need [facility] placement on Tuesday. He does not want to go home. He wants to go to a assisted for rehab. He is on 3 L, down from 5 at this time. He states he takes 3-4 at home. He is very weak and he has had very little ambulation. MMODL / IJN: [id number] /
--- NOTE | 2017-12-04 14:20 | P.PN ---
Subjective Fausto is lying comfortably in bed. He is less short of breath now increased be comfortable but looks quite weak and frail. No chest discomfort he has not had any sustained ventricular tachycardia after his VT ablation however his blood pressure is low on ENTRESTO and I plan to reduce the dose by half On examination he is afebrile 97.2F blood pressure 92 50 mmHg pulse rate in 60s his breaths are shallow and nonlabored on examination of lungs he has crackles at both bases Heart sounds S1 and S2 are soft no murmurs no gallops Abdomen is soft nontender Extremities warm No edema Impression Severe ischemic cardio myopathy Recurrent sustained atrial tachycardia and multiple ICD shocks status post successful ischemic VT ablation, Congestive heart failure, acute on chronic, improving Pneumonitis Suggest Reduce amiodarone to 100 mg by mouth daily, stop mexiletine, reduce ENTRESTO to half tablet twice a day Continue diuresis Objective - Vital Signs Vital signs: Vital Signs Temp 97.2 F L 12/04/17 12:00 Pulse 61 12/04/17 12:00 Resp 17 12/04/17 12:00 BP 98/50 12/04/17 12:00 Pulse Ox 96 12/04/17 12:00 Intake & Output 12/03/17 12/04/17 12/04/17 18:59 06:59 18:59 Intake Total 767 237 417 Output Total 550 600 Balance 767 -313 -183 Weight 68.3 kg Intake: Intake, IV Titration 50 Amount Piperacillin-Tazobactam 3 50 .375 gm In Dextrose/Water 1 50ml.bag @ 12.5 mls/hr IVPB Q8HR PENDING SALE TO [facility] Rx#: [id number] Oral 717 237 417 Output: Urine 550 200 Urine/Stool Mix 400 Other: Voiding Method Bedside Commode Bedside Commode Bedside Commode Urinal Urinal Urinal Incontinent Incontinent Incontinent # Voids 2 1 # Bowel Movements 1 - Labs CBC & Chem 7: 12/03/17 05:47 12/03/17 05:56 Labs: Abnormal Lab Results - Last 24 Hours (Table) 12/03/17 12/03/17 12/04/17 Range/Units 17:01 20:52 05:57 POC Glucose (mg/dL) 212 H 144 H 108 H (75-99) mg/dL 12/04/17 Range/Units 11:48 POC Glucose (mg/dL) 113 H (75-99) mg/dL Microbiology - Last 24 Hours (Table) 11/27/17 20:41 Blood Culture - Final Blood No Growth after 144 hours 11/27/17 16:41 Blood Culture - Final Blood No Growth after 144 hours 12/01/17 07:15 Gram Stain - Final Sputum Sputum Culture - Final
[2017-12-04 16:51] LABS: Glucose,Whole Blood 171 mg/dL (75-99)
--- NOTE | 2017-12-04 17:53 | PN ---
PROGRESS NOTE DATE OF SERVICE: December 04, 2017. He has been hemodynamically stable, less short of breath. On physical examination, his blood pressure is 98/50, respiratory rate of 17, pulse rate of 61, temperature 97.2, O2 saturation on 3 L by nasal cannula is 96%. HEENT is unremarkable. Chest reveals decreased breath sounds in the bases. No wheeze today. Cardiovascular system reveals an S1, S2. Abdomen is soft. There is trace to 1+ pedal edema. IMPRESSION: At this time is: 1. Aspiration type pneumonia. 2. Congestive heart failure. 3. Ventricular tachycardia. Continue antibiotics. Continue to optimize his fluid status. Increases activity level. Discharge planning to rehab unit is being considered, which would be appropriate. MMODL / IJN: [id number] /
[2017-12-04 21:17] LABS: Glucose,Whole Blood 130 mg/dL (75-99)
[2017-12-04] MEDS: IPRATROPIUM-ALBUTEROL 3 ML NEB INHALATION PRN (21:30)
[2017-12-04] MEDS: LEVOFLOXACIN 500 MG TAB PO SCH (21:35)
[2017-12-04] MEDS: DONEPEZIL 10 MG TAB PO SCH (21:35)
[2017-12-05] MEDS: IPRATROPIUM 0.5 MG/2.5 ML NEBU INHALATION SCH ×3 (00:41→13:42)
--- NOTE | 2017-12-05 06:21 | PN ---
PROGRESS NOTE DATE OF SERVICE: 12/04/2017 REASON FOR FOLLOWUP: Aspiration pneumonia. INTERVAL HISTORY: The patient is afebrile. He has been breathing slightly comfortably. remains to be shortness of breath on minimal exertion. Cough has decreased in intensity, mostly dry in nature. No nausea, no vomiting. No abdominal pain. No diarrhea. PHYSICAL EXAMINATION: On examination, blood pressure is 98/50 with a pulse of 57, temperature of 98.9. He is 98% on 3 L nasal cannula. General description is an elderly male lying in bed in no distress. RESPIRATORY SYSTEM: Unlabored breathing with decreased intensity of breath sounds with no wheeze . HEART: S1, S2. Regular rate and rhythm. ABDOMEN: Soft, no tenderness. LABS: No new labs have been obtained today. Repeat sputum done on 12/01 is no growth. DIAGNOSTIC IMPRESSION AND PLAN: Patient admitted to the hospital with difficulty in breathing, which is likely multifactorial with a component of possible pneumonia of aspiration etiology. Sputum has been negative for any resistant pathogen. Currently on Zosyn. Recommend finish therapy with oral Augmentin for another 10 days. Continue supportive care. MMODL / IJN: [id number] / ANA CRISTINA
[2017-12-05 06:27] LABS: Glucose,Whole Blood 84 mg/dL (75-99)
[2017-12-05] MEDS: INSULIN ASPART 100 UNIT/ML 1 ML 10 ML VIAL SQ SCH ×4 (06:37→21:35)
[2017-12-05] MEDS: PANTOPRAZOLE 40 MG TABLET PO SCH (06:44)
[2017-12-05] MEDS: BUDESONIDE 0.5 MG/2 ML NEBU INHALATION SCH ×2 (08:49→20:54)
[2017-12-05] MEDS: PIPERACILLIN-TAZOBACTAM 3.375 GM in DEXTROSE/WATER 1 50ML.BAG IVPB SCH ×2 (09:26→17:52)
[2017-12-05] MEDS: FUROSEMIDE 40 MG TAB PO SCH ×2 (09:27→17:54)
[2017-12-05] MEDS: ATORVASTATIN 40 MG TAB PO SCH (09:27)
[2017-12-05] MEDS: ASPIRIN 81 MG PO SCH (09:27)
[2017-12-05] MEDS: AMIODARONE 100 MG TAB PO SCH (09:27)
[2017-12-05] MEDS: GABAPENTIN 300 MG CAP PO SCH ×3 (09:28→21:34)
[2017-12-05] MEDS: guaiFENesin 600 MG TABLET.ER PO SCH ×2 (09:28→20:43)
[2017-12-05] MEDS: HYDROcodone/APAP 10-325MG 1 EACH TAB PO SCH ×3 (09:28→21:34)
[2017-12-05] MEDS: METOPROLOL TARTRATE 25 MG TAB PO SCH ×2 (09:29→20:43)
[2017-12-05] MEDS: methylPREDNISolone SOD SUCCI 40 MG/ML 1 ML VIAL IV SCH (09:29)
[2017-12-05] MEDS: SPIRONOLACTONE 25 MG TAB PO SCH (09:29)
[2017-12-05] MEDS: SACUBITRIL/VALSARTAN 24 MG-26 MG TABLET PO SCH ×2 (09:30→20:42)
[2017-12-05] MEDS ORDERED: SODIUM CHLORIDE 0.65% NASAL SPRAY 44 ML BTL NASAL PRN (09:56)
--- NOTE | 2017-12-05 09:56 | P.PN ---
Subjective Progress Note Date: 12/05/17 Principal diagnosis: Acute exacerbation of CHF Patient seen and examined. Patient states he is not feeling very well. He states his breathing is okay but not great. He is on 3 L nasal cannula. He states he coughed up some pink tinged sputum this morning. However since then it has been clear. He has been using incentive spirometer and flutter therapy. He denies fevers and chills. He is planning to go to rehab today. He is complaining of sinus congestion. Objective - Vital Signs Vital signs: Vital Signs Temp 98.9 F 12/04/17 15:29 Pulse 68 12/05/17 09:08 Resp 18 12/05/17 03:25 BP 90/54 12/05/17 03:25 Pulse Ox 92 L 12/05/17 08:50 Intake & Output 12/04/17 12/05/17 12/05/17 18:59 06:59 18:59 Intake Total 894 150 118 Output Total 600 Balance 294 150 118 Weight 94 kg Intake: Oral 894 150 118 Output: Urine 200 Urine/Stool Mix 400 Other: Voiding Method Bedside Commode Urinal Incontinent # Voids 1 0 # Bowel Movements 1 - Exam Gen.: Patient is alert and oriented 3, no acute distress Cardiovascular: Regular rate and rhythm, S1/S2 Lungs: Diminished, otherwise clear Abdomen: Soft nontender nondistended positive bowel sounds Extremity: Positive edema - improving - Labs CBC & Chem 7: 12/03/17 05:47 12/03/17 05:56 Labs: Abnormal Lab Results - Last 24 Hours (Table) 12/04/17 12/04/17 12/04/17 Range/Units 11:48 16:34 21:09 POC Glucose (mg/dL) 113 H 171 H 130 H (75-99) mg/dL Assessment and Plan Assessment: Bilateral healthcare acquired pneumonia Acute exacerbation of CHF, systolic, EF 30-35% 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 Pleural thickening concerning for asbestos exposure vs mesothelioma Lower extremity edema COPD with asthma, unknown type Recent ventricular ablation Coronary artery disease and ischemic cardiomyopathy, status post CABG Hypertension Dyslipidemia NSTEMI O2 sats maintain saturation greater than or equal to 90% Antibiotics Bronchodilators Pulmicort Incentive spirometry and pulmonary hygiene Sputum culture - normal samantha Diuresis Aspiration precautions Prednisone taper GI and DVT prophylaxis PT OT Patient may benefit from pulmonary rehab which can be arranged as an outpatient Patient will need follow up PET/CT as an outpatient for 1.5 cm left upper lobe lung mass Continue Mucinex and flutter therapy Ok to DC to rehab today from pulmonary standpoint [place] nasal spray PRN
--- NOTE | 2017-12-05 10:20 | CDI ---
Last Revision, October 2017 Documentation Clarification Form Date: 12/05/2017 10:09:00 AM From: Jenn EmeryJOHNNY, CCDS Admit Date: 11/27/2017 6:16:00 PM Patient Name: Antonio Goncalves Visit Number: [id number] Discharge Date: ATTENTION: The Clinical Documentation Specialists (CDI) and [facility] Coding Staff appreciate your assistance in clarifying documentation. Please respond to the clarification below the line at the bottom and electronically sign. The CDI & [facility] Coding staff will review the response and follow-up if needed. Please note: Queries are made part of the Legal Health Record. If you have any questions, please contact the author of this message via ITS. Dr. Ramos Chin: Pneumonia was documented in your notes on 11/27 (H/P) and also subsequent progress notes: Per the pulmonary valuation consultant & the infectious disease consultants: the patient is diagnosed with and being treated for aspiration pneumonia. History/Risk Factors: CHF, COPD, SD, CVA, previous CABG & AICD. Current smoker. Clinical Indicators: LAB: WBC: 10.9^, Neut 10.1^, Lactic Acid 2.2, 2.6^. Cultures: Blood: neg x144 hrs. Sputum: neg. X-ray: 11/27 CXR: RENETTA opacity, atypical pneumonitis/pneumonia considered. 11/27 CT Chest: Cardiomegaly, pleural effusions, extensive bilateral pulmonary infiltrates. RENETTA pulmonary mass. Lung/Breathing assessment: SOB, shallow, cough Treatment: Albuterol INH, IV Heparin, IV Levaquin, IV Zosyn, O2 2-6Lnc In order to capture the severity of condition, please clarify if the condition signifies and you are treating for: Aspiration Pneumonia, identify if: o Due to solids or liquids Bacterial Pneumonia, specify causal organism (if known) o Gram Negative Pneumonia o Due to Strep o Due to Staph o Due to E. Coli o Other bacteria (please specify) Viral Pneumonia, specify casual organism (if known) Healthcare Acquired Pneumonia/Pneumonia, unspecified Other, please specify Unable to determine Please continue to document in your progress notes and discharge summary in order to capture severity of illness and risk of mortality. Include clinical findings that support your diagnosis. MTDD
[2017-12-05] MEDS: CLOPIDOGREL 75 MG TAB PO SCH (12:11)
[2017-12-05 12:42] LABS: Glucose,Whole Blood 110 mg/dL (75-99)
[2017-12-05] MEDS: IPRATROPIUM-ALBUTEROL 3 ML NEB INHALATION PRN ×3 (13:41→20:54)
[2017-12-05 14:48] VITALS: BMI 28.9
--- NOTE | 2017-12-05 15:32 | XR ---
EXAMINATION TYPE: XR chest 2V DATE OF EXAM: 12/05/2017 COMPARISON: Prior chest x-ray dated 12/01/2017 HISTORY: Follow-up congestive heart failure, shortness of breath TECHNIQUE: Frontal and lateral views of the chest are obtained. FINDINGS: Findings are similar to prior exam. Interstitium is increased. No evident pneumothorax. Th ere is a minimal blunting of the left costophrenic angle. Intracardiac defibrillator lead, post media n sternotomy change again noted. Heart remains enlarged. Area of trapped lung noted in the left upper lobe as on prior sparing along the lateral hemithorax. Prominent lung volume compatible with underly ing COPD. IMPRESSION: Correlate to exclude congestive heart failure, pulmonary venous hypertension and interst itial edema.
--- NOTE | 2017-12-05 15:44 | P.PN ---
Subjective Progress Note Date: 12/05/17 This is a 67-year-old gentleman with known history of coronary artery disease prior bypass surgery as well as a prior PCI, ischemic cardio myopathy with prior AICD, patient was just recently discharged home from the hospital after being here with ventricular tachycardia status post ablation, as well as associated congestive heart failure, patient also has history of atrial fibrillation, paroxysmal, hypothyroidism, hypertension, hyperlipidemia. He was discharged home from the hospital and gradually became more and more short of breath, significant orthopnea and exertional shortness of breath. He denies any overt chest discomfort, he states he's been coughing up a significant amount of dark green sputum. He denies having any fever or chills at home. At the time of my examination this morning, patient is quite short of breath, just having conversation. He was initiated on IV Lasix in the emergency room, his weight is down significantly from admission this morning. The patient, he has significant peripheral edema on arrival here, he continues to have mild peripheral edema this morning. Blood pressure on arrival here 110/64, heart rate 103, 92% on room air. Blood pressure this morning 100/70, 90% on 6 L of oxygen. White blood cell count 7.1, hemoglobin 9.6, INR 1.4, sodium 138, potassium 4.2, BUN 30, creatinine 0.8. AST 144 on admission, 101 this morning, ALT 74 on admission, 77 this morning. Alk phos 366. Troponin 14.3 and 8.6. BNP level on admission 43,600, 31,400 this morning. And BE were negative. Chest x-ray revealed similar appearing left upper lung opaque sitting, atypical pneumonitis or pneumonia should be considered on the background of pulmonary vascular congestion. CAT scan of the chest was performed which revealed pleural effusions, extensive bilateral pulmonary infiltrates and significant pulmonary interstitial fibrosis. Bilateral patchy extensive pleural thickening consistent with scarring. The possibility of mesothelioma cannot be excluded. Left upper lobe pulmonary mass of 1.5 cm. EKG on arrival here showed a normal sinus rhythm with inferior Q waves and nonspecific ST-T wave changes. Echocardiogram with Doppler study performed revealed an ejection fraction of 30- 35% with evidence of anterior septal, apical, and lateral hypokinesia. Moderate to severe MR. 11/29/2017 Patient was seen and examined this morning, he diuresed well through the night last night and states that his breathing is significantly improved. Blood pressure 92/60 with a heart rate in the 70s, 96% on 6 L of oxygen. A blood cell count 5.3, hemoglobin 9.6, platelet count 304. Sodium 135, potassium 3.8, BUN 34, [address] Vázquez did have a discussion with Dr. Cameron regarding VT ablation, they concur that the patient's abnormality in troponin could be secondary to the VT ablation. At this time we will continue maximal medical therapy. Patient is chest pain-free, if patient does have chest discomfort will proceed with cardiac catheterization. If patient remains stable and chest pain-free we will continue current medical therapy. 11/30/2017 Patient seen and examined this morning, continues to feel better every day. Denies any chest discomfort. Breathing overall is stable. INR 1.7, hemoglobin 10.2, creatinine 1.2. We'll check labs in the morning, continue IV Lasix for 24 hours. 12/02/2017 Patient seen and examined this morning, continues to feel better today. INR 4.5.b Arrangements are being made for the patient to be transferred to ECF. We will hold the Coumadin today check PT/INR. 12/03/2017 Seen and examined this morning, feeling better. INR this morning is 3.0. We will start the patient on Entresto today, continue to observe for 48 hours or so. 12/05/2017 Seen and examined this morning, feeling much better overall. It's are being made for transfer to ECF today. Objective - Vital Signs Vital signs: Vital Signs Temp 97.1 F L 12/05/17 12:10 Pulse 74 12/05/17 13:52 Resp 22 12/05/17 12:10 BP 82/53 12/05/17 12:10 Pulse Ox 93 L 12/05/17 12:10 Intake & Output 12/04/17 12/05/17 12/05/17 18:59 06:59 18:59 Intake Total 894 150 236 Output Total 600 Balance 294 150 236 Weight 94 kg 94 kg Intake: Oral 894 150 236 Output: Urine 200 Urine/Stool Mix 400 Other: Voiding Method Bedside Commode Bedside Commode Urinal Urinal Incontinent Incontinent # Voids 1 0 200 # Bowel Movements 1 - Exam PHYSICAL EXAMINATION: HEENT: Head is atraumatic, normocephalic. Pupils equal, round. Neck is supple. There is elevated jugular venous pressure. HEART EXAMINATION: Heart S1 and S2 systolic murmur is heard CHEST EXAMINATION: Lungs reveal decreased air exchange throughout, scattered coarse rhonchi, mild wheezing, diminished air entry to the bases. ABDOMEN: Soft, nontender. Bowel sounds are heard. No organomegaly noted. EXTREMITIES: 2+ peripheral pulses with trace evidence of peripheral edema and no calf tenderness noted. NEUROLOGIC patient is awake, alert and oriented -3. . - Labs CBC & Chem 7: 12/03/17 05:47 12/03/17 05:56 Labs: Abnormal Lab Results - Last 24 Hours (Table) 12/04/17 12/04/17 12/05/17 Range/Units 16:34 21:09 12:07 POC Glucose (mg/dL) 171 H 130 H 110 H (75-99) mg/dL Assessment and Plan Plan: Assessment and plan #1 respiratory distress secondary to combination of systolic congestive heart failure acute on chronic BNP level 43,000 on admission, pneumonia #2 known history of coronary artery disease with prior bypass surgery, recent heart catheterization revealed occlusion of all vein grafts an open JAVIER to the LAD, recent stenting to the circumflex. #3 severe ischemic cardiomyopathy with prior AICD #4 ventricular tachycardia with recent VT ablation earlier this month #5 paroxysmal atrial fibrillation, on Coumadin for anticoagulation, INR subtherapeutic at 1.4. #6 hypertension #7 hyperlipidemia #8 abnormal troponins, could be secondary to recent VT ablation, patient denies having any chest discomfort. Cannot rule out non-Q-wave NM. Plan Continue the patient on his current medications. Once he is discharged home from the hospital we will make him a follow-up appointment in the office post discharge. DNP note has been reviewed, I agree with a documented findings and plan of care. Patient was seen and examined.
[2017-12-05 16:28] LABS: Glucose,Whole Blood 173 mg/dL (75-99)
[2017-12-05] MEDS: AMOXIC-POT CLAV 875-125MG 1 EACH TAB PO SCH (20:43)
[2017-12-05] MEDS: DONEPEZIL 10 MG TAB PO SCH (20:43)
[2017-12-05 21:01] LABS: Glucose,Whole Blood 142 mg/dL (75-99)
[2017-12-06] MEDS: IPRATROPIUM 0.5 MG/2.5 ML NEBU INHALATION SCH ×2 (00:55→08:58)
[2017-12-06 05:24] LABS: Glucose,Whole Blood 146 mg/dL (75-99)
[2017-12-06] MEDS: PANTOPRAZOLE 40 MG TABLET PO SCH (06:53)
[2017-12-06] MEDS: INSULIN ASPART 100 UNIT/ML 1 ML 10 ML VIAL SQ SCH ×2 (06:53→12:11)
--- NOTE | 2017-12-06 07:23 | PN ---
PROGRESS NOTE DATE OF SERVICE: REASON FOR FOLLOWUP: Aspiration pneumonia. INTERVAL HISTORY: The patient is afebrile, has been breathing slightly comfortably, shortness of breath, mostly on Zosyn. Denies any chest pain. Cough decreased in intensity, mostly dry in nature. No abdominal pain, no diarrhea. PHYSICAL EXAMINATION: Blood pressure 105/65 with a pulse of 80, temperature of 97.2, he is 91% on 3 L nasal cannula. General description is an elderly male, lying in bed in no distress. RESPIRATORY SYSTEM: Unlabored breathing with decreased intensity of breath sounds, no wheeze. HEART: S1, S2. Regular rate and rhythm. ABDOMEN: Soft, no tenderness. LABS: No new labs have been obtained today. Sputum culture x2 has been usual respiratory samantha. Blood culture has been negative. DIAGNOSTIC IMPRESSION AND PLAN: Patient with difficulty breathing, approximately likely multifactorial with a component of possible pneumonia, aspiration in etiology. Patient at this time on oral Augmentin, continue for about a week or 10 days. Continue supportive care. MMODL / IJN: [id number] /
--- NOTE | 2017-12-06 08:46 | DS ---
DISCHARGE SUMMARY DISCHARGE MEDICATIONS: 1. DuoNeb q.i.d. 2. Cordarone 100 mg daily. 3. Augmentin 875 one b.i.d. for 10 days. 4. Aspirin 81 mg daily. 5. Lipitor 40 mg daily. 6. Pulmicort 0.5 mg b.i.d. 7. Plavix 75 mg daily. 8. Aricept 10 mg daily. 9. Lasix 40 mg b.i.d. 10.Neurontin 300 mg t.i.d. 11.Mucinex 1200 q.12. 12.[place] 10 t.i.d. 13.Accu-Chek protocol a.c. and bedtime with regular insulin. 14.Lopressor 25 b.i.d. 15.Nitrostat 0.4 mg sublingual p.r.n. 16.Protonix 40 mg daily/. 17.Prednisone 40 mg daily for 3 days, 20 mg for 3 days, then 10 mg every day. 18.Entresto 24/ one b.i.d. 0.5 each p.o. b.i.d. 19.Saline nasal spray 2 sprays each nostril q.i.d. 20.Aldactone 25 mg daily. 21.Warfarin 2 mg daily. CONDITION: Stable. DISCHARGE DIAGNOSES: 1. Ischemic cardiomyopathy, congestive heart failure. 2. Chronic obstructive pulmonary disease exacerbation. 3. Ventricular tachycardia. 4. Severe ischemic cardiomyopathy. 5. Coronary artery disease. 6. Dyslipidemia. 7. Pneumonia, left upper lobe mass. 8. Congestive heart failure. 9. Hospital-acquired pneumonia. Continue with current treatment. Follow up in the next 24 to 48 hours. Patient was started on Entresto for CHF. Coumadin, Plavix and aspirin were given for anti arrhythmics. Amiodarone has been ordered 100 mg a day per Cardiology. He was taken off his home medication for antiarrhythmic. The patient was stabilized per Pulmonary, Cardiology. Pneumonia was treated with IV antibiotics switched over to Augmentin 875 one b.i.d. on discharge. COPD was treated with IV Solu-Medrol to taper down to steroid taper. Patient was stabilized. Patient will follow up as outpatient. MMODL / IJN: [id number] /
[2017-12-06] MEDS: CLOPIDOGREL 75 MG TAB PO SCH (08:51)
[2017-12-06] MEDS: ATORVASTATIN 40 MG TAB PO SCH (08:51)
[2017-12-06] MEDS: ASPIRIN 81 MG PO SCH (08:51)
[2017-12-06] MEDS: AMOXIC-POT CLAV 875-125MG 1 EACH TAB PO SCH (08:51)
[2017-12-06] MEDS: AMIODARONE 100 MG TAB PO SCH (08:51)
[2017-12-06] MEDS: GABAPENTIN 300 MG CAP PO SCH (08:52)
[2017-12-06] MEDS: guaiFENesin 600 MG TABLET.ER PO SCH (08:52)
[2017-12-06] MEDS: METOPROLOL TARTRATE 25 MG TAB PO SCH (08:52)
[2017-12-06] MEDS: FUROSEMIDE 40 MG TAB PO SCH (08:52)
[2017-12-06] MEDS: SACUBITRIL/VALSARTAN 24 MG-26 MG TABLET PO SCH (08:53)
[2017-12-06] MEDS: SPIRONOLACTONE 25 MG TAB PO SCH (08:53)
[2017-12-06] MEDS: BUDESONIDE 0.5 MG/2 ML NEBU INHALATION SCH (08:58)
[2017-12-06] MEDS ORDERED: predniSONE 20 MG TAB PO SCH ×2 (09:00)
[2017-12-06] MEDS: HYDROcodone/APAP 10-325MG 1 EACH TAB PO SCH (09:01)
[2017-12-06 09:07] VITALS: RESP 16
[2017-12-06 11:12] VITALS: BP 85/54; PULSE 71; TEMP 97
--- NOTE | 2017-12-06 11:52 | DS ---
DISCHARGE SUMMARY DISCHARGE MEDICATIONS: 1. Augmentin 875 mg 1 b.i.d. for 10 days. 2. Pulmicort nebulizer 0.5 mg b.i.d. 3. Lasix 40 mg b.i.d. 4. NovoLog a.c. and q.h.s. Accu-Cheks. 5. DuoNeb updrafts q.i.d. 6. Protonix 40 mg daily. 7. Entresto 1 tab b.i.d. 8. Saline nasal sprays 2 sprays each nostril q.i.d. 9. Aldactone 25 mg daily. 10.Guaifenesin 5 mL t.i.d. p.r.n. 11.Prednisone 40 mg daily for 3 days, 20 mg daily for 3 days, 10 mg daily for 3 days and then stay on 10 mg daily. 12.Amiodarone 100 mg daily. 13.Lipitor 40 mg q.h.s. 14.Plavix 75 mg daily. 15.Aricept 10 mg daily. 16.Neurontin 300 mg t.i.d. 17.Pierce 10 mg t.i.d. 18.Lopressor 25 mg b.i.d. 19.Nitrostat 0.4 mg sublingual p.r.n. 20.Warfarin 2 mg daily. PT/INR daily. Hold Coumadin if INR is over 3 for 2 days and then restart when it falls below 3. CONDITION: Stable. PROGNOSIS: Guarded. DISCHARGE DIAGNOSES: 1. Chronic obstructive pulmonary disease exacerbation. 2. Ischemic cardiomyopathy, systolic congestive heart failure. 3. Left upper lobe mass for which will need a CT scan in 2 weeks, repeat CT scan. 4. Oxygen will be needed at 3 L. He has got O2 dependent chronic obstructive pulmonary disease getting 3 L oxygen. 5. Titrate to keep oxygen level over 90. 6. Insulin-dependent diabetes mellitus. 7. Coumadin therapy. 8. Generalized weakness and debility. 9. Extremely poor gait dysfunction and generalized weakness. 10.Degenerative disc disease. 11.Osteoarthritis. HOSPITAL COURSE OF EVENTS: This is a white male came in the hospital with multiple bilateral pneumonia, left upper lobe mass, COPD exacerbation, systolic CHF, multiple treatments by Pulmonary, Cardiology, Infectious Disease were seen. The patient stabilized over the next week's time. He was started on a new drug Entresto for CHF for which he will take 1 tab b.i.d. He was taken off his other antiarrhythmics. He was kept on amiodarone. He will need a CT scan in 2 weeks to reassess the left upper lobe mass. Augmentin will be needed for 10 more days orally. Continue to have PT/OT for generalized weakness and poor gait imbalance. Follow up with Dr. Chin over at the [facility]. MMDEIONL / ALVINN: [id number] /
[2017-12-06 12:12] LABS: Glucose,Whole Blood 121 mg/dL (75-99)
--- NOTE | 2017-12-06 12:51 | CDI ---
Last Revision, October 2017 Documentation Clarification Form Date: 12/05/2017 10:09:00 AM Resubmitted 12/06/2017 From: Jenn Emery CCS, CCDS Admit Date: 11/27/2017 6:16:00 PM Patient Name: Antonio Goncalves Visit Number: [id number] Discharge Date: ATTENTION: The Clinical Documentation Specialists (CDI) and [facility] Coding Staff appreciate your assistance in clarifying documentation. Please respond to the clarification below the line at the bottom and electronically sign. The CDI & [facility] Coding staff will review the response and follow-up if needed. Please note: Queries are made part of the Legal Health Record. If you have any questions, please contact the author of this message via ITS. Dr. Ramos Chin: Pneumonia was documented in your notes on 11/27 (H/P) and also subsequent progress notes: Per the pulmonary client experience consultant & the infectious disease consultants: the patient is diagnosed with and being treated for aspiration pneumonia. History/Risk Factors: CHF, COPD, [place], CVA, previous CABG & AICD. Current smoker. Clinical Indicators: LAB: WBC: 10.9^, Neut 10.1^, Lactic Acid 2.2, 2.6^. Cultures: Blood: neg x144 hrs. Sputum: neg. X-ray: 11/27 CXR: RENETTA opacity, atypical pneumonitis/pneumonia considered. 11/27 CT Chest: Cardiomegaly, pleural effusions, extensive bilateral pulmonary infiltrates. RENETTA pulmonary mass. Lung/Breathing assessment: SOB, shallow, cough Treatment: Albuterol INH, IV Heparin, IV Levaquin, IV Zosyn, O2 2-6Lnc In order to capture the severity of condition, please clarify if the condition signifies and you are treating for: Aspiration Pneumonia, identify if: o Due to solids or liquids Bacterial Pneumonia, specify causal organism (if known) o Gram Negative Pneumonia o Due to Strep o Due to Staph o Due to E. Coli o Other bacteria (please specify) Viral Pneumonia, specify casual organism (if known) Healthcare Acquired Pneumonia/Pneumonia, unspecified Other, please specify Unable to determine Please continue to document in your progress notes and discharge summary in order to capture severity of illness and risk of mortality. Include clinical findings that support your diagnosis. MTDD
--- NOTE | 2017-12-06 13:41 | P.PN ---
Subjective Progress Note Date: 12/06/17 This is a 67-year-old gentleman with known history of coronary artery disease prior bypass surgery as well as a prior PCI, ischemic cardio myopathy with prior AICD, patient was just recently discharged home from the hospital after being here with ventricular tachycardia status post ablation, as well as associated congestive heart failure, patient also has history of atrial fibrillation, paroxysmal, hypothyroidism, hypertension, hyperlipidemia. He was discharged home from the hospital and gradually became more and more short of breath, significant orthopnea and exertional shortness of breath. He denies any overt chest discomfort, he states he's been coughing up a significant amount of dark green sputum. He denies having any fever or chills at home. At the time of my examination this morning, patient is quite short of breath, just having conversation. He was initiated on IV Lasix in the emergency room, his weight is down significantly from admission this morning. The patient, he has significant peripheral edema on arrival here, he continues to have mild peripheral edema this morning. Blood pressure on arrival here 110/64, heart rate 103, 92% on room air. Blood pressure this morning 100/70, 90% on 6 L of oxygen. White blood cell count 7.1, hemoglobin 9.6, INR 1.4, sodium 138, potassium 4.2, BUN 30, creatinine 0.8. AST 144 on admission, 101 this morning, ALT 74 on admission, 77 this morning. Alk phos 366. Troponin 14.3 and 8.6. BNP level on admission 43,600, 31,400 this morning. And BE were negative. Chest x-ray revealed similar appearing left upper lung opaque sitting, atypical pneumonitis or pneumonia should be considered on the background of pulmonary vascular congestion. CAT scan of the chest was performed which revealed pleural effusions, extensive bilateral pulmonary infiltrates and significant pulmonary interstitial fibrosis. Bilateral patchy extensive pleural thickening consistent with scarring. The possibility of mesothelioma cannot be excluded. Left upper lobe pulmonary mass of 1.5 cm. EKG on arrival here showed a normal sinus rhythm with inferior Q waves and nonspecific ST-T wave changes. Echocardiogram with Doppler study performed revealed an ejection fraction of 30- 35% with evidence of anterior septal, apical, and lateral hypokinesia. Moderate to severe MR. 11/29/2017 Patient was seen and examined this morning, he diuresed well through the night last night and states that his breathing is significantly improved. Blood pressure 92/60 with a heart rate in the 70s, 96% on 6 L of oxygen. A blood cell count 5.3, hemoglobin 9.6, platelet count 304. Sodium 135, potassium 3.8, BUN [address], [address] Vázquez did have a discussion with Dr. Cameron regarding VT ablation, they concur that the patient's abnormality in troponin could be secondary to the VT ablation. At this time we will continue maximal medical therapy. Patient is chest pain-free, if patient does have chest discomfort will proceed with cardiac catheterization. If patient remains stable and chest pain-free we will continue current medical therapy. 11/30/2017 Patient seen and examined this morning, continues to feel better every day. Denies any chest discomfort. Breathing overall is stable. INR 1.7, hemoglobin 10.2, creatinine 1.2. We'll check labs in the morning, continue IV Lasix for 24 hours. 12/02/2017 Patient seen and examined this morning, continues to feel better today. INR 4.5.b Arrangements are being made for the patient to be transferred to ECF. We will hold the Coumadin today check PT/INR. 12/03/2017 Seen and examined this morning, feeling better. INR this morning is 3.0. We will start the patient on Entresto today, continue to observe for 48 hours or so. 12/05/2017 Seen and examined this morning, feeling much better overall. It's are being made for transfer to ECF today. 12/06/17 Patient was seen and examined this morning, feeling well overall. Denies any shortness of breath, being transferred to ECF today. Objective - Vital Signs Vital signs: Vital Signs Temp 97 F L 12/06/17 11:10 Pulse 71 12/06/17 11:10 Resp 16 12/06/17 11:10 BP 85/54 12/06/17 11:10 Pulse Ox 92 L 12/06/17 11:10 Intake & Output 12/05/17 12/06/17 12/06/17 18:59 06:59 18:59 Intake Total 236 120 480 Output Total 350 500 Balance 236 -230 -20 Weight 94 kg 94 kg Intake: Oral 236 120 480 Output: Urine 350 500 Other: Voiding Method Bedside Commode Bedside Commode Bedside Commode Urinal Urinal Urinal Incontinent Incontinent Incontinent # Voids 200 1 - Exam PHYSICAL EXAMINATION: HEENT: Head is atraumatic, normocephalic. Pupils equal, round. Neck is supple. There is elevated jugular venous pressure. HEART EXAMINATION: Heart S1 and S2 systolic murmur is heard CHEST EXAMINATION: Lungs reveal decreased air exchange throughout, scattered coarse rhonchi, mild wheezing, diminished air entry to the bases. ABDOMEN: Soft, nontender. Bowel sounds are heard. No organomegaly noted. EXTREMITIES: 2+ peripheral pulses with trace evidence of peripheral edema and no calf tenderness noted. NEUROLOGIC patient is awake, alert and oriented -3. . - Labs CBC & Chem 7: 12/03/17 05:47 12/03/17 05:56 Labs: Abnormal Lab Results - Last 24 Hours (Table) 12/05/17 12/05/17 12/06/17 Range/Units 16:22 21:00 05:22 POC Glucose (mg/dL) 173 H 142 H 146 H (75-99) mg/dL 12/06/17 Range/Units 11:46 POC Glucose (mg/dL) 121 H (75-99) mg/dL Assessment and Plan Plan: Assessment and plan #1 respiratory distress secondary to combination of systolic congestive heart failure acute on chronic BNP level 43,000 on admission, pneumonia #2 known history of coronary artery disease with prior bypass surgery, recent heart catheterization revealed occlusion of all vein grafts an open JAVIER to the LAD, recent stenting to the circumflex. #3 severe ischemic cardiomyopathy with prior AICD #4 ventricular tachycardia with recent VT ablation earlier this month #5 paroxysmal atrial fibrillation, on Coumadin for anticoagulation, INR subtherapeutic at 1.4. #6 hypertension #7 hyperlipidemia #8 abnormal troponins, could be secondary to recent VT ablation, patient denies having any chest discomfort. Cannot rule out non-Q-wave AK. Plan Continue the patient on his current medications. Once he is discharged home from the hospital we will make him a follow-up appointment in the office post discharge. DNP note has been reviewed, I agree with a documented findings and plan of care. Patient was seen and examined.
--- NOTE | 2017-12-06 16:25 | PN ---
PROGRESS NOTE DATE OF SERVICE: 12/06/2017 REASON FOR FOLLOWUP: Aspiration pneumonia. INTERVAL HISTORY: The patient was seen on rounds this morning. The patient has been afebrile, has been breathing a little bit more comfortably. Cough has decreased in intensity and is less productive now. No chest pain. No nausea, vomiting, abdominal pain or diarrhea with antibiotic therapy. PHYSICAL EXAMINATION: Blood pressure 102/58 with a pulse of 61, temperature 97.1. He is 94% on 2 L nasal cannula. General description is an elderly male lying in bed in no distress. RESPIRATORY SYSTEM: Unlabored breathing. Decreased intensity of breath sounds. No wheeze or crackle. HEART: S1, S2. Regular rate and rhythm. ABDOMEN: Soft. No tenderness. LABS: No new labs have been obtained today. His sputum culture has been negative. DIAGNOSTIC IMPRESSION AND PLAN: Patient admitted to hospital with difficulty breathing which is multifactorial. Patient has possible component of pneumonia, question of aspiration etiology. The patient did have sputum cultures x2 that have been negative for any resistant pathogen. Plan is to finish therapy with Augmentin for another 7 to 10 days with close outpatient followup. MMODL / IJN: [id number] /
== END 2017-12-06 13:07 | DRG 280 ==
LOC: EC 15:49 → 6SEL 18:16
PROVIDERS: ADMIT Family Medicine; ATTEND Family Medicine
DX: I11.0 Hypertensive heart disease with heart failure (principal); I21.4 Non-ST elevation (NSTEMI) myocardial infarction; J18.9 Pneumonia, unspecified organism; I47.2 Ventricular tachycardia; I48.0 Paroxysmal atrial fibrillation; C45.9 Mesothelioma, unspecified; Z99.81 Dependence on supplemental oxygen; J44.1 Chronic obstructive pulmonary disease with (acute) exacerbation; I50.23 Acute on chronic systolic (congestive) heart failure; I25.5 Ischemic cardiomyopathy; F17.210 Nicotine dependence, cigarettes, uncomplicated; I25.10 Atherosclerotic heart disease of native coronary artery without angina pectoris; E78.5 Hyperlipidemia, unspecified; Y95 Nosocomial condition; M19.90 Unspecified osteoarthritis, unspecified site; R26.9 Unspecified abnormalities of gait and mobility; E11.9 Type 2 diabetes mellitus without complications; E03.9 Hypothyroidism, unspecified; R91.1 Solitary pulmonary nodule; Z77.090 Contact with and (suspected) exposure to asbestos; Z82.49 Family history of ischemic heart disease and other diseases of the circulatory system; Z86.73 Personal history of transient ischemic attack (TIA), and cerebral infarction without residual deficits; Z95.810 Presence of automatic (implantable) cardiac defibrillator; Z95.1 Presence of aortocoronary bypass graft; Z79.82 Long term (current) use of aspirin; Z79.02 Long term (current) use of antithrombotics/antiplatelets; Z79.4 Long term (current) use of insulin; Z79.01 Long term (current) use of anticoagulants; Z79.899 Other long term (current) drug therapy; I25.2 Old myocardial infarction; Z79.891 Long term (current) use of opiate analgesic; Z86.79 Personal history of other diseases of the circulatory system
CPT/HCPCS: 36415; 71045; 71046; 71250; 80048; 80053; 82550; 82553; 83036; 83605; 83735; 83880; 84484; 85025; 85610; 85730; 87040; 87070; 87205; 87502; 93005; 94640; 94667; 94760; 96365; 96375; 96376; 99291

== ENCOUNTER 2017-12-09 06:19 | Inpatient (IN) | payer MEDICARE, OTHER ==
[2017-12-09] MEDS ORDERED: IPRATROPIUM-ALBUTEROL 3 ML NEB INHALATION STA (06:23)
--- NOTE | 2017-12-09 06:31 | ED ---
General Adult HPI - General Source: patient, EMS, RN notes reviewed, old records reviewed <Guillermo Brooke - Last Filed: 12/09/17 07:10> <Vipin Adkins - Last Filed: 12/09/17 07:50> - General Stated complaint: SARAH Time Seen by Provider: 12/09/17 06:23 - History of Present Illness Initial comments: 67-year-old male with history of COPD, lung mass, congestive heart failure and ischemic cardiomyopathy presents for evaluation of hypoxia. [facility] with oxygen saturation in the 60s to 80s. Patient was placed on Cipro mask with improvement in oxygenation to the high 80s. Patient states he has had a productive cough of yellow sputum. Denies central chest pain. Patient does report orthopnea and lower extremity swelling. Denies fever. Denies abdominal pain nausea and vomiting. (Guillermo Brooke) - Related Data Home Medications Medication Instructions Recorded Confirmed Donepezil [Aricept] 10 mg PO HS 06/16/17 11/27/17 HYDROcodone/APAP 10-325MG [[place] 1 tab PO TID 06/16/17 11/27/17 10-325] Atorvastatin [Lipitor] 40 mg PO QAM 10/16/17 11/27/17 Gabapentin [Neurontin] 300 mg PO TID 10/16/17 11/27/17 Clopidogrel [Plavix] 75 mg PO QAM 11/12/17 11/27/17 Warfarin Sodium 2 mg PO DAILY 11/22/17 11/27/17 Previous Rx's Medication Instructions Recorded Nitroglycerin Sl Tabs [Nitrostat] 0.4 mg SUBLINGUAL Q5M PRN #25 tab 10/20/17 Amiodarone [Cordarone] 100 mg PO DAILY #90 tab 11/15/17 Metoprolol Tartrate [Lopressor] 25 mg PO BID #60 tab 11/22/17 Amoxic-Pot Clav 875-125Mg 1 each PO Q12HR #20 tab 12/05/17 [Augmentin 875-125] Budesonide [Pulmicort] 0.5 mg INHALATION RT-BID nebu 12/05/17 Furosemide [Lasix] 40 mg PO BID@0900,1600 tab 12/05/17 Insulin Aspart [NovoLOG 0 unit SQ ACHS vial 12/05/17 (formulary)] Ipratropium-Albuterol Nebulize 3 ml INHALATION RT-Q4H PRN #120 12/05/17 [Duoneb 0.5 mg-3 mg/3 ml Soln] ampul.floyd Pantoprazole [Protonix] 40 mg PO AC-BRKFST tablet. 12/05/17 Sacubitril/Valsartan [Entresto 24 0.5 each PO BID #60 tablet 12/05/17 mg-26 mg Tablet] Sodium Chloride 0.65% Nasal [Deep 2 spray NASAL QID PRN spray 12/05/17 Sea (Saline)] Spironolactone [Aldactone] 25 mg PO DAILY #30 tab 12/05/17 guaiFENesin SYRUP 100MG/5ML 5 ml PO AC-TID PRN #100 ml 12/05/17 [Robitussin] predniSONE 40 mg PO DAILY tab 12/05/17 Allergies Allergy/AdvReac Type Severity Reaction Status Date / Time No Known Allergies Allergy Verified 11/27/17 16:13 Review of Systems ROS Other: All systems not noted in ROS Statement are negative. <Guillermo Brooke - Last Filed: 12/09/17 07:10> ROS Other: All systems not noted in ROS Statement are negative. <Vipin Adkins - Last Filed: 12/09/17 07:50> ROS Statement: Those systems with pertinent positive or pertinent negative responses have been documented in the HPI. Past Medical History Past Medical History: Asthma, Chest Pain / Angina, Heart Failure, COPD, CVA/TIA , Myocardial Infarction (ID), Thyroid Disorder Additional Past Medical History / Comment(s): AICD, chronic pain in back, legs, and arms Last Myocardial Infarction Date:: 10/19/2017 History of Any Multi-Drug Resistant Organisms: None Reported Past Surgical History: Back Surgery, Coronary Bypass/CABG, Heart Catheterization With Stent Past Anesthesia/Blood Transfusion Reactions: No Reported Reaction Date of Last Stent Placement:: 10/19/2017 Past Psychological History: No Psychological Hx Reported Smoking Status: Former smoker Past Alcohol Use History: None Reported Past Drug Use History: None Reported - Past Family History Mother Family Medical History: Myocardial Infarction (ID) <Guillermo Brooke - Last Filed: 12/09/17 07:10> General Exam General appearance: alert, in distress Head exam: Present: atraumatic, normocephalic Eye exam: Present: normal appearance, PERRL Neck exam: Present: normal inspection. Absent: tenderness, meningismus Respiratory exam: Present: wheezes, rales, rhonchi Cardiovascular Exam: Present: regular rate, normal rhythm GI/Abdominal exam: Present: soft. Absent: distended, tenderness Extremities exam: Present: pedal edema Back exam: Present: normal inspection, full ROM Neurological exam: Present: alert, oriented X3, CN II-XII intact. Absent: motor sensory deficit Psychiatric exam: Present: normal affect, normal mood Skin exam: Present: warm, dry, intact. Absent: cyanosis, diaphoretic <Guillermo Brooke - Last Filed: 12/09/17 07:10> Course <Guillermo Brooke - Last Filed: 12/09/17 07:10> <Vipin Adkins - Last Filed: 12/09/17 07:50> Vital Signs 12/09/17 12/09/17 12/09/17 06:25 06:33 06:48 Temperature 98.8 F Pulse Rate 73 82 Respiratory 20 20 Rate Blood Pressure 91/54 O2 Sat by Pulse 84 L Oximetry 12/09/17 12/09/17 12/09/17 06:51 07:03 07:12 Temperature Pulse Rate 82 96 81 Respiratory 20 22 Rate Blood Pressure 78/50 81/57 O2 Sat by Pulse 82 L 89 L Oximetry - Reevaluation(s) Reevaluation #1: 12/09/17 07:10 Patient's care is signed out to Dr. Adkins at shift change. (Guillermo Brooke ) 12/09/17 07:42 Case was also discussed with Dr. Gill was previously seen this patient. He recommends providing albumin. He does not want patient to have fluid bolus because of severe ischemic cardiomyopathy. He believes 30 mL/kg bolus will be harmful to this patient. Dr. Brooke felt similarly. Patient does have chronic hypotension. 12/09/17 07:47 Case also discussed with Dr. Patel's who will consult. She also agrees with not providing fluid bolus. 12/09/17 07:48 There is suspicion for pneumonia diagnosed at 7:48 AM. Hypotension is chronic and therefore patient will not receive fluid bolus. 12/09/17 07:49 Patient confirms his DO NOT RESUSCITATE status. Cardiology has been paged. (Vipin Adkins) EKG Findings - EKG Comments: EKG Findings:: EKG shows normal sinus rhythm, ventricular rate 90, AZ interval 166, QRS duration 118, QTC 447, there is no ST segment elevation or depression. <Guillermo Brooke - Last Filed: 12/09/17 07:10> Medical Decision Making - Lab Data Result diagrams: 12/09/17 06:26 <Guillermo Brooke - Last Filed: 12/09/17 07:10> - Lab Data Result diagrams: 12/09/17 06:26 12/09/17 06:26 - Radiology Data Radiology results: image reviewed (Chest x-ray shows suspicion for bilateral infiltrates. Cannot exclude acute CHF exacerbation.) <Vipin Adkins - Last Filed: 12/09/17 07:50> - Medical Decision Making Patient reevaluated and resting comfortably in bed. Oxygen saturation 89% with Ventimask. Lung sounds with rales. Case was discussed in detail with Dr. Chin, who will admit his patient. (Vipin Adkins) - Lab Data Lab Results 12/09/17 12/09/17 12/09/17 Range/Units 06:26 06:26 06:26 WBC 14.3 H (3.8-10.6) k/uL RBC 4.13 L (4.30-5.90) m/uL Hgb 11.1 L (13.0-17.5) gm/dL Hct 36.2 L (39.0-53.0) % MCV 87.6 (80.0-100.0) fL MCH 26.8 (25.0-35.0) pg MCHC 30.6 L (31.0-37.0) g/dL RDW 14.8 (11.5-15.5) % Plt Count 148 L (150-450) k/uL Neutrophils % 94 % Lymphocytes % 3 % Monocytes % 3 % Eosinophils % 0 % Basophils % 0 % Neutrophils # 13.5 H (1.3-7.7) k/uL Lymphocytes # 0.4 L (1.0-4.8) k/uL Monocytes # 0.4 (0-1.0) k/uL Eosinophils # 0.0 (0-0.7) k/uL Basophils # 0.0 (0-0.2) k/uL Hypochromasia Marked PT (9.0-12.0) sec INR (<1.2) APTT (22.0-30.0) sec Sodium 135 L (137-145) mmol/L Potassium 4.5 (3.5-5.1) mmol/L Chloride 96 L (98-107) mmol/L Carbon Dioxide 32 H (22-30) mmol/L Anion Gap 7 mmol/L BUN 19 (9-20) mg/dL Creatinine 1.04 (0.66-1.25) mg/dL Est GFR (MDRD) Af Amer >60 (>60 ml/min/1.73 sqM) Est GFR (MDRD) Non-Af >60 (>60 ml/min/1.73 sqM) Glucose 100 H (74-99) mg/dL Plasma Lactic Acid Robert (0.7-2.0) mmol/L Calcium 8.5 (8.4-10.2) mg/dL Magnesium 2.1 (1.6-2.3) mg/dL Total Bilirubin 0.8 (0.2-1.3) mg/dL AST 28 (17-59) U/L ALT 33 (21-72) U/L Alkaline Phosphatase 90 (38-126) U/L Total Creatine Kinase 30 L (55-170) U/L CK-MB (CK-2) 1.3 (0.0-2.4) ng/mL CK-MB (CK-2) Rel Index 4.3 Troponin I 0.647 H* (0.000-0.034) ng/mL Total Protein 5.2 L (6.3-8.2) g/dL Albumin 2.4 L (3.5-5.0) g/dL Influenza Type A RNA (Not Detectd) Influenza Type B (PCR) (Not Detectd) 12/09/17 12/09/17 12/09/17 Range/Units 06:26 06:26 06:32 WBC (3.8-10.6) k/uL RBC (4.30-5.90) m/uL Hgb (13.0-17.5) gm/dL Hct (39.0-53.0) % MCV (80.0-100.0) fL MCH (25.0-35.0) pg MCHC (31.0-37.0) g/dL RDW (11.5-15.5) % Plt Count (150-450) k/uL Neutrophils % % Lymphocytes % % Monocytes % % Eosinophils % % Basophils % % Neutrophils # (1.3-7.7) k/uL Lymphocytes # (1.0-4.8) k/uL Monocytes # (0-1.0) k/uL Eosinophils # (0-0.7) k/uL Basophils # (0-0.2) k/uL Hypochromasia PT 14.0 H (9.0-12.0) sec INR 1.5 H (<1.2) APTT 23.2 (22.0-30.0) sec Sodium (137-145) mmol/L Potassium (3.5-5.1) mmol/L Chloride (98-107) mmol/L Carbon Dioxide (22-30) mmol/L Anion Gap mmol/L BUN (9-20) mg/dL Creatinine (0.66-1.25) mg/dL Est GFR (MDRD) Af Amer (>60 ml/min/1.73 sqM) Est GFR (MDRD) Non-Af (>60 ml/min/1.73 sqM) Glucose (74-99) mg/dL Plasma Lactic Acid Robert 3.5 H* (0.7-2.0) mmol/L Calcium (8.4-10.2) mg/dL Magnesium (1.6-2.3) mg/dL Total Bilirubin (0.2-1.3) mg/dL AST (17-59) U/L ALT (21-72) U/L Alkaline Phosphatase (38-126) U/L Total Creatine Kinase (55-170) U/L CK-MB (CK-2) (0.0-2.4) ng/mL CK-MB (CK-2) Rel Index Troponin I (0.000-0.034) ng/mL Total Protein (6.3-8.2) g/dL Albumin (3.5-5.0) g/dL Influenza Type A RNA Not Detected (Not Detectd) Influenza Type B (PCR) Not Detected (Not Detectd) Critical Care Time Critical Care Time: Yes Total Critical Care Time: 34 <Vipin Adkins - Last Filed: 12/09/17 07:50> Disposition <Guillermo Brooke - Last Filed: 12/09/17 07:10> Decision Time: 07:50 <Vipin Adkins - Last Filed: 12/09/17 07:50> Clinical Impression: COPD (chronic obstructive pulmonary disease), Elevated troponin, Pneumonia, Sepsis Disposition: ADMITTED IP TO THIS HOSP Condition: Critical Referrals: Ramos Chin MD [Primary Care Provider] - 1-2 days
--- NOTE | 2017-12-09 06:59 | XR ---
EXAMINATION TYPE: XR chest 2V DATE OF EXAM: 12/09/2017 COMPARISON: Chest x-ray from 4 days ago. Older chest x-rays. CT chest November 27, 2017. HISTORY: History of COPD with shortness of breath today TECHNIQUE: Frontal and lateral views of the chest are obtained. FINDINGS: Post-CABG changes with mediastinal clips and sternal wires is redemonstrated. The osseous structures are intact. There is persisting cardiomegaly with single lead pacemaker/AICD. There is ch ronic parenchymal change with focal left upper lung lateral scarring. Left mid lung nodule is obscure d by pacemaker device. There is persistent interstitial and alveolar opacities. No pneumothorax is se en bilaterally. IMPRESSION: No significant change from prior studies, findings suspicious for acute process bilatera l infiltrates are identified. Cannot exclude acute CHF exacerbation as there is cardiomegaly with sma ll effusions remaining present. There is background of chronic edematous change and fibrosis noted.
[2017-12-09 07:04] LABS: ALT 33 U/L (21-72); AST 28 U/L (17-59); Albumin 2.4 g/dL (3.5-5.0); Alkaline Phosphatase 90 U/L (38-126); Anion Gap 7 mmol/L; Blood Urea Nitrogen 19 mg/dL (9-20); Calcium 8.5 mg/dL (8.4-10.2); Carbon Dioxide 32 mmol/L (22-30); Chloride 96 mmol/L (98-107); Glucose 100 mg/dL (74-99); Magnesium 2.1 mg/dL (1.6-2.3); Potassium 4.5 mmol/L (3.5-5.1); Sodium 135 mmol/L (137-145); Total Bilirubin 0.8 mg/dL (0.2-1.3); Total Protein 5.2 g/dL (6.3-8.2)
[2017-12-09 07:05] LABS: INR 1.5 (<1.2); Partial Thromboplastin Time 23.2 sec (22.0-30.0)
[2017-12-09 07:12] LABS: Basophils % (A) 0 %; Eosinophils % (A) 0 %; HCT 36.2 % (39.0-53.0); HGB 11.1 gm/dL (13.0-17.5); Hypochromasia Marked; Lymphocytes # (A) 0.4 k/uL (1.0-4.8); Lymphocytes % (A) 3 %; MCH 26.8 pg (25.0-35.0); MCHC 30.6 g/dL (31.0-37.0); MCV 87.6 fL (80.0-100.0); Mean Platelet Volume 8.3; Monocytes # (A) 0.4 k/uL (0-1.0); Monocytes % (A) 3 %; Neutrophils # (A) 13.5 k/uL (1.3-7.7); Neutrophils % (A) 94 %; Platelet Count 148 k/uL (150-450); RBC 4.13 m/uL (4.30-5.90); RDW 14.8 % (11.5-15.5); WBC 14.3 k/uL (3.8-10.6)
[2017-12-09 07:16] LABS: Creatine Kinase MB 1.3 ng/mL (0.0-2.4)
[2017-12-09 07:20] LABS: Troponin I 0.647 ng/mL (0.000-0.034)
[2017-12-09] MEDS ORDERED: PNEUMONIA PROTOCOL UTILIZED 1 EACH MISC PO PRN (07:51)
[2017-12-09] MEDS ORDERED: LEVOFLOXACIN 750MG-D5W PMX 750 MG in DEXTROSE/WATER 1 150ML.BAG IVPB STA (07:51)
[2017-12-09] MEDS ORDERED: PIPERACILLIN-TAZOBACTAM 3.375 GM in DEXTROSE/WATER 1 50ML.BAG IVPB STA (07:51)
[2017-12-09] MEDS ORDERED: IPRATROPIUM-ALBUTEROL 3 ML NEB INHALATION PRN (07:51)
[2017-12-09] MEDS ORDERED: ALBUMIN HUMAN 5% 250 ML in EMPTY BAG 1 BAG IVPB STA (07:51)
[2017-12-09] MEDS ORDERED: ASPIRIN 81 MG PO STA (07:54)
[2017-12-09] MEDS ORDERED: SODIUM CHLORIDE 0.9% 1,000 ML IV SCH (08:00)
[2017-12-09] MEDS ORDERED: SODIUM CHLORIDE 0.9% 250 ML IV STA (08:12)
[2017-12-09 09:43] LABS: Glucose,Whole Blood 99 mg/dL (75-99)
[2017-12-09] MEDS ORDERED: NALOXONE 0.4 MG/ML 1 ML VIAL IV PRN (10:18)
[2017-12-09] MEDS ORDERED: PANTOPRAZOLE 40 MG/10 ML VIAL IV SCH (10:30)
[2017-12-09] MEDS ORDERED: MILRINONE-D5W PMX 20 MG in DEXTROSE/WATER 1 100ML.BAG IV SCH (10:45)
[2017-12-09] MEDS ORDERED: DOPamine DRIP 800 MG in DEXTROSE/WATER 1 500ML.BAG IV SCH (11:15)
[2017-12-09] MEDS ORDERED: FUROSEMIDE 250 MG in SODIUM CHLORIDE 0.9% 225 ML IVP SCH (11:15)
[2017-12-09] MEDS: IPRATROPIUM-ALBUTEROL 3 ML NEB INHALATION SCH ×4 (11:17→19:41)
--- NOTE | 2017-12-09 11:21 | P.CNPUL ---
<Zuri Reyes E - Last Filed: 12/09/17 11:30> History of Present Illness Consult date: 12/09/17 Requesting physician: Ramos Chin Reason for consult: pneumonia Chief complaint: shortness of breath History of present illness: This is a 67-year-old male patient being seen examined and evaluated today in the intensive care unit. This patient is well-known to our services. This patient was previously admitted to the hospital 11/27-12/08, for bilateral pneumonia, COPD exacerbation and systolic CHF. Patient was brought into the emergency room from her ECF after decreasing oxygen saturations ranging in the 60s to 80s. The patient was put on a Ventimask his oxygen saturations increased 80s. He does complain of shortness of breath cough and congestion with yellow sputum. Also have some bilateral lower extremity edema. Chest x- ray did reveal acute bilateral infiltrates, cannot exclude acute CHF exacerbation with bilateral small effusions. Patient was also hypotensive in the emergency room and could not be fluid resuscitated aggressively due to severe ischemic cardiomyopathy. Therefore the patient was given a fluid bolus of only 250 mL and also received 250 ML's of albumin. Patient is placed on Levaquin and Zosyn for antibiotics. Breathing treatments were initiated. Primacor has been initiated for a map greater than 65. Patient has a Bowie catheter and has adequate urine output. Patient was noted to have a white count of 14.3, also had a lactic acid of 3.5, troponin 0.647, albumin 2.4. Influenza swab negative. Review of Systems 14 point ROS completed and is negative unless noted above. Past Medical History Past Medical History: Atrial Fibrillation, Asthma, Coronary Artery Disease (CAD) , Chest Pain / Angina, Heart Failure, COPD, CVA/TIA, Dementia, Diabetes Mellitus , GERD/Reflux, Hyperlipidemia, Myocardial Infarction (MD), Pneumonia, Respiratory Disorder, Syncope, Thyroid Disorder Additional Past Medical History / Comment(s): Recent admission to [facility] (11/27/17) and tx for pneumonia, COPD, multiple bilateral pneumonias, chronic hypoxic respiratory failure, O2 at 3L/NC, L upper lobe mass-to have follow up cat scan , chronic CHF, ischemic cardiomyopathy, VT with ablation and AICD, CVA and TIA, generalized weakness, gait dysfunction, IDDM type II, chronic low back pain, DDD , hyponatremia, acute and possibly chronic renal failure, nephrolithiasis, hypothyroid. Last Myocardial Infarction Date:: 10/16/2017 History of Any Multi-Drug Resistant Organisms: None Reported Past Surgical History: Back Surgery, Coronary Bypass/CABG, Heart Catheterization With Stent Past Anesthesia/Blood Transfusion Reactions: No Reported Reaction Date of Last Stent Placement:: 10/16/2017 Smoking Status: Former smoker - Past Family History Mother Family Medical History: Myocardial Infarction (MD) Additional Family Medical History / Comment(s): Mother had a MD, pt unable to recall at what age. Mother lived to be 82 yrs old. Father History Unknown: Yes Additional Family Medical History / Comment(s): Father was raised by his step father since age 2 yrs. Medications and Allergies Home Medications Medication Instructions Recorded Confirmed Type Donepezil [Aricept] 10 mg PO HS 06/16/17 12/09/17 History HYDROcodone/APAP 10-325MG [[place] 1 tab PO TID 06/16/17 12/09/17 History 10-325] Atorvastatin [Lipitor] 40 mg PO QAM 10/16/17 12/09/17 History Gabapentin [Neurontin] 300 mg PO TID 10/16/17 12/09/17 History Nitroglycerin Sl Tabs [Nitrostat] 0.4 mg SUBLINGUAL Q5M PRN #25 tab 10/20/17 Rx Clopidogrel [Plavix] 75 mg PO DAILY 11/12/17 12/09/17 History Amiodarone [Cordarone] 100 mg PO DAILY #90 tab 11/15/17 12/09/17 Rx Metoprolol Tartrate [Lopressor] 25 mg PO BID #60 tab 11/22/17 12/09/17 Rx Warfarin Sodium 2 mg PO DAILY@1700 11/22/17 12/09/17 History Budesonide [Pulmicort] 0.5 mg INHALATION RT-BID nebu 12/05/17 12/09/17 Rx Ipratropium-Albuterol Nebulize 3 ml INHALATION RT-Q4H PRN #120 12/05/17 Rx [Duoneb 0.5 mg-3 mg/3 ml Soln] ampul.neb Sodium Chloride 0.65% Nasal [Deep 2 spray NASAL QID PRN spray 12/05/17 Rx Sea (Saline)] Spironolactone [Aldactone] 25 mg PO DAILY #30 tab 12/05/17 12/09/17 Rx guaiFENesin SYRUP 100MG/5ML 5 ml PO AC-TID PRN #100 ml 12/05/17 12/09/17 Rx [Robitussin] Amoxic-Pot Clav 875-125Mg 1 tab PO Q12HR 12/09/17 12/09/17 History [Augmentin 875-125] Furosemide [Lasix] 40 mg PO BID@0800,1600 12/09/17 12/09/17 History Insulin Aspart [NovoLOG See Protocol SQ ACHS 12/09/17 12/09/17 History (formulary)] Midodrine HCl [ProAmatine] 2.5 mg PO TID 12/09/17 12/09/17 History Pantoprazole [Protonix] 40 mg PO DAILY 12/09/17 12/09/17 History Sacubitril/Valsartan [Entresto 24 0.5 tab PO BID 12/09/17 12/09/17 History mg-26 mg Tablet] predniSONE See Taper PO DIRECTED 12/09/17 12/09/17 History Allergies Allergy/AdvReac Type Severity Reaction Status Date / Time No Known Allergies Allergy Verified 12/09/17 08:13 Physical Exam Vitals: Vital Signs Temp Pulse Resp BP Pulse Ox 12/09/17 09:01 84 22 91/51 92 L 12/09/17 08:36 84 22 94/53 88 L 12/09/17 08:15 97.5 F L 85 24 85/50 87 L 12/09/17 07:12 81 22 81/57 89 L 12/09/17 07:03 96 12/09/17 06:51 82 20 78/50 82 L 12/09/17 06:48 82 12/09/17 06:33 20 12/09/17 06:25 98.8 F 73 20 91/54 84 L Intake and Output 12/08/17 12/09/17 12/09/17 22:59 06:59 14:59 Intake Total 75 Output Total 800 Balance -725 Intake: IV 75 Sodium Chloride 0.9% 1, 75 000 ml @ 75 mls/hr IV . [id number] [facility], [facility] Rx#:[id number] Output: Urine 800 Other: Weight 68.039 kg GENERAL EXAM: Alert, comfortable in mild apparent distress. HEAD: Normocephalic. EYES: Normal reaction of pupils, equal size. NOSE: Clear with pink turbinates. THROAT: No erythema or exudates. NECK: No masses, no JVD. CHEST: No chest wall deformity. LUNGS: Lungs noted to have rhonchi and rales and wheezes scattered throughout. CVS: S1 and S2 normal with no audible mumurs, regular rhythm. ABDOMEN: No hepatosplenomegaly, normal bowel sounds, no guarding or rigidity. EXTREMITIES: +2 pedal edema CENTRAL NERVOUS SYSTEM: No focal deficits, tone is normal in all 4 extremities. Results - Laboratory Findings CBC and BMP: 12/09/17 06:26 12/09/17 06:26 PT/INR, D-dimer PT 14.0 sec (9.0-12.0) H 12/09/17 06:26 INR 1.5 (<1.2) H 12/09/17 06:26 Abnormal lab findings: Abnormal Labs 12/09/17 12/09/17 12/09/17 06:26 06:26 06:26 WBC 14.3 H RBC 4.13 L Hgb 11.1 L Hct 36.2 L MCHC 30.6 L Plt Count 148 L Neutrophils # 13.5 H Lymphocytes # 0.4 L PT INR Sodium 135 L Chloride 96 L Carbon Dioxide 32 H Glucose 100 H Plasma Lactic Acid Robert Total Creatine Kinase 30 L Troponin I 0.647 H* Total Protein 5.2 L Albumin 2.4 L 12/09/17 12/09/17 06:26 06:26 WBC RBC Hgb Hct MCHC Plt Count Neutrophils # Lymphocytes # PT 14.0 H INR 1.5 H Sodium Chloride Carbon Dioxide Glucose Plasma Lactic Acid Robert 3.5 H* Total Creatine Kinase Troponin I Total Protein Albumin - Diagnostic Findings Chest x-ray: report reviewed, image reviewed Assessment and Plan Plan: Assessment Sepsis Bilateral pneumonia Acute exacerbation of COPD Acute exacerbation of CHF Acute hypoxic respiratory failure requiring supplemental oxygen Hypotension Bilateral pleural effusions Severe ischemic cardiomyopathy AICD History of CABG with heart Plan Medications have been reviewed and will be continued as ordered. We will start Primacor and titrate for map greater than 65. Closely monitor I & O's. Continue with pulmonary hygiene, coughing and deep breathing exercises, and supportive care. Supplemental oxygen to maintain oxygen saturations of 92% or better. May utilize BiPAP if needed. Continue nebulizer treatments. GI and DVT prophylaxis. Labs and repeat x-ray in the morning. Cardiology also on consult and appreciate recommendations. We will continue to monitor labs/ results and adjust treatment as necessary. Further recommendations pending. I performed an examination of the patient and discussed their management with the nurse practitioner. I have reviewed the nurse practitioner's note and agree with the documented findings and plan of care. <Chanel Farrar - Last Filed: 12/09/17 15:00> Physical Exam Osteopathic Statement: *. No significant issues noted on an osteopathic structural exam other than those noted in the History and Physical/Consult. Vitals: Vital Signs Temp Pulse Resp BP Pulse Ox 12/09/17 14:30 86 31 H 86/52 93 L 12/09/17 14:00 88 20 85/47 94 L 12/09/17 13:30 86 28 H 74/43 96 12/09/17 13:00 90 26 H 85/53 86 L 12/09/17 12:30 81 22 75/47 88 L 12/09/17 12:00 83 20 84/55 90 L 12/09/17 11:30 79 20 75/50 92 L 12/09/17 11:28 79 12/09/17 11:17 77 12/09/17 11:00 80 22 75/56 94 L 12/09/17 10:30 74 16 80/49 96 12/09/17 10:00 74 19 79/47 94 L 12/09/17 09:30 82 48 H 86/55 93 L 12/09/17 09:01 84 22 91/51 92 L 12/09/17 08:36 84 22 94/53 88 L 12/09/17 08:15 97.5 F L 85 24 85/50 87 L 12/09/17 07:12 81 22 81/57 89 L 12/09/17 07:03 96 12/09/17 06:51 82 20 78/50 82 L 12/09/17 06:48 82 12/09/17 06:33 20 12/09/17 06:25 98.8 F 73 20 91/54 84 L Intake and Output 12/08/17 12/09/17 12/09/17 22:59 06:59 14:59 Intake Total 195 Output Total 1275 Balance -1080 Intake: IV 195 Furosemide 250 mg In 15 Sodium Chloride 0.9% 225 ml @ 5 MG/HR 5 mls/hr IVP .Q24H [facility], [facility]1983 Rx#:[id number] Sodium Chloride 0.9% 1, 180 000 ml @ 75 mls/hr IV . [id number] RIGOBERTO Rx#:[id number] Output: Urine 1275 Other: Weight 68.039 kg 68.039 kg Patient Weight 12/10/17 06:59 Weight 68.039 kg Results - Laboratory Findings CBC and BMP: 12/09/17 06:26 12/09/17 06:26 PT/INR, D-dimer PT 14.0 sec (9.0-12.0) H 12/09/17 06:26 INR 1.5 (<1.2) H 12/09/17 06:26 Abnormal lab findings: Abnormal Labs 12/09/17 12/09/17 12/09/17 06:26 06:26 06:26 WBC 14.3 H RBC 4.13 L Hgb 11.1 L Hct 36.2 L MCHC 30.6 L Plt Count 148 L Neutrophils # 13.5 H Lymphocytes # 0.4 L PT INR Sodium 135 L Chloride 96 L Carbon Dioxide 32 H Glucose 100 H Plasma Lactic Acid Robert Total Creatine Kinase 30 L Troponin I 0.647 H* Total Protein 5.2 L Albumin 2.4 L 12/09/17 12/09/17 12/09/17 06:26 06:26 11:47 WBC RBC Hgb Hct MCHC Plt Count Neutrophils # Lymphocytes # PT 14.0 H INR 1.5 H Sodium Chloride Carbon Dioxide Glucose Plasma Lactic Acid Robert 3.5 H* Total Creatine Kinase 29 L Troponin I 0.716 H* Total Protein Albumin Assessment and Plan Plan: Plan for transfer to [facility] for Advanced Heart Failure evaluation. Continue dopamine for now. Patient placed on NRB with O2 sat 94%. Contiue Lasix drip. Prognosis guarded. Chanel Farrar DO
[2017-12-09] MEDS ORDERED: methylPREDNISolone SOD SUCCI 125 MG/2 ML VIAL IV SCH (12:00)
--- NOTE | 2017-12-09 12:01 | CONS ---
CONSULTATION Mr. Goncalves is a 67-year-old gentleman who was transferred from the [facility]. Patient's old medical records reviewed. This patient is known to have ischemic cardiomyopathy with advanced heart failure. Patient has a past history of AICD placement. Patient has a previous history of coronary artery bypass surgery. Patient was admitted with a non-Q-wave myocardial infarction in October of 2017. At that time, patient underwent stent to the [place] circumflex artery. All the venous grafts were closed. JAVIER graft to the LAD was patent. Patient was subsequently admitted in end of October with a recurrent sustained ventricular tachycardia and patient underwent VT ablation. Patient subsequently has been in the hospital most of the time with respiratory distress and at once, heart failure. Patient was just recently discharged to the [facility]. Patient became short of breath and his saturation was in 60s to 80s and patient was admitted over here. Patient denies any significant cough with expectoration. He had evidence of and swelling in the lower extremities. Patient's blood pressure is running in the range of usually 70 to 80 systolic. HOME MEDICATIONS: Included Aricept, Lipitor, Plavix, Neurontin, Nitrostat, Cordarone 100 mg daily and Crestor 24/26 mg 1/2 tablet b.i.d., spironolactone once a day and prednisone once a day. PAST MEDICAL HISTORY: Includes history of back surgery, history of coronary artery bypass surgery, AICD, history of COPD, history of possible stroke in the past and recent stent to the circumflex coronary artery. PHYSICAL EXAMINATION: At present reveals a 67-year-old gentleman who appears in [id number] respiratory distress. Patient's blood pressure is 70 to 80s systolic, the respiratory rate is 22, oxygen saturation is now 98%. HEENT examination is negative. Neck is supple. Jugular venous pressure is difficult to assess. First and second heart sounds are normal. Lungs reveal bilateral rales in the lower one-third of the lung odom. Abdomen is soft. Extremities. there is a 1 to 2+ pedal edema. Chest x-ray is suggestive of bilateral basal infiltrates suggestive of congestive cardiac failure. BNP is elevated. Patient's creatinine is normal. Patient had limited echocardiographic study was done, which again shows diffuse global hypokinesia with ejection fraction of 20% to 25%. Diastolic flow studies suggestive of restrictive physiology with elevated left atrial pressure. IVC is at the upper limit of normal and is not collapsing. FINAL IMPRESSION: This patient is admitted with respiratory distress and hypoxia, patient has advanced heart failure. Patient has ischemic cardiomyopathy with severely impaired left ventricular systolic function. This patient has spent most of November in the hospital and has just come back in the hospital. We are unable to give a lot of medications to the patient because patient's blood pressure remains low. In view of this recurrent admission and advanced refractory heart failure, I discussed with the patient as well as the patient's son to be transferred to [facility] for advanced cardiac cath. They are agreeable. At present, patient will be started on the Lasix drip as well as 5 mg/hour and a small dose of dopamine was started. If patient's blood pressure remained stable, we will also try a combination of milrinone. CATHY / JENAE: [id number] /
[2017-12-09 12:17] LABS: Appearance,Urine Clear (Clear); Bilirubin,Urine Negative (Negative); Blood,Urine Negative (Negative); Color,Urine Light Yellow; Glucose,Urine (UA) Negative (Negative); Ketones,Urine Negative (Negative); Leukocyte Esterase,Urine Negative (Negative); Nitrite,Urine Negative (Negative); PH, Urine 7.5 (5.0-8.0); Protein,Urine Negative (Negative); Specific Gravity,Urine 1.006 (1.001-1.035); Urobilinogen,Urine <2.0 mg/dL (<2.0)
[2017-12-09 12:35] LABS: Creatine Kinase MB 1.5 ng/mL (0.0-2.4)
[2017-12-09 12:42] LABS: Troponin I 0.716 ng/mL (0.000-0.034)
--- NOTE | 2017-12-09 13:23 | ECHOF ---
Referral Reason:elevated troponin,chf MEASUREMENTS -------- HEIGHT: 180.3 cm WEIGHT: 68.0 kg BP: 75/56 IVSd: 1.0 cm (0.6 - 1.1) LVIDd: 6.7 cm (3.9 - 5.3) LVPWd: 1.3 cm (0.6 - 1.1) IVSs: 1.3 cm LVIDs: 5.8 cm LVPWs: 1.4 cm Ao Diam: 3.6 cm (2.0 - 3.7) AV Cusp: 1.8 cm (1.5 - 2.6) LA Diam: 4.4 cm (2.7 - 3.8) MV E Popeye: 0.97 m/s MV DecT: 157 ms MV A Popeye: 0.83 m/s MV E/A Ratio: 1.17 RAP: 5.00 mmHg RVSP: 38.41 mmHg FINDINGS -------- Resting bradycardia (HR<60bpm). This was a technically good study. Limited study for assessment of left ventricular function. Prev ious study 11/13/17 The left ventricle is moderately dilated. There is borderline concentric left ventricular hypertrop hy. There is severe global hypokinesis of LV . Overall left ventricular systolic function is jeremy rely impaired with, an EF between 20 - 25 %. CONCLUSIONS -------- 1. Resting bradycardia (HR<60bpm). 2. This was a technically good study. 3. Limited study for assessment of left ventricular function. 4. Previous study 11/13/17 5. The left ventricle is moderately dilated. 6. There is borderline concentric left ventricular hypertrophy. 7. There is severe global hypokinesis of LV . 8. Overall left ventricular systolic function is severely impaired with, an EF between 20 - 25 %. UNDERGROUND CONDUIT INSTALLER: Rigo Pozo RDCS
[2017-12-09 14:13] VITALS: BMI 20.9
[2017-12-09] MEDS ORDERED: HEPARIN SODIUM,PORCINE 5,000 UNIT/ML 1 ML VIAL SQ SCH (16:00)
[2017-12-09] MEDS ORDERED: PIPERACILLIN-TAZOBACTAM 3.375 GM in DEXTROSE/WATER 1 50ML.BAG IVPB SCH (16:00)
[2017-12-09 17:36] LABS: Glucose,Whole Blood 137 mg/dL (75-99)
[2017-12-09 18:29] VITALS: BP 104/61; PULSE 92; RESP 29; TEMP 98.1
[2017-12-09] MEDS ORDERED: BUDESONIDE 0.5 MG/2 ML NEBU INHALATION SCH (20:00)
[2017-12-10] MEDS ORDERED: LEVOFLOXACIN 750MG-D5W PMX 750 MG in DEXTROSE/WATER 1 150ML.BAG IVPB SCH (06:00)
[2017-12-10] MEDS ORDERED: ASPIRIN 325 MG TAB PO SCH (09:00)
== END 2017-12-09 19:10 | disposition short-term general hospital (02) | DRG 871 ==
LOC: EC 06:19 → 6ICU 07:51
PROVIDERS: ADMIT Family Medicine; ATTEND Family Medicine
DX: A41.9 Sepsis, unspecified organism (principal); J18.9 Pneumonia, unspecified organism; J96.21 Acute and chronic respiratory failure with hypoxia; I50.23 Acute on chronic systolic (congestive) heart failure; J44.0 Chronic obstructive pulmonary disease with (acute) lower respiratory infection; J44.1 Chronic obstructive pulmonary disease with (acute) exacerbation; I48.91 Unspecified atrial fibrillation; F03.90 Unspecified dementia, unspecified severity, without behavioral disturbance, psychotic disturbance, mood disturbance, and anxiety; Z99.81 Dependence on supplemental oxygen; E11.9 Type 2 diabetes mellitus without complications; E78.5 Hyperlipidemia, unspecified; I25.10 Atherosclerotic heart disease of native coronary artery without angina pectoris; I25.2 Old myocardial infarction; I25.5 Ischemic cardiomyopathy; K21.9 Gastro-esophageal reflux disease without esophagitis; G89.29 Other chronic pain; M54.5 Low back pain; R26.9 Unspecified abnormalities of gait and mobility; R74.8 Abnormal levels of other serum enzymes; E03.9 Hypothyroidism, unspecified; M79.606 Pain in leg, unspecified; M79.603 Pain in arm, unspecified; R91.8 Other nonspecific abnormal finding of lung field; Z79.02 Long term (current) use of antithrombotics/antiplatelets; Z79.899 Other long term (current) drug therapy; Z79.01 Long term (current) use of anticoagulants; Z79.52 Long term (current) use of systemic steroids; Z86.73 Personal history of transient ischemic attack (TIA), and cerebral infarction without residual deficits; Z87.891 Personal history of nicotine dependence; Z95.1 Presence of aortocoronary bypass graft; Z95.810 Presence of automatic (implantable) cardiac defibrillator; Z95.5 Presence of coronary angioplasty implant and graft; Z82.49 Family history of ischemic heart disease and other diseases of the circulatory system
CPT/HCPCS: 36415; 71046; 80053; 81003; 82550; 82553; 83605; 83735; 83880; 84484; 85025; 85610; 85730; 87040; 87086; 87502; 93005; 93308; 94640; 96365; 99291